=== PATIENT | female | born 1975 | race Two or more races ===

== ENCOUNTER 2023-01-26 12:39 | Inpatient (IN) | payer OTHER, SELFPAY ==
[2023-01-26] VITALS (23 sets, daily range): BP systolic 101–131; BP diastolic 55–81; PULSE 83–118; RESP 18–24; TEMP 30–37.8; O2SAT 71–98; BMI 33.6
--- NOTE | ~2023-01-26 | XR_ITS ---
EXAMINATION: XR CHEST CLINICAL INFORMATION: ETT tube insertion COMPARISON: Chest radiograph 01/28/2023 TECHNIQUE: Frontal view of the chest was obtained at 10:35 AM and 10:38 AM. FINDINGS: Initial radiograph shows ET tube in right proximal mainstem bronchus with complete whiteout of the left lung. Film taken a few minutes later shows good position of the ET tube 3 cm above the berta with improved aeration of the left lung with remaining bibasilar atelectasis. XR/XR chest 1V IMPRESSION: 1. ET tube in good final position 3 cm above the berta. 2. Complete whiteout of the left lung has resolved with remaining bibasilar atelectasis.
--- NOTE | ~2023-01-26 | XR_ITS ---
EXAMINATION: XR ABDOMEN KUB CLINICAL INDICATION: Verified PEG placement COMPARISON: None available. TECHNIQUE: AP view of the abdomen. FINDINGS: Percutaneous catheter with balloon noted overlying the upper mid abdomen. Definitive localization within the intraluminal stomach cannot be verified. If concern about placement of gastrostomy catheter consider evaluation with contrast injection via the catheter and spot images after injection. Bowel gas is otherwise nonobstructive. Osseous structures are intact. Soft tissues are unremarkable. XR/XR KUB IMPRESSION: 1. Percutaneous catheter with balloon noted overlying the upper mid abdomen. Definitive localization within the intraluminal stomach cannot be verified. 2. If concern about intraluminal placement of gastrostomy catheter consider evaluation with contrast injection via the catheter and spot images after injection. 3. Bowel gas is otherwise nonobstructive.
--- NOTE | ~2023-01-26 | XR_ITS ---
EXAMINATION: XR CHEST CLINICAL INFORMATION: Fever. COMPARISON: Chest done on 02/04/2023. TECHNIQUE: Frontal view of the chest was obtained. FINDINGS: The tip of the endotracheal tube is located approximately 3.2 cm above the level of the berta. The left IJ central venous catheter tip is seen projecting at the cavoatrial junction. The enteric tube tip as well as the proximal sidehole projecting in the region of the distal part of the stomach. Low lung volume is noted bilaterally with superimposed patchy airspace disease predominantly at both lower lobes, similar to prior study. No definite evidence of any pleural effusion or pneumothorax. No significant interval change since the prior study. XR/XR chest 1V IMPRESSION: No significant change since 02/04/2023. The positioning of the tubes and catheters appear satisfactory and are unchanged.
--- NOTE | ~2023-01-26 | XR_ITS ---
EXAMINATION: XR CHEST CLINICAL INFORMATION: Respiratory difficulty COMPARISON: Chest radiograph 02/12/2023 TECHNIQUE: Frontal view of the chest was obtained. FINDINGS: Tracheostomy cannula in place. Retrocardiac opacity. No pleural effusion. Low lung volumes. XR/XR chest 1V IMPRESSION: Retrocardiac opacity concerning for atelectasis or pneumonia.
--- NOTE | ~2023-01-26 | XR_ITS ---
EXAMINATION: XR CHEST CLINICAL INFORMATION: Orogastric tube placement COMPARISON: None available. TECHNIQUE: Frontal view of the chest was obtained. FINDINGS: NG tube is looped within the stomach with its tip overlying the gastric antrum heart size within normal limits. ET tube in good position 3 cm above berta. Continued improvement in left basilar atelectasis with residual bilateral bibasilar atelectasis still remaining. XR/XR chest 1V IMPRESSION: NG tube is looped within the stomach with its tip overlying the gastric antrum.
--- NOTE | ~2023-01-26 | XR_ITS ---
EXAMINATION: XR CHEST CLINICAL INFORMATION: OG tube placement COMPARISON: Previous chest x-ray and chest CTA from earlier the same day TECHNIQUE: Frontal view of the chest was obtained. FINDINGS: There is a new OG tube with tip projecting over the proximal stomach. There is an endotracheal tube. The tip is 1 cm above the berta and should be pulled back. The cardiac and mediastinal contours are stable. The lung volumes are low. There is bilateral multilobar airspace disease suggestive of pneumonia. This is greatest at the lung bases. No pleural effusion or pneumothorax. Bony structures are unremarkable. XR/XR chest 1V IMPRESSION: OG tube projects over the stomach. Endotracheal tube tip is 1 cm above the berta and should be pulled back several centimeters. Low lung volumes and bilateral multilobar pneumonia greatest at the lung bases. Findings will be communicated by the [place] work flow wool sorter.
--- NOTE | ~2023-01-26 | CT_ITS ---
EXAMINATION: CT CHEST WITHOUT CONTRAST CLINICAL INFORMATION: Worsening hypoxia. COMPARISON: Chest x-ray 02/02/2023 TECHNIQUE: Multidetector volumetric CT imaging of the chest was done. Axial MIP volume rendering provided. Sagittal and coronal reformatted images were obtained. This CT examination was performed using dose optimization techniques as appropriate, variously including the following: *Automated exposure control *Adjustment of mA and/or kV according to patient size (this includes techniques or standardized protocols for targeted exams where dose is matched to indication/reason for exam; i.e. extremities or head) *Use of iterative reconstruction technique DLP: 253 mGy-cm FINDINGS: PUTTER IN: Hypoexpanded lungs. LUNGS: The lungs are hypoexpanded with dependent bilateral lower lobe and upper lobe infiltrates/consolidation. Also visualized is patchy infiltrates involving the anterobasal segment right lower lobe. MEDIASTINUM: There is endotracheal tube is tip 1.8 cm above the berta. There is enteric tube with its tip in the stomach. Thyroid lobes are symmetric and normal. Central trachea and the bronchi appear widely patent. Heart size and the great vessels are normal caliber. No pericardial effusion seen. CORONARY ARTERY CALCIFICATION: None visualized on this study. PLEURA: There are small bilateral effusions. AXILLA: No lymphadenopathy. UPPER ABDOMEN: Visualized liver, spleen, pancreas, bilateral gland and gallbladder appears unremarkable. OSSEOUS STRUCTURES: No aggressive lytic or sclerotic process seen. CT/CT chest wo IV con IMPRESSION: 1. Hypoexpanded lungs with dependent bilateral lower lobe and upper lobe infiltrates/consolidation. There are small bilateral pleural effusions. 2. Endotracheal tube and enteric tube are in satisfactory position. Fleischner guidelines were followed.
--- NOTE | ~2023-01-26 | US_ITS ---
EXAMINATION: US ABDOMEN LIMITED CLINICAL INFORMATION: Evaluate for a calculus cholecystitis. COMPARISON: Ultrasound abdomen from 02/10/2023 TECHNIQUE: Real-time imaging of the right upper quadrant abdominal viscera. Limited evaluation secondary to inability to obtain optimal patient positioning. FINDINGS: GALLBLADDER: Gallbladder appears contracted. Gallbladder wall thickening of 5 mm which is nonspecific in an contracted state. No pericholecystic fluid or fluid within the wall. No intraluminal calculi identified. COMMON BILE DUCT: Normal in caliber measuring 0.6 cm in diameter. FREE FLUID: None. US/US abdomen limited IMPRESSION: Gallbladder appears contracted with gallbladder wall thickening of 5 mm which is nonspecific in an contracted state. No pericholecystic fluid or fluid within the wall. No intraluminal calculi identified.
--- NOTE | ~2023-01-26 | XR_ITS ---
EXAMINATION: XR CHEST CLINICAL INFORMATION: Hypoxia. COMPARISON: 01/29/2023 TECHNIQUE: Frontal view of the chest was obtained. FINDINGS: The lung volumes are low. The cardiomediastinal silhouette is stable. There is an endotracheal tube in adequate position above the berta. A gastric tube extends below the diaphragm into the left upper abdomen in good position. There is patchy lower lung field consolidation. The bony structures and soft tissues are unremarkable. XR/XR chest 1V IMPRESSION: Endotracheal and gastric tubes in place. Lower lung field consolidation similar to previous possibly a combination of atelectasis and/or infiltrates.
--- NOTE | ~2023-01-26 | US_ITS ---
EXAMINATION: US VENOUS ULTRASOUND WITH DOPPLER LOWER EXTREMITY, BILATERAL CLINICAL INFORMATION: Hypoxia COMPARISON: None available. TECHNIQUE: Ultrasound of the deep veins is performed from the hip to the calf with compression sonography and color and pulse Doppler assessment. Spectral analysis with color-flow imaging is performed. FINDINGS: RIGHT: There is normal venous compression and respiratory variation and augmented flow. The visualized common femoral vein, superficial femoral vein, profunda femoral vein, popliteal vein, and the trifurcation region shows no evidence of deep venous thrombosis. There is no significant popliteal fossa cyst. LEFT: There is normal venous compression and respiratory variation and augmented flow. The visualized common femoral vein, superficial femoral vein, profunda femoral vein, popliteal vein, and the trifurcation region shows no evidence of deep venous thrombosis. There is no significant popliteal fossa cyst. If the patient's symptoms persist, followup ultrasound in 5 days 7 days might be of value to exclude proximal propagation from a non-visualized calf vein. US/US venous duplex LE BI IMPRESSION: No DVT demonstrated in the bilateral lower extremity.
--- NOTE | ~2023-01-26 | XR_ITS ---
EXAMINATION: XR CHEST CLINICAL INFORMATION: Hypoxia COMPARISON: Chest radiograph from 01/26/2023 TECHNIQUE: Frontal view of the chest was obtained. FINDINGS: Interval repositioning of endotracheal tube now approximately 6.5 cm from the level of berta in the supraclavicular region. Enteric tube courses below left hemidiaphragm into the stomach. Bilateral low lung volumes. Accentuation of the pulmonary vasculature. Bilateral airspace opacity's, increasing in the left lung base. No pneumothorax. Trachea is midline. Cardiomediastinal silhouette is stable. No large pleural effusion. Osseous structures are intact. Soft tissues are unremarkable. XR/XR chest 1V IMPRESSION: 1. Interval repositioning of endotracheal tube now approximately 6.5 cm from the level of berta in the supraclavicular region. 2. Enteric tube courses below left hemidiaphragm into the stomach. 3. Bilateral low lung volumes. 4. Accentuation of the pulmonary vasculature. 5. Bilateral airspace opacity's, increasing in the left lung base.
--- NOTE | ~2023-01-26 | XR_ITS ---
EXAMINATION: XR CHEST CLINICAL INFORMATION: Central line placement. COMPARISON: 02/02/2023. TECHNIQUE: Frontal view of the chest was obtained. FINDINGS: The lung volumes are low. The cardiomediastinal silhouette is stable. There is an endotracheal tube seen in good position above the berta. A gastric tube extends below the diaphragm with tip extending to the right midabdomen. Interval placement a left approach central line with terminates at the lower SVC/right atrial junction. There are bilateral mid to lower lung field infiltrates. There are no significant pleural effusions. The bony structures and soft tissues are unremarkable. XR/XR chest 1V IMPRESSION: 1. Endotracheal tube, gastric tube and right central line in place. 2. Bilateral mid to lower lung field infiltrates similar to previous.
--- NOTE | ~2023-01-26 | CT_ITS ---
EXAMINATION: CT ANGIOGRAM OF THE CHEST WITH AND WITHOUT CONTRAST (CT PULMONARY ANGIOGRAM FOR PE) CLINICAL INFORMATION: Reason for Exam SOB, tachycardic, elevated dimer COMPARISON: Previous chest x-ray from earlier the same day TECHNIQUE: Prior to contrast administration, noncontrast localization images were obtained. Subsequently, multidetector volumetric imaging was performed from the thoracic inlet to below the diaphragms following the administration of 65 mL Omnipaque 350 intravenous contrast. No contrast reaction reported Sagittal, coronal, and MIP oblique sagittal reformatted images were obtained on the CT workstation, uploaded to PACS, and reviewed. This CT examination was performed using dose optimization techniques as appropriate, variously including the following: *Automated exposure control *Adjustment of mA and/or kV according to patient size (this includes techniques or standardized protocols for targeted exams where dose is matched to indication/reason for exam; i.e. extremities or head) *Use of iterative reconstruction technique Total exam dose-length product 448 mGy-cm FINDINGS: QUALITY OF STUDY/CONTRAST BOLUS: Satisfactory. PULMONARY ARTERIES: No pulmonary emboli. THORACIC AORTA: No aneurysm. LUNG: There is an endotracheal tube with tip in the proximal right mainstem bronchus and should be pulled back several centimeters. There are scattered areas of increased groundglass attenuation probably representing pneumonitis. There is denser bilateral multilobar airspace disease probably representing pneumonia. The lung volumes are low. PLEURA: No pleural effusion or pneumothorax. MEDIASTINUM: Upper normal heart size. No pericardial effusion. No hilar or mediastinal lymphadenopathy. No evidence of septal bowing or right heart strain. CORONARY ARTERY CALCIFICATION: None visualized on this study. CHEST WALL/AXILLA: No axillary or internal mammary lymphadenopathy. OSSEOUS STRUCTURES: No acute or suspicious osseous abnormality. UPPER ABDOMEN: Unremarkable. No reflux of contrast into the hepatic veins to suggest elevated right heart pressures. CT/CT angio chest PE protocol IMPRESSION: No evidence of pulmonary embolism. Bilateral pneumonitis and multilobar pneumonia. Endotracheal tube with tip in the proximal right mainstem bronchus. This should be pulled back several centimeters. VTE: negative Findings will be communicated by the [place] work flow enamel burner.
--- NOTE | ~2023-01-26 | XR_ITS ---
EXAMINATION: XR CHEST CLINICAL INFORMATION: Hypoxia COMPARISON: Chest 02/26/2023 TECHNIQUE: AP upright portable view of the chest was obtained. 10:20 AM FINDINGS: Lung volumes are low. Tracheostomy tube is again identified. Retrocardiac consolidation in the left lower lobe with air bronchograms is unchanged. There are streaky densities at both lung bases consistent with atelectasis and/or pneumonia. The cardiomediastinal silhouette is stable. XR/XR chest 1V IMPRESSION: Retrocardiac consolidation with air bronchograms, without significant change, suspicious for pneumonia.
--- NOTE | ~2023-01-26 | XR_ITS ---
EXAMINATION: XR CHEST CLINICAL INFORMATION: Shortness of breath. COMPARISON: Chest radiograph dated 04/07/2012. TECHNIQUE: Frontal view of the chest was obtained. FINDINGS: Interstitial and pulmonary vascular prominence with small bilateral pleural effusions and adjacent atelectasis versus infiltrates. No pneumothorax. Unremarkable cardiomediastinal silhouette. XR/XR chest 1V IMPRESSION: Interstitial and pulmonary vascular prominence with small bilateral pleural effusions and adjacent atelectasis versus infiltrates. Findings can be seen in the setting of pulmonary edema.
--- NOTE | ~2023-01-26 | XR_ITS ---
EXAMINATION: XR CHEST CLINICAL INFORMATION: Leukocytosis, increased oxygen requirement COMPARISON: 02/21/2023 TECHNIQUE: Frontal view of the chest was obtained. FINDINGS: Tracheostomy tube is again evident. Retrocardiac consolidation in the left lower lobe with air bronchograms is unchanged. The right lung is grossly clear. XR/XR chest 1V IMPRESSION: Retrocardiac consolidation with air bronchograms, suspicious for pneumonia in the setting of leukocytosis, unchanged since 02/21/2023.
--- NOTE | ~2023-01-26 | XR_ITS ---
EXAMINATION: XR CHEST CLINICAL INFORMATION: Hypoxia. COMPARISON: 02/08/2023 chest radiograph. TECHNIQUE: Frontal view of the chest was obtained. FINDINGS: Support devices: Tracheostomy tube in place. Left-sided internal jugular catheter with tip terminating at the cavoatrial junction. Low lung volumes and evaluation. Mild to moderate elevation right hemidiaphragm. The lungs appear clear. The heart and mediastinal structures are unremarkable. XR/XR chest 1V IMPRESSION: Limited study without overt acute cardiopulmonary process.
--- NOTE | ~2023-01-26 | XR_ITS ---
EXAMINATION: XR CHEST CLINICAL INFORMATION: Worsening hypoxia. COMPARISON: 02/01/2023 chest radiograph. TECHNIQUE: Frontal view of the chest was obtained. FINDINGS: Support devices: Endotracheal tube is positioned approximately 2.5 cm proximal to berta. Low lung volumes limit evaluation. Mild bibasilar linear markings are seen. The heart and mediastinal structures are unremarkable. XR/XR chest 1V IMPRESSION: 1. Endotracheal tube positioned approximately 2.5 cm proximal to berta. 2. Mild bibasilar linear markings are nonspecific, but may be secondary to atelectasis from low lung volumes. A definitive infiltrate is not seen but cannot be excluded, especially on the right.
--- NOTE | ~2023-01-26 | US_ITS ---
EXAMINATION: US ABDOMEN LIMITED CLINICAL INFORMATION: Elevated LFT. COMPARISON: None available. TECHNIQUE: Real-time imaging of the right upper quadrant abdominal viscera. FINDINGS: PANCREAS: The head and the body the pancreas is homogeneous in echotexture. The tail is not obscured. LIVER: The liver is borderline measuring 15.9 cm.. The liver is normal in size. The liver contour is normal. Parenchymal echogenicity is normal. No focal hepatic lesion. There is no intrahepatic biliary duct dilatation seen. GALLBLADDER: There is mild gallbladder wall thickness measuring 0.5 cm The gallbladder is physiologically distended without evidence of stones, sludge, polyps, wall thickening or pericholecystic fluid. COMMON BILE DUCT: Normal in caliber measuring 0.4 cm in diameter. RIGHT KIDNEY: Normal. No hydronephrosis. No renal calculi or focal parenchymal lesions. The kidney measures 9.9 cm in maximum dimension. FREE FLUID: None. US/US abdomen limited IMPRESSION: 1. Borderline liver size measuring 15.9 cm. No focal lesion seen. 2. Mild gallbladder wall thickening measuring 0.5 cm. No echogenic stones or tenderness in the right upper quadrant. 3. Visualized right kidney, CBD and pancreas is unremarkable.
--- NOTE | 2023-01-26 12:51 | ED.SOB ---
HPI - SOB/Dyspnea General Chief Complaint: Dyspnea Stated Complaint: SOB,HX OF COPD,NO SUPP O2 ALL LAST NIGHT Time Seen by Provider: 01/26/23 12:50 Source: patient, EMS, RN notes reviewed and old records reviewed Mode of arrival: EMS Limitations: no limitations History of Present Illness HPI Narrative: Patient comes to the emergency room via ambulance. Patient states that she has been feeling short of breath for approximately 1 week. Mild coughing. Patient states that today her oxygen dropped quite a bit. According to EMS, the patient did not have her oxygen on, slept all night without oxygen and therefore she was hypoxic. However, when I spoke to the patient, she states that she did have her oxygen on, she states that her oxygen was well connected and the tank is full. When patient arrived to the emergency room, patient's oxygen saturation was in the low 70s despite 6 L of oxygen. Patient was started on non-rebreather at 15 L, oxygen improved to 95%. Once patient was saturating 95%, the patient's nurse attempted to wean her down to nasal cannula but patient desaturated immediately to the low 80s and needed non-rebreather again. Related Data Allergies Allergy/AdvReac Type Severity Reaction Status Date / Time No Known Allergies Allergy Unverified 03/08/20 18:23 Review of Systems Review of Systems: Constitutional : No Weight loss, No Fever, No Chills, No Night Sweats, No Fatigue, No Malaise ENT/Mouth : No Hearing loss, No Ear Pain, No Nasal Congestion, No Sinus Pain, No Hoarseness, No sore throat, No Rhinorrhea, No Swallowing Difficulty Eyes: No Eye Pain, No Swelling, No Redness, No Foreign Body, No Discharge, No Vision Changes Cardiovascular : No Chest Pain, no orthopnea, no edema Respiratory : Complaining of cough, chronic wheezing and worsening shortness of breath Gastrointestinal : No Nausea, No Vomiting, No Diarrhea, No Constipation, No abdominal Pain, No Hematochezia, No Melena Genitourinary : no irregular bleeding, No Dysuria, No Urinary Frequency, No Hematuria, No Urinary Incontinence, No Urgency, No Flank Pain, No Urinary Flow Changes, No Hesitancy Musculoskeletal : No joint pain, No Myalgias, No Joint Swelling Skin : No Skin Lesions, No rash Neuro : No Weakness, No Numbness, No Paresthesias, No Loss of Consciousness, No Dizziness, No Headache Psych : No Anxiety/Panic, No Depression, No SI/HI/AH/VH, No Social Issues, Heme/Lymph: No Bruising, No Bleeding,No Lymphadenopathy Endocrine : No Polyuria, No Polydipsia, No Temperature Intolerance Constitutional: Constitutional: Reports as per HPI [facility] Past Medical History Medical History (Updated 01/26/23 @ 19:49 by Chanda Ferrera MD) COPD (chronic obstructive pulmonary disease) Muscular dystrophy Social History Social History Alcohol intake: never Smoked in Last 30 Days: No Use of substances other than those prescribed or required for medical reasons: No Advance Directives: No Advance Directives Information Provided: No Patient : No Physical Exam Vital Signs: Vital Signs: Last Vital Signs Temp 99.9 F 01/26/23 19:39 Pulse 108 H 01/26/23 20:00 Resp 24 H 01/26/23 20:00 BP 117/66 01/26/23 20:00 Pulse Ox 98 01/26/23 20:00 O2 Del Method Mechanical Ventil ation 01/26/23 19:39 O2 Flow Rate 11 01/26/23 16:00 FiO2 50 01/26/23 19:39 Oxygen Flow Rate 4 01/26/23 13:05 BMI result Body Mass Index 33.6 Const: Other: Appearance: Alert. Oriented X3. No acute distress. Eyes: Pupils equal, round and reactive to light. ENT: Pharynx normal. Neck: Normal inspection. Neck supple. No lymph nodes noted. No crepitus CVS: Normal heart rate and rhythm. Pulses normal. Normal S1 and S2 Respiratory: Speaking in short sentences, on arrival oxygen saturation 71% on 6 L nasal cannula, 95% on 10 L on a non-rebreather Abdomen: Soft and nontender. No rigidity. No distention. Skin: Skin warm and dry. Normal skin color. Normal skin turgor. Extremities: No lower extremity edema. No Lacerations. No Rash Neuro: Oriented X 3. No motor deficit. No sensory deficit. Moving all extremities. No slurred speech. CN 2 through 12 grossly intact Psych: calm, cooperative, normal affect HEENT: Head: Yes normal to inspection and Yes atraumatic Ears: hearing grossly normal bilaterally General nose exam: Normal external nose present Face and sinus: Yes normal facial exam Eyes: General: appearance normal, both eyes and all related structures EOM: EOMs intact bilaterally Neck: Neck: Yes normal visual inspection and Yes no meningeal signs Resp: Effort & Inspection: normal respiratory effort and no respiratory distress Auscultation: clear to auscultation bilaterally Cardio: Rate: regular rate Heart sounds: S1 normal heart sound present and S2 normal heart sound present GI: Inspection: Yes normal to inspection Palpation (GI): Soft to palpation, nontender, no guarding and not rigid : General: Yes no CVA tenderness Back/Spine/Pelvis: Back: no CVA tenderness Skin: Rashes: no rashes Wounds: no wounds Neuro: General: tone normal and no meningeal signs Gait exam (Neuro): Normal gait present Extrem: General: Yes normal to inspection Course Course Course Narrative: Please refer to course for remaining clinical decision making, interpretation of labs/imaging results, and discussions with consultants and/or family members. Medications Administered Generic Name Dose Route Start Last Admin Trade Name Freq PRN Reason Stop Dose Admin Enoxaparin Sodium 40 mg 01/26/23 19:15 01/26/23 19:28 Enoxaparin Sodium 40 Mg/0.4 Ml Syringe SUBCUT 40 mg Q24H CARINA Administration Propofol 1,000 mg in 100 mls @ 0 mls/hr 01/26/23 16:30 01/26/23 18:34 Diprivan IVCONT 85.45 mcg/kg/min .Q0M CARINA 40 mls/hr Titration Protocol Per Protocol Fentanyl 1,000 mcg in 100 mls @ 0 mls/hr 01/26/23 19:00 01/26/23 20:00 Sublimaze/Ns IVCONT 50 mcg/hr .Q0M CARINA 5 mls/hr Titration Protocol Per Protocol Sodium Chloride 1,500 mls @ 999 mls/hr 01/26/23 19:07 01/26/23 19:20 Ns IVCONT 01/26/23 20:37 999 mls/hr .Q1H31M ONE Administration Discontinued Medications Generic Name Dose Route Start Last Admin Trade Name Freq PRN Reason Stop Dose Admin Etomidate 20 mg 01/26/23 16:26 01/26/23 16:34 Etomidate 20 Mg/10 Ml Vial IVPUSH 01/26/23 16:27 20 mg NOW STA Administration Furosemide 40 mg 01/26/23 15:35 01/26/23 16:22 Furosemide 40 Mg/4 Ml Vial IVPUSH 01/26/23 15:36 40 mg STAT STA Administration Protocol Ceftriaxone Sodium 1 gm/ 50 mls @ 100 mls/hr 01/26/23 15:29 01/26/23 17:00 Sodium Chloride IV 01/26/23 15:58 Infused ONCE ONE Infusion Azithromycin 500 mg/ Sodium 250 mls @ 125 mls/hr 01/26/23 15:29 01/26/23 18:21 Chloride IV 01/26/23 17:28 125 mls/hr ONCE ONE Administration Iohexol 65 ml 01/26/23 17:29 01/26/23 17:29 Iohexol 350 Mg/Ml 75 Ml Infus..Btl IV 01/26/23 17:30 65 ml ONCE ONE Administration Lorazepam 2 mg 01/26/23 15:18 01/26/23 15:43 Lorazepam 2 Mg/Ml Vial IVPUSH 01/26/23 15:19 2 mg ONCE ONE Administration Rocuronium Gable 80 mg 01/26/23 17:34 01/26/23 16:34 Rocuronium Gable 50 Mg/5 Ml Vial IVPUSH 01/26/23 17:35 80 mg ONCE ONE Administration Medical Decision Making Medical Decision Making MDM Narrative: -15:29, chest x-ray shows pleural effusions plus atelectasis versus pneumonia versus pulmonary edema. Patient is empirically being treated with ceftriaxone and azithromycin, also given Lasix. -Patient's blood pressure stable, patient does not need IV bolus of fluids. Patient may have pulmonary edema. We tried doing a CT scan, but when patient lie down, patient became very short of breath, patient became cyanotic and the CT scan had to be stopped -patient is significantly hypoxic from baseline, patient will be admitted -my interpretation of labs: patient's D-dimer is elevated, 285, unlikely due to a pulmonary embolism. Likely due to pneumonia, pleural effusions, pulmonary edema. BNP normal, unlikely to be pulmonary edema -my interpretation of EKG: Normal sinus rhythm, heart rate 93, no ST segment depression or elevation, no T-wave inversion, QTC 455 -patient's troponin is 221.3. Likely from demand ischemia secondary to prolonged hypoxia. Patient has no chest pain. -15:55, patient is very lethargic, barely arousable to sternal rub. We will attempt putting the patient on high-flow, if patient does not improve, she will need to be intubated. -patient's oxygen saturation was in the low 80s on 11 L on the OxyMask, 93% on high-flow. -patient was on high-flow for approximately 20 minutes, oxygen saturation in the low 90s with occasional desaturations in the mid 80s. Patient too lethargic. Patient was intubated. -at 19:08, I receive a phone call from [facility], patient has bilateral pneumonitis and multilobar pneumonia. It was confirmed that patient does not have pulmonary edema. At this time, we will go ahead and start fluids, patient being given fluids based on ideal weight of 45 kg, patient is morbidly obese. -I tried contacting the patient's who is listed that is the patient's primary contact. He did not answer the phone, the voicemail is not functioning either. 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 I discussed this with the patient's nurse and charge nurse, they will make a phone call to PD for a wellness check at the patient's and her 's home. Differential Diagnosis Differential Diagnoses: The differential diagnosis associated with the presentation includes (As above) Admission/Observation Consideration of admission/observation: Escalation of care including admission/observation considered Consult Healthcare Provider Management of the patient was discussed with: Foot Piece Assembler (I spoke with Dr. Seals, patient being admitted to the ICU) Lab Data MDM Lab Attestation statement: I reviewed the patient's lab results. 01/26/23 13:34 01/26/23 13:34 Labs: Lab Results 01/26/23 01/26/23 01/26/23 Range/Units 13:33 13:34 13:34 WBC 4.7 L (4.8-10.8) X10*3/uL RBC 3.82 L (4.20-5.50) X10*6/uL Hgb 11.4 L (12.0-16.0) g/dl Hct 40.3 (37.0-47.0) % MCV 105.5 H (80.0-98.0) fL MCH 29.8 (27.0-33.0) pg MCHC 28.3 L (31.0-35.0) g/dl RDW 13.2 (11.0-16.0) % Plt Count 179 (160-400) X10*3/uL MPV 10.5 (9.4-12.3) fL Immature Gran % (Auto) 0.4 (0.0-0.4) % Neut % (Auto) 73.4 H (45-73) % Lymph % (Auto) 17.6 L (20-40) % Rooks % (Auto) 6.7 (2-11) % Eos % (Auto) 1.7 (0-4) % Baso % (Auto) 0.2 (0-2) % Lymph # (Auto) 0.8 L (1.2-4.9) X10*3/uL Rooks # (Auto) 0.3 (0.1-1.2) X10*3/uL Eos # (Auto) 0.1 (0.0-0.4) X10*3/uL Baso # (Auto) 0.0 (0.0-0.2) X10*3/uL Abs Immat Gran (auto) 0.02 (0.00-0.03) X10*3/uL Absolute Neuts (auto) 3.4 (2.0-8.3) x10*3/uL Absolute Nucleated RBC 0.000 (0.0-0.012) X10*3/uL Nucleated RBC % (auto) 0.0 (0.0-0.2) /100WBC D-Dimer High Sensitivty NG/ML O2 Saturation % ABG pH at Pt Temp (7.35-7.45) ABG pCO2 at Pt Temp (32-45) mmHg ABG pO2 at Pt Temp (83-108) mmHg ABG HCO3 (22-26) mmol/L ABG Base Excess (Actual) mmol/L VBG pH (7.32-7.43) VBG pCO2 mmHg VBG pO2 mmHg VBG HCO3 (22-26) mmol/L VBG O2 Saturation % VBG Base Excess mmol/L Sodium 148 H (135-145) mmol/L Potassium 4.2 (3.3-5.1) mmol/L Chloride 97 (96-108) mmol/L Carbon Dioxide 41 H* (22-29) mmol/L Anion Gap 14 (12-20) BUN 8 L (9-16) mg/dL Creatinine 0.53 (0.5-1.4) mg/dL Estim Creat Clear Calc 123.8 Estimated GFR > 60 Random Glucose 104 (60-115) mg/dL Lactic Acid (0.5-2.0) mmol/L Calcium 9.5 (8.4-10.2) mg/dL Magnesium 2.2 (1.6-2.6) mg/dL Total Bilirubin 0.5 (0.0-1.0) mg/dL AST 27 (5-31) U/L ALT 22 (0-31) U/L Alkaline Phosphatase 64 (39-117) U/L Troponin I High Sens (<3.5-17.0) ng/L B-Natriuretic Peptide 42 (<100) pg/mL Total Protein 6.7 (6.5-8.0) g/dL Albumin 3.4 L (3.5-5.0) g/dL Urine Color Urine Appearance Urine pH (5.0-9.0) Ur Specific [place] (1.005-1.025) Urine Protein (Neg-Trace) mg/dL Urine Glucose (UA) (Negative) mg/dL Urine Ketones (Negative) mg/dL Urine Blood (Negative) Urine Nitrite (Negative) Ur Leukocyte Esterase (Negative) COVID-19 (JOEL) (Negative) COVID-19 Clin Com 01/26/23 01/26/23 01/26/23 Range/Units 13:34 13:34 13:34 WBC (4.8-10.8) X10*3/uL RBC (4.20-5.50) X10*6/uL Hgb (12.0-16.0) g/dl Hct (37.0-47.0) % MCV (80.0-98.0) fL MCH (27.0-33.0) pg MCHC (31.0-35.0) g/dl RDW (11.0-16.0) % Plt Count (160-400) X10*3/uL MPV (9.4-12.3) fL Immature Gran % (Auto) (0.0-0.4) % Neut % (Auto) (45-73) % Lymph % (Auto) (20-40) % Rooks % (Auto) (2-11) % Eos % (Auto) (0-4) % Baso % (Auto) (0-2) % Lymph # (Auto) (1.2-4.9) X10*3/uL [place]ooks # (Auto) (0.1-1.2) X10*3/uL Eos # (Auto) (0.0-0.4) X10*3/uL Baso # (Auto) (0.0-0.2) X10*3/uL Abs Immat Gran (auto) (0.00-0.03) X10*3/uL Absolute Neuts (auto) (2.0-8.3) x10*3/uL Absolute Nucleated RBC (0.0-0.012) X10*3/uL Nucleated RBC % (auto) (0.0-0.2) /100WBC D-Dimer High Sensitivty 285 NG/ML O2 Saturation % ABG pH at Pt Temp (7.35-7.45) ABG pCO2 at Pt Temp (32-45) mmHg ABG pO2 at Pt Temp (83-108) mmHg ABG HCO3 (22-26) mmol/L ABG Base Excess (Actual) mmol/L VBG pH (7.32-7.43) VBG pCO2 mmHg VBG pO2 mmHg VBG HCO3 (22-26) mmol/L VBG O2 Saturation % VBG Base Excess mmol/L Sodium (135-145) mmol/L Potassium (3.3-5.1) mmol/L Chloride (96-108) mmol/L Carbon Dioxide (22-29) mmol/L Anion Gap (12-20) BUN (9-16) mg/dL Creatinine (0.5-1.4) mg/dL Estim Creat Clear Calc Estimated GFR Random Glucose (60-115) mg/dL Lactic Acid (0.5-2.0) mmol/L Calcium (8.4-10.2) mg/dL Magnesium (1.6-2.6) mg/dL Total Bilirubin (0.0-1.0) mg/dL AST (5-31) U/L ALT (0-31) U/L Alkaline Phosphatase (39-117) U/L Troponin I High Sens 221.3 H* (<3.5-17.0) ng/L B-Natriuretic Peptide (<100) pg/mL Total Protein (6.5-8.0) g/dL Albumin (3.5-5.0) g/dL Urine Color Urine Appearance Urine pH (5.0-9.0) Ur Specific [place] (1.005-1.025) Urine Protein (Neg-Trace) mg/dL Urine Glucose (UA) (Negative) mg/dL Urine Ketones (Negative) mg/dL Urine Blood (Negative) Urine Nitrite (Negative) Ur Leukocyte Esterase (Negative) COVID-19 (JOEL) Negative (Negative) COVID-19 Clin Com See Note 01/26/23 01/26/23 01/26/23 Range/Units 13:35 15:26 16:04 WBC (4.8-10.8) X10*3/uL RBC (4.20-5.50) X10*6/uL Hgb (12.0-16.0) g/dl Hct (37.0-47.0) % MCV (80.0-98.0) fL MCH (27.0-33.0) pg MCHC (31.0-35.0) g/dl RDW (11.0-16.0) % Plt Count (160-400) X10*3/uL MPV (9.4-12.3) fL Immature Gran % (Auto) (0.0-0.4) % Neut % (Auto) (45-73) % Lymph % (Auto) (20-40) % Rooks % (Auto) (2-11) % Eos % (Auto) (0-4) % Baso % (Auto) (0-2) % Lymph # (Auto) (1.2-4.9) X10*3/uL [place] # (Auto) (0.1-1.2) X10*3/uL Eos # (Auto) (0.0-0.4) X10*3/uL Baso # (Auto) (0.0-0.2) X10*3/uL Abs Immat Gran (auto) (0.00-0.03) X10*3/uL Absolute Neuts (auto) (2.0-8.3) x10*3/uL Absolute Nucleated RBC (0.0-0.012) X10*3/uL Nucleated RBC % (auto) (0.0-0.2) /100WBC D-Dimer High Sensitivty NG/ML O2 Saturation 96.0 % ABG pH at Pt Temp 7.27 L (7.35-7.45) ABG pCO2 at Pt Temp 100 H* (32-45) mmHg ABG pO2 at Pt Temp 94 (83-108) mmHg ABG HCO3 46 H (22-26) mmol/L ABG Base Excess (Actual) 14.8 mmol/L VBG pH 7.38 (7.32-7.43) VBG pCO2 80 mmHg VBG pO2 38 mmHg VBG HCO3 47 H (22-26) mmol/L VBG O2 Saturation 60.0 % VBG Base Excess 18.5 mmol/L Sodium (135-145) mmol/L Potassium (3.3-5.1) mmol/L Chloride (96-108) mmol/L Carbon Dioxide (22-29) mmol/L Anion Gap (12-20) BUN (9-16) mg/dL Creatinine (0.5-1.4) mg/dL Estim Creat Clear Calc Estimated GFR Random Glucose (60-115) mg/dL Lactic Acid (0.5-2.0) mmol/L Calcium (8.4-10.2) mg/dL Magnesium (1.6-2.6) mg/dL Total Bilirubin (0.0-1.0) mg/dL AST (5-31) U/L ALT (0-31) U/L Alkaline Phosphatase (39-117) U/L Troponin I High Sens (<3.5-17.0) ng/L B-Natriuretic Peptide (<100) pg/mL Total Protein (6.5-8.0) g/dL Albumin (3.5-5.0) g/dL Urine Color Yellow Urine Appearance Turbid Urine pH 8.5 (5.0-9.0) Ur Specific [place] 1.020 (1.005-1.025) Urine Protein Trace (Neg-Trace) mg/dL Urine Glucose (UA) Negative (Negative) mg/dL Urine Ketones Trace (Negative) mg/dL Urine Blood Negative (Negative) Urine Nitrite Negative (Negative) Ur Leukocyte Esterase Negative (Negative) COVID-19 (JOEL) (Negative) COVID-19 [facility] 01/26/23 Range/Units 16:09 WBC (4.8-10.8) X10*3/uL RBC (4.20-5.50) X10*6/uL Hgb (12.0-16.0) g/dl Hct (37.0-47.0) % MCV (80.0-98.0) fL MCH (27.0-33.0) pg MCHC (31.0-35.0) g/dl RDW (11.0-16.0) % Plt Count (160-400) X10*3/uL MPV (9.4-12.3) fL Immature Gran % (Auto) (0.0-0.4) % Neut % (Auto) (45-73) % Lymph % (Auto) (20-40) % [place]ook[place] % (Auto) (2-11) % Eos % (Auto) (0-4) % Baso % (Auto) (0-2) % Lymph # (Auto) (1.2-4.9) X10*3/uL [place] # (Auto) (0.1-1.2) X10*3/uL Eos # (Auto) (0.0-0.4) X10*3/uL Baso # (Auto) (0.0-0.2) X10*3/uL Abs Immat Gran (auto) (0.00-0.03) X10*3/uL Absolute Neuts (auto) (2.0-8.3) x10*3/uL Absolute Nucleated RBC (0.0-0.012) X10*3/uL Nucleated RBC % (auto) (0.0-0.2) /100WBC D-Dimer High Sensitivty NG/ML O2 Saturation % ABG pH at Pt Temp (7.35-7.45) ABG pCO2 at Pt Temp (32-45) mmHg ABG pO2 at Pt Temp (83-108) mmHg ABG HCO3 (22-26) mmol/L ABG Base Excess (Actual) mmol/L VBG pH (7.32-7.43) VBG pCO2 mmHg VBG pO2 mmHg VBG HCO3 (22-26) mmol/L VBG O2 Saturation % VBG Base Excess mmol/L Sodium (135-145) mmol/L Potassium (3.3-5.1) mmol/L Chloride (96-108) mmol/L Carbon Dioxide (22-29) mmol/L Anion Gap (12-20) BUN (9-16) mg/dL Creatinine (0.5-1.4) mg/dL Estim Creat Clear Calc Estimated GFR Random Glucose (60-115) mg/dL Lactic Acid 0.6 (0.5-2.0) mmol/L Calcium (8.4-10.2) mg/dL Magnesium (1.6-2.6) mg/dL Total Bilirubin (0.0-1.0) mg/dL AST (5-31) U/L ALT (0-31) U/L Alkaline Phosphatase (39-117) U/L Troponin I High Sens (<3.5-17.0) ng/L B-Natriuretic Peptide (<100) pg/mL Total Protein (6.5-8.0) g/dL Albumin (3.5-5.0) g/dL Urine Color Urine Appearance Urine pH (5.0-9.0) Ur Specific [place] (1.005-1.025) Urine Protein (Neg-Trace) mg/dL Urine Glucose (UA) (Negative) mg/dL Urine Ketones (Negative) mg/dL Urine Blood (Negative) Urine Nitrite (Negative) Ur Leukocyte Esterase (Negative) COVID-19 (JOEL) (Negative) COVID-19 Clin Com ABG Data Attestation ABG: I personally reviewed and interpreted this ABG as follows: (PH 7.27, pCO2 low 100, these 2 values got worse over the last couple of hours, bicarb 46, chronic.) Independent Interpretation I performed an independent interpretation of an: EKG Interpretation: My interpretation of EKG: Normal sinus rhythm, heart rate 93, no ST segment depression or elevation, no T-wave inversion, QTC 455 Radiology Impression Discussion of test interpretation with radiology: I have reviewed the radiologist's reading. Radiologist Impression: FINDINGS: Interstitial and pulmonary vascular prominence with small bilateral pleural effusions and adjacent atelectasis versus infiltrates. No pneumothorax. Unremarkable cardiomediastinal silhouette. XR/XR chest 1V IMPRESSION: Interstitial and pulmonary vascular prominence with small bilateral pleural effusions and adjacent atelectasis versus infiltrates. Findings can be seen in the setting of pulmonary edema. External Record Review External record reviewed: Inpatient record, Office record, Outpatient record, Prior outpatient labs, Prior outpatient radiology, Primary care record and Outside ED record Chronic Conditions Patient?s care impacted by: Other (Muscular dystrophy) Procedures Intubation Time out performed: Yes sedative: Etomidate Mg Given: 20 paralytic: Rocuronium Mg Given: 80 Laryngoscope: other (GlideScope) ET Tube Size: 7.5 ET Tube Uncuffed: Yes Tube Secured Depth (cm): 23 Tube Secured Location: lips Tube Placement Confirmation: visualized tube passing through cords, equal breath sounds bilaterally, no breath sounds over epigastrium and confirmation by capnometry Patient Tolerated Procedure: well and no complications Intubation Complications: none Critical Care Time Critical Care Time Critical Care Time: Yes Total Critical Care Time: 120 Attestation: I have personally provided critical care time. Time includes review of lab data, radiology results, discussion with consultants, and monitoring for potential decompensation. Intervention performed as documented. Discharge Plan Discharge Clinical Impression: Pneumonia, Respiratory failure Patient Disposition: Admitted As Inpatient
--- NOTE | 2023-01-26 13:11 | ECG_ITS ---
Test Reason : SOB Blood Pressure : / mmHG Vent. Rate : 093 BPM Atrial Rate : 093 BPM P-R Int : 164 ms QRS Dur : 070 ms QT Int : 366 ms P-R-T Axes : 022 -11 030 degrees QTc Int : 455 ms Normal sinus rhythm Normal ECG When compared with ECG of 03-FEB-2012 00:27, No significant change was found Referred By: Ursula Shabazz Electronically Signed By:Miguel Felipe
--- NOTE | 2023-01-26 13:16 | PC.NURSE ---
pt changed into hospital attire, place on court monitor, pt cdontinues to desat w/ NC- placed on non-rebreather spO2 now 91
--- NOTE | 2023-01-26 13:28 | PC.NURSE ---
Respiratory contacted, made aware of current vitals
--- NOTE | 2023-01-26 13:29 | PC.NURSE ---
report given to ENMANUEL Paiz pt transferred to ED1
[2023-01-26 13:39] LABS: MANUAL DIFF FLAG NO
[2023-01-26 13:41] LABS: Basophils Percent Auto 0.2 % (0-2); Eosinophils Absolute Auto 0.1 X10*3/uL (0.0-0.4); Eosinophils Percent Auto 1.7 % (0-4); Hematocrit 40.3 % (37.0-47.0); Hemoglobin 11.4 g/dl (12.0-16.0); Imm Gran Abs Auto 0.02 X10*3/uL (0.00-0.03); Imm Gran Pct Auto 0.4 % (0.0-0.4); Lymphocytes Absolute Auto 0.8 X10*3/uL (1.2-4.9); Lymphocytes Percent Auto 17.6 % (20-40); Mean Corpuscular HGB Conc 28.3 g/dl (31.0-35.0); Mean Corpuscular Hemoglobin 29.8 pg (27.0-33.0); Mean Corpuscular Volume 105.5 fL (80.0-98.0); Mean Platelet Volume 10.5 fL (9.4-12.3); Monocytes Absolute Auto 0.3 X10*3/uL (0.1-1.2); Monocytes Percent Auto 6.7 % (2-11); Neutrophils Absolute Auto 3.4 x10*3/uL (2.0-8.3); Neutrophils Percent Auto 73.4 % (45-73); Platelet Count 179 X10*3/uL (160-400); Red Blood Count 3.82 X10*6/uL (4.20-5.50); Red Cell Distribution Width 13.2 % (11.0-16.0); White Blood Count 4.7 X10*3/uL (4.8-10.8)
--- NOTE | 2023-01-26 13:44 | PC.NURSE ---
pt brought to room 1, air sampling and monitoring applied, ekg being obtained, labs obtained, pt changed from NRB mask w/ nasal cannula under to a oxymask, pt sat in low 90s- provider notified of change and is ok with patients O2 sat at this point, nasal swab performed, call marshall within reach, will continue to monitor
[2023-01-26 13:45] LABS: VBG Base Excess 18.5 mmol/L; VBG HCO3 47 mmol/L (22-26); VBG pCO2 80 mmHg; VBG pH 7.38 (7.32-7.43); VBG pO2 38 mmHg
[2023-01-26 13:47] LABS: Venous Blood Gas Refer to POC result
--- NOTE | 2023-01-26 13:49 | PC.NURSE ---
pt alert and oriented to self and place only. pt unsure of what year it is. pt comes in with SOB but denies any other symptoms. pt currently on oxymask at 7L displaying 90% SpO2. breath sounds diminished at bases bilaterally. pt denies pain on inspiration/expiration. pt able to answer questions fully but speaks in short sentences.
[2023-01-26 13:50] LABS: D Dimer High Sensitivity 285 NG/ML
[2023-01-26 14:02] LABS: B Type Natriuretic Peptide 42 pg/mL (<100)
[2023-01-26 14:22] LABS: Alanine Aminotransferase 22 U/L (0-31); Albumin Level 3.4 g/dL (3.5-5.0); Alkaline Phosphatase 64 U/L (39-117); Anion Gap 14 (12-20); Aspartate Amino Transferase 27 U/L (5-31); Bilirubin Total 0.5 mg/dL (0.0-1.0); Blood Urea Nitrogen 8 mg/dL (9-16); Calcium 9.5 mg/dL (8.4-10.2); Carbon Dioxide 41 mmol/L (22-29); Chloride 97 mmol/L (96-108); Creatinine Clr Calc Pharmacy 123.8; Estimated Glomerular Filt Rate > 60; Glucose Random 104 mg/dL (60-115); Magnesium 2.2 mg/dL (1.6-2.6); Potassium 4.2 mmol/L (3.3-5.1); Sodium 148 mmol/L (135-145); Total Protein 6.7 g/dL (6.5-8.0)
[2023-01-26 14:23] LABS: Troponin-I High Sensitivity 221.3 ng/L (<3.5-17.0)
[2023-01-26 14:26] LABS: COVID-19 Test Negative (Negative); IDNOW Serial# 08D9AD1C
[2023-01-26 15:39] LABS: Appearance Urine Turbid; Color Urine Yellow; Glucose Urine UA Negative (Negative); Leukocyte Esterase Urine Negative (Negative); Nitrite Urine Negative (Negative); PH 8.5 (5.0-9.0); Urine Blood Negative (Negative); Urine Ketones Trace mg/dL (Negative); Urine Protein Trace mg/dL (Neg-Trace)
[2023-01-26] MEDS: LORazepam 2 MG/ML VIAL IVPUSH (15:43)
--- NOTE | 2023-01-26 16:05 | PC.NURSE ---
Addendum entered by Odalys Farooq 01/26/23 16:16: RT* not RA Original Note: superintendent [employer] called to provide information on medication that was going to be administered. pt was a&o prior to leaving the room. started vitals and went to ask provider if they needed cultures/lactic prior to administering abx. while gone, tech and RA found patient at 73%. RA did sternal rub on pt and also mitali ABGs. RA and techs currently drawing labs and sending them. respiratory now bedside giving treatment.
[2023-01-26 16:12] LABS: ABG Base Excess 14.8 mmol/L; ABG HCO3 46 mmol/L (22-26); ABG pCO2 100 mmHg (32-45); ABG pH 7.27 (7.35-7.45); ABG pO2 94 mmHg (83-108)
--- NOTE | 2023-01-26 16:15 | PC.NURSE ---
RT bedside - pt currently high flow 55L and 65% oxygen.
[2023-01-26] MEDS: Furosemide 40 MG/4 ML VIAL IVPUSH (16:22)
[2023-01-26] MEDS: cefTRIAXone sodium 1 GM in 0.9 % Sodium Chloride 50 ML IV (16:22)
[2023-01-26 16:30] LABS: Lactic Acid 0.6 mmol/L (0.5-2.0)
[2023-01-26] MEDS: Rocuronium Bromide 50 MG/5 ML VIAL 80 MG IVPUSH (16:34)
[2023-01-26] MEDS: Etomidate 20 MG/10 ML VIAL IVPUSH (16:34)
[2023-01-26] MEDS: propofoL 1,000 MG/100 ML VIAL 30 MG IVCONT (16:50)
[2023-01-26] MEDS: iohexoL 350 MG/ML 75 ML INFUS..BTL 65 ML IV (17:29)
--- NOTE | 2023-01-26 17:36 | PC.NURSE ---
Intubation: Dr. Ferrera, RT, Judith RN, Odalys RN, Lindsey Tech, Navjot tech at bedside preparing for intubation 1634- 20 mg etomidate given 1634- [address] Ferrera visualized vocal cords, intubated with 7.5 tube/23 at the lip. RT bagging patient- 100%, HR 104 1650 Prop hung at 30 mcg/kg/min- bp 157/102 p 120 Pt moved over to vent- 99% O2 on portable vent to transport to CT. 16F temp sensing tatum cath inserted 1700- Per Dr. Ferrera request, pt moved to CT scan Pt began desatting in hallway on the way to CT scan 1709- Once in CT scan, per request of Dr. Ferrera RT moved tube to 21@ lip patients O2 sat was 66% vented, pt was removed from vent and briefly bagged, pts O2 sat increased to 99% vented at 100%. HR 112 Ct scan performed/ pt remained stable during ct scan pt moved from CT scan into Room 4- pt was previously in room 1. Current vitals from this point will be documented in vitals section
--- NOTE | 2023-01-26 18:05 | PC.NURSE ---
OG tube placed, CXR ordered to confirm placement
[2023-01-26] MEDS: Azithromycin 500 MG in 0.9 % Sodium Chloride 250 ML 125 MG IV (18:21)
--- NOTE | 2023-01-26 18:36 | PC.NURSE ---
iv abx hung per order, cxr performed, while performing cxr pt noted to have tears from her eyes and moving her legs, spoke with provider about adding a fentanyl drip- provider requested this nurse to increase prop drip, prop drip increased to 40.
--- NOTE | 2023-01-26 19:06 | PC.NURSE ---
rt at bedside making adjustments to vent, this nurse suctioned out 200 pink frothy sputum- provider aware
[2023-01-26] MEDS: fentaNYL citrate/NS 1,000 MCG/100 ML PLAST..BAG 2.5 MCG IVCONT (19:08)
[2023-01-26] MEDS: 0.9 % Sodium Chloride 1,500 ML 999 ML IVCONT (19:20)
[2023-01-26] MEDS: Enoxaparin Sodium 40 MG/0.4 ML SYRINGE SUBCUT (19:28)
--- NOTE | 2023-01-26 19:42 | MHC.EDTECH ---
This tech assumed care of pt at 1900,vitals were taken. Patient is awaiting a room assignment at this time.
--- NOTE | 2023-01-26 19:45 | MHC.EDTECH ---
This tech emptied [place], patient has 150cc of output.
--- NOTE | 2023-01-26 20:07 | P.HPCC_ITS ---
History of Present Illness Date of Service: 01/26/23 Attending physician on admission: Max Seals Chief Complaint: Dyspnea The patient is a 47-year-old female with a past medical history muscular dystrophy, COPD on 3 L a baseline, and dysphagia who presented to the emergency room with dyspnea.? According to EMS? patient did not wear oxygen overnight hence why she was hypoxic, but patient told ED Physician that she did have her oxygen on, she states that her oxygen was well connected and the tank was full.? On arrival to emergency room, patient's oxygen saturation was in the low 70s despite 6 L of oxygen.? Patient was started on non-rebreather at 15 L, oxygen improved to 95%.? Once patient was saturating 95%, the patient's nurse attempted to wean her down to nasal cannula but patient desaturated immediately to the low 80s and needed non-rebreather again. Patient required emergent intubation.? Laboratory data significant for:? WBC 4.7, hemoglobin 11.4,? sodium 148,? serum bicarb 41, BUN 8, troponin 221,albumin 3.4? ABGs: 7.27/100/94/46 IMAGING? Chest CTA- No evidence of pulmonary embolism. Bilateral pneumonitis and multilobar pneumonia.? Patient also has some evidence of pulmonary congestion.? ED course:? ?Patient received azithromycin, ceftriaxone, Lasix 40 mg, in 1500 mL ? Fluid bolus. Review of Systems Review of Systems: Yes unobtainable due to endotracheal tube PMFSH Past Medical History Medical History (Updated 01/26/23 @ 21:25 by Jose Alfredo Zaidi NP) COPD (chronic obstructive pulmonary disease) Dysphagia Muscular dystrophy Social History Social History Household Members: Significant Other Housing: House Do you presently have visiting nurse or other home services: Yes Unable to assess alcohol history related to: Unknown Alcohol intake: never Patient Tobacco Use Status: Tobacco use Unknown Smoked in Last 30 Days: No Use of substances other than those prescribed or required for medical reasons: Unknown Currently Displaying Signs/Symptoms of Drug Intoxication Withdrawal: No Advance Directives: No Advance Directives Information Provided: No Recently lost weight without trying: Unsure Nutrition Risks: Difficulty chewing and Difficulty swallowing Patient : No Poor oral hygiene: Yes Meds Allergies Allergy/AdvReac Type Severity Reaction Status Date / Time No Known Allergies Allergy Unverified 03/08/20 18:23 Active Medications: Current Medications Chlorhexidine Gluconate (Chlorhexidine Gluc Oral Rinse 15 Ml Mouthwash) 15 ml BUCCAL TID CARINA Enoxaparin Sodium (Enoxaparin Sodium 40 Mg/0.4 Ml Syringe) 40 mg SUBCUT Q24H CARINA Last Admin: 01/26/23 19:28 Dose: 40 mg Famotidine (Famotidine/Pf 20 Mg/2 Ml Vial) 20 mg IVPUSH DAILY [facility] Propofol (Diprivan) 1,000 mg in 100 mls @ 0 mls/hr IVCONT .Q0M CARINA; Protocol Last Titration: 01/26/23 18:34 Dose: 85.45 mcg/kg/min, 40 mls/hr Fentanyl (Sublimaze/Ns) 1,000 mcg in 100 mls @ 0 mls/hr IVCONT .Q0M CARINA; Protocol Last Admin: 01/26/23 19:08 Dose: 25 mcg/hr, 2.5 mls/hr Sodium Chloride (Ns) 1,500 mls @ 999 mls/hr IVCONT .Q1H31M ONE Stop: 01/26/23 20:37 Last Admin: 01/26/23 19:20 Dose: 999 mls/hr Piperacillin Sod/Tazobactam (Sod 4.5 gm/ Sodium Chloride) 100 mls @ 200 mls/hr IV Q6H CARINA Vancomycin HCl 1,000 mg/Vancomycin HCl 750 mg/ Sodium Chloride 535 mls @ 267.5 mls/hr IV ONCE ONE Stop: 01/26/23 22:59 Naloxone HCl (Naloxone Hcl 0.4 Mg/Ml Vial) 0.2 mg IVPUSH Q2M PRN PRN Reason: Excessive sedation or RR < 8 Pharmacy Consult (Consult Rx Vancomycin Dosing) 1 each MISCELLANE DAILY PRN PRN Reason: Consult order Home Medications Medication Instructions Recorded Confirmed Last Taken Type albuterol sulfate 90 mcg/actuation 2 puff inhalation Q4-6H PRN 01/26/23 01/26/23 Unknown History aerosol inhaler (Ventolin HFA) Shortness Of Breath Or Wheezing cyanocobalamin (vitamin B-12) 1,000 mcg PO DAILY 01/26/23 01/26/23 Unknown History 1,000 mcg tablet omeprazole 20 mg capsule,delayed 20 mg PO DAILY@0630 01/26/23 01/27/23 Unknown History release Physical Exam Vital Signs: Vital Signs: Last Vital Signs Temp 99.9 F 01/26/23 19:39 Pulse 114 H 01/26/23 19:39 Resp 22 H 01/26/23 19:39 BP 103/66 01/26/23 19:39 Pulse Ox 95 01/26/23 19:39 O2 Del Method Mechanical Ventil ation 01/26/23 19:39 O2 Flow Rate 11 01/26/23 16:00 FiO2 50 01/26/23 19:39 Oxygen Flow Rate 4 01/26/23 13:05 BMI result Body Mass Index 33.6 ?General:? patient is intubated ?HEENT:? Head is normocephalic, atraumatic, pupils equal round reactive to light accommodation bilaterally.? Buccal mucosa is dry, Neck is supple without lymphadenopathy. ?Cardiac:? Clear S1-S2, no murmurs rubs or gallops. ?Pulmonary:?Rhonchi at bases.On Vent AC settings . ?Abdomen:? ?Abdomen soft, non-tender, non-distended. Normal bowel sounds. No pulsatile mass. No hepatosplenomegaly. ?Musculoskeletal:? Moving all 4 randomly. Gait not assessed at this point. ?Neurologic:?No focal deficits noted. ?Skin:? Intact, no lesions, edema, erythema, clubbing or cyanosis.? No ulcers. Vascular:? 2+ pulses upper and lower extremities distally.? Results Labs 01/26/23 13:34 01/26/23 13:34 Labs: Laboratory Results - last 24 hr 01/26/23 01/26/23 01/26/23 13:33 13:34 13:34 MCV 105.5 H MCH 29.8 MCHC 28.3 L RDW 13.2 Plt Count 179 MPV 10.5 Immature Gran % (Auto) 0.4 Neut % (Auto) 73.4 H Lymph % (Auto) 17.6 L [place] % (Auto) 6.7 Eos % (Auto) 1.7 Baso % (Auto) 0.2 Lymph # (Auto) 0.8 L [place] # (Auto) 0.3 Eos # (Auto) 0.1 Baso # (Auto) 0.0 Abs Immat Gran (auto) 0.02 Absolute Neuts (auto) 3.4 Absolute Nucleated RBC 0.000 Nucleated RBC % (auto) 0.0 D-Dimer High Sensitivty O2 Saturation ABG pH at Pt Temp ABG pCO2 at Pt Temp ABG pO2 at Pt Temp ABG HCO3 ABG Base Excess (Actual) VBG pH VBG pCO2 VBG pO2 VBG HCO3 VBG O2 Saturation VBG Base Excess Anion Gap 14 Estim Creat Clear Calc 123.8 Estimated GFR > 60 Random Glucose 104 Lactic Acid Calcium 9.5 Magnesium 2.2 Total Bilirubin 0.5 AST 27 ALT 22 Alkaline Phosphatase 64 B-Natriuretic Peptide 42 Total Protein 6.7 Albumin 3.4 L Urine Color Urine Appearance Urine pH Ur Specific [place] Urine Protein Urine Glucose (UA) Urine Ketones Urine Blood Urine Nitrite Ur Leukocyte Esterase COVID-19 (JOEL) COVID-19 Clin Com 01/26/23 01/26/23 01/26/23 13:34 13:34 13:35 MCV MCH MCHC RDW Plt Count MPV Immature Gran % (Auto) Neut % (Auto) Lymph % (Auto) [place] % (Auto) Eos % (Auto) Baso % (Auto) Lymph # (Auto) [place] # (Auto) Eos # (Auto) Baso # (Auto) Abs Immat Gran (auto) Absolute Neuts (auto) Absolute Nucleated RBC Nucleated RBC % (auto) D-Dimer High Sensitivty 285 O2 Saturation ABG pH at Pt Temp ABG pCO2 at Pt Temp ABG pO2 at Pt Temp ABG HCO3 ABG Base Excess (Actual) VBG pH 7.38 VBG pCO2 80 VBG pO2 38 VBG HCO3 47 H VBG O2 Saturation 60.0 VBG Base Excess 18.5 Anion Gap Estim Creat Clear Calc Estimated GFR Random Glucose Lactic Acid Calcium Magnesium Total Bilirubin AST ALT Alkaline Phosphatase B-Natriuretic Peptide Total Protein Albumin Urine Color Urine Appearance Urine pH Ur Specific [place] Urine Protein Urine Glucose (UA) Urine Ketones Urine Blood Urine Nitrite Ur Leukocyte Esterase COVID-19 (JOEL) Negative COVID-19 Clin Com See Note 01/26/23 01/26/23 01/26/23 15:26 16:04 16:09 MCV MCH MCHC RDW Plt Count MPV Immature Gran % (Auto) Neut % (Auto) Lymph % (Auto) [place] % (Auto) Eos % (Auto) Baso % (Auto) Lymph # (Auto) [place] # (Auto) Eos # (Auto) Baso # (Auto) Abs Immat Gran (auto) Absolute Neuts (auto) Absolute Nucleated RBC Nucleated RBC % (auto) D-Dimer High Sensitivty O2 Saturation 96.0 ABG pH at Pt Temp 7.27 L ABG pCO2 at Pt Temp 100 H* ABG pO2 at Pt Temp 94 ABG HCO3 46 H ABG Base Excess (Actual) 14.8 VBG pH VBG pCO2 VBG pO2 VBG HCO3 VBG O2 Saturation VBG Base Excess Anion Gap Estim Creat Clear Calc Estimated GFR Random Glucose Lactic Acid 0.6 Calcium Magnesium Total Bilirubin AST ALT Alkaline Phosphatase B-Natriuretic Peptide Total Protein Albumin Urine Color Yellow Urine Appearance Turbid Urine pH 8.5 Ur Specific [place] 1.020 Urine Protein Trace Urine Glucose (UA) Negative Urine Ketones Trace Urine Blood Negative Urine Nitrite Negative Ur Leukocyte Esterase Negative COVID-19 (JOEL) COVID-19 Clin Com Imaging Radiologist's Impressions: Impressions Chest X-Ray 01/26/23 14:05 IMPRESSION: Interstitial and pulmonary vascular prominence with small bilateral pleural effusions and adjacent atelectasis versus infiltrates. Findings can be seen in the setting of pulmonary edema. Chest CTA 01/26/23 17:27 IMPRESSION: No evidence of pulmonary embolism. Bilateral pneumonitis and multilobar pneumonia. Endotracheal tube with tip in the proximal right mainstem bronchus. This should be pulled back several centimeters. VTE: negative Findings will be communicated by the [place] work flow cleaner carpet and upholstery. Chest X-Ray 01/26/23 18:35 IMPRESSION: OG tube projects over the stomach. Endotracheal tube tip is 1 cm above the berta and should be pulled back several centimeters. Low lung volumes and bilateral multilobar pneumonia greatest at the lung bases. Findings will be communicated by the [place] work flow cleaner carpet and upholstery. Assessment and Plan (1) Acute respiratory failure with hypoxia and hypercapnia: Status: Acute (2) Pneumonia: Status: Acute (3) Pulmonary edema: Status: Acute Plan 47-year-old female with ? History of muscular dystrophy and COPD admitted to ICU for acute hypoxic hypercapnic respiratory failure requiring intubation Neuro:??? no acute issues Cardiac:?? Pulmonary edema-? imaging was some evidence of pulmonary congestion, bicarb is elevated.? Received Lasix in the ED,? will add Diamox Pulmonary:?? acute hypoxic and hypercapnic respiratory failure-? chest CTA did not show PE, but did show multilobe pneumonia. Covid negative.? Ivette with pulmonary edema likely cause of acute decompensation.? Will add broad-spectrum antibiotics.? Wean off ventilator as tolerated.? Keep 02 saturation 88-92%.?? Renal:?? ?No acute issues? Endo:?? ?No acute issues GI:? No acute issues. ID:? multi lobe pneumonia- ? no evidence of septic shock, ? lactic is normal.? Cultures are pending.? Patient received azithromycin and ceftriaxone in the ED. will broaden coverage with Zosyn and vancomycin Heme/Onc:? No acute issues. Psych:? No acute issues. Miscellaneous:? No acute issues. Prophylaxis: Lovenox, IV pepcid? Critical care time spent:? 60 minutes Case discussed with attending Dr Seals Attempted to call patient , but unable to leave voicemail as it has not been set up? Later patient able to communicate using patient cell phone, states he is disable, with no upper extremities and only able to use facebook messenger. Cellphone listed in chart is not activated. informed of patient condition and plan Time Spent With Patient Time: Total time managing care of this patient today ____ minutes.
[2023-01-26] MEDS: propofoL 1,000 MG/100 ML VIAL 23.41 MG IVCONT (20:42)
[2023-01-26 20:49] LABS: VBG Base Excess 25.5 mmol/L; VBG HCO3 51 mmol/L (22-26); VBG pCO2 53 mmHg; VBG pH 7.58 (7.32-7.43); VBG pO2 54 mmHg
--- NOTE | 2023-01-26 20:59 | PC.NURSE ---
This RN called [facility] department to do a wellness check on Lexx. Awaiting call back
[2023-01-26] MEDS: acetaZOLAMIDE sodium 500 MG VIAL 250 MG IVPUSH (21:12)
[2023-01-26 21:36] LABS: Troponin-I High Sensitivity 223.9 ng/L (<3.5-17.0)
[2023-01-26] MEDS: Albumin Human 25 % 100 ML IV (21:37)
[2023-01-26] MEDS: vancomycin HCL 1,000 MG, vancomycin HCL 750 MG in 0.9 % Sodium Chloride 500 ML 267.5 MG IV (21:38)
--- NOTE | 2023-01-26 21:47 | PHA.PROG ---
Admission Date/Time: January 26, 2023 19:15 Indication: Respiratory Weight in k.018 kg Adjusted body weight in Kg: Chloe body weight in Kg: Obesity Dosing Indication % IBW: Serum Creatinine - Last 168 Hours 01/26/23 13:34 Creatinine 0.53 Estimated CrCl and GFR - Last 168 Hours 01/26/23 13:34 Estim Creat Clear Calc 123.8 Estimated GFR > 60 Vancomycin Loading Dose: 1750mg Current Vancomycin Dosing Regimen: 1000mg Q12H Vancomycin Monitoring using AUC goal of 400 - 600 range with trough as surrogate marker: 444mg/L Date and Time for next Vancomycin Level to be drawn: 01/28/23 @0800 Pharmacist Comments on Vancomycin Plan: Obese model being used; predicted trough of 12.2 mg/L. Will continue to monitor renal function and adjust as necessary Vancomycin dosing will take advantage of [employer] as a clinical decision support tool that uses Bayesian modeling to calculate individual patient's pharmacokinetic parameters and forecast the patient's drug concentration time course with the target goal AUC 24 range of 400 - 600 mg/L/hr.
[2023-01-26 21:53] LABS: Venous Blood Gas Refer to POC result
--- NOTE | 2023-01-26 21:54 | HE.PHANOTE ---
RE; unobtainable med rec. Attempted to call but no answer or chance to leave voicemail. Will follow up 01/27.
[2023-01-26] MEDS: Piperacillin Sodium/Tazobactam 4.5 GM in 0.9 % Sodium Chloride 100 ML IV (22:38)
[2023-01-26] MEDS: Chlorhexidine Gluc Oral Rinse 15 ML MOUTHWASH BUCCAL (22:38)
[2023-01-27] VITALS (32 sets, daily range): BP systolic 94–131; BP diastolic 54–72; PULSE 57–99; RESP 12–20; TEMP 34.7–37.8; O2SAT 88–99; BMI 33.6
[2023-01-27 00:36] LABS: ABG Refer to POC result
[2023-01-27] MEDS: propofoL 1,000 MG/100 ML VIAL 23.41 MG IVCONT (00:50)
[2023-01-27] MEDS: Piperacillin Sodium/Tazobactam 4.5 GM in 0.9 % Sodium Chloride 100 ML IV ×4 (02:02→19:52)
[2023-01-27 04:54] LABS: MANUAL DIFF FLAG NO
[2023-01-27 04:55] LABS: Hematocrit 37.2 % (37.0-47.0); Hemoglobin 10.9 g/dl (12.0-16.0); Imm Gran Abs Auto 0.02 X10*3/uL (0.00-0.03); Imm Gran Pct Auto 0.3 % (0.0-0.4); Lymphocytes Absolute Auto 0.5 X10*3/uL (1.2-4.9); Lymphocytes Percent Auto 8.1 % (20-40); Mean Corpuscular HGB Conc 29.3 g/dl (31.0-35.0); Mean Corpuscular Hemoglobin 30.1 pg (27.0-33.0); Mean Corpuscular Volume 102.8 fL (80.0-98.0); Monocytes Absolute Auto 0.2 X10*3/uL (0.1-1.2); Neutrophils Absolute Auto 5.3 x10*3/uL (2.0-8.3); Neutrophils Percent Auto 87.6 % (45-73); Platelet Count 161 X10*3/uL (160-400); Red Blood Count 3.62 X10*6/uL (4.20-5.50); White Blood Count 6.1 X10*3/uL (4.8-10.8)
[2023-01-27 04:57] LABS: VBG Base Excess 9.3 mmol/L; VBG HCO3 30 mmol/L (22-26); VBG pCO2 31 mmHg; VBG pO2 26 mmHg
[2023-01-27 05:04] LABS: Venous Blood Gas Refer to POC result
--- NOTE | 2023-01-27 05:10 | PC.NURSE ---
Pt admitted to ICU from ED at approx 1999. Upon initial assessment- pt sedated on propofol/fentanyl, RASS -3/4, +cough/gag, weak VALERIO but not to command. Tmax 100 via core bladder probe. NSR on tele, HR 60-80s. SBP > 100, MAP > 65. ETT #7.5, 18 cm at lip. On AC ventilation- settings adjusted this AM by RT per VBG results. Slow to recover with repositioning, SpO2 down to 70s. OGT clamped. Bergman place, diuresing well, output as charted. No BM. Skin overall intact with scattered bruising. Repositioned in bed q2hr with wedges. Pt updated on pt status/plan of care via pt phone.
[2023-01-27 05:15] LABS: Albumin Level 3.7 g/dL (3.5-5.0); Anion Gap 18 (12-20); Blood Urea Nitrogen 8 mg/dL (9-16); Calcium 9.5 mg/dL (8.4-10.2); Carbon Dioxide 27 mmol/L (22-29); Chloride 104 mmol/L (96-108); Creatinine Clr Calc Pharmacy 109.3; Estimated Glomerular Filt Rate > 60; Glucose Random 95 mg/dL (60-115); Magnesium 2.1 mg/dL (1.6-2.6); Potassium 3.6 mmol/L (3.3-5.1); Sodium 145 mmol/L (135-145)
[2023-01-27 05:17] LABS: Phosphorus 0.8 mg/dL (2.7-4.5)
[2023-01-27] MEDS: Potassium Phosphate/NS 15 MMOL/250 ML PLAST..BAG 62.5 MMOL IV ×3 (05:24→19:52)
[2023-01-27] MEDS: propofoL 1,000 MG/100 ML VIAL 14.04 MG IVCONT ×3 (05:52→18:43)
--- NOTE | 2023-01-27 07:00 | CA_ITS ---
Transthoracic Echocardiogram Patient (Last, First, Middle): Regina Thacker, Gender: Female Date of : 1975 Age: 47 Procedure Date: 01/27/2023 Procedure Type: Transthoracic Echocardiogram Location: ICU Height: 152.4 cm Weight: 77.57 kg BSA: 1.75 m2 Heart Rate: bpm BP: 118 / 70 mmHg Club Lounge Attendant: Referring MD: Max Seals MD Symptoms: SORIA Study Quality: Adequate w Contrast ECG Rhythm: Sinus Conclusions: - Normal left ventricular size and systolic function. There is mildly increased left ventricular wall thickness. The visually estimated ejection fraction is between 55-60%. - Normal right ventricular cavity size and systolic function. - No significant valvular or pericardial pathology. Findings Procedure Information Contrast agent, definity, is being given per protocol without apparent complications. Left Ventricle Normal left ventricular size and systolic function. There is mildly increased left ventricular wall thickness. The visually estimated ejection fraction is between 55-60%. There is no evidence of regional wall motion abnormalities. Diastolic function is normal for age. Right Ventricle Normal right ventricular cavity size and systolic function. Atria The left atrium is normal in size. Aortic Valve Normal aortic valve structure and function. There is no aortic valve stenosis. There is no aortic valve regurgitation. Mitral Valve Normal mitral valve structure and function. There is no mitral valve regurgitation. There is no mitral valve stenosis. Pulmonic Valve The pulmonic valve is likely normal. Tricuspid Valve Normal tricuspid valve structure. There is trace tricuspid valve regurgitation. Normal right atrial pressure. There is no evidence of pulmonary hypertension. Great Vessels All visible segments of the aorta are normal in size. The visualized portions of the pulmonary artery and branches are normal. Venous The inferior vena cava is normal in size and collapses greater than 50% with inspiration. Hepatic vein flow indicates hypovolemia. Pericardium/Pleural There is no evidence of pericardial effusion. Prior Study Comparison No prior study available for comparison. Measurements 2D Linear Measurements IVSd: 1.00 0.6-0.9/0.6-1.0 cm LVIDd: 4.20 3.9-5.3/4.2-5.9 cm LVIDd Index: 2.40 2.4-3.2/2.2-3.1 cm/m2 LVIDs: 2.90 2.0-3.6 cm LVPWd: 0.90 0.7-1.1 cm Ao Root: 2.80 2.1-3.5 cm LA Diam: 3.10 2.7-3.8/3.0-4.0 cm LAIDs Index: 1.77 1.5-2.3 cm/m2 LV Mass: 159.01 67-162/88-224 g LV Mass Index: 90.86 43-95/49-115 g/m2 LVOT Diam: 2.10 3.0+(-)1.3 cm Mitral Valve MV Pk E: 1.01 MV PK A: 0.62 MV Decel Time: 157.00 E/A: 1.60 E'Lateral: 15.00 E'Medial: 8.92 E/E' Med: 11.30 E/E' Lat: 6.70 PHT: 46.00 MVA PHT: 4.78 Decel [place]: 6.44 Aortic Valve AoV Pk Jace: 1.18 AoV Mn Jace: 0.81 AoV VTI: 0.25 AoV Pk Grad: 6.00 Aov Mn Grad: 3.00 SONIA Cont.VTI: 2.70 LVOT LVOT Pk Jace: 0.86 LVOT Mn Jace: 0.57 LVOT VTI: 0.19 LVOT Pk Grad: 3.00 LVOT Mn Grad: 2.00 LVOT Diam: 2.10 LVOT Area: 3.46 Diastolic Function MV Pk E: 1.01 MV Pk A: 0.62 E/A: 1.60 E'Medial: 8.92 E/E' Med: 11.30 E' Laterial: 15.00 E/E' Lat: 6.70 Right Ventricle TAPSE (mm): 20.00 TVS' Jace: 10.00 Tricuspid Valve TR Pk Jace: 1.80 TR Pk Grad: 13.00 RA Press: 3.00 RVSP: 16.00 Great Vessels Aorta Ao Root-2D: 2.80 2.0-3.7 cm Ao Asc: 2.70 2.1-3.4 cm Pulmonary Valve PV Pk Jace: 1.02 Peak PV Grad: 4.00 Updated in Other Vendor System with Status of Final Miguel Felipe MD electronically signed on 01/27/2023 8:52:05 PM with status of Final
[2023-01-27] MEDS: Famotidine/PF 20 MG/2 ML VIAL IVPUSH (07:57)
[2023-01-27] MEDS: Chlorhexidine Gluc Oral Rinse 15 ML MOUTHWASH BUCCAL ×3 (08:02→19:53)
--- NOTE | 2023-01-27 08:07 | PC.NURSE ---
Provider povolov at bedside lower vent setting resp rate to 12 from 16
--- NOTE | 2023-01-27 09:00 | PHA.MEDREC ---
Pharmacy Consult ? Medication Reconciliation Pharmacy has completed the medication reconciliation. Reviewed med rec done by nursing (Evelyn). Tried to call patient's Gamal twice with no response. Patient currently intubated.
[2023-01-27] MEDS: fentaNYL citrate/NS 1,000 MCG/100 ML PLAST..BAG 5 MCG IVCONT (09:09)
--- NOTE | 2023-01-27 10:11 | PM.CCPN ---
Subjective Subjective Date of Service: 01/27/23 Interval History: 47-year-old lady with underlying unspecified muscular dystrophy? COPD on 3 L supplemental oxygen, dysphagia, chronic CO2 retention admitted on [id number] with dyspnea. On ER evaluation patient with iatrogenic hyperoxia induced hypercarbia progressing to hypoxia requiring intubation. CT angio chest with no evidence for pulmonary emboli, but pulmonary edema. Patient started on Diamox and empiric antibiotics. No events overnight. Critical Care Time (minutes): 60 Physical Exam Vital Signs: Vital Signs: Last Vital Signs Temp 100.0 F 01/27/23 08:59 Pulse 78 01/27/23 09:09 Resp 12 01/27/23 09:09 BP 100/59 L 01/27/23 09:09 Pulse Ox 96 01/27/23 09:09 O2 Del Method Mechanical Ventil ation 01/27/23 08:59 O2 Flow Rate 11 01/26/23 16:00 FiO2 30 01/27/23 08:59 Oxygen Flow Rate 4 01/26/23 13:05 BMI result Body Mass Index 33.6 Const: General: no acute distress and other ( Sedated on the vent) Eyes: Sclerae: sclerae normal EOM: EOMs intact bilaterally Neck: Neck: Yes no lymphadenopathy, Yes trachea midline and Yes supple Resp: Auscultation: crackles ( mild bilateral) Cardio: Rate: tachycardic Rhythm: regular rhythm Heart sounds: no gallops, no murmurs and no rubs GI: Palpation (GI): Soft to palpation and Other GI palpation findings present ( Nontender) Auscultation: normal bowel sounds Extrem: General: No clubbing, No cyanosis and Yes edema ( trace bilateral) Objective Data Labs 01/27/23 04:33 01/27/23 04:33 Labs: Laboratory Results - last 24 hr 01/26/23 01/26/23 01/26/23 13:33 13:34 13:34 WBC 4.7 L RBC 3.82 L Hgb 11.4 L Hct 40.3 MCV 105.5 H MCH 29.8 MCHC 28.3 L RDW 13.2 Plt Count 179 MPV 10.5 Immature Gran % (Auto) 0.4 Neut % (Auto) 73.4 H Lymph % (Auto) 17.6 L [place] % (Auto) 6.7 Eos % (Auto) 1.7 Baso % (Auto) 0.2 Lymph # (Auto) 0.8 L [place] # (Auto) 0.3 Eos # (Auto) 0.1 Baso # (Auto) 0.0 Abs Immat Gran (auto) 0.02 Absolute Neuts (auto) 3.4 Absolute Nucleated RBC 0.000 Nucleated RBC % (auto) 0.0 D-Dimer High Sensitivty O2 Saturation ABG pH at Pt Temp ABG pCO2 at Pt Temp ABG pO2 at Pt Temp ABG HCO3 ABG Base Excess (Actual) VBG pH VBG pCO2 VBG pO2 VBG HCO3 VBG O2 Saturation VBG Base Excess Sodium 148 H Potassium 4.2 Chloride 97 Carbon Dioxide 41 H* Anion Gap 14 BUN 8 L Creatinine 0.53 Estim Creat Clear Calc 123.8 Estimated GFR > 60 Random Glucose 104 Lactic Acid Calcium 9.5 Phosphorus Magnesium 2.2 Total Bilirubin 0.5 AST 27 ALT 22 Alkaline Phosphatase 64 Troponin I High Sens B-Natriuretic Peptide 42 Total Protein 6.7 Albumin 3.4 L Urine Color Urine Appearance Urine pH Ur Specific [place] Urine Protein Urine Glucose (UA) Urine Ketones Urine Blood Urine Nitrite Ur Leukocyte Esterase COVID-19 (JOEL) COVID-19 Clin Com 01/26/23 01/26/23 01/26/23 13:34 13:34 13:34 WBC RBC Hgb Hct MCV MCH MCHC RDW Plt Count MPV Immature Gran % (Auto) Neut % (Auto) Lymph % (Auto) [place] % (Auto) Eos % (Auto) Baso % (Auto) Lymph # (Auto) [place] # (Auto) Eos # (Auto) Baso # (Auto) Abs Immat Gran (auto) Absolute Neuts (auto) Absolute Nucleated RBC Nucleated RBC % (auto) D-Dimer High Sensitivty 285 O2 Saturation ABG pH at Pt Temp ABG pCO2 at Pt Temp ABG pO2 at Pt Temp ABG HCO3 ABG Base Excess (Actual) VBG pH VBG pCO2 VBG pO2 VBG HCO3 VBG O2 Saturation VBG Base Excess Sodium Potassium Chloride Carbon Dioxide Anion Gap BUN Creatinine Estim Creat Clear Calc Estimated GFR Random Glucose Lactic Acid Calcium Phosphorus Magnesium Total Bilirubin AST ALT Alkaline Phosphatase Troponin I High Sens 221.3 H* B-Natriuretic Peptide Total Protein Albumin Urine Color Urine Appearance Urine pH Ur Specific [place] Urine Protein Urine Glucose (UA) Urine Ketones Urine Blood Urine Nitrite Ur Leukocyte Esterase COVID-19 (JOEL) Negative COVID-19 Clin Com See Note 01/26/23 01/26/23 01/26/23 13:35 15:26 16:04 WBC RBC Hgb Hct MCV MCH MCHC RDW Plt Count MPV Immature Gran % (Auto) Neut % (Auto) Lymph % (Auto) [place] % (Auto) Eos % (Auto) Baso % (Auto) Lymph # (Auto) [place] # (Auto) Eos # (Auto) Baso # (Auto) Abs Immat Gran (auto) Absolute Neuts (auto) Absolute Nucleated RBC Nucleated RBC % (auto) D-Dimer High Sensitivty O2 Saturation 96.0 ABG pH at Pt Temp 7.27 L ABG pCO2 at Pt Temp 100 H* ABG pO2 at Pt Temp 94 ABG HCO3 46 H ABG Base Excess (Actual) 14.8 VBG pH 7.38 VBG pCO2 80 VBG pO2 38 VBG HCO3 47 H VBG O2 Saturation 60.0 VBG Base Excess 18.5 Sodium Potassium Chloride Carbon Dioxide Anion Gap BUN Creatinine Estim Creat Clear Calc Estimated GFR Random Glucose Lactic Acid Calcium Phosphorus Magnesium Total Bilirubin AST ALT Alkaline Phosphatase Troponin I High Sens B-Natriuretic Peptide Total Protein Albumin Urine Color Yellow Urine Appearance Turbid Urine pH 8.5 Ur Specific [place] 1.020 Urine Protein Trace Urine Glucose (UA) Negative Urine Ketones Trace Urine Blood Negative Urine Nitrite Negative Ur Leukocyte Esterase Negative COVID-19 (JOEL) COVID-19 Clin Com 01/26/23 01/26/23 01/26/23 16:09 20:39 20:54 WBC RBC Hgb Hct MCV MCH MCHC RDW Plt Count MPV Immature Gran % (Auto) Neut % (Auto) Lymph % (Auto) [place] % (Auto) Eos % (Auto) Baso % (Auto) Lymph # (Auto) [place] # (Auto) Eos # (Auto) Baso # (Auto) Abs Immat Gran (auto) Absolute Neuts (auto) Absolute Nucleated RBC Nucleated RBC % (auto) D-Dimer High Sensitivty O2 Saturation ABG pH at Pt Temp ABG pCO2 at Pt Temp ABG pO2 at Pt Temp ABG HCO3 ABG Base Excess (Actual) VBG pH 7.58 H VBG pCO2 53 VBG pO2 54 VBG HCO3 51 H VBG O2 Saturation 91.0 VBG Base Excess 25.5 Sodium Potassium Chloride Carbon Dioxide Anion Gap BUN Creatinine Estim Creat Clear Calc Estimated GFR Random Glucose Lactic Acid 0.6 Calcium Phosphorus Magnesium Total Bilirubin AST ALT Alkaline Phosphatase Troponin I High Sens 223.9 H* B-Natriuretic Peptide Total Protein Albumin Urine Color Urine Appearance Urine pH Ur Specific [place] Urine Protein Urine Glucose (UA) Urine Ketones Urine Blood Urine Nitrite Ur Leukocyte Esterase COVID-19 (JOEL) COVID-19 Clin Com 01/27/23 01/27/23 01/27/23 04:33 04:33 04:41 WBC 6.1 RBC 3.62 L Hgb 10.9 L Hct 37.2 MCV 102.8 H MCH 30.1 MCHC 29.3 L RDW 13.0 Plt Count 161 MPV 11.0 Immature Gran % (Auto) 0.3 Neut % (Auto) 87.6 H Lymph % (Auto) 8.1 L [place] % (Auto) 4.0 Eos % (Auto) 0.0 Baso % (Auto) 0.0 Lymph # (Auto) 0.5 L [place] # (Auto) 0.2 Eos # (Auto) 0.0 Baso # (Auto) 0.0 Abs Immat Gran (auto) 0.02 Absolute Neuts (auto) 5.3 Absolute Nucleated RBC 0.000 Nucleated RBC % (auto) 0.0 D-Dimer High Sensitivty O2 Saturation ABG pH at Pt Temp ABG pCO2 at Pt Temp ABG pO2 at Pt Temp ABG HCO3 ABG Base Excess (Actual) VBG pH 7.60 H* VBG pCO2 31 VBG pO2 26 VBG HCO3 30 H VBG O2 Saturation 50.0 VBG Base Excess 9.3 Sodium 145 Potassium 3.6 Chloride 104 Carbon Dioxide 27 Anion Gap 18 BUN 8 L Creatinine 0.60 Estim Creat Clear Calc 109.3 Estimated GFR > 60 Random Glucose 95 Lactic Acid Calcium 9.5 Phosphorus 0.8 L* Magnesium 2.1 Total Bilirubin AST ALT Alkaline Phosphatase Troponin I High Sens B-Natriuretic Peptide Total Protein Albumin 3.7 Urine Color Urine Appearance Urine pH Ur Specific [place] Urine Protein Urine Glucose (UA) Urine Ketones Urine Blood Urine Nitrite Ur Leukocyte Esterase COVID-19 (JOEL) COVID-19 Clin Com Progress Note: A&P Assessment and plan (1) Acute on chronic respiratory failure with hypoxia and hypercapnia: Status: Acute (2) Muscular dystrophy: Status: Acute (3) Pulmonary edema: Status: Acute (4) Dysphagia: Status: Acute Plan Assessment: 47-year-old lady with unspecified underlying muscular dystrophy admitted with acute on chronic hypoxic and hypercapnic respiratory failure requiring ventilatory support, likely secondary to underlying congestive heart failure. Plan: Neuro: No acute issues. Cardiac: Likely underlying acute on chronic diastolic congestive heart failure with pulmonary edema. Improving with diuresis. 2D echo is pending. Pulmonary: Acute on chronic hypoxic and hypercapnic respiratory failure likely secondary to exacerbation of underlying diastolic heart failure on the background of unspecified muscular dystrophy now requiring ventilatory support. Continue to titrate off as tolerated. Renal: No acute issues. Endo: No acute issues. GI: No acute issues. ID: No evidence of sepsis. Now on empiric antibiotics for possible aspiration component. Heme/Onc: No acute issues. Psych: No acute issues. Miscellaneous: No acute issues. Prophylaxis: Lovenox, famotidine Diet: tube feeds Critical care time spent: 60 minutes Quality Stroke Does the patient have a stroke diagnosis?: No VTE Prior VTE?: No VTE Risk Level:: Medical - moderate - high VTE Device Contraindication: N/A - Device Ordered VTE Drug Contraindication: N/A - Med Ordered
[2023-01-27 11:14] LABS: VBG Base Excess 5.1 mmol/L; VBG HCO3 29 mmol/L (22-26); VBG pCO2 44 mmHg; VBG pH 7.43 (7.32-7.43); VBG pO2 53 mmHg
[2023-01-27 11:28] LABS: Venous Blood Gas Refer to POC result
[2023-01-27] MEDS: acetaZOLAMIDE sodium 500 MG VIAL 250 MG IVPUSH ×2 (11:50→19:53)
--- NOTE | 2023-01-27 11:57 | P.CDIM_ITS ---
PROVIDER RESPONSE TEXT: To clarify, the appropriate diagnosis supported by the clinical indicators: Other: Of little clinical significance at this time QUERY TEXT: PHYSICIAN'S DOCUMENTATION REQUEST Date of Query: 01/27/2023 11:36 AM EDT Patient Name: Regina Thacker Admit Date: 01/26/2023 Dear Max Seals, A review of the medical record indicates additional documentation may be needed. Please review below and update the documentation accordingly. Clinical Indicators: LAB FINDINGS: sodium 148 H IV sodium chloride Based on the above, is there a diagnosis that correlates with these lab findings: Hypernatremia Labs indicate a diagnosis of (please specify) Other please respond Other (explain)Clinically unable to determine (explain)Thank you, Liz Trivedi, CCS, CDIS Use of terms such as suspected, likely, concern for, or probable (associated with a specific diagnosi s that is being evaluated, monitored, or treated as if it exists) are acceptable and can be coded in the inpatient se tting, when documented at the time of discharge. Please use your independent medical judgment in providing your response. THIS QUERY IS PART OF THE PERMANENT MEDICAL RECORD
--- NOTE | 2023-01-27 11:57 | P.CDIM_ITS ---
PROVIDER RESPONSE TEXT: To clarify, the appropriate diagnosis supported by the clinical indicators: Hypophosphatemia QUERY TEXT: PHYSICIAN'S DOCUMENTATION REQUEST Date of Query: 01/27/2023 11:28 AM EDT Patient Name: Regina Thacker Admit Date: 01/26/2023 Dear Max Seals, A review of the medical record indicates additional documentation may be needed. Please review below and update the documentation accordingly. Clinical Indicators: LAB FINDINGS: phosphorus 0.8 L IV Kphos Based on the above, is there a diagnosis that correlates with these lab findings: Hypophosphatemia Labs indicate a diagnosis of (please specify) Other please specify Other (explain)Clinically unable to determine (explain)Thank you, Liz Trivedi, CCS, CDIS Use of terms such as suspected, likely, concern for, or probable (associated with a specific diagnosi s that is being evaluated, monitored, or treated as if it exists) are acceptable and can be coded in the inpatient se tting, when documented at the time of discharge. Please use your independent medical judgment in providing your response. THIS QUERY IS PART OF THE PERMANENT MEDICAL RECORD
--- NOTE | 2023-01-27 14:31 | MHC.CM.PN ---
Addendum entered by Evelyn Andrade 01/27/23 14:34: Addendum: pt is O2 dependent at home at [address] [place] [address]. [employer] is the supplier. IMM in chart Original Note: Pt intubated in ICU for hypercarbic respiratory failure: Pt's spouse scheduled to arrive today w/[employer] to visit. 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 CM to follow for finalization of d/c needs.
--- NOTE | 2023-01-27 15:37 | PC.NURSE ---
echo at bedside, [facility]
--- NOTE | 2023-01-27 16:32 | PC.NURSE ---
shan on phone with textile technical officer gives permission to speak to Princess PADILLA [phone] and Libertad luna [phone]. these people live with patient and are primary care givers that will assist Shan with communicating with patient as he is disabled and unable to use phone. Princess also states that she will no longer be able to care for patient during day hours when pt is discharged and wants case management aware.
[2023-01-27] MEDS: Enoxaparin Sodium 40 MG/0.4 ML SYRINGE SUBCUT (19:52)
[2023-01-28] VITALS (43 sets, daily range): BP systolic 88–127; BP diastolic 41–71; PULSE 58–117; RESP 13–31; TEMP 34.9–37.2; O2SAT 85–99; BMI 41.7
[2023-01-28] MEDS: fentaNYL citrate/NS 1,000 MCG/100 ML PLAST..BAG 5 MCG IVCONT (01:17)
[2023-01-28] MEDS: propofoL 1,000 MG/100 ML VIAL 14.04 MG IVCONT ×3 (01:19→13:32)
[2023-01-28] MEDS: Piperacillin Sodium/Tazobactam 4.5 GM in 0.9 % Sodium Chloride 100 ML IV ×2 (01:31→08:37)
[2023-01-28 05:07] LABS: VBG Base Excess 1.4 mmol/L; VBG HCO3 25 mmol/L (22-26); VBG pCO2 35 mmHg; VBG pH 7.45 (7.32-7.43); VBG pO2 45 mmHg
[2023-01-28 05:14] LABS: MANUAL DIFF FLAG NO
[2023-01-28 05:15] LABS: Basophils Percent Auto 0.2 % (0-2); Eosinophils Percent Auto 0.6 % (0-4); Hematocrit 32.7 % (37.0-47.0); Hemoglobin 10.7 g/dl (12.0-16.0); Imm Gran Abs Auto 0.02 X10*3/uL (0.00-0.03); Imm Gran Pct Auto 0.4 % (0.0-0.4); Lymphocytes Absolute Auto 1.4 X10*3/uL (1.2-4.9); Lymphocytes Percent Auto 26.8 % (20-40); Mean Corpuscular HGB Conc 32.7 g/dl (31.0-35.0); Mean Corpuscular Hemoglobin 32.2 pg (27.0-33.0); Mean Corpuscular Volume 98.5 fL (80.0-98.0); Monocytes Absolute Auto 0.4 X10*3/uL (0.1-1.2); Monocytes Percent Auto 6.8 % (2-11); Neutrophils Absolute Auto 3.4 x10*3/uL (2.0-8.3); Neutrophils Percent Auto 65.2 % (45-73); Platelet Count 175 X10*3/uL (160-400); Red Blood Count 3.32 X10*6/uL (4.20-5.50); Red Cell Distribution Width 13.9 % (11.0-16.0); White Blood Count 5.2 X10*3/uL (4.8-10.8)
[2023-01-28 05:46] LABS: Alanine Aminotransferase 14 U/L (0-31); Albumin Level 2.9 g/dL (3.5-5.0); Alkaline Phosphatase 47 U/L (39-117); Anion Gap 14 (12-20); Aspartate Amino Transferase 20 U/L (5-31); Bilirubin Total 0.4 mg/dL (0.0-1.0); Blood Urea Nitrogen 8 mg/dL (9-16); Calcium 8.2 mg/dL (8.4-10.2); Carbon Dioxide 21 mmol/L (22-29); Chloride 102 mmol/L (96-108); Creatinine Clr Calc Pharmacy 123.4; Estimated Glomerular Filt Rate > 60; Glucose Random 65 mg/dL (60-115); Magnesium 1.7 mg/dL (1.6-2.6); Phosphorus 2.6 mg/dL (2.7-4.5); Potassium 3.4 mmol/L (3.3-5.1); Sodium 134 mmol/L (135-145); Total Protein 7.1 g/dL (6.5-8.0)
[2023-01-28] MEDS: Albumin Human 25 % 100 ML 200 ML IV (06:05)
[2023-01-28] MEDS: Potassium Phosphate/NS 15 MMOL/250 ML PLAST..BAG 62.5 MMOL IV ×2 (06:27→21:28)
[2023-01-28 07:01] LABS: Venous Blood Gas Refer to POC result
[2023-01-28] MEDS: Famotidine/PF 20 MG/2 ML VIAL IVPUSH (08:36)
[2023-01-28] MEDS: Chlorhexidine Gluc Oral Rinse 15 ML MOUTHWASH BUCCAL ×3 (08:36→21:21)
[2023-01-28] MEDS: acetaZOLAMIDE sodium 500 MG VIAL 250 MG IVPUSH ×2 (08:47→21:23)
--- NOTE | 2023-01-28 08:48 | P.PNCC_ITS ---
Subjective Subjective Date of Service: 01/28/23 Interval History: 47-year-old lady with underlying unspecified muscular dystrophy? COPD on 3 L supplemental oxygen, dysphagia, chronic CO2 retention admitted on [id number] with dyspnea. On ER evaluation patient with iatrogenic hyperoxia induced hypercarbia progressing to hypoxia requiring intubation. CT angio chest with no evidence for pulmonary emboli, but pulmonary edema. Patient started on Diamox and empiric antibiotics, now with significant improvement. No events overnight. Critical Care Time (minutes): 45 Physical Exam Vital Signs: Vital Signs: Last Vital Signs Temp 97.9 F 01/28/23 08:00 Pulse 61 01/28/23 08:00 Resp 14 01/28/23 08:00 BP 102/65 01/28/23 08:00 Pulse Ox 96 01/28/23 08:00 O2 Del Method Mechanical Ventil ation 01/28/23 08:00 O2 Flow Rate 11 01/26/23 16:00 FiO2 30 01/28/23 08:00 Oxygen Flow Rate 4 01/26/23 13:05 BMI result Body Mass Index 41.7 Const: General: no acute distress and other (Sedated on the vent) Eyes: Sclerae: sclerae normal EOM: EOMs intact bilaterally Neck: Neck: Yes no lymphadenopathy, Yes trachea midline and Yes supple Resp: Auscultation: clear to auscultation bilaterally Cardio: Rate: regular rate Rhythm: regular rhythm Heart sounds: no g allops, no murmurs and no rubs GI: Palpation (GI): Soft to palpation and Other GI palpation findings present ( Nontender) Auscultation: normal bowel sounds Extrem: General: Yes no pedal edema, No clubbing and No cyanosis Objective Data Labs 01/28/23 05:01 01/28/23 05:01 Labs: Laboratory Results - last 24 hr 01/27/23 01/28/23 01/28/23 11:03 04:57 05:01 WBC 5.2 RBC 3.32 L Hgb 10.7 L Hct 32.7 L MCV 98.5 H MCH 32.2 MCHC 32.7 RDW 13.9 Plt Count 175 MPV 11.0 Immature Gran % (Auto) 0.4 Neut % (Auto) 65.2 Lymph % (Auto) 26.8 [place] % (Auto) 6.8 Eos % (Auto) 0.6 Baso % (Auto) 0.2 Lymph # (Auto) 1.4 [place] # (Auto) 0.4 Eos # (Auto) 0.0 Baso # (Auto) 0.0 Abs Immat Gran (auto) 0.02 Absolute Neuts (auto) 3.4 Absolute Nucleated RBC 0.000 Nucleated RBC % (auto) 0.0 VBG pH 7.43 7.45 H VBG pCO2 44 35 VBG pO2 53 45 VBG HCO3 29 H 25 VBG O2 Saturation 83.0 76.0 VBG Base Excess 5.1 1.4 Sodium Potassium Chloride Carbon Dioxide Anion Gap BUN Creatinine Estim Creat Clear Calc Estimated GFR Random Glucose Calcium Phosphorus Magnesium Total Bilirubin AST ALT Alkaline Phosphatase Total Protein Albumin 01/28/23 05:01 WBC RBC Hgb Hct MCV MCH MCHC RDW Plt Count MPV Immature Gran % (Auto) Neut % (Auto) Lymph % (Auto) [place] % (Auto) Eos % (Auto) Baso % (Auto) Lymph # (Auto) [place] # (Auto) Eos # (Auto) Baso # (Auto) Abs Immat Gran (auto) Absolute Neuts (auto) Absolute Nucleated RBC Nucleated RBC % (auto) VBG pH VBG pCO2 VBG pO2 VBG HCO3 VBG O2 Saturation VBG Base Excess Sodium 134 L Potassium 3.4 Chloride 102 Carbon Dioxide 21 L Anion Gap 14 BUN 8 L Creatinine 0.60 Estim Creat Clear Calc 123.4 Estimated GFR > 60 Random Glucose 65 Calcium 8.2 L D Phosphorus 2.6 L Magnesium 1.7 Total Bilirubin 0.4 AST 20 ALT 14 Alkaline Phosphatase 47 Total Protein 7.1 Albumin 2.9 L Microbiology Microbiology Results: Microbiology 01/26/23 16:17 Blood - Venous Blood Culture - Preliminary No growth after 24 hours. 01/26/23 16:09 Blood - Venous Blood Culture - Preliminary No growth after 24 hours. Progress Note: A&P Assessment and plan (1) Dysphagia: Status: Acute (2) Acute on chronic respiratory failure with hypoxia and hypercapnia: Status: Acute (3) Muscular dystrophy: Status: Acute (4) Pulmonary edema: Status: Acute Plan Assessment: 47-year-old lady with unspecified underlying muscular dystrophy admitted with acute on chronic hypoxic and hypercapnic respiratory failure requi ring ventilatory support, likely secondary to underlying congestive heart failure. Plan: Neuro: No acute issues. Cardiac: Likely underlying acute on chronic diastolic congestive heart failure with pulmonary edema. Improving with diuresis. Though, 2D echocardiogram is essentially normal. Pulmonary: Acute on chronic hypoxic and hypercapnic respiratory failure likely secondary to exacerbation of underlying diastolic heart failure on the background of unspecified muscular dystrophy now requiring ventilatory support. Continue to titrate off as tolerated. Renal: No acute issues. Endo: No acute issues. GI: No acute issues. ID: No evidence of sepsis. Now on empiric antibiotics for possible aspiration component. Heme/Onc: No acute issues. Psych: No acute issues. Miscellaneous: No acute issues. Prophylaxis: Lovenox, famotidine Diet: tube feeds Critical care time spent: 45 minutes Quality Stroke Does the patient have a stroke diagnosis?: No VTE Prior VTE?: No VTE Risk Level:: Medical - moderate - high VTE Device Contraindication: N/A - Device Ordered VTE Drug Contraindication: N/A - Med Ordered
--- NOTE | 2023-01-28 10:00 | MHC.CLN ---
F/U PT REMAINS INTUBATED AND SEDATED DISCUSSED AT ROUNDS WITH MD PLAN FOR EXTUBATION POSSIBLY TODAY PT REMAINS NPO IF TF NEEDED; RECOMMEND PROMOTE AT MAX GOAL RATE 40ML/HR WITH 120ML FWF Q 4 HRS TO PROVIDE 960KCALS (1454KCALS WITH SEDATION; 26KCALS/KG), 60G PROTEIN (1.0G/KG), 1525ML TOTAL WATER FROM FORMULA AND FLUSHES (27ML/KG) MONITOR TOELRANCE, RESIDUALS AND LYTES
--- NOTE | 2023-01-28 11:51 | PC.NURSE ---
1017- sedation vacation initiated- pt moving all extremities, squeezing hands, making purposeful eye movements to voice. propofol discontinued/ fentanyl decreased to 25mcg per kg 1049- PSV trial started 1055- PSV trial ended. pt has elevated resp rate and low volumes. resp and povolov at bedside.
[2023-01-28] MEDS: Albumin Human 25 % 100 ML IV ×3 (12:08→23:39)
[2023-01-28] MEDS: Furosemide 20 MG/2 ML VIAL IVPUSH (16:07)
--- NOTE | 2023-01-28 17:35 | PC.NURSE ---
pt has consistent sats of mid 80s. respiratory contacted, ja, instructs to increase fio2 to 50% for 10 minutes then reassess, he will be present shortly.
[2023-01-28] MEDS: fentaNYL citrate/NS 1,000 MCG/100 ML PLAST..BAG 2.5 MCG IVCONT (18:02)
[2023-01-28] MEDS: propofoL 1,000 MG/100 ML VIAL 18.72 MG IVCONT (20:08)
[2023-01-28 20:25] LABS: Anion Gap 16 (12-20); Blood Urea Nitrogen 8 mg/dL (9-16); Calcium 9.5 mg/dL (8.4-10.2); Carbon Dioxide 26 mmol/L (22-29); Chloride 107 mmol/L (96-108); Creatinine Clr Calc Pharmacy 108.9; Estimated Glomerular Filt Rate > 60; Glucose Random 82 mg/dL (60-115); Magnesium 1.8 mg/dL (1.6-2.6); Phosphorus 2.6 mg/dL (2.7-4.5); Sodium 146 mmol/L (135-145)
[2023-01-28] MEDS: Enoxaparin Sodium 40 MG/0.4 ML SYRINGE SUBCUT (21:20)
[2023-01-28] MEDS: Potassium Chloride Packet 20 MEQ PACKET 40 MEQ OG-TUBE (21:31)
[2023-01-28] MEDS: propofoL 1,000 MG/100 ML VIAL 11.7 MG IVCONT (23:40)
[2023-01-29] VITALS (45 sets, daily range): BP systolic 77–124; BP diastolic 41–76; PULSE 50–124; RESP 13–38; TEMP 34.9–37.3; O2SAT 90–98; BMI 40.1
--- NOTE | 2023-01-29 01:15 | PC.NURSE ---
ASSUMED CARE OF PT AT 1900. PT ON AC VENT SETTINGS. O2 SATS MID 90'S, NO ACUTE RESP DISTRESS. LUNGS WITH CRACKLES BILAT 1/[address] WAY. BP BORDERLINE 93/50, MAP MID 60'S. CHANGES MADE WITH SEDATION. PROPOFOL WEANED DOWN TO CURRENT RATE OF 25 MCG/KG/MIN. FENTANYL TITRATED UP TO 100 MCG/HR. BP CONTINUES BORDERLINE. PT WAKES UP WITH ANXIETY AND RESTLESSNESS AND DOES NOT FOLLOW COMMANDS SO SEDATION IS NEEDED. PROVIDER CONSIDERING LOW DOSE LEVOPHED. SPOKE TO PT'S SPOUSE TRACI AND HE STATES THAT THE PT'S BP IS USUALLY LOW 100'S FOR SBP. MONITOR SHOWS NSR, 60'S-70'S, NO ECTOPY. U/O IS GOOD. LABS DRAWN AT 1930 AND K+ 3.0 WITH PHOS OF 2.6. KPHOS ORDERED AND GIVEN.
[2023-01-29] MEDS: Norepinephrine Bitartrate/D5W 8 MG/250 ML PLAST..BAG 5.45 MG IV (02:25)
[2023-01-29] MEDS: fentaNYL citrate/NS 1,000 MCG/100 ML PLAST..BAG 10 MCG IVCONT ×3 (05:10→23:58)
[2023-01-29 05:14] LABS: VBG Base Excess 0.7 mmol/L; VBG HCO3 25 mmol/L (22-26); VBG pCO2 40 mmHg; VBG pO2 55 mmHg
[2023-01-29 05:16] LABS: MANUAL DIFF FLAG NO
[2023-01-29 05:18] LABS: Basophils Percent Auto 0.5 % (0-2); Eosinophils Absolute Auto 0.2 X10*3/uL (0.0-0.4); Hematocrit 32.8 % (37.0-47.0); Hemoglobin 10.1 g/dl (12.0-16.0); Imm Gran Abs Auto 0.03 X10*3/uL (0.00-0.03); Imm Gran Pct Auto 0.5 % (0.0-0.4); Lymphocytes Absolute Auto 1.4 X10*3/uL (1.2-4.9); Lymphocytes Percent Auto 22.8 % (20-40); Mean Corpuscular HGB Conc 30.8 g/dl (31.0-35.0); Mean Corpuscular Hemoglobin 30.5 pg (27.0-33.0); Mean Corpuscular Volume 99.1 fL (80.0-98.0); Mean Platelet Volume 10.1 fL (9.4-12.3); Monocytes Absolute Auto 0.6 X10*3/uL (0.1-1.2); Monocytes Percent Auto 8.9 % (2-11); Neutrophils Percent Auto 64.3 % (45-73); Platelet Count 178 X10*3/uL (160-400); Red Blood Count 3.31 X10*6/uL (4.20-5.50); Red Cell Distribution Width 14.2 % (11.0-16.0); White Blood Count 6.3 X10*3/uL (4.8-10.8)
[2023-01-29 05:36] LABS: Venous Blood Gas Refer to POC result
[2023-01-29 06:06] LABS: Albumin Level 4.4 g/dL (3.5-5.0); Anion Gap 15 (12-20); Blood Urea Nitrogen 8 mg/dL (9-16); Calcium 9.6 mg/dL (8.4-10.2); Carbon Dioxide 24 mmol/L (22-29); Chloride 110 mmol/L (96-108); Creatinine Clr Calc Pharmacy 109.7; Estimated Glomerular Filt Rate > 60; Glucose Random 107 mg/dL (60-115); Magnesium 1.9 mg/dL (1.6-2.6); Phosphorus 3.3 mg/dL (2.7-4.5); Potassium 3.7 mmol/L (3.3-5.1); Sodium 145 mmol/L (135-145)
[2023-01-29] MEDS: propofoL 1,000 MG/100 ML VIAL 16.38 MG IVCONT ×3 (06:06→16:41)
[2023-01-29] MEDS: acetaZOLAMIDE sodium 500 MG VIAL 250 MG IVPUSH ×2 (08:11→20:17)
[2023-01-29] MEDS: Chlorhexidine Gluc Oral Rinse 15 ML MOUTHWASH BUCCAL ×3 (08:11→20:15)
[2023-01-29] MEDS: Famotidine/PF 20 MG/2 ML VIAL IVPUSH (08:11)
--- NOTE | 2023-01-29 08:29 | PM.CCPN ---
Subjective Subjective Date of Service: 01/29/23 Interval History: 47-year-old lady with underlying unspecified muscular dystrophy? COPD on 3 L supplemental oxygen, dysphagia, chronic CO2 retention admitted on [id number] with dyspnea. On ER evaluation patient with iatrogenic hyperoxia induced hypercarbia progressing to hypoxia requiring intubation. CT angio chest with no evidence for pulmonary emboli, but pulmonary edema. Patient started on Diamox and empiric antibiotics, now with significant improvement. No events overnight. Poor tolerance of pressure support trial on 01/28/2023 secondary to significant anxiety. Critical Care Time (minutes): 30 Physical Exam Vital Signs: Vital Signs: Last Vital Signs Temp 99.0 F 01/29/23 08:00 Pulse 69 01/29/23 08:11 Resp 13 01/29/23 08:00 BP 124/76 01/29/23 08:11 Pulse Ox 91 L 01/29/23 08:00 O2 Del Method Mechanical Ventil ation 01/29/23 08:00 O2 Flow Rate 11 01/26/23 16:00 FiO2 35 01/29/23 08:00 Oxygen Flow Rate 4 01/26/23 13:05 BMI result Body Mass Index 40.1 Const: General: no acute distress and other ( Sedated on the vent) Eyes: Sclerae: sclerae normal EOM: EOMs intact bilaterally Neck: Neck: Yes no lymphadenopathy, Yes trachea midline and Yes supple Resp: Effort & Inspection: normal respiratory effort and no respiratory distress Auscultation: clear to auscultation bilaterally Cardio: Rate: regular rate Rhythm: regular rhythm Heart sounds: no gallops, no murmurs and no rubs GI: Palpation (GI): Soft to palpation and Other GI palpation findings present ( Nontender) Auscultation: normal bowel sounds Extrem: General: Yes no pedal edema, No clubbing and No cyanosis Objective Data Labs 01/29/23 05:00 01/29/23 05:00 Labs: Laboratory Results - last 24 hr 01/28/23 01/28/23 01/29/23 09:06 19:39 05:00 WBC RBC Hgb Hct MCV MCH MCHC RDW Plt Count MPV Immature Gran % (Auto) Neut % (Auto) Lymph % (Auto) [place] % (Auto) Eos % (Auto) Baso % (Auto) Lymph # (Auto) [place] # (Auto) Eos # (Auto) Baso # (Auto) Abs Immat Gran (auto) Absolute Neuts (auto) Absolute Nucleated RBC Nucleated RBC % (auto) VBG pH VBG pCO2 VBG pO2 VBG HCO3 VBG O2 Saturation VBG Base Excess Sodium 146 H 145 Potassium 3.0 L 3.7 D Chloride 107 110 H Carbon Dioxide 26 24 Anion Gap 16 15 BUN 8 L 8 L Creatinine 0.68 0.66 Estim Creat Clear Calc 108.9 109.7 Estimated GFR > 60 > 60 Random Glucose 82 107 Calcium 9.5 D 9.6 Phosphorus 2.6 L 3.3 Magnesium 1.8 1.9 Albumin 4.4 Vancomycin Trough 5.0 L 01/29/23 01/29/23 05:00 05:04 WBC 6.3 RBC 3.31 L Hgb 10.1 L Hct 32.8 L MCV 99.1 H MCH 30.5 MCHC 30.8 L RDW 14.2 Plt Count 178 MPV 10.1 Immature Gran % (Auto) 0.5 H Neut % (Auto) 64.3 Lymph % (Auto) 22.8 [place] % (Auto) 8.9 Eos % (Auto) 3.0 Baso % (Auto) 0.5 Lymph # (Auto) 1.4 [place] # (Auto) 0.6 Eos # (Auto) 0.2 Baso # (Auto) 0.0 Abs Immat Gran (auto) 0.03 Absolute Neuts (auto) 4.0 Absolute Nucleated RBC 0.000 Nucleated RBC % (auto) 0.0 VBG pH 7.40 VBG pCO2 40 VBG pO2 55 VBG HCO3 25 VBG O2 Saturation 84.0 VBG Base Excess 0.7 Sodium Potassium Chloride Carbon Dioxide Anion Gap BUN Creatinine Estim Creat Clear Calc Estimated GFR Random Glucose Calcium Phosphorus Magnesium Albumin Vancomycin Trough Microbiology Microbiology Results: Microbiology 01/26/23 16:17 Blood - Venous Blood Culture - Preliminary No growth after 48 hours. 01/26/23 16:09 Blood - Venous Blood Culture - Preliminary No growth after 48 hours. Progress Note: A&P Assessment and plan (1) Dysphagia: Status: Acute (2) Acute on chronic respiratory failure with hypoxia and hypercapnia: Status: Acute (3) Muscular dystrophy: Status: Acute (4) Pulmonary edema: Status: Acute Plan Assessment: 47-year-old lady with unspecified underlying muscular dystrophy admitted with acute on chronic hypoxic and hypercapnic respiratory failure requiring ventilatory support, likely secondary to underlying congestive heart failure. Plan: Neuro: No acute issues. Cardiac: Likely underlying acute on chronic diastolic congestive heart failure with pulmonary edema. Improving with diuresis. Though, 2D echocardiogram is essentially normal. Pulmonary: Acute on chronic hypoxic and hypercapnic respiratory failure likely secondary to exacerbation of underlying diastolic heart failure on the background of unspecified muscular dystrophy now requiring ventilatory support. Continue to titrate off as tolerated. Renal: No acute issues. Endo: No acute issues. GI: No acute issues. ID: No acute issues Heme/Onc: No acute issues. Psych: No acute issues. Miscellaneous: No acute issues. Prophylaxis: Lovenox, famotidine Diet: tube feeds Critical care time spent: 30 minutes Quality Stroke Does the patient have a stroke diagnosis?: No VTE Prior VTE?: No VTE Risk Level:: Medical - moderate - high VTE Device Contraindication: N/A - Device Ordered VTE Drug Contraindication: N/A - Med Ordered
[2023-01-29] MEDS: dexmedeTOMIDidine HCL/NS 400 MCG/100 ML INFUS..BTL 11.65 MCG IVCONT (09:57)
[2023-01-29] MEDS: Midazolam HCl/PF 2 MG/2 ML VIAL IVPUSH (10:19)
[2023-01-29] MEDS: propofoL 200 MG/20 ML VIAL 60 MG IVPUSH (10:30)
--- NOTE | 2023-01-29 10:44 | P.CDIM_ITS ---
PROVIDER RESPONSE TEXT: To clarify, the appropriate diagnosis supported by the clinical indicators: Hypokalemia QUERY TEXT: PHYSICIAN'S DOCUMENTATION REQUEST Date of Query: 01/29/2023 10:26 AM EDT Patient Name: Regina Thacker Admit Date: 01/26/2023 Dear Max Seals, A review of the medical record indicates additional documentation may be needed. Please review below and update the documentation accordingly. Clinical Indicators: LAB FINDINGS: potassium 3.0 IV potassium chloride Based on the above, is there a diagnosis that correlates with these lab findings: Hypokalemia Other please specify Other (explain)Clinically unable to determine (explain)Thank you, Liz Trivedi, CCS, CDIS Use of terms such as suspected, likely, concern for, or probable (associated with a specific diagnosi s that is being evaluated, monitored, or treated as if it exists) are acceptable and can be coded in the inpatient se tting, when documented at the time of discharge. Please use your independent medical judgment in providing your response. THIS QUERY IS PART OF THE PERMANENT MEDICAL RECORD
--- NOTE | 2023-01-29 10:54 | W.PM.CCHP ---
Procedures Date of Service Date of Service: 01/29/23 Intubation Intubation Comments: Patient extubated around 10:00a.m., however short after extubation with inability to clear oral secretions autonomously or with Yankauer or NG suctioning assist resulting in hypoxia requiring re-intubation. Patient intubated with 7.5 cuffed ET tube under glide scope guidance with no immediate complications. ET tube position adjusted after obtaining chest x-ray and verified with follow-up x-ray.
--- NOTE | 2023-01-29 11:02 | PC.RT ---
Pt [id number] per order with RN present. Pt + leak test, extubated and transitioned to HFNC 100%/50 via 980. No stridor noted. Pt voice a whisper, cough weak and ineffective. Pt agitated, unable to Oral sxn as needed, pt biting down on oral sxn. MD nasal sxn with 12 fr for mod blood streak secreations. Pt spo2 drifting into 70s, the decision to reintubate was reached by MD. Dr. Seals, using the glidescope passed a 7.5 ett on first attempt without diff. ETCO, CXR and ls used to confirm tube placement, pulled back to 21cm per MD. Pt returned to previous vent settings and is in no resp distress.
--- NOTE | 2023-01-29 12:07 | PC.NURSE ---
Assumed care at 0700- patient remains mechanically vented, sedated with propofol and fentanyl gtts. Tolerating AC vent settings, O2 sats sustaining >88%, MAPs maintaining >65 on levophed gtt titrated per EMAR. HR 60s-70s. Per MD, propofol gtt paused at 0958, precedex gtt started, titrated per EMAR. Patient thrashing in bed, occasionally following commands, HR sustaining 120s, RR sustaining 20s-30s. Patient extubated by RT per MD order at 1015 and placed on HFNC 50L 100%. MD at bedside. 2mg versed given per MD for restlessness/agitation. Patient O2 sats maintaining 70s-80s%. Fentanyl and precedex gtt paused per MD- see EMAR. Patient unable to effectively cough, Harpal red oral secretions suctioned with janiceuer by RT and this RN. Patient NT suctioned by MD, O2 sats sustaining 60s-70s%. Decision made to reintubate by MD. 60 mg propofol IVP administered, patient reintubated at 1033- ETT 7.5 26 cm at the lip. Propofol and fentanyl gtt's restarted- see EMAR. ETT placement confirmed by CXR, ETT pulled back to 21 cm at the lip by RT per MD. AC vent settings 14/350/5/40%, O2 sats >88%. MAPs maintaining <65-levophed gtt restarted and titrated per EMAR to maintain MAPs >65. Pt. HR sustaining 40s-50s, MD notified, no new orders at this time. Q2 repositioning and oral care provided, bed locked in lowest position. Plan of care ongoing.
--- NOTE | 2023-01-29 12:47 | MHC.CM.PN ---
Addendum entered by Eevlyn Andrade 01/29/23 14:31: Met with [facility], pt's spouse and his LYFT DRIVER Murray Peraltaado ([phone]). [facility] states pt did not have a HCP or any advanced directives. He states pt's LYFT DRIVER has been with her for 13 years and it will be difficult to replace her. [facility] understands pt may require a higher level of care following her hospitalization and is willing to consider rehab if necessary. [facility] would like to limit pt's visitors to himself, Princess Gao and their pastors Davide and Jannet Martins. [facility] would also like to facetime pt at 9pm. Information relayed to [employer]. Original Note: Pt required reintubation today d/t inability to manage secretions. 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 Pt has both [employer] and [employer] for O2 and CPAP needs. She also has a walker, w/c, grab bars and wide door ways. Pt has had [facility] in the past. Princess states Kumar, pt's spouse, has his own LYFT DRIVER's however, Regina will be losing Princess as she has 'health issues' and will no longer be able to assist pt. Pt is able to transfer and walk short distances but fatigues easily and has decreased muscle strength (MD at baseline) It is highly likely pt will need STR following ICU stay. CM to follow for referral management once pt's needs are better known. CM to follow
[2023-01-29] MEDS: Ampicillin Sodium/Sulbactam Na 3 GM in 0.9 % Sodium Chloride 100 ML IV ×2 (13:31→18:00)
[2023-01-29] MEDS: Enoxaparin Sodium 40 MG/0.4 ML SYRINGE SUBCUT (18:00)
[2023-01-29] MEDS: Norepinephrine Bitartrate/D5W 8 MG/250 ML PLAST..BAG 12.72 MG IV (20:15)
[2023-01-29 20:47] LABS: Anion Gap 14 (12-20); Blood Urea Nitrogen 7 mg/dL (9-16); Calcium 9.5 mg/dL (8.4-10.2); Carbon Dioxide 25 mmol/L (22-29); Chloride 111 mmol/L (96-108); Creatinine Clr Calc Pharmacy 120.7; Estimated Glomerular Filt Rate > 60; Glucose Random 109 mg/dL (60-115); Magnesium 1.8 mg/dL (1.6-2.6); Phosphorus 2.2 mg/dL (2.7-4.5); Potassium 3.7 mmol/L (3.3-5.1); Sodium 146 mmol/L (135-145)
[2023-01-29] MEDS: propofoL 1,000 MG/100 ML VIAL 14.04 MG IVCONT (22:31)
[2023-01-30] VITALS (38 sets, daily range): BP systolic 83–138; BP diastolic 45–80; PULSE 44–103; RESP 12–30; TEMP 34.5–37.6; O2SAT 88–96; BMI 40.9
[2023-01-30] MEDS: Ampicillin Sodium/Sulbactam Na 3 GM in 0.9 % Sodium Chloride 100 ML IV ×4 (00:03→18:11)
[2023-01-30] MEDS: propofoL 1,000 MG/100 ML VIAL 14.04 MG IVCONT (04:13)
[2023-01-30 05:03] LABS: VBG Base Excess 1.9 mmol/L; VBG HCO3 26 mmol/L (22-26); VBG pCO2 41 mmHg; VBG pH 7.41 (7.32-7.43); VBG pO2 53 mmHg
[2023-01-30 05:08] LABS: Venous Blood Gas Refer to POC result
[2023-01-30 05:18] LABS: MANUAL DIFF FLAG NO
[2023-01-30 05:20] LABS: Basophils Percent Auto 0.3 % (0-2); Eosinophils Absolute Auto 0.2 X10*3/uL (0.0-0.4); Hematocrit 36.2 % (37.0-47.0); Hemoglobin 11.1 g/dl (12.0-16.0); Imm Gran Abs Auto 0.04 X10*3/uL (0.00-0.03); Imm Gran Pct Auto 0.6 % (0.0-0.4); Lymphocytes Absolute Auto 1.1 X10*3/uL (1.2-4.9); Lymphocytes Percent Auto 17.5 % (20-40); Mean Corpuscular HGB Conc 30.7 g/dl (31.0-35.0); Mean Corpuscular Hemoglobin 29.8 pg (27.0-33.0); Mean Corpuscular Volume 97.3 fL (80.0-98.0); Monocytes Absolute Auto 0.5 X10*3/uL (0.1-1.2); Monocytes Percent Auto 8.3 % (2-11); Neutrophils Absolute Auto 4.4 x10*3/uL (2.0-8.3); Neutrophils Percent Auto 70.3 % (45-73); Platelet Count 199 X10*3/uL (160-400); Red Blood Count 3.72 X10*6/uL (4.20-5.50); Red Cell Distribution Width 14.2 % (11.0-16.0); White Blood Count 6.3 X10*3/uL (4.8-10.8)
[2023-01-30 05:37] LABS: Anion Gap 14 (12-20); Blood Urea Nitrogen 8 mg/dL (9-16); Calcium 9.8 mg/dL (8.4-10.2); Carbon Dioxide 24 mmol/L (22-29); Chloride 111 mmol/L (96-108); Creatinine Clr Calc Pharmacy 113.1; Estimated Glomerular Filt Rate > 60; Glucose Random 133 mg/dL (60-115); Phosphorus 2.2 mg/dL (2.7-4.5); Potassium 3.6 mmol/L (3.3-5.1); Sodium 145 mmol/L (135-145)
[2023-01-30] MEDS: Potassium Phosphate/NS 15 MMOL/250 ML PLAST..BAG 62.5 MMOL IV (06:12)
[2023-01-30] MEDS: Chlorhexidine Gluc Oral Rinse 15 ML MOUTHWASH BUCCAL ×3 (08:08→19:54)
[2023-01-30] MEDS: Famotidine/PF 20 MG/2 ML VIAL IVPUSH (08:08)
[2023-01-30] MEDS: dexmedeTOMIDidine HCL/NS 400 MCG/100 ML INFUS..BTL 23.3 MCG IVCONT (08:27)
[2023-01-30] MEDS: fentaNYL citrate/NS 1,000 MCG/100 ML PLAST..BAG 10 MCG IVCONT ×2 (08:59→20:08)
--- NOTE | 2023-01-30 11:46 | MHC.CLN ---
F/U PT REMAINS INTUBATED AND SEDATED DISCUSSED AT ROUNDS WITH PT RECEIVING PROMOTE AT MAX GOAL RATE 50ML/HR WITH 240ML FWF Q 8 HRS TO PROVIDE 1200KCALS (1571KCALS WITH SEDATION; 28KCALS/KG), 75G PROTEIN (1.3G/KG), 1727ML TOTAL WATER FROM FORMULA AND FLUSHES (31ML/KG) MONITOR TOLERANCE, RESIDUALS AND LYTES
--- NOTE | 2023-01-30 11:52 | PM.CCPN ---
Subjective Subjective Date of Service: 01/30/23 Interval History: 47-year-old lady with underlying unspecified muscular dystrophy? COPD on 3 L supplemental oxygen, dysphagia, chronic CO2 retention admitted on [id number] with dyspnea. On ER evaluation patient with iatrogenic hyperoxia induced hypercarbia progressing to hypoxia requiring intubation. CT angio chest with no evidence for pulmonary emboli, but pulmonary edema. Patient started on Diamox and empiric antibiotics, with significant improvement. extubated on 01/29/2023, but required re-intubation within 30 minutes for inability to control secretions/pulmonary aspirations. No events overnight. Critical Care Time (minutes): 45 Physical Exam Vital Signs: Vital Signs: Last Vital Signs Temp 99.0 F 01/30/23 11:00 Pulse 48 L 01/30/23 11:24 Resp 15 01/30/23 11:00 BP 138/73 01/30/23 11:24 Pulse Ox 92 01/30/23 11:00 O2 Del Method Mechanical Ventil ation 01/30/23 11:00 O2 Flow Rate 11 01/26/23 16:00 FiO2 35 01/30/23 11:41 Oxygen Flow Rate 4 01/26/23 13:05 BMI result Body Mass Index 40.9 Const: General: no acute distress and other ( sedated on the vent) Nutritional Appearance: obese Eyes: Sclerae: sclerae normal EOM: EOMs intact bilaterally Neck: Neck: Yes no lymphadenopathy, Yes trachea midline and Yes supple Resp: Effort & Inspection: normal respiratory effort and no respiratory distress Auscultation: clear to auscultation bilaterally Cardio: Rate: bradycardic Rhythm: regular rhythm Heart sounds: no gallops, no murmurs and no rubs GI: Palpation (GI): Soft to palpation and Other GI palpation findings present ( Nontender) Auscultation: normal bowel sounds Extrem: General: No clubbing, No cyanosis and Yes edema ( trace bilateral) Objective Data Labs 01/30/23 04:52 01/30/23 04:52 Labs: Laboratory Results - last 24 hr 01/29/23 01/30/23 01/30/23 20:25 04:52 04:52 WBC 6.3 RBC 3.72 L Hgb 11.1 L Hct 36.2 L MCV 97.3 MCH 29.8 MCHC 30.7 L RDW 14.2 Plt Count 199 MPV 11.0 Immature Gran % (Auto) 0.6 H Neut % (Auto) 70.3 Lymph % (Auto) 17.5 L [place] % (Auto) 8.3 Eos % (Auto) 3.0 Baso % (Auto) 0.3 Lymph # (Auto) 1.1 L [place] # (Auto) 0.5 Eos # (Auto) 0.2 Baso # (Auto) 0.0 Abs Immat Gran (auto) 0.04 H Absolute Neuts (auto) 4.4 Absolute Nucleated RBC 0.000 Nucleated RBC % (auto) 0.0 VBG pH VBG pCO2 VBG pO2 VBG HCO3 VBG O2 Saturation VBG Base Excess Sodium 146 H 145 Potassium 3.7 3.6 Chloride 111 H 111 H Carbon Dioxide 25 24 Anion Gap 14 14 BUN 7 L 8 L Creatinine 0.60 0.64 Estim Creat Clear Calc 120.7 113.1 Estimated GFR > 60 > 60 Random Glucose 109 133 H Calcium 9.5 9.8 Phosphorus 2.2 L 2.2 L Magnesium 1.8 2.0 Albumin 4.0 01/30/23 04:53 WBC RBC Hgb Hct MCV MCH MCHC RDW Plt Count MPV Immature Gran % (Auto) Neut % (Auto) Lymph % (Auto) [place] % (Auto) Eos % (Auto) Baso % (Auto) Lymph # (Auto) [place] # (Auto) Eos # (Auto) Baso # (Auto) Abs Immat Gran (auto) Absolute Neuts (auto) Absolute Nucleated RBC Nucleated RBC % (auto) VBG pH 7.41 VBG pCO2 41 VBG pO2 53 VBG HCO3 26 VBG O2 Saturation 84.0 VBG Base Excess 1.9 Sodium Potassium Chloride Carbon Dioxide Anion Gap BUN Creatinine Estim Creat Clear Calc Estimated GFR Random Glucose Calcium Phosphorus Magnesium Albumin Microbiology Microbiology Results: Microbiology 01/26/23 16:17 Blood - Venous Blood Culture - Preliminary No growth after 48 hours. 01/26/23 16:09 Blood - Venous Blood Culture - Preliminary No growth after 48 hours. Progress Note: A&P Assessment and plan (1) Dysphagia: Status: Acute (2) Acute on chronic respiratory failure with hypoxia and hypercapnia: Status: Acute (3) Muscular dystrophy: Status: Acute Plan Assessment: 47-year-old lady with unspecified underlying muscular dystrophy admitted with acute on chronic hypoxic and hypercapnic respiratory failure requiring ventilatory support, likely secondary to underlying congestive heart failure. Plan: Neuro: No acute issues. Cardiac: No acute issues. Pulmonary: Acute on chronic hypoxic and hypercapnic respiratory failure with inability to clear secretions/pulmonary aspiration on the background of unspecified muscular dystrophy now requiring ventilatory support. extubation attempted on 01/29/2023, however required a re-intubation within 30 minutes for inability to control secretions/pulmonary aspirations. Renal: No acute issues. Endo: No acute issues. GI: No acute issues. ID: Empirically covered for pulmonary aspiration with Unasyn. Heme/Onc: No acute issues. Psych: No acute issues. Miscellaneous: No acute issues. Prophylaxis: Lovenox, famotidine Diet: tube feeds Critical care time spent: 45 minutes Quality Stroke Does the patient have a stroke diagnosis?: No VTE Prior VTE?: No VTE Risk Level:: Medical - moderate - high VTE Device Contraindication: N/A - Device Ordered VTE Drug Contraindication: N/A - Med Ordered
[2023-01-30] MEDS: Norepinephrine Bitartrate/D5W 8 MG/250 ML PLAST..BAG 9.08 MG IV (13:46)
--- NOTE | 2023-01-30 13:58 | MHC.CM.PN ---
Pt continues care in ICU: on ventilatory support with one failed wean attempt on 01/29. Spouse in to visit: requesting to be present at next wean attempt to assist with keeping pt calm. He states pt is very anxious at baseline and he is successful in helping her manage her anxieties. Informed ICU care team of request. Pt will likely require placement following ICU stay. The level of care needed will depend on her ability to vent wean. Pt will also need to complete a HCP once alert and communicative. CM to follow.
[2023-01-30] MEDS: dexmedeTOMIDidine HCL/NS 400 MCG/100 ML INFUS..BTL 11.65 MCG IVCONT (14:19)
[2023-01-30] MEDS: fentaNYL citrate/PF 100 MCG/2 ML VIAL 50 MCG IVPUSH (16:12)
[2023-01-30] MEDS: Enoxaparin Sodium 40 MG/0.4 ML SYRINGE SUBCUT (18:16)
[2023-01-30] MEDS: Lactulose 20 GM/30 ML SOLUTION 30 GM PO (19:30)
[2023-01-30] MEDS: dexmedeTOMIDidine HCL/NS 400 MCG/100 ML INFUS..BTL 9.32 MCG IVCONT (22:08)
[2023-01-31] VITALS (39 sets, daily range): BP systolic 83–131; BP diastolic 40–93; PULSE 44–75; RESP 14–16; TEMP 34.9–37.6; O2SAT 89–95; BMI 40.9
[2023-01-31] MEDS: Ampicillin Sodium/Sulbactam Na 3 GM in 0.9 % Sodium Chloride 100 ML IV ×4 (01:03→18:25)
[2023-01-31] MEDS: Midazolam HCl/PF 2 MG/2 ML VIAL IVPUSH ×2 (01:45→07:10)
[2023-01-31] MEDS: fentaNYL citrate/NS 1,000 MCG/100 ML PLAST..BAG 5 MCG IVCONT (05:11)
[2023-01-31] MEDS: dexmedeTOMIDidine HCL/NS 400 MCG/100 ML INFUS..BTL 13.98 MCG IVCONT ×2 (05:11→19:51)
[2023-01-31 05:52] LABS: VBG Base Excess -0.4 mmol/L; VBG HCO3 22 mmol/L (22-26); VBG pCO2 30 mmHg; VBG pH 7.47 (7.32-7.43); VBG pO2 54 mmHg
[2023-01-31 05:54] LABS: Venous Blood Gas Refer to POC result
[2023-01-31 06:12] LABS: MANUAL DIFF FLAG NO
[2023-01-31] MEDS: Pantoprazole Sodium 40 MG/10 ML VIAL IVPUSH (06:27)
[2023-01-31 06:28] LABS: Albumin Level 3.9 g/dL (3.5-5.0); Anion Gap 14 (12-20); Blood Urea Nitrogen 6 mg/dL (9-16); Carbon Dioxide 21 mmol/L (22-29); Chloride 113 mmol/L (96-108); Creatinine Clr Calc Pharmacy 135.6; Estimated Glomerular Filt Rate > 60; Glucose Random 106 mg/dL (60-115); Magnesium 2.2 mg/dL (1.6-2.6); Phosphorus 2.7 mg/dL (2.7-4.5); Potassium 3.9 mmol/L (3.3-5.1); Sodium 144 mmol/L (135-145)
[2023-01-31 06:39] LABS: Basophils Percent Auto 0.3 % (0-2); Eosinophils Absolute Auto 0.3 X10*3/uL (0.0-0.4); Eosinophils Percent Auto 4.8 % (0-4); Hematocrit 37.1 % (37.0-47.0); Hemoglobin 11.6 g/dl (12.0-16.0); Imm Gran Abs Auto 0.03 X10*3/uL (0.00-0.03); Imm Gran Pct Auto 0.4 % (0.0-0.4); Lymphocytes Absolute Auto 1.1 X10*3/uL (1.2-4.9); Lymphocytes Percent Auto 16.3 % (20-40); Mean Corpuscular HGB Conc 31.3 g/dl (31.0-35.0); Mean Corpuscular Hemoglobin 30.4 pg (27.0-33.0); Mean Corpuscular Volume 97.1 fL (80.0-98.0); Mean Platelet Volume 11.7 fL (9.4-12.3); Monocytes Absolute Auto 0.5 X10*3/uL (0.1-1.2); Neutrophils Absolute Auto 4.9 x10*3/uL (2.0-8.3); Neutrophils Percent Auto 71.2 % (45-73); Platelet Count 192 X10*3/uL (160-400); Red Blood Count 3.82 X10*6/uL (4.20-5.50); Red Cell Distribution Width 14.4 % (11.0-16.0); White Blood Count 6.9 X10*3/uL (4.8-10.8)
--- NOTE | 2023-01-31 06:41 | PC.NURSE ---
Upon initial assessment at 1900- pt sedated on Precedex, RASS -3, responds to noxious stimuli, reaches for lines/tubes attempting to get OOB, difficult to redirect and required versed 2 mg IVP x1 for agitation. Afebrile. SB with 1AVB and prolonged QT on tele, HR 40-50s at rest, up to 60-70s while stimulated. Levophed titrated to maintain MAP > 65. Generalized non-pitting edema noted. ETT #7.5, 20 cm at lip. On AC settings. Small amount of bloody inline secretions. Fentanyl running for vent synchrony. Lactulose 30 gm via OGT given x1, TF started per order. No BM. Bergman in place, UOP approx 30 ml/hr. Skin overall intact with scattered bruising. Repositioned in bed q2hr with wedges. Full CHG bath given this AM. Family called/updated on pt status/plan of care. Bed locked in low position.
[2023-01-31] MEDS: Chlorhexidine Gluc Oral Rinse 15 ML MOUTHWASH BUCCAL ×3 (08:46→19:51)
--- NOTE | 2023-01-31 10:08 | PM.CCPN ---
Subjective Subjective Date of Service: 01/31/23 Interval History: 47-year-old lady with underlying unspecified muscular dystrophy? COPD on 3 L supplemental oxygen, dysphagia, chronic CO2 retention admitted on [id number] with dyspnea. On ER evaluation patient with iatrogenic hyperoxia induced hypercarbia progressing to hypoxia requiring intubation. CT angio chest with no evidence for pulmonary emboli, but pulmonary edema. Patient started on Diamox and empiric antibiotics, with significant improvement. extubated on 01/29/2023, but required re-intubation within 30 minutes for inability to control secretions/pulmonary aspirations. No events overnight. Failed pressure support trial with low inspiratory volumes and tachypnea. Critical Care Time (minutes): 45 Physical Exam Vital Signs: Vital Signs: Last Vital Signs Temp 99.1 F 01/31/23 09:00 Pulse 44 L 01/31/23 09:54 Resp 14 01/31/23 09:00 BP 112/64 01/31/23 09:35 Pulse Ox 89 L 01/31/23 09:00 O2 Del Method Mechanical Ventil ation 01/31/23 09:00 O2 Flow Rate 11 01/26/23 16:00 FiO2 30 01/31/23 09:00 Oxygen Flow Rate 4 01/26/23 13:05 BMI result Body Mass Index 40.9 Const: General: no acute distress and other (Sedated on the vent) Nutritional Appearance: obese Eyes: Sclerae: sclerae normal EOM: EOMs intact bilaterally Neck: Neck: Yes no lymphadenopathy, Yes trachea midline and Yes supple Resp: Effort & Inspection: normal respiratory effort and no respiratory distress Auscultation: clear to auscultation bilaterally Cardio: Rate: bradycardic Rhythm: regular rhythm Heart sounds: no gallops, no murmurs and no rubs GI: Palpation (GI): Soft to palpation and Other GI palpation findings present ( Nontender) Auscultation: normal bowel sounds Extrem: General: No clubbing, No cyanosis and Yes edema (Trace bilateral) Objective Data Labs 01/31/23 05:44 01/31/23 05:44 Labs: Laboratory Results - last 24 hr 01/31/23 01/31/23 01/31/23 05:42 05:44 05:44 WBC 6.9 RBC 3.82 L Hgb 11.6 L Hct 37.1 MCV 97.1 MCH 30.4 MCHC 31.3 RDW 14.4 Plt Count 192 MPV 11.7 Immature Gran % (Auto) 0.4 Neut % (Auto) 71.2 Lymph % (Auto) 16.3 L [place] % (Auto) 7.0 Eos % (Auto) 4.8 H Baso % (Auto) 0.3 Lymph # (Auto) 1.1 L [place] # (Auto) 0.5 Eos # (Auto) 0.3 Baso # (Auto) 0.0 Abs Immat Gran (auto) 0.03 Absolute Neuts (auto) 4.9 Absolute Nucleated RBC 0.000 Nucleated RBC % (auto) 0.0 VBG pH 7.47 H VBG pCO2 30 VBG pO2 54 VBG HCO3 22 VBG O2 Saturation 85.0 VBG Base Excess -0.4 Sodium 144 Potassium 3.9 Chloride 113 H Carbon Dioxide 21 L Anion Gap 14 BUN 6 L Creatinine 0.54 Estim Creat Clear Calc 135.6 Estimated GFR > 60 Random Glucose 106 Calcium 10.0 Phosphorus 2.7 Magnesium 2.2 Albumin 3.9 Microbiology Microbiology Results: Microbiology 01/26/23 16:17 Blood - Venous Blood Culture - Preliminary No growth after 48 hours. 01/26/23 16:09 Blood - Venous Blood Culture - Preliminary No growth after 48 hours. Progress Note: A&P Assessment and plan (1) Muscular dystrophy: Status: Acute (2) Acute on chronic respiratory failure with hypoxia and hypercapnia: Status: Acute (3) Dysphagia: Status: Acute Plan Assessment: 47-year-old lady with unspecified underlying muscular dystrophy admitted with acute on chronic hypoxic and hypercapnic respiratory failure requiring ventilatory support, likely secondary to underlying congestive heart failure. Plan: Neuro: No acute issues. Cardiac: No acute issues. Pulmonary: Acute on chronic hypoxic and hypercapnic respiratory failure with inability to clear secretions/pulmonary aspiration on the background of unspecified muscular dystrophy now requiring ventilatory support. Extubation attempted on 01/29/2023, however required a re-intubation within 30 minutes for inability to control secretions/pulmonary aspirations. Now continues to fail pressure support trial secondary to tachypnea with poor inspiratory volumes likely related to underlying muscular dystrophy. May require tracheostomy. Renal: No acute issues. Endo: No acute issues. GI: No acute issues. ID: Empirically covered for pulmonary aspiration with Unasyn. Heme/Onc: No acute issues. Psych: No acute issues. Miscellaneous: No acute issues. Prophylaxis: Lovenox, famotidine Diet: tube feeds Critical care time spent: 45 minutes Quality Stroke Does the patient have a stroke diagnosis?: No VTE Prior VTE?: No VTE Risk Level:: Medical - moderate - high VTE Device Contraindication: N/A - Device Ordered VTE Drug Contraindication: N/A - Med Ordered
[2023-01-31] MEDS: fentaNYL citrate/NS 1,000 MCG/100 ML PLAST..BAG 10 MCG IVCONT (13:05)
[2023-01-31] MEDS: dexmedeTOMIDidine HCL/NS 400 MCG/100 ML INFUS..BTL 9.32 MCG IVCONT (13:15)
[2023-01-31] MEDS: Enoxaparin Sodium 40 MG/0.4 ML SYRINGE SUBCUT (18:26)
[2023-01-31] MEDS: Norepinephrine Bitartrate/D5W 8 MG/250 ML PLAST..BAG 5.45 MG IV (19:50)
[2023-01-31] MEDS: fentaNYL citrate/NS 1,000 MCG/100 ML PLAST..BAG 15 MCG IVCONT (19:55)
[2023-01-31] MEDS: bisacodyL 10 MG SUPP.RECT PR (20:00)
[2023-02-01] VITALS (42 sets, daily range): BP systolic 89–134; BP diastolic 51–86; PULSE 45–123; RESP 12–29; TEMP 34.3–38; O2SAT 85–95; BMI 41.7
[2023-02-01] MEDS: Ampicillin Sodium/Sulbactam Na 3 GM in 0.9 % Sodium Chloride 100 ML IV ×4 (00:19→18:24)
[2023-02-01] MEDS: dexmedeTOMIDidine HCL/NS 400 MCG/100 ML INFUS..BTL 18.64 MCG IVCONT ×2 (01:02→06:18)
[2023-02-01] MEDS: fentaNYL citrate/NS 1,000 MCG/100 ML PLAST..BAG 15 MCG IVCONT ×2 (01:03→06:16)
--- NOTE | 2023-02-01 04:51 | PC.NURSE ---
Addendum entered by Kavon Wen RN 02/01/23 06:49: UPDRAFT GIVEN...RT TITRATED FIO2 TO 60%...SAO2 91-92%...CXR DONE AND REVIEWED BY UNDERWATER PHOTOGRAPHER...PER UNDERWATER PHOTOGRAPHER CRUTCH MAKER PLANS POSSIBLE BRONCHOSCOPY TODAY Original Note: CARE ASSUMED 23:15..REMAINS TUBED/VENTED...VCV VENT SUPPORT..PER SHIFT REPORT SAO2 GOAL 88-92%...FIO2 305 AT HS...SAO2 90-91%...FENTANEL 150 MCG/HR AND PRECIDEX 0.8 MCG/KG/HR...RESTFUL WHEN UNSTIMULATED...AGITATED WITH POSITIONING..THRASHING LEGS AND ARMS..DOES NOT FOLLOW COMMANDS...GRADUALLY RESTFUL WHEN UNSTIMULATED..OG-TUBE FEEDS 40 CC/HR ...300ml RESIDUAL ASPIRATE OBTAINED AT HS....FEEDS AND H20 BOLU HELD 12AM...ICU UNDERWATER PHOTOGRAPHER AWARE...REMAINS 120ML RESIDUAL AT 4AM....GRADUAL DCREASED SAO2 OVERNIGHT....SAO2 DOWN TO 86%...FIO2 TITRATED TO 455 W/O EFFECT...BAGGED/LAVAGED FOR SMALL AMOUNT THICH JACOBSON-PINK TINGED SPUTUM WITH TRANSIENT EFFECT...RT PRESENT...UPDRAFTS ORDERED BY ICU UNDERWATER PHOTOGRAPHER..TO MONITOR RESPONSE...LEVOPHED DRIP PER AUG...
[2023-02-01] MEDS: Albuterol Sulfate (0.083%) 2.5 MG/3 ML VIAL.NEB INHALE (04:57)
[2023-02-01 05:38] LABS: VBG Base Excess 2.2 mmol/L; VBG HCO3 26 mmol/L (22-26); VBG pCO2 37 mmHg; VBG pH 7.44 (7.32-7.43); VBG pO2 54 mmHg
[2023-02-01 05:40] LABS: Venous Blood Gas Refer to POC result
[2023-02-01 06:09] LABS: MANUAL DIFF FLAG NO
[2023-02-01] MEDS: Pantoprazole Sodium 40 MG/10 ML VIAL IVPUSH (06:26)
[2023-02-01 06:29] LABS: Albumin Level 3.7 g/dL (3.5-5.0); Anion Gap 14 (12-20); Blood Urea Nitrogen 6 mg/dL (9-16); Calcium 9.7 mg/dL (8.4-10.2); Carbon Dioxide 24 mmol/L (22-29); Chloride 109 mmol/L (96-108); Creatinine Clr Calc Pharmacy 145.2; Estimated Glomerular Filt Rate > 60; Glucose Random 113 mg/dL (60-115); Magnesium 2.2 mg/dL (1.6-2.6); Phosphorus 2.9 mg/dL (2.7-4.5); Potassium 3.5 mmol/L (3.3-5.1); Sodium 143 mmol/L (135-145)
[2023-02-01 06:44] LABS: Basophils Percent Auto 0.2 % (0-2); Eosinophils Absolute Auto 0.2 X10*3/uL (0.0-0.4); Eosinophils Percent Auto 2.2 % (0-4); Hematocrit 35.2 % (37.0-47.0); Hemoglobin 11.2 g/dl (12.0-16.0); Imm Gran Abs Auto 0.04 X10*3/uL (0.00-0.03); Imm Gran Pct Auto 0.4 % (0.0-0.4); Lymphocytes Absolute Auto 1.5 X10*3/uL (1.2-4.9); Mean Corpuscular HGB Conc 31.8 g/dl (31.0-35.0); Mean Corpuscular Hemoglobin 30.4 pg (27.0-33.0); Mean Corpuscular Volume 95.4 fL (80.0-98.0); Mean Platelet Volume 11.6 fL (9.4-12.3); Monocytes Absolute Auto 0.7 X10*3/uL (0.1-1.2); Monocytes Percent Auto 6.5 % (2-11); Neutrophils Absolute Auto 8.1 x10*3/uL (2.0-8.3); Neutrophils Percent Auto 76.7 % (45-73); Platelet Count 206 X10*3/uL (160-400); Red Blood Count 3.69 X10*6/uL (4.20-5.50); Red Cell Distribution Width 14.4 % (11.0-16.0); White Blood Count 10.5 X10*3/uL (4.8-10.8)
[2023-02-01] MEDS: Chlorhexidine Gluc Oral Rinse 15 ML MOUTHWASH BUCCAL ×3 (09:12→19:54)
--- NOTE | 2023-02-01 09:23 | PM.CCPN ---
Subjective Subjective Date of Service: 02/01/23 Interval History: 47-year-old lady with underlying unspecified muscular dystrophy? COPD on 3 L supplemental oxygen, dysphagia, chronic CO2 retention admitted on [id number] with dyspnea. On ER evaluation patient with iatrogenic hyperoxia induced hypercarbia progressing to hypoxia requiring intubation. CT angio chest with no evidence for pulmonary emboli, but pulmonary edema. Patient started on Diamox and empiric antibiotics, with significant improvement. extubated on 01/29/2023, but required re-intubation within 30 minutes for inability to control secretions/pulmonary aspirations. Worsening oxygenation overnight with increased in in-line secretions, may be aspirating past ett cuff. Critical Care Time (minutes): 45 Physical Exam Vital Signs: Vital Signs: Last Vital Signs Temp 98.6 F 02/01/23 09:00 Pulse 123 H 02/01/23 09:05 Resp 29 H 02/01/23 09:05 BP 119/74 02/01/23 09:00 Pulse Ox 91 L 02/01/23 09:00 O2 Del Method Mechanical Ventil ation 02/01/23 09:00 O2 Flow Rate 11 01/26/23 16:00 FiO2 60 02/01/23 09:00 Oxygen Flow Rate 4 01/26/23 13:05 BMI result Body Mass Index 41.7 Const: General: no acute distress and other ( sedated on the vent) Nutritional Appearance: obese Eyes: Sclerae: sclerae normal EOM: EOMs intact bilaterally Neck: Neck: Yes no lymphadenopathy, Yes trachea midline and Yes supple Resp: Auscultation: clear to auscultation bilaterally Cardio: Rate: regular rate Rhythm: regular rhythm Heart sounds: no gallops, no murmurs and no rubs GI: Palpation (GI): Soft to palpation and Other GI palpation findings present ( Nontender) Auscultation: normal bowel sounds Extrem: General: No clubbing and No cyanosis Objective Data Labs 02/01/23 05:22 02/01/23 05:22 Labs: Laboratory Results - last 24 hr 02/01/23 02/01/23 02/01/23 05:22 05:22 05:27 WBC 10.5 RBC 3.69 L Hgb 11.2 L Hct 35.2 L MCV 95.4 MCH 30.4 MCHC 31.8 RDW 14.4 Plt Count 206 MPV 11.6 Immature Gran % (Auto) 0.4 Neut % (Auto) 76.7 H Lymph % (Auto) 14.0 L [place] % (Auto) 6.5 Eos % (Auto) 2.2 Baso % (Auto) 0.2 Lymph # (Auto) 1.5 [place] # (Auto) 0.7 Eos # (Auto) 0.2 Baso # (Auto) 0.0 Abs Immat Gran (auto) 0.04 H Absolute Neuts (auto) 8.1 Absolute Nucleated RBC 0.000 Nucleated RBC % (auto) 0.0 VBG pH 7.44 H VBG pCO2 37 VBG pO2 54 VBG HCO3 26 VBG O2 Saturation 83.0 VBG Base Excess 2.2 Sodium 143 Potassium 3.5 Chloride 109 H Carbon Dioxide 24 Anion Gap 14 BUN 6 L Creatinine 0.51 Estim Creat Clear Calc 145.2 Estimated GFR > 60 Random Glucose 113 Calcium 9.7 Phosphorus 2.9 Magnesium 2.2 Albumin 3.7 Microbiology Microbiology Results: Microbiology 01/26/23 16:17 Blood - Venous Blood Culture - Final No growth after 5 days. 01/26/23 16:09 Blood - Venous Blood Culture - Final No growth after 5 days. Progress Note: A&P Assessment and plan (1) Dysphagia: Status: Acute (2) Acute on chronic respiratory failure with hypoxia and hypercapnia: Status: Acute (3) Muscular dystrophy: Status: Acute (4) Failure to wean from mechanical ventilation: Status: Acute Plan Assessment: 47-year-old lady with unspecified underlying muscular dystrophy admitted with acute on chronic hypoxic and hypercapnic respiratory failure requiring ventilatory support, likely secondary to underlying congestive heart failure. Plan: Neuro: No acute issues. Cardiac: No acute issues. Pulmonary: Acute on chronic hypoxic and hypercapnic respiratory failure with inability to clear secretions/pulmonary aspiration on the background of unspecified muscular dystrophy now requiring ventilatory support. Extubation attempted on 01/29/2023, however required a re-intubation within 30 minutes for inability to control secretions/pulmonary aspirations. Now continues to fail pressure support trial secondary to tachypnea with poor inspiratory volumes likely related to underlying muscular dystrophy. May require tracheostomy. Renal: No acute issues. Endo: No acute issues. GI: No acute issues. ID: Empirically covered for pulmonary aspiration with Unasyn. Heme/Onc: No acute issues. Psych: No acute issues. Miscellaneous: No acute issues. Prophylaxis: Lovenox, famotidine Diet: tube feeds Critical care time spent: 45 minutes Quality Stroke Does the patient have a stroke diagnosis?: No VTE Prior VTE?: No VTE Risk Level:: Medical - moderate - high VTE Device Contraindication: N/A - Device Ordered VTE Drug Contraindication: N/A - Med Ordered
[2023-02-01] MEDS: dexmedeTOMIDidine HCL/NS 400 MCG/100 ML INFUS..BTL 23.3 MCG IVCONT ×3 (11:00→19:51)
[2023-02-01] MEDS: fentaNYL citrate/NS 1,000 MCG/100 ML PLAST..BAG 17.5 MCG IVCONT ×3 (11:29→22:58)
[2023-02-01] MEDS: Enoxaparin Sodium 40 MG/0.4 ML SYRINGE SUBCUT (18:24)
[2023-02-01] MEDS: dexmedeTOMIDidine HCL/NS 400 MCG/100 ML INFUS..BTL 27.96 MCG IVCONT (23:54)
[2023-02-02] VITALS (31 sets, daily range): BP systolic 95–144; BP diastolic 53–86; PULSE 50–91; RESP 14–20; TEMP 35.1–38.1; O2SAT 85–94; BMI 43.1
--- NOTE | 2023-02-02 | EMG_ITS ---
Please see EMG / Nerve Conduction Report. MTDD
--- NOTE | 2023-02-02 00:10 | HO.SKINPHOTO ---
Addendum entered by Shirley Dunham RN 02/02/23 00:13: DIABETIC ULCER TO LATERAL ASPECT OF RIGHT GREAT TOE Original Note: Location: Category: Stage: Length: Width: Depth: cm Location: Category: Stage: Length: Width: Depth: cm Location: Category: Stage: Length: Width: Depth: cm Location: Category: Stage: Length: Width: Depth: cm Location: Category: Stage: Length: Width: Depth: cm Location: Category: Stage: Length: Width: Depth: cm
--- NOTE | 2023-02-02 00:11 | HO.SKINPHOTO ---
Addendum entered by Shirley Dunham RN 02/02/23 00:14: BLOOD BLISTER TO RIGHT GREAT TOE Original Note: Location: Category: Stage: Length: Width: Depth: cm Location: Category: Stage: Length: Width: Depth: cm Location: Category: Stage: Length: Width: Depth: cm Location: Category: Stage: Length: Width: Depth: cm Location: Category: Stage: Length: Width: Depth: cm Location: Category: Stage: Length: Width: Depth: cm
--- NOTE | 2023-02-02 00:12 | HO.SKINPHOTO ---
Addendum entered by Shirley Dunham RN 02/02/23 00:15: FRONT VIEW OF RIGHT GREAT TOE SHOWING REDNESS AND SWELLING Original Note: Location: Category: Stage: Length: Width: Depth: cm Location: Category: Stage: Length: Width: Depth: cm Location: Category: Stage: Length: Width: Depth: cm Location: Category: Stage: Length: Width: Depth: cm Location: Category: Stage: Length: Width: Depth: cm Location: Category: Stage: Length: Width: Depth: cm
[2023-02-02] MEDS: Midazolam HCl/PF 2 MG/2 ML VIAL IVPUSH ×5 (00:30→19:06)
[2023-02-02] MEDS: Ampicillin Sodium/Sulbactam Na 3 GM in 0.9 % Sodium Chloride 100 ML IV ×4 (00:41→18:14)
[2023-02-02] MEDS: dexmedeTOMIDidine HCL/NS 400 MCG/100 ML INFUS..BTL 34.95 MCG IVCONT ×8 (02:42→22:58)
[2023-02-02] MEDS: fentaNYL citrate/NS 1,000 MCG/100 ML PLAST..BAG 17.5 MCG IVCONT ×3 (03:48→19:55)
[2023-02-02 04:50] LABS: MANUAL DIFF FLAG NO
[2023-02-02 04:52] LABS: Basophils Percent Auto 0.1 % (0-2); Eosinophils Absolute Auto 0.4 X10*3/uL (0.0-0.4); Eosinophils Percent Auto 2.9 % (0-4); Hematocrit 34.9 % (37.0-47.0); Hemoglobin 10.9 g/dl (12.0-16.0); Imm Gran Abs Auto 0.04 X10*3/uL (0.00-0.03); Imm Gran Pct Auto 0.3 % (0.0-0.4); Lymphocytes Absolute Auto 0.6 X10*3/uL (1.2-4.9); Lymphocytes Percent Auto 4.1 % (20-40); Mean Corpuscular HGB Conc 31.2 g/dl (31.0-35.0); Mean Corpuscular Hemoglobin 29.9 pg (27.0-33.0); Mean Corpuscular Volume 95.6 fL (80.0-98.0); Mean Platelet Volume 11.4 fL (9.4-12.3); Monocytes Absolute Auto 0.7 X10*3/uL (0.1-1.2); Monocytes Percent Auto 4.8 % (2-11); Neutrophils Absolute Auto 12.1 x10*3/uL (2.0-8.3); Neutrophils Percent Auto 87.8 % (45-73); Platelet Count 207 X10*3/uL (160-400); Red Blood Count 3.65 X10*6/uL (4.20-5.50); Red Cell Distribution Width 14.5 % (11.0-16.0); White Blood Count 13.7 X10*3/uL (4.8-10.8)
[2023-02-02 04:59] LABS: VBG Base Excess 4.1 mmol/L; VBG HCO3 27 mmol/L (22-26); VBG pCO2 35 mmHg; VBG pH 7.49 (7.32-7.43); VBG pO2 71 mmHg
[2023-02-02 05:00] LABS: Venous Blood Gas Refer to POC result
[2023-02-02 05:15] LABS: Albumin Level 3.4 g/dL (3.5-5.0); Blood Urea Nitrogen 5 mg/dL (9-16); Calcium 9.5 mg/dL (8.4-10.2); Chloride 110 mmol/L (96-108); Estimated Glomerular Filt Rate > 60; Glucose Random 161 mg/dL (60-115); Phosphorus 2.8 mg/dL (2.7-4.5); Potassium 3.4 mmol/L (3.3-5.1); Sodium 144 mmol/L (135-145)
[2023-02-02] MEDS: Pantoprazole Sodium 40 MG/10 ML VIAL IVPUSH (06:06)
[2023-02-02] MEDS: Chlorhexidine Gluc Oral Rinse 15 ML MOUTHWASH BUCCAL ×3 (09:12→20:06)
[2023-02-02 10:12] LABS: Anion Gap 13 (12-20); Carbon Dioxide 23 mmol/L (22-29)
--- NOTE | 2023-02-02 10:38 | MHC.CLN ---
F/U PT REMAINS INTUBATED AND SEDATED DISCUSSED AT ROUNDS WITH MD BALTAZAR TF CURRENTLY RUNNING AT 30ML/HR R/T HIGH RESIDUALS PT'S MAX GOAL RATE IS PROMOTE AT 50ML/HR WITH 240ML FWF Q 8 HRS TO PROVIDE, 75G PROTEIN (1.3G/KG), 1727ML TOTAL WATER FROM FORMULA AND FLUSHES (31ML/KG) MONITOR TOLERANCE, RESIDUALS AND LYTES
[2023-02-02] MEDS: fentaNYL citrate/PF 100 MCG/2 ML VIAL 50 MCG IVPUSH (11:43)
[2023-02-02] MEDS: Furosemide 20 MG/2 ML VIAL IVPUSH ×2 (11:45→18:08)
--- NOTE | 2023-02-02 13:16 | PM.CCPN ---
Subjective Subjective Date of Service: 02/02/23 Interval History: 47-year-old lady with underlying unspecified muscular dystrophy? (familial, father passed at 44 from muscular dystrophy), COPD on 3 L supplemental oxygen, dysphagia, chronic CO2 retention admitted on 01/26/2023 with dyspnea. On ER evaluation patient with iatrogenic hyperoxia induced hypercarbia progressing to hypoxia requiring intubation. CT angio chest with no evidence for pulmonary emboli, but pulmonary edema. Patient started on Diamox and empiric antibiotics, with significant improvement. Extubated on 01/29/2023, but required re-intubation within 30 minutes for inability to control secretions/pulmonary aspirations. Continues to fail pressure support trials secondary to tachypnea and low tidal volumes. No events overnight. Critical Care Time (minutes): 45 Physical Exam Vital Signs: Vital Signs: Last Vital Signs Temp 99.5 F 02/02/23 13:00 Pulse 60 02/02/23 13:00 Resp 15 02/02/23 13:00 BP 99/53 L 02/02/23 13:00 Pulse Ox 90 L 02/02/23 13:00 O2 Del Method Mechanical Ventil ation 02/02/23 13:00 O2 Flow Rate 11 01/26/23 16:00 FiO2 50 02/02/23 13:00 Oxygen Flow Rate 4 01/26/23 13:05 BMI result Body Mass Index 43.1 Const: General: no acute distress and other ( sedated on the vent) Nutritional Appearance: obese Eyes: Sclerae: sclerae normal Neck: Neck: Yes no lymphadenopathy, Yes trachea midline and Yes supple Resp: Auscultation: crackles ( mild bilateral) Cardio: Rate: regular rate Rhythm: regular rhythm Heart sounds: no gallops, no murmurs and no rubs GI: Palpation (GI): Soft to palpation and Other GI palpation findings present ( Nontender) Auscultation: normal bowel sounds Extrem: General: No clubbing, No cyanosis and Yes edema ( trace bilateral) Objective Data Labs 02/02/23 04:41 02/02/23 04:41 Labs: Laboratory Results - last 24 hr 02/02/23 02/02/23 02/02/23 04:41 04:41 04:51 WBC 13.7 H RBC 3.65 L Hgb 10.9 L Hct 34.9 L MCV 95.6 MCH 29.9 MCHC 31.2 RDW 14.5 Plt Count 207 MPV 11.4 Immature Gran % (Auto) 0.3 Neut % (Auto) 87.8 H Lymph % (Auto) 4.[address] [place] % (Auto) 4.8 Eos % (Auto) 2.9 Baso % (Auto) 0.1 Lymph # (Auto) 0.[address] [place] # (Auto) 0.7 Eos # (Auto) 0.4 Baso # (Auto) 0.0 Abs Immat Gran (auto) 0.04 H Absolute Neuts (auto) 12.1 H Absolute Nucleated RBC 0.000 Nucleated RBC % (auto) 0.0 VBG pH 7.49 H VBG pCO2 35 VBG pO2 71 VBG HCO3 27 H VBG O2 Saturation 94.0 VBG Base Excess 4.1 Sodium 144 Potassium 3.4 Chloride 110 H Carbon Dioxide 23 Anion Gap 13 BUN 5 L Creatinine 0.51 Estim Creat Clear Calc 148.0 Estimated GFR > 60 Random Glucose 161 H Calcium 9.5 Phosphorus 2.8 Magnesium 2.0 Albumin 3.4 L Microbiology Microbiology Results: Microbiology 01/26/23 16:17 Blood - Venous Blood Culture - Final No growth after 5 days. 01/26/23 16:09 Blood - Venous Blood Culture - Final No growth after 5 days. Progress Note: A&P Assessment and plan (1) Failure to wean from mechanical ventilation: Status: Acute (2) Dysphagia: Status: Acute (3) Acute on chronic respiratory failure with hypoxia and hypercapnia: Status: Acute (4) Muscular dystrophy: Status: Acute (5) Pulmonary edema: Status: Acute Plan Assessment: 47-year-old lady with unspecified underlying muscular dystrophy admitted with acute on chronic hypoxic and hypercapnic respiratory failure requiring ventilatory support, likely secondary to underlying congestive heart failure. Plan: Neuro: underlying unspecified muscular dystrophy, will request EMG. Cardiac: No acute issues. Pulmonary: Acute on chronic hypoxic and hypercapnic respiratory failure with inability to clear secretions/pulmonary aspiration on the background of unspecified muscular dystrophy now requiring ventilatory support. Extubation attempted on 01/29/2023, however required a re-intubation within 30 minutes for inability to control secretions/pulmonary aspirations. Now continues to fail pressure support trial secondary to tachypnea with poor inspiratory volumes likely related to underlying muscular dystrophy. May require tracheostomy. Renal: No acute issues. Endo: No acute issues. GI: No acute issues. ID: Empirically covered for pulmonary aspiration with Unasyn. Heme/Onc: No acute issues. Psych: No acute issues. Miscellaneous: No acute issues. Prophylaxis: Lovenox, famotidine Diet: tube feeds Critical care time spent: 45 minutes Quality Stroke Does the patient have a stroke diagnosis?: No VTE Prior VTE?: No VTE Risk Level:: Medical - moderate - high VTE Device Contraindication: N/A - Device Ordered VTE Drug Contraindication: N/A - Med Ordered
[2023-02-02] MEDS: fentaNYL citrate/NS 1,000 MCG/100 ML PLAST..BAG 20 MCG IVCONT (14:18)
--- NOTE | 2023-02-02 17:19 | PC.NURSE ---
Assumed care of patient 07:00 Sedation vacation started 10:45, precedex gtt decreased to 1 mcg/kg/hr. Pt able to slightly open eyes and squeeze hands on command. PSV trail started. Pt had low tidal volumes and increased RR, HR 120-130s. Sedation vacation ended and vent settings changed to AC. Pt provided bed bath and skin care 11:30 new IV placed for patient 18 left upper arm Lasix 20mg IVP given 11:45, pt had increased urine output of clear yellow urine. Promote tube feeding rate advanced to 40ml/hr at 11:00 and 50 ml/hr at 16:00 (50 max rate per order). Pt tolerating tube feeds well. Pt required prn versed 2mg IVP at 12:42 and 15:48 for increased restlessness, kicking legs, increased RR. PRN med had therapeutic effect as evidenced by RASS -3 and vent synchrony. Pt repositioned Q2H, mouth care Q2H, prevlon system used, high fall precautions in place.
[2023-02-02] MEDS: Enoxaparin Sodium 40 MG/0.4 ML SYRINGE SUBCUT (20:06)
[2023-02-03] VITALS (36 sets, daily range): BP systolic 83–134; BP diastolic 38–77; PULSE 50–121; RESP 14–20; TEMP 34.8–38; O2SAT 88–99; BMI 43.1
[2023-02-03] MEDS: Midazolam HCl/PF 2 MG/2 ML VIAL IVPUSH ×3 (00:52→10:40)
[2023-02-03] MEDS: fentaNYL citrate/NS 1,000 MCG/100 ML PLAST..BAG 17.5 MCG IVCONT ×4 (00:53→15:02)
[2023-02-03] MEDS: Ampicillin Sodium/Sulbactam Na 3 GM in 0.9 % Sodium Chloride 100 ML IV ×4 (00:55→18:15)
[2023-02-03] MEDS: dexmedeTOMIDidine HCL/NS 400 MCG/100 ML INFUS..BTL 34.95 MCG IVCONT ×4 (01:35→09:52)
[2023-02-03 05:08] LABS: VBG Base Excess 7.8 mmol/L; VBG HCO3 32 mmol/L (22-26); VBG pCO2 47 mmHg; VBG pH 7.44 (7.32-7.43); VBG pO2 40 mmHg
[2023-02-03 05:17] LABS: Venous Blood Gas Refer to POC result
[2023-02-03 05:19] LABS: MANUAL DIFF FLAG NO
[2023-02-03 05:20] LABS: Basophils Percent Auto 0.2 % (0-2); Eosinophils Absolute Auto 0.5 X10*3/uL (0.0-0.4); Hematocrit 34.6 % (37.0-47.0); Imm Gran Abs Auto 0.05 X10*3/uL (0.00-0.03); Imm Gran Pct Auto 0.4 % (0.0-0.4); Lymphocytes Absolute Auto 0.9 X10*3/uL (1.2-4.9); Lymphocytes Percent Auto 6.8 % (20-40); Mean Corpuscular HGB Conc 31.8 g/dl (31.0-35.0); Mean Corpuscular Hemoglobin 30.6 pg (27.0-33.0); Mean Corpuscular Volume 96.1 fL (80.0-98.0); Mean Platelet Volume 11.7 fL (9.4-12.3); Monocytes Absolute Auto 0.9 X10*3/uL (0.1-1.2); Monocytes Percent Auto 7.2 % (2-11); Neutrophils Absolute Auto 10.5 x10*3/uL (2.0-8.3); Neutrophils Percent Auto 81.4 % (45-73); Platelet Count 226 X10*3/uL (160-400); Red Cell Distribution Width 14.4 % (11.0-16.0); White Blood Count 12.8 X10*3/uL (4.8-10.8)
[2023-02-03 05:32] LABS: Alanine Aminotransferase 32 U/L (0-31); Albumin Level 3.3 g/dL (3.5-5.0); Alkaline Phosphatase 130 U/L (39-117); Anion Gap 12 (12-20); Aspartate Amino Transferase 32 U/L (5-31); Bilirubin Total 0.6 mg/dL (0.0-1.0); Blood Urea Nitrogen 7 mg/dL (9-16); Calcium 9.6 mg/dL (8.4-10.2); Carbon Dioxide 29 mmol/L (22-29); Chloride 106 mmol/L (96-108); Creatinine Clr Calc Pharmacy 130.1; Estimated Glomerular Filt Rate > 60; Glucose Random 131 mg/dL (60-115); Phosphorus 3.3 mg/dL (2.7-4.5); Potassium 4.3 mmol/L (3.3-5.1); Sodium 143 mmol/L (135-145); Total Protein 6.4 g/dL (6.5-8.0)
[2023-02-03] MEDS: Pantoprazole Sodium 40 MG/10 ML VIAL IVPUSH (06:02)
--- NOTE | 2023-02-03 06:13 | MHC.INPTTRAN ---
PT MAINTAINED ON AC/VC+ VENT SETTINGS OVERNIGHT. NO ACUTE RESP DIFFICULTIES. SUCTIONING SM-MOD AMT OF SPUTUM FROM ETT. SEDATED ON PRECEDEX AND FENTANYL DRIPS BUT REQUIRED 2 DOSES OF VERSED 2MG IVP OVERNIGHT FOR SEVERE RESTLESSNESS/AGITATION. DOES NOT FOLLOW COMMANDS. VALERIO. VSS. U/O GOOD, >100 ML/HR UNTIL THE LAST 2 HRS WHICH WERE 75 AND 50 ML. TOLERATING TUBE FEEDS AT MAX RATE OF 50 ML/HR. RECTAL TUBE IN PLACE BUT SCANT AMOUNT OF LIQUID STOOL IN TUBING. AND IS LARGE, DISTENDED BUT SOFT AND NON TENDER TO TOUCH. BOWEL SOUNDS ARE HYPOACTIVE.
[2023-02-03] MEDS: Norepinephrine Bitartrate/D5W 8 MG/250 ML PLAST..BAG IV (06:40)
[2023-02-03] MEDS: Albuterol Sulfate (0.083%) 2.5 MG/3 ML VIAL.NEB INHALE (07:41)
[2023-02-03] MEDS: Albumin Human 25 % 100 ML IV (08:04)
[2023-02-03] MEDS: Chlorhexidine Gluc Oral Rinse 15 ML MOUTHWASH BUCCAL ×3 (08:05→19:36)
[2023-02-03] MEDS: Furosemide 20 MG/2 ML VIAL IVPUSH ×2 (09:50→15:57)
[2023-02-03] MEDS: propofoL 1,000 MG/100 ML VIAL 14.04 MG IVCONT ×2 (10:42→15:03)
[2023-02-03] MEDS: Lactulose 20 GM/30 ML SOLUTION 30 GM PO ×2 (14:42→19:36)
[2023-02-03] MEDS: propofoL 1,000 MG/100 ML VIAL 18.72 MG IVCONT (19:24)
[2023-02-03] MEDS: Enoxaparin Sodium 40 MG/0.4 ML SYRINGE SUBCUT (19:25)
[2023-02-03] MEDS: fentaNYL citrate/NS 1,000 MCG/100 ML PLAST..BAG 15 MCG IVCONT (19:41)
[2023-02-03] MEDS: propofoL 1,000 MG/100 ML VIAL 23.41 MG IVCONT (22:41)
[2023-02-04] VITALS (35 sets, daily range): BP systolic 86–128; BP diastolic 47–65; PULSE 70–130; RESP 14–20; TEMP 35–38; O2SAT 85–93; BMI 43.7
[2023-02-04] MEDS: Ampicillin Sodium/Sulbactam Na 3 GM in 0.9 % Sodium Chloride 100 ML IV ×3 (00:53→12:53)
[2023-02-04] MEDS: fentaNYL citrate/NS 1,000 MCG/100 ML PLAST..BAG 17.5 MCG IVCONT ×4 (00:54→15:06)
[2023-02-04] MEDS: propofoL 1,000 MG/100 ML VIAL 23.41 MG IVCONT ×8 (01:08→20:43)
[2023-02-04] MEDS: Norepinephrine Bitartrate/D5W 8 MG/250 ML PLAST..BAG 14.54 MG IV ×2 (02:37→18:20)
[2023-02-04 04:41] LABS: VBG Base Excess 10.9 mmol/L; VBG HCO3 35 mmol/L (22-26); VBG pCO2 48 mmHg; VBG pH 7.47 (7.32-7.43); VBG pO2 43 mmHg
[2023-02-04 04:42] LABS: Venous Blood Gas Refer to POC result
[2023-02-04 05:00] LABS: MANUAL DIFF FLAG NO
[2023-02-04 05:03] LABS: Basophils Percent Auto 0.2 % (0-2); Eosinophils Absolute Auto 0.4 X10*3/uL (0.0-0.4); Eosinophils Percent Auto 3.5 % (0-4); Hematocrit 31.6 % (37.0-47.0); Hemoglobin 9.7 g/dl (12.0-16.0); Imm Gran Abs Auto 0.08 X10*3/uL (0.00-0.03); Imm Gran Pct Auto 0.6 % (0.0-0.4); Lymphocytes Absolute Auto 0.7 X10*3/uL (1.2-4.9); Lymphocytes Percent Auto 5.3 % (20-40); Mean Corpuscular HGB Conc 30.7 g/dl (31.0-35.0); Mean Corpuscular Hemoglobin 30.1 pg (27.0-33.0); Mean Corpuscular Volume 98.1 fL (80.0-98.0); Mean Platelet Volume 11.5 fL (9.4-12.3); Monocytes Absolute Auto 0.9 X10*3/uL (0.1-1.2); Monocytes Percent Auto 7.3 % (2-11); Neutrophils Absolute Auto 10.6 x10*3/uL (2.0-8.3); Neutrophils Percent Auto 83.1 % (45-73); Platelet Count 278 X10*3/uL (160-400); Red Blood Count 3.22 X10*6/uL (4.20-5.50); Red Cell Distribution Width 14.6 % (11.0-16.0); White Blood Count 12.7 X10*3/uL (4.8-10.8)
[2023-02-04 05:21] LABS: Anion Gap 15 (12-20); Blood Urea Nitrogen 11 mg/dL (9-16); Calcium 9.5 mg/dL (8.4-10.2); Carbon Dioxide 30 mmol/L (22-29); Chloride 104 mmol/L (96-108); Creatinine Clr Calc Pharmacy 108.8; Estimated Glomerular Filt Rate > 60; Glucose Random 124 mg/dL (60-115); Magnesium 2.2 mg/dL (1.6-2.6); Phosphorus 3.2 mg/dL (2.7-4.5); Potassium 3.4 mmol/L (3.3-5.1); Sodium 146 mmol/L (135-145)
[2023-02-04] MEDS: Pantoprazole Sodium 40 MG/10 ML VIAL IVPUSH (05:43)
[2023-02-04] MEDS: Chlorhexidine Gluc Oral Rinse 15 ML MOUTHWASH BUCCAL ×3 (07:25→20:43)
[2023-02-04] MEDS: Lactulose 20 GM/30 ML SOLUTION 30 GM PO ×2 (07:25→20:42)
[2023-02-04] MEDS: Albuterol Sulfate (0.083%) 2.5 MG/3 ML VIAL.NEB INHALE ×2 (07:27→11:09)
--- NOTE | 2023-02-04 09:41 | MHC.CLN ---
F/U PT REMAINS INTUBATED AND SEDATED DISCUSSED AT ROUNDS WITH PT'S RECEIVING TF AT MAX GOAL RATE PROMOTE AT 50ML/HR WITH 240ML FWF Q 8 HRS PROVIDES 1200KCALS (23KCALS/KG), 75G PROTEIN (1.3G/KG), 1727ML TOTAL WATER FROM FORMULA AND FLUSHES (31ML/KG) TOLERATING WELL PER NSG MONITOR TOLERANCE, RESIDUALS AND LYTES
--- NOTE | 2023-02-04 09:43 | P.PNCC_ITS ---
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 On ER evaluation patient with iatrogenic hyperoxia induced hypercarbia progressing to hypoxia requiring intubation. CT angio chest with no evidence for pulmonary emboli, but pulmonary edema. Patient started on Diamox and empiric antibiotics, with significant improvement. Extubated on 01/29/2023, but required re-intubation within 30 minutes for inability to control secretions/ pulmonary aspirations. Continues to fail pressure support trials secondary to tachypnea and low tidal volumes. No events overnight. Critical Care Time (minutes): 45 Physical Exam Vital Signs: Vital Signs: Last Vital Signs Temp 100.4 F 02/04/23 08:59 Pulse 105 H 02/04/23 08:59 Resp 17 02/04/23 08:59 BP 114/54 L 02/04/23 08:59 Pulse Ox 92 02/04/23 08:59 O2 Del Method Mechanical Ventil ation 02/04/23 08:59 O2 Flow Rate 11 01/26/23 16:00 FiO2 90 02/04/23 08:59 Oxygen Flow Rate 4 01/26/23 13:05 BMI result Body Mass Index 43.7 Const: General: no acute distress and other (Sedated on the vent) Nutritional Appearance: obese Eyes: Sclerae: sclerae normal EOM: EOMs intact bilaterally Neck: Neck: Yes no lymphadenopathy, Yes trachea midline and Yes supple Resp: Auscultation: crackles (Mild bilateral) Cardio: Rate: regular rate Rhythm: regular rhythm Heart sounds: no gallops, no murmurs and no rubs GI: Palpation (GI): Soft to palpation and Other GI palpation findings present ( Nontender) Auscultation: normal bowel sounds Extrem: General: Yes no pedal edema, No clubbing and No cyanosis Objective Data Labs 02/04/23 04:34 02/04/23 04:34 Labs: Laboratory Results - last 24 hr 02/04/23 02/04/23 02/04/23 04:34 04:34 04:35 WBC 12.7 H RBC 3.22 L Hgb 9.7 L Hct 31.6 L MCV 98.1 H MCH 30.1 MCHC 30.7 L RDW 14.6 Plt Count 278 MPV 11.5 Immature Gran % (Auto) 0.6 H Neut % (Auto) 83.1 H Lymph % (Auto) 5.3 L [place] % (Auto) 7.3 Eos % (Auto) 3.5 Baso % (Auto) 0.2 Lymph # (Auto) 0.7 L [place] # (Auto) 0.9 Eos # (Auto) 0.4 Baso # (Auto) 0.0 Abs Immat Gran (auto) 0.08 H Absolute Neuts (auto) 10.6 H Absolute Nucleated RBC 0.000 Nucleated RBC % (auto) 0.0 VBG pH 7.47 H VBG pCO2 48 VBG pO2 43 VBG HCO3 35 H VBG O2 Saturation 69.0 VBG Base Excess 10.9 Sodium 146 H Potassium 3.4 D Chloride 104 Carbon Dioxide 30 H Anion Gap 15 BUN 11 Creatinine 0.70 Estim Creat Clear Calc 108.8 Estimated GFR > 60 Random Glucose 124 H Calcium 9.5 Phosphorus 3.2 Magnesium 2.2 Microbiology Microbiology Results: Microbiology 01/26/23 16:17 Blood - Venous Blood Culture - Final No growth after 5 days. 01/26/23 16:09 Blood - Venous Blood Culture - Final No growth after 5 days. Progress Note: A&P Assessment and plan (1) Muscular dystrophy: Status: Acute (2) Acute on chronic respiratory failure with hypoxia and hypercapnia: Status: Acute (3) Dysphagia: Status: Acute (4) Failure to wean from mechanical ventilation: Status: Acute Plan Assessment: 47-year-old lady with unspecified underlying muscular dystrophy admitted with acute on chronic hypoxic and hypercapnic respiratory failure requiring ventilatory support, likely secondary to underlying congestive heart failure. Plan: Neuro: Underlying unspecified (?myotonic) muscular dystrophy, EMG requested. Cardiac: No acute issues. Pulmonary: Acute on chronic hypoxic and hypercapnic respiratory failure with inability to clear secretions/pulmonary aspiration on the background of unspecified muscular dystrophy now requiring ventilatory support. Extubation attempted on 01/29/2023, however required a re-intubation within 30 minutes for inability to control secretions/pulmonary aspirations. Now continues to fail pressure support trial secondary to tachypnea with poor inspiratory volumes likely related to underlying muscular dystrophy. May require tracheostomy. Worsening FiO2 requirements, will repeat CT chest today. Renal: No acute issues. Endo: No acute issues. GI: No acute issues. ID: Empirically covered for pulmonary aspiration with Unasyn. Heme/Onc: No acute issues. Psych: No acute issues. Miscellaneous: No acute issues. Prophylaxis: Lovenox, famotidine Diet: tube feeds Critical care time spent: 45 minutes Quality Stroke Does the patient have a stroke diagnosis?: No VTE Prior VTE?: No VTE Risk Level:: Medical - moderate - high VTE Device Contraindication: N/A - Device Ordered VTE Drug Contraindication: N/A - Med Ordered
[2023-02-04] MEDS: Midazolam HCl/PF 2 MG/2 ML VIAL IVPUSH ×2 (11:30→20:06)
[2023-02-04] MEDS: Piperacillin Sodium/Tazobactam 4.5 GM in 0.9 % Sodium Chloride 100 ML IV ×2 (15:14→20:42)
[2023-02-04 15:41] LABS: ABG Base Excess 9.3 mmol/L; ABG HCO3 36 mmol/L (22-26); ABG pCO2 59 mmHg (32-45); ABG pH 7.38 (7.35-7.45); ABG pO2 74 mmHg (83-108)
[2023-02-04] MEDS: Enoxaparin Sodium 40 MG/0.4 ML SYRINGE SUBCUT (18:20)
[2023-02-04] MEDS: fentaNYL citrate/NS 1,000 MCG/100 ML PLAST..BAG 15 MCG IVCONT (20:06)
[2023-02-04 21:18] LABS: ABG Refer to POC result
[2023-02-04] MEDS: propofoL 1,000 MG/100 ML VIAL 18.72 MG IVCONT (22:53)
--- NOTE | 2023-02-04 23:27 | W.PM.CCHP ---
Procedures Date of Service Date of Service: 02/04/23 Central Line Placement Left IJ: Consent for Procedure: Elective - informed consent obtained (FROM HER OVER THE PHONE IN THE PRESENCE OF HER NURSE RERE) Time out performed: Yes Sterile Technique Used: Yes Patient placed on monitor/pulse ox: Yes MD prep: mask, gown and gloves Central line prep: Chlorhexidine scrub Ultrasound used for placement: Yes Central line lumen inserted: triple Post procedure: sutured in place, good blood return, all ports aspirated, flushed, capped and sterile dressing applied Post procedure x-ray: tip of catheter in good position and no pneumothorax seen Patient tolerated procedure: well Complications: none
[2023-02-05] VITALS (35 sets, daily range): BP systolic 93–118; BP diastolic 53–77; PULSE 100–128; RESP 14–20; TEMP 33.5–37.9; O2SAT 89–95; BMI 41.1
--- NOTE | 2023-02-05 | EMG_ITS ---
Please see EMG / Nerve Conduction Report. MTDD
[2023-02-05] MEDS: Midazolam HCl/PF 2 MG/2 ML VIAL IVPUSH ×2 (00:20→04:55)
[2023-02-05] MEDS: Albuterol Sulfate (0.083%) 2.5 MG/3 ML VIAL.NEB INHALE ×2 (00:23→05:04)
[2023-02-05] MEDS: fentaNYL citrate/NS 1,000 MCG/100 ML PLAST..BAG 15 MCG IVCONT ×4 (01:47→20:35)
[2023-02-05] MEDS: propofoL 1,000 MG/100 ML VIAL 23.41 MG IVCONT ×7 (02:19→21:16)
[2023-02-05] MEDS: Piperacillin Sodium/Tazobactam 4.5 GM in 0.9 % Sodium Chloride 100 ML IV ×4 (03:00→21:18)
[2023-02-05 04:43] LABS: VBG Base Excess 10.2 mmol/L; VBG HCO3 35 mmol/L (22-26); VBG pCO2 50 mmHg; VBG pH 7.45 (7.32-7.43); VBG pO2 50 mmHg
[2023-02-05 04:52] LABS: Venous Blood Gas Refer to POC result
[2023-02-05 04:59] LABS: MANUAL DIFF FLAG NO
[2023-02-05 05:02] LABS: Basophils Percent Auto 0.4 % (0-2); Eosinophils Absolute Auto 0.6 X10*3/uL (0.0-0.4); Eosinophils Percent Auto 5.8 % (0-4); Hematocrit 32.1 % (37.0-47.0); Hemoglobin 9.9 g/dl (12.0-16.0); Imm Gran Abs Auto 0.06 X10*3/uL (0.00-0.03); Imm Gran Pct Auto 0.6 % (0.0-0.4); Lymphocytes Percent Auto 9.7 % (20-40); Mean Corpuscular HGB Conc 30.8 g/dl (31.0-35.0); Mean Corpuscular Hemoglobin 29.8 pg (27.0-33.0); Mean Corpuscular Volume 96.7 fL (80.0-98.0); Monocytes Absolute Auto 0.8 X10*3/uL (0.1-1.2); Neutrophils Absolute Auto 7.7 x10*3/uL (2.0-8.3); Neutrophils Percent Auto 75.5 % (45-73); Platelet Count 283 X10*3/uL (160-400); Red Blood Count 3.32 X10*6/uL (4.20-5.50); Red Cell Distribution Width 14.5 % (11.0-16.0); White Blood Count 10.1 X10*3/uL (4.8-10.8)
[2023-02-05 05:20] LABS: Albumin Level 3.4 g/dL (3.5-5.0); Anion Gap 14 (12-20); Blood Urea Nitrogen 10 mg/dL (9-16); Calcium 10.1 mg/dL (8.4-10.2); Carbon Dioxide 31 mmol/L (22-29); Chloride 102 mmol/L (96-108); Creatinine Clr Calc Pharmacy 117.2; Estimated Glomerular Filt Rate > 60; Glucose Random 106 mg/dL (60-115); Magnesium 2.4 mg/dL (1.6-2.6); Phosphorus 3.3 mg/dL (2.7-4.5); Potassium 3.4 mmol/L (3.3-5.1); Sodium 144 mmol/L (135-145)
[2023-02-05] MEDS: Pantoprazole Sodium 40 MG/10 ML VIAL IVPUSH (06:04)
[2023-02-05] MEDS: Norepinephrine Bitartrate/D5W 8 MG/250 ML PLAST..BAG 12.72 MG IV (06:04)
[2023-02-05] MEDS: Potassium Chloride/H20 10 MEQ/100 ML PIGGYBACK 100 MEQ IV ×2 (06:25→07:27)
--- NOTE | 2023-02-05 06:28 | PC.NURSE ---
Upon initial assessment at 1900- pt sedated on propofol/fentanyl, RASS -3/4, PRN versed 2mg IVP required for repositioning d/t coughing/high PIP and vent asynchrony. Low grade temps via core bladder probe. NSR/ST w/ 1AVB on tele, HR up to 120s. Levophed titrated to maintain MAP > 65. +1 generalized edema. ETT #7.5, 20 cm at upper lip. On ACVC+ ventilation- rate increased to 18 d/t EtCO2 in the 50s. FiO2 titrated down as tolerated to maintain SpO2 > 88%. Small amount of inline and copious oral secretions suctioned. LS with rhonchi at times and fine crackles to bases bilaterally. TF running at goal. Bergman in place, UOP approx 20-30 ml/hr, CARMEN Bray aware. Rectal tube initially with no output- when removed, large formed stool passed then with copious liquid output thereafter, new rectal tube placed. Skin overall intact with scattered bruising. Full CHG bath given. Repositioned in bed q2hr with wedges. Family/called and updated on pt status/plan of care. Bed locked in low position.
--- NOTE | 2023-02-05 08:35 | P.PNCC_ITS ---
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 On ER evaluation patient with iatrogenic hyperoxia induced hypercarbia progressing to hypoxia requiring intubation. CT angio chest with no evidence for pulmonary emboli, but pulmonary edema. Patient started on Diamox and empiric antibiotics, with significant improvement. Extubated on 01/29/2023, but required re-intubation within 30 minutes for inability to control secretions/ pulmonary aspirations. Continues to fail pressure support trials secondary to tachypnea and low tidal volumes. No events overnight. Critical Care Time (minutes): 45 Physical Exam Vital Signs: Vital Signs: Last Vital Signs Temp 99.7 F 02/05/23 08:00 Pulse 110 H 02/05/23 08:00 Resp 18 02/05/23 08:00 BP 106/64 02/05/23 08:00 Pulse Ox 95 02/05/23 08:00 O2 Del Method Mechanical Ventil ation 02/05/23 08:00 O2 Flow Rate 11 01/26/23 16:00 FiO2 60 02/05/23 08:26 Oxygen Flow Rate 4 01/26/23 13:05 BMI result Body Mass Index 41.1 Const: General: no acute distress and other ( sedated on the vent) Nutritional Appearance: obese Eyes: Sclerae: sclerae normal EOM: EOMs intact bilaterally Neck: Neck: Yes no lymphadenopathy, Yes trachea midline and Yes supple Resp: Auscultation: crackles ( bilateral) Cardio: Rate: regular rate Rhythm: regular rhythm Heart sounds: no gallops, no murmurs and no rubs GI: Palpation (GI): Soft to palpation and Other GI palpation findings present ( Nontender) Auscultation: normal bowel sounds Extrem: General: Yes no pedal edema, No clubbing and No cyanosis Objective Data Labs 02/05/23 04:31 02/05/23 04:31 Labs: Laboratory Results - last 24 hr 02/04/23 02/05/23 02/05/23 15:36 04:31 04:31 WBC 10.1 RBC 3.32 L Hgb 9.9 L Hct 32.1 L MCV 96.7 MCH 29.8 MCHC 30.8 L RDW 14.5 Plt Count 283 MPV 11.0 Immature Gran % (Auto) 0.6 H Neut % (Auto) 75.5 H Lymph % (Auto) 9.7 L [place] % (Auto) 8.0 Eos % (Auto) 5.8 H Baso % (Auto) 0.4 Lymph # (Auto) 1.0 L [place] # (Auto) 0.8 Eos # (Auto) 0.6 H Baso # (Auto) 0.0 Abs Immat Gran (auto) 0.06 H Absolute Neuts (auto) 7.7 Absolute Nucleated RBC 0.000 Nucleated RBC % (auto) 0.0 O2 Saturation 93.0 ABG pH at Pt Temp 7.38 ABG pCO2 at Pt Temp 59 H ABG pO2 at Pt Temp 74 L ABG HCO3 36 H ABG Base Excess (Actual) 9.3 VBG pH VBG pCO2 VBG pO2 VBG HCO3 VBG O2 Saturation VBG Base Excess Sodium 144 Potassium 3.4 Chloride 102 Carbon Dioxide 31 H Anion Gap 14 BUN 10 Creatinine 0.65 Estim Creat Clear Calc 117.2 Estimated GFR > 60 Random Glucose 106 Calcium 10.1 D Phosphorus 3.3 Magnesium 2.4 Albumin 3.4 L 02/05/23 04:38 WBC RBC Hgb Hct MCV MCH MCHC RDW Plt Count MPV Immature Gran % (Auto) Neut % (Auto) Lymph % (Auto) [place] % (Auto) Eos % (Auto) Baso % (Auto) Lymph # (Auto) [place] # (Auto) Eos # (Auto) Baso # (Auto) Abs Immat Gran (auto) Absolute Neuts (auto) Absolute Nucleated RBC Nucleated RBC % (auto) O2 Saturation ABG pH at Pt Temp ABG pCO2 at Pt Temp ABG pO2 at Pt Temp ABG HCO3 ABG Base Excess (Actual) VBG pH 7.45 H VBG pCO2 50 VBG pO2 50 VBG HCO3 35 H VBG O2 Saturation 78.0 VBG Base Excess 10.2 Sodium Potassium Chloride Carbon Dioxide Anion Gap BUN Creatinine Estim Creat Clear Calc Estimated GFR Random Glucose Calcium Phosphorus Magnesium Albumin Microbiology Microbiology Results: Microbiology 01/26/23 16:17 Blood - Venous Blood Culture - Final No growth after 5 days. 01/26/23 16:09 Blood - Venous Blood Culture - Final No growth after 5 days. Progress Note: A&P Assessment and plan (1) Aspiration pneumonia: Status: Acute (2) Failure to wean from mechanical ventilation: Status: Acute (3) Dysphagia: Status: Acute (4) Acute on chronic respiratory failure with hypoxia and hypercapnia: Status: Acute (5) Muscular dystrophy: Status: Acute Plan Assessment: 47-year-old lady with unspecified underlying muscular dystrophy admitted with acute on chronic hypoxic and hypercapnic respiratory failure requiring ventilatory support, likely secondary to underlying congestive heart failure. Plan: Neuro: Underlying unspecified (?myotonic) muscular dystrophy, EMG requested. Cardiac: No acute issues. Pulmonary: Acute on chronic hypoxic and hypercapnic respiratory failure with inability to clear secretions/pulmonary aspiration on the background of unspecified muscular dystrophy now requiring ventilatory support. Extubation attempted on 01/29/2023, however required a re-intubation within 30 minutes for inability to control secretions/pulmonary aspirations. Now continues to fail pressure support trial secondary to tachypnea with poor inspiratory volumes likely related to underlying muscular dystrophy. CT chest with bilateral posterior consolidations with air bronchograms consistent with aspiration pneumonia. will require tracheostomy. Renal: No acute issues. Endo: No acute issues. GI: No acute issues. ID: Antibiotics broadened to Zosyn. Heme/Onc: No acute issues. Psych: No acute issues. Miscellaneous: No acute issues. Prophylaxis: Lovenox, famotidine Diet: tube feeds Critical care time spent: 45 minutes Quality Stroke Does the patient have a stroke diagnosis?: No VTE Prior VTE?: No VTE Risk Level:: Medical - moderate - high VTE Device Contraindication: N/A - Device Ordered VTE Drug Contraindication: N/A - Med Ordered
[2023-02-05] MEDS: Chlorhexidine Gluc Oral Rinse 15 ML MOUTHWASH BUCCAL ×3 (08:44→21:17)
--- NOTE | 2023-02-05 14:11 | P.EMGPH_ITS ---
Physiatry - EMG/NCS EMG/NCS History: ICU patient, admitted for hypoxia. Intubated. Difficulty weaning off vent. Sedated. Reported history of dystrophy. Allegedly worsening functional level for the past few months, was wheelchair bound. Mother present, Dominican-speaking, seen with cigarette stamper, does not have much information or history. She has not seen daughter for at least 10-13 years. Reason for referral: Evaluate for myotonic dystrophy Referred by: Dr. Seals Procedure done: Attempted right upper extremity and right lower extremity Precautions and/or limitations: Sedated, vented. No active mobility. Does not localize to pain stimuli. Central line on left neck. Peripheral IV line on left forearm. On Lovenox. No pacemaker. No DVT. No skin infection. On broad-spectrum antibiotics. Being treated for aspiration pneumonia. Interference from mechanical vent. Nerve Conduction Studies Anti Sensory Summary Table ?Stim Site NR Onset (ms) Norm Onset (ms) Peak (ms) Norm Peak (ms) O-P Amp (?V) Norm O-P Amp Site1 Site2 Delta-0 (ms) Dist (cm) Jace (m/s) Norm Jace (m/s) Right Median Anti Sensory (2nd Digit) 0 Wrist ? 2.3 2.6 <3.6 16.4 >10 Wrist 2nd Digit 2.3 14.0 61 Right Sural Anti Sensory (Lat Mall) Calf ? 2.3 3.0 <4.0 12.4 >5.0 Calf Lat Mall 2.3 14.0 61 Motor Summary Table l ?Stim Site NR Onset (ms) Norm Onset (ms) B O-P Amp (mV) Norm O-P Amp iAmp (mV) Amp (1st) (%) l Site1 Site2 Delta-0 (ms) Dist (cm) Jace (m/s) Norm Jace (m/s) Right Median Motor (Abd Poll Brev) Wrist ? 3.9 <3.9 3.7 >4.5 2.9 100.0 Elbow Wrist 3.7 17.0 46 >45 Elbow ? 7.6 1.7 2.3 45.9 Right Tibial Motor (Abd Ochoa Brev) Ankle NR <5 >2.5 Ankle Abd Ochoa Brev 0.0 Knee NR Knee Ankle 0.0 >40 Right Ulnar Motor (Abd Dig Minimi) 0 Wrist ? 2.9 <3.0 1.7 >5 2.0 100.0 B Elbow Wrist 3.4 18.0 53 >45 B Elbow ? 6.3 1.2 1.2 70.6 A Elbow B Elbow 2.1 10.0 48 >45 A Elbow ? 8.4 1.8 1.9 105.9 F Wave Studies ?NR F-Lat (ms) Lat Norm (ms) L-R F-Lat (ms) L-R Lat Norm Right Median (Mrkrs) (Abd Poll Brev) NR <33 <2.2 Right Tibial (Mrkrs) (Abd Hallucis) NR <61 <5.7 Right Ulnar (Mrkrs) (Abd Dig Min) NR <36 <2.5 EMG ?Side Muscle Nerve Root Ins Act Fibs Psw Amp Dur Poly Recrt Int Pat Comment Right AntTibialis Dp Br Peron L4-5 Nml Nml Nml Right MedGastroc Tibial S1-2 Nml Nml Nml Right VastusMed Femoral L2-4 Nml Nml Nml FINDINGS: NCS attempted for right upper and lower extremities. Limited by interference. Right median motor nerve showed small amplitudes but normal distal latency and conduction velocity. Right ulnar motor showed reduced amplitudes with normal distal latency and conduction velocity. Unable to get F waves from right ulnar motor because of interference. Absent F-waves on right median motor. Right median sensory nerve showed normal peak latency and amplitude. Right tibial motor showed absent response. Unable to get F waves from right tibial motor due to interference. Right sural sensory nerve showed normal peak latency and amplitude. Needle EMG with concentric needle attempted on right lower extremity. Limited exam, due to interference. Unable to get clear picture of spontaneous activity at rest. However did not hear any myotonic discharges or CRDs. Patient unable to actively flex muscles. Unable to assess MUAP morphology. IMPRESSION: 1. This is an abnormal but limited study. 2. Pattern of low or absent motor responses, low or absent F waves, with normal sensory responses can be seen in, but not limited to, motor disorders or polyradiculopathy. CLINICAL COMMENT: Further clinical correlation recommended. Thank you for your kind referral. Dona Lowery MD, LUBA Board Certified, [place] Board of [employer] Medicine and Rehabilitation (ABPMR) Board Certified, [place] Board of Electrodiagnostic Medicine (ABEM)
[2023-02-05] MEDS: Enoxaparin Sodium 40 MG/0.4 ML SYRINGE SUBCUT (20:24)
[2023-02-05] MEDS: Lactulose 20 GM/30 ML SOLUTION 30 GM PO (21:18)
[2023-02-06] VITALS (35 sets, daily range): BP systolic 91–119; BP diastolic 50–75; PULSE 71–121; RESP 14–18; TEMP 34.1–37.9; O2SAT 88–95; BMI 40.8
[2023-02-06] MEDS: propofoL 1,000 MG/100 ML VIAL 23.41 MG IVCONT (00:18)
[2023-02-06] MEDS: Norepinephrine Bitartrate/D5W 8 MG/250 ML PLAST..BAG 12.72 MG IV ×2 (01:08→19:49)
[2023-02-06] MEDS: fentaNYL citrate/NS 1,000 MCG/100 ML PLAST..BAG 12.5 MCG IVCONT (02:15)
[2023-02-06] MEDS: propofoL 1,000 MG/100 ML VIAL 18.72 MG IVCONT (03:58)
[2023-02-06] MEDS: Piperacillin Sodium/Tazobactam 4.5 GM in 0.9 % Sodium Chloride 100 ML IV ×4 (03:59→20:07)
[2023-02-06 04:59] LABS: MANUAL DIFF FLAG NO; VBG Base Excess 8.4 mmol/L; VBG HCO3 32 mmol/L (22-26); VBG pCO2 44 mmHg; VBG pH 7.47 (7.32-7.43); VBG pO2 42 mmHg
[2023-02-06 05:00] LABS: Basophils Absolute Auto 0.1 X10*3/uL (0.0-0.2); Basophils Percent Auto 0.4 % (0-2); Eosinophils Percent Auto 8.7 % (0-4); Hematocrit 33.7 % (37.0-47.0); Hemoglobin 10.4 g/dl (12.0-16.0); Imm Gran Abs Auto 0.07 X10*3/uL (0.00-0.03); Imm Gran Pct Auto 0.6 % (0.0-0.4); Lymphocytes Absolute Auto 1.4 X10*3/uL (1.2-4.9); Lymphocytes Percent Auto 12.3 % (20-40); Mean Corpuscular HGB Conc 30.9 g/dl (31.0-35.0); Mean Corpuscular Hemoglobin 29.5 pg (27.0-33.0); Mean Corpuscular Volume 95.5 fL (80.0-98.0); Mean Platelet Volume 10.5 fL (9.4-12.3); Monocytes Absolute Auto 0.8 X10*3/uL (0.1-1.2); Monocytes Percent Auto 6.6 % (2-11); Neutrophils Absolute Auto 8.2 x10*3/uL (2.0-8.3); Neutrophils Percent Auto 71.4 % (45-73); Platelet Count 316 X10*3/uL (160-400); Red Blood Count 3.53 X10*6/uL (4.20-5.50); Red Cell Distribution Width 14.6 % (11.0-16.0); White Blood Count 11.4 X10*3/uL (4.8-10.8)
[2023-02-06 05:13] LABS: Alanine Aminotransferase 160 U/L (0-31); Albumin Level 3.3 g/dL (3.5-5.0); Alkaline Phosphatase 305 U/L (39-117); Anion Gap 15 (12-20); Aspartate Amino Transferase 121 U/L (5-31); Bilirubin Total 0.7 mg/dL (0.0-1.0); Blood Urea Nitrogen 7 mg/dL (9-16); Calcium 10.3 mg/dL (8.4-10.2); Carbon Dioxide 28 mmol/L (22-29); Chloride 107 mmol/L (96-108); Creatinine Clr Calc Pharmacy 121.9; Estimated Glomerular Filt Rate > 60; Glucose Random 107 mg/dL (60-115); Magnesium 2.3 mg/dL (1.6-2.6); Phosphorus 3.2 mg/dL (2.7-4.5); Potassium 3.6 mmol/L (3.3-5.1); Sodium 146 mmol/L (135-145); Total Protein 6.9 g/dL (6.5-8.0)
[2023-02-06] MEDS: propofoL 1,000 MG/100 ML VIAL 14.04 MG IVCONT ×4 (06:22→23:54)
[2023-02-06 07:15] LABS: Venous Blood Gas Refer to POC result
--- NOTE | 2023-02-06 08:00 | MHC.CM.PN ---
LATE ENTRY FOR 02/05 @ 1330: This credit underwriter met with patient's mother Loretta along with another family member that traveled from [place] and an paper products inspector. RN's caring for pt were also present. Mother wanted to report her concerns for the location and accessibility of pt and her husbands home. Also reporting she does not receive up to date information on her daughter when her and her move. She is concerned about her daughter's condition and if her current home meets those needs. No medical information was provided to mother, support and listening provided to family. General information about discharge process provided to mother. Note- Prior to talking with pt's mother called [facility] for permission to discuss pt w/ mother. He did not want information provided to pt's mother. He is allowing mother and family to visit for 1 hour. RN aware.
[2023-02-06] MEDS: Chlorhexidine Gluc Oral Rinse 15 ML MOUTHWASH BUCCAL ×3 (08:18→20:07)
[2023-02-06] MEDS: Lactulose 20 GM/30 ML SOLUTION 30 GM PO ×2 (08:18→20:07)
--- NOTE | 2023-02-06 09:29 | MHC.CLN ---
F/U PT REMAINS INTUBATED AND SEDATED DISCUSSED AT ROUNDS WITH MD-PLAN FOR TRACH/PEG PT'S RECEIVING NEW TF NEPRO AT MAX GOAL RATE AT 30ML/HR WITH 120ML FWF Q 8 HRS PROVIDES 1296KCALS (1667KCALS WITH SEDATION; 30KCALS/KG BASED ON CMW), 58G PROTEIN (1.03G/KG), 883ML TOTAL WATER FROM FORMULA AND FLUSHES TOLERATING WELL PER NSG NOTED ELEVATED SERUM NA-CAN INCREASE FREE WATER NEEDED MONITOR TOLERANCE, RESIDUALS AND LYTES
--- NOTE | 2023-02-06 09:37 | PM.CCPN ---
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 On ER evaluation patient with iatrogenic hyperoxia induced hypercarbia progressing to hypoxia requiring intubation. CT angio chest with no evidence for pulmonary emboli, but pulmonary edema. Patient started on Diamox and empiric antibiotics, with significant improvement. Extubated on 01/29/2023, but required re-intubation within 30 minutes for inability to control secretions/pulmonary aspirations. Continues to fail pressure support trials secondary to tachypnea and low tidal volumes. EMG with abnormal low/absent motor responses. No events overnight. Continues to fail pressure support trials. Critical Care Time (minutes): 45 Physical Exam Vital Signs: Vital Signs: Last Vital Signs Temp 100.2 F 02/06/23 09:00 Pulse 102 H 02/06/23 09:00 Resp 18 02/06/23 09:00 BP 109/73 02/06/23 09:00 Pulse Ox 89 L 02/06/23 09:00 O2 Del Method Mechanical Ventil ation 02/06/23 09:00 O2 Flow Rate 11 01/26/23 16:00 FiO2 35 02/06/23 09:00 Oxygen Flow Rate 4 01/26/23 13:05 BMI result Body Mass Index 40.8 Const: General: no acute distress and other (Sedated on the vent, arousable and follows commands with sedation vacation) Nutritional Appearance: obese Eyes: Sclerae: sclerae normal EOM: EOMs intact bilaterally Neck: Neck: Yes no lymphadenopathy, Yes trachea midline and Yes supple Resp: Auscultation: clear to auscultation bilaterally Cardio: Rate: regular rate Rhythm: regular rhythm Heart sounds: no gallops, no murmurs and no rubs GI: Palpation (GI): Soft to palpation and Other GI palpation findings present ( Nontender) Auscultation: normal bowel sounds Extrem: General: Yes no pedal edema, No clubbing and No cyanosis Objective Data Labs 02/06/23 04:53 02/06/23 04:53 Labs: Laboratory Results - last 24 hr 02/06/23 02/06/23 02/06/23 04:53 04:53 04:53 WBC 11.4 H RBC 3.53 L Hgb 10.4 L Hct 33.7 L MCV 95.5 MCH 29.5 MCHC 30.9 L RDW 14.6 Plt Count 316 MPV 10.5 Immature Gran % (Auto) 0.6 H Neut % (Auto) 71.4 Lymph % (Auto) 12.3 L [place] % (Auto) 6.6 Eos % (Auto) 8.7 H Baso % (Auto) 0.4 Lymph # (Auto) 1.4 [place] # (Auto) 0.8 Eos # (Auto) 1.0 H Baso # (Auto) 0.1 Abs Immat Gran (auto) 0.07 H Absolute Neuts (auto) 8.2 Absolute Nucleated RBC 0.000 Nucleated RBC % (auto) 0.0 VBG pH 7.47 H VBG pCO2 44 VBG pO2 42 VBG HCO3 32 H VBG O2 Saturation 65.0 VBG Base Excess 8.4 Sodium 146 H Potassium 3.6 Chloride 107 Carbon Dioxide 28 Anion Gap 15 BUN 7 L Creatinine 0.60 Estim Creat Clear Calc 121.9 Estimated GFR > 60 Random Glucose 107 Calcium 10.3 H Phosphorus 3.2 Magnesium 2.3 Total Bilirubin 0.7 AST 121 H ALT 160 H Alkaline Phosphatase 305 H Total Protein 6.9 Albumin 3.3 L Microbiology Microbiology Results: Microbiology 01/26/23 16:17 Blood - Venous Blood Culture - Final No growth after 5 days. 01/26/23 16:09 Blood - Venous Blood Culture - Final No growth after 5 days. Progress Note: A&P Assessment and plan (1) Aspiration pneumonia: Status: Acute (2) Failure to wean from mechanical ventilation: Status: Acute (3) Dysphagia: Status: Acute (4) Acute on chronic respiratory failure with hypoxia and hypercapnia: Status: Acute (5) Muscular dystrophy: Status: Acute Plan Assessment: 47-year-old lady with unspecified underlying muscular dystrophy admitted with acute on chronic hypoxic and hypercapnic respiratory failure requiring ventilatory support, likely secondary to underlying congestive heart failure. Plan: Neuro: Underlying unspecified (?myotonic) muscular dystrophy, EMG with abnormal low/absent motor responses. Cardiac: No acute issues. Pulmonary: Acute on chronic hypoxic and hypercapnic respiratory failure with inability to clear secretions/pulmonary aspiration on the background of unspecified muscular dystrophy now requiring ventilatory support. Extubation attempted on 01/29/2023, however required a re-intubation within 30 minutes for inability to control secretions/pulmonary aspirations. Now continues to fail pressure support trial secondary to tachypnea with poor inspiratory volumes likely related to underlying muscular dystrophy. CT chest with bilateral posterior consolidations with air bronchograms consistent with aspiration pneumonia. Will require tracheostomy, surgery service consulted. Renal: No acute issues. Endo: No acute issues. GI: No acute issues. ID: Continue on Zosyn. Heme/Onc: No acute issues. Psych: No acute issues. Miscellaneous: No acute issues. Prophylaxis: Lovenox, famotidine Diet: tube feeds Critical care time spent: 45 minutes Quality Stroke Does the patient have a stroke diagnosis?: No VTE Prior VTE?: No VTE Risk Level:: Medical - moderate - high VTE Device Contraindication: N/A - Device Ordered VTE Drug Contraindication: N/A - Med Ordered
--- NOTE | 2023-02-06 10:53 | PC.NURSE ---
Sedation vacation done this am for about 15 minutes. Patient waking up moving her head back and forth. Moving all extremities with generalized weakness. Able to follow some simple commands. Respiratory therapy switched to PSV settings on vent, unable to tolerate. Low tidal volumes and tachypnic. Patient placed back on ACVC+ settings and sedation restarted per Dr Seals. General surgery consulted. Urine output 10-30 ml/hr, Dr Seals aware. Receiving IV Zosyn. VAP precautions per protocol. Turned and repositioned, no skin breakdown. Levophed drip to keep MAP >65. Propofol and Fentanyl for sedation/ pain management. 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 Further documentation in assessment. Safety maintained.
--- NOTE | 2023-02-06 11:07 | MHC.CM.PN ---
PATIENT REMAINS ON VENT SUPPORT DESPITE ATTEMPTS TO WEAN. PLAN WILL BE FOR PEG AND TRACH. PATIENT WILL REQUIRE PLACEMENT. REF[facility] [place]
[2023-02-06] MEDS: fentaNYL citrate/NS 1,000 MCG/100 ML PLAST..BAG 10 MCG IVCONT ×2 (12:02→20:23)
[2023-02-06] MEDS: Enoxaparin Sodium 40 MG/0.4 ML SYRINGE SUBCUT (19:49)
[2023-02-07] VITALS (36 sets, daily range): BP systolic 87–123; BP diastolic 44–77; PULSE 68–104; RESP 16–18; TEMP 35–37.6; O2SAT 83–98; BMI 42.6
[2023-02-07] MEDS: Midazolam HCl/PF 2 MG/2 ML VIAL IVPUSH (02:01)
[2023-02-07] MEDS: Piperacillin Sodium/Tazobactam 4.5 GM in 0.9 % Sodium Chloride 100 ML IV ×4 (02:12→19:52)
[2023-02-07] MEDS: propofoL 1,000 MG/100 ML VIAL 18.72 MG IVCONT ×6 (03:08→23:05)
[2023-02-07 04:55] LABS: MANUAL DIFF FLAG NO
[2023-02-07 04:56] LABS: Basophils Percent Auto 0.3 % (0-2); Eosinophils Absolute Auto 0.9 X10*3/uL (0.0-0.4); Eosinophils Percent Auto 10.1 % (0-4); Hemoglobin 9.6 g/dl (12.0-16.0); Imm Gran Abs Auto 0.07 X10*3/uL (0.00-0.03); Imm Gran Pct Auto 0.8 % (0.0-0.4); Lymphocytes Absolute Auto 1.3 X10*3/uL (1.2-4.9); Lymphocytes Percent Auto 14.5 % (20-40); Mean Corpuscular Hemoglobin 29.5 pg (27.0-33.0); Mean Corpuscular Volume 95.4 fL (80.0-98.0); Monocytes Absolute Auto 0.6 X10*3/uL (0.1-1.2); Monocytes Percent Auto 6.9 % (2-11); Neutrophils Absolute Auto 6.2 x10*3/uL (2.0-8.3); Neutrophils Percent Auto 67.4 % (45-73); Platelet Count 300 X10*3/uL (160-400); Red Blood Count 3.25 X10*6/uL (4.20-5.50); Red Cell Distribution Width 14.6 % (11.0-16.0); White Blood Count 9.2 X10*3/uL (4.8-10.8)
[2023-02-07 04:56] LABS: VBG Base Excess 8.1 mmol/L; VBG HCO3 31 mmol/L (22-26); VBG pCO2 40 mmHg; VBG pO2 47 mmHg
[2023-02-07 05:05] LABS: Venous Blood Gas Refer to POC result
[2023-02-07 05:14] LABS: Anion Gap 14 (12-20); Blood Urea Nitrogen 7 mg/dL (9-16); Calcium 9.7 mg/dL (8.4-10.2); Carbon Dioxide 28 mmol/L (22-29); Chloride 107 mmol/L (96-108); Creatinine Clr Calc Pharmacy 120.9; Estimated Glomerular Filt Rate > 60; Glucose Random 107 mg/dL (60-115); Magnesium 2.3 mg/dL (1.6-2.6); Phosphorus 3.7 mg/dL (2.7-4.5); Potassium 3.4 mmol/L (3.3-5.1); Sodium 146 mmol/L (135-145)
[2023-02-07] MEDS: fentaNYL citrate/NS 1,000 MCG/100 ML PLAST..BAG 10 MCG IVCONT ×2 (05:39→15:10)
[2023-02-07] MEDS: Albumin Human 25 % 100 ML IV ×2 (07:20→08:00)
[2023-02-07] MEDS: Albuterol Sulfate (0.083%) 2.5 MG/3 ML VIAL.NEB INHALE ×3 (07:21→15:06)
[2023-02-07] MEDS: acetaZOLAMIDE sodium 500 MG VIAL IVPUSH (07:48)
[2023-02-07] MEDS: Chlorhexidine Gluc Oral Rinse 15 ML MOUTHWASH BUCCAL ×3 (08:22→19:52)
--- NOTE | 2023-02-07 09:31 | P.PNCC_ITS ---
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 On ER evaluation patient with iatrogenic hyperoxia induced hypercarbia progressing to hypoxia requiring intubation. CT angio chest with no evidence for pulmonary emboli, but pulmonary edema. Patient started on Diamox and empiric antibiotics, with significant improvement. Extubated on 01/29/2023, but required re-intubation within 30 minutes for inability to control secretions/ pulmonary aspirations. Continues to fail pressure support trials secondary to tachypnea and low tidal volumes. EMG with abnormal low/absent motor responses. Surgical evaluation for tracheostomy/PEG placement requested. No events overnight. Critical Care Time (minutes): 45 Physical Exam Vital Signs: Vital Signs: Last Vital Signs Temp 98.8 F 02/07/23 09:00 Pulse 89 02/07/23 09:00 Resp 16 02/07/23 09:00 BP 98/53 L 02/07/23 09:00 Pulse Ox 94 02/07/23 09:00 O2 Del Method Mechanical Ventil ation 02/07/23 09:00 O2 Flow Rate 11 01/26/23 16:00 FiO2 40 02/07/23 09:00 Oxygen Flow Rate 4 01/26/23 13:05 BMI result Body Mass Index 42.6 Const: General: no acute distress and other (sedated on the vent) Nutritional Appearance: obese Eyes: Sclerae: sclerae normal EOM: EOMs intact bilaterally Neck: Neck: Yes no lymphadenopathy, Yes trachea midline and Yes supple Resp: Auscultation: clear to auscultation bilaterally Cardio: Rate: regular rate Rhythm: regular rhythm Heart sounds: no gallops, no murmurs and no rubs GI: Palpation (GI): Soft to palpation and Other GI palpation findings present ( Nontender) Auscultation: normal bowel sounds Extrem: General: Yes no pedal edema, No clubbing and No cyanosis Objective Data Labs 02/07/23 04:49 02/07/23 04:49 Labs: Laboratory Results - last 24 hr 02/07/23 02/07/23 02/07/23 04:49 04:49 04:50 WBC 9.2 RBC 3.25 L Hgb 9.6 L Hct 31.0 L MCV 95.4 MCH 29.5 MCHC 31.0 RDW 14.6 Plt Count 300 MPV 10.0 Immature Gran % (Auto) 0.8 H Neut % (Auto) 67.4 Lymph % (Auto) 14.5 L [place] % (Auto) 6.9 Eos % (Auto) 10.1 H Baso % (Auto) 0.3 Lymph # (Auto) 1.3 [place] # (Auto) 0.6 Eos # (Auto) 0.9 H Baso # (Auto) 0.0 Abs Immat Gran (auto) 0.07 H Absolute Neuts (auto) 6.2 Absolute Nucleated RBC 0.000 Nucleated RBC % (auto) 0.0 VBG pH 7.50 H VBG pCO2 40 VBG pO2 47 VBG HCO3 31 H VBG O2 Saturation 76.0 VBG Base Excess 8.1 Sodium 146 H Potassium 3.4 Chloride 107 Carbon Dioxide 28 Anion Gap 14 BUN 7 L Creatinine 0.62 Estim Creat Clear Calc 120.9 Estimated GFR > 60 Random Glucose 107 Calcium 9.7 Phosphorus 3.7 Magnesium 2.3 Albumin 3.0 L Microbiology Microbiology Results: Microbiology 01/26/23 16:17 Blood - Venous Blood Culture - Final No growth after 5 days. 01/26/23 16:09 Blood - Venous Blood Culture - Final No growth after 5 days. Progress Note: A&P Assessment and plan (1) Aspiration pneumonia: Status: Acute (2) Failure to wean from mechanical ventilation: Status: Acute (3) Dysphagia: Status: Acute (4) Acute on chronic respiratory failure with hypoxia and hypercapnia: Status: Acute (5) Muscular dystrophy: Status: Acute Plan Assessment: 47-year-old lady with unspecified underlying muscular dystrophy admitted with acute on chronic hypoxic and hypercapnic respiratory failure requiring ventilatory support, likely secondary to underlying congestive heart failure. Plan: Neuro: Underlying unspecified (?myotonic) muscular dystrophy, EMG with abnormal low/absent motor responses. Cardiac: No acute issues. Pulmonary: Acute on chronic hypoxic and hypercapnic respiratory failure with inability to clear secretions/pulmonary aspiration on the background of unspecified muscular dystrophy now requiring ventilatory support. Extubation attempted on 01/29/2023, however required a re-intubation within 30 minutes for inability to control secretions/pulmonary aspirations. Now continues to fail pressure support trial secondary to tachypnea with poor inspiratory volumes likely related to underlying muscular dystrophy. CT chest with bilateral posterior consolidations with air bronchograms consistent with aspiration pneumonia. Will require tracheostomy, surgery service consulted. Renal: No acute issues. Endo: No acute issues. GI: No acute issues. ID: Continue on Zosyn. Heme/Onc: No acute issues. Psych: No acute issues. Miscellaneous: No acute issues. Prophylaxis: Lovenox, famotidine Diet: tube feeds Critical care time spent: 45 minutes Quality Stroke Does the patient have a stroke diagnosis?: No VTE Prior VTE?: No VTE Risk Level:: Medical - moderate - high VTE Device Contraindication: N/A - Device Ordered VTE Drug Contraindication: N/A - Med Ordered
[2023-02-07] MEDS: Norepinephrine Bitartrate/D5W 8 MG/250 ML PLAST..BAG 12.72 MG IV (18:12)
[2023-02-07] MEDS: Enoxaparin Sodium 40 MG/0.4 ML SYRINGE SUBCUT (18:21)
[2023-02-07] MEDS: Lactulose 20 GM/30 ML SOLUTION 30 GM PO (20:02)
[2023-02-08] VITALS (33 sets, daily range): BP systolic 95–131; BP diastolic 50–89; PULSE 75–102; RESP 16–18; TEMP 34.6–38.4; O2SAT 86–97; BMI 43.0
[2023-02-08] MEDS: fentaNYL citrate/NS 1,000 MCG/100 ML PLAST..BAG 7.5 MCG IVCONT (00:18)
[2023-02-08] MEDS: Albuterol Sulfate (0.083%) 2.5 MG/3 ML VIAL.NEB INHALE (00:42)
[2023-02-08] MEDS: propofoL 1,000 MG/100 ML VIAL 18.72 MG IVCONT ×6 (01:49→21:51)
[2023-02-08] MEDS: Piperacillin Sodium/Tazobactam 4.5 GM in 0.9 % Sodium Chloride 100 ML IV ×3 (02:12→15:12)
[2023-02-08 04:57] LABS: Basophils Percent Auto 0.4 % (0-2); Eosinophils Absolute Auto 1.1 X10*3/uL (0.0-0.4); Eosinophils Percent Auto 12.6 % (0-4); Hematocrit 31.4 % (37.0-47.0); Hemoglobin 9.5 g/dl (12.0-16.0); Imm Gran Abs Auto 0.11 X10*3/uL (0.00-0.03); Imm Gran Pct Auto 1.2 % (0.0-0.4); Lymphocytes Absolute Auto 1.3 X10*3/uL (1.2-4.9); Lymphocytes Percent Auto 14.5 % (20-40); MANUAL DIFF FLAG NO; Mean Corpuscular HGB Conc 30.3 g/dl (31.0-35.0); Mean Corpuscular Hemoglobin 29.5 pg (27.0-33.0); Mean Corpuscular Volume 97.5 fL (80.0-98.0); Monocytes Absolute Auto 0.6 X10*3/uL (0.1-1.2); Monocytes Percent Auto 7.2 % (2-11); Neutrophils Absolute Auto 5.7 x10*3/uL (2.0-8.3); Neutrophils Percent Auto 64.1 % (45-73); Platelet Count 308 X10*3/uL (160-400); Red Blood Count 3.22 X10*6/uL (4.20-5.50); White Blood Count 8.9 X10*3/uL (4.8-10.8)
[2023-02-08 04:58] LABS: VBG Base Excess 2.8 mmol/L; VBG HCO3 28 mmol/L (22-26); VBG pCO2 45 mmHg; VBG pH 7.39 (7.32-7.43); VBG pO2 56 mmHg
[2023-02-08 05:01] LABS: Venous Blood Gas Refer to POC result
[2023-02-08 05:12] LABS: Albumin Level 3.7 g/dL (3.5-5.0); Anion Gap 13 (12-20); Blood Urea Nitrogen 7 mg/dL (9-16); Calcium 10.5 mg/dL (8.4-10.2); Carbon Dioxide 25 mmol/L (22-29); Chloride 112 mmol/L (96-108); Creatinine Clr Calc Pharmacy 117.1; Estimated Glomerular Filt Rate > 60; Glucose Random 111 mg/dL (60-115); Magnesium 2.4 mg/dL (1.6-2.6); Phosphorus 3.3 mg/dL (2.7-4.5); Potassium 3.2 mmol/L (3.3-5.1); Sodium 147 mmol/L (135-145)
[2023-02-08] MEDS: Potassium Chloride/H20 40 MEQ/100 ML PIGGYBACK 100 MEQ IV (08:44)
[2023-02-08] MEDS: Chlorhexidine Gluc Oral Rinse 15 ML MOUTHWASH BUCCAL ×3 (08:50→20:28)
[2023-02-08] MEDS: Furosemide 20 MG/2 ML VIAL IVPUSH (09:43)
--- NOTE | 2023-02-08 10:00 | P.PNCC_ITS ---
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 On ER evaluation patient with iatrogenic hyperoxia induced hypercarbia progressing to hypoxia requiring intubation. CT angio chest with no evidence for pulmonary emboli, but pulmonary edema. Patient started on Diamox and empiric antibiotics, with significant improvement. Extubated on 01/29/2023, but required re-intubation within 30 minutes for inability to control secretions/ pulmonary aspirations. Continues to fail pressure support trials secondary to tachypnea and low tidal volumes. EMG with abnormal low/absent motor responses. Surgical evaluation for tracheostomy/PEG placement requested. No events overnight. Critical Care Time (minutes): 45 Physical Exam Vital Signs: Vital Signs: Last Vital Signs Temp 99.5 F 02/08/23 09:00 Pulse 88 02/08/23 09:00 Resp 16 02/08/23 09:00 BP 104/60 02/08/23 09:00 Pulse Ox 89 L 02/08/23 09:00 O2 Del Method Mechanical Ventil ation 02/08/23 09:00 O2 Flow Rate 11 01/26/23 16:00 FiO2 40 02/08/23 09:00 Oxygen Flow Rate 4 01/26/23 13:05 BMI result Body Mass Index 43.0 Const: General: no acute distress and other (Sedated on the vent) Nutritional Appearance: obese HEENT: Head: Yes atraumatic Eyes: General: appearance normal, both eyes and all related structures Sclerae: sclerae normal EOM: EOMs intact bilaterally Neck: Neck: Yes supple Lymphatic: no lymphadenopathy noted Resp: Auscultation: crackles (Mild bilateral) Cardio: Rate: regular rate Rhythm: regular rhythm Heart sounds: no gallops, no murmurs and no rubs GI: Palpation (GI): Soft to palpation and nontender Auscultation: normoactive bowel sounds Skin: General skin exam: other ( warm) Extrem: General: No clubbing, No cyanosis and No edema Objective Data Labs 02/08/23 04:48 02/08/23 04:48 Labs: Laboratory Results - last 24 hr 02/08/23 02/08/23 02/08/23 04:48 04:48 04:52 WBC 8.9 RBC 3.22 L Hgb 9.5 L Hct 31.4 L MCV 97.5 MCH 29.5 MCHC 30.3 L RDW 15.0 Plt Count 308 MPV 10.0 Immature Gran % (Auto) 1.2 H Neut % (Auto) 64.1 Lymph % (Auto) 14.5 L [place] % (Auto) 7.2 Eos % (Auto) 12.6 H Baso % (Auto) 0.4 Lymph # (Auto) 1.3 [place] # (Auto) 0.6 Eos # (Auto) 1.1 H Baso # (Auto) 0.0 Abs Immat Gran (auto) 0.11 H Absolute Neuts (auto) 5.7 Absolute Nucleated RBC 0.000 Nucleated RBC % (auto) 0.0 VBG pH 7.39 VBG pCO2 45 VBG pO2 56 VBG HCO3 28 H VBG O2 Saturation 82.0 VBG Base Excess 2.8 Sodium 147 H Potassium 3.2 L Chloride 112 H Carbon Dioxide 25 Anion Gap 13 BUN 7 L Creatinine 0.64 Estim Creat Clear Calc 117.1 Estimated GFR > 60 Random Glucose 111 Calcium 10.5 H D Phosphorus 3.3 Magnesium 2.4 Albumin 3.7 Microbiology Microbiology Results: Microbiology 01/26/23 16:17 Blood - Venous Blood Culture - Final No growth after 5 days. 01/26/23 16:09 Blood - Venous Blood Culture - Final No growth after 5 days. Progress Note: A&P Assessment and plan (1) Aspiration pneumonia: Status: Acute (2) Failure to wean from mechanical ventilation: Status: Acute (3) Dysphagia: Status: Acute (4) Acute on chronic respiratory failure with hypoxia and hypercapnia: Status: Acute (5) Muscular dystrophy: Status: Acute Plan Assessment: 47-year-old lady with unspecified underlying muscular dystrophy admitted with acute on chronic hypoxic and hypercapnic respiratory failure requiring ventilatory support, likely secondary to underlying congestive heart failure. Plan: Neuro: Underlying unspecified (?myotonic) muscular dystrophy, EMG with abnormal low/absent motor responses. Cardiac: No acute issues. Pulmonary: Acute on chronic hypoxic and hypercapnic respiratory failure with inability to clear secretions/pulmonary aspiration on the background of unspecified muscular dystrophy now requiring ventilatory support. Extubation attempted on 01/29/2023, however required a re-intubation within 30 minutes for inability to control secretions/pulmonary aspirations. Now continues to fail pressure support trial secondary to tachypnea with poor inspiratory volumes [place] related to underlying muscular dystrophy. CT chest with bilateral posterior consolidations with air bronchograms consistent with aspiration pneumonia. Will require tracheostomy, surgery service consulted. Renal: No acute issues. Endo: No acute issues. GI: No acute issues. ID: Continue on Zosyn. Heme/Onc: No acute issues. Psych: No acute issues. Miscellaneous: No acute issues. Prophylaxis: Lovenox, famotidine Diet: tube feeds Critical care time spent: 45 minutes Quality Stroke Does the patient have a stroke diagnosis?: No VTE Prior VTE?: No VTE Risk Level:: Medical - moderate - high VTE Device Contraindication: N/A - Device Ordered VTE Drug Contraindication: N/A - Med Ordered
[2023-02-08] MEDS: fentaNYL citrate/NS 1,000 MCG/100 ML PLAST..BAG 10 MCG IVCONT ×3 (10:31→23:12)
[2023-02-08] MEDS: Norepinephrine Bitartrate/D5W 8 MG/250 ML PLAST..BAG 12.72 MG IV (13:43)
[2023-02-08] MEDS: vancomycin HCL 1,500 MG in 0.9 % Sodium Chloride 500 ML 333.33 MG IV (16:26)
--- NOTE | 2023-02-08 17:27 | PHA.PROG ---
Admission Date/Time: January 26, 2023 19:15 Indication: OTHER Weight in k.8 kg Adjusted body weight in Kg: [place] body weight in Kg: Obesity Dosing Indication % IBW: Serum Creatinine - Last 168 Hours 02/02/23 02/03/23 02/04/23 04:41 05:02 04:34 Creatinine 0.51 0.58 0.70 02/05/23 02/06/23 02/07/23 04:31 04:53 04:49 Creatinine 0.65 0.60 0.62 02/08/23 04:48 Creatinine 0.64 Estimated CrCl and GFR - Last 168 Hours 02/02/23 02/03/23 02/04/23 04:41 05:02 04:34 Estim Creat Clear Calc 148.0 130.1 108.8 Estimated GFR > 60 > 60 > 60 02/05/23 02/06/23 02/07/23 04:31 04:53 04:49 Estim Creat Clear Calc 117.2 121.9 120.9 Estimated GFR > 60 > 60 > 60 02/08/23 04:48 Estim Creat Clear Calc 117.1 Estimated GFR > 60 Vancomycin Loading Dose: 1500 Current Vancomycin Dosing Regimen:1250 Q12H Vancomycin Monitoring using AUC goal of 400 - 600 range with trough as surrogate marker:456 Date and Time for next Vancomycin Level to be drawn:02/09/23 1600 Vancomycin Trough 5.0 mcg/mL (10.0-20.0) L 01/28/23 09:06 Pharmacist Comments on Vancomycin Plan: Vancomycin dosing will take advantage of [employer] as a clinical decision support tool that uses Bayesian modeling to calculate individual patient's pharmacokinetic parameters and forecast the patient's drug concentration time course with the target goal AUC 24 range of 400 - 600 mg/L/hr.
[2023-02-08] MEDS: Enoxaparin Sodium 40 MG/0.4 ML SYRINGE SUBCUT (18:16)
[2023-02-09] VITALS (35 sets, daily range): BP systolic 87–124; BP diastolic 46–75; PULSE 63–105; RESP 16–19; TEMP 34.9–37.8; O2SAT 88–95; BMI 43.1
[2023-02-09] MEDS: propofoL 1,000 MG/100 ML VIAL 18.72 MG IVCONT ×5 (01:15→15:45)
--- NOTE | 2023-02-09 04:23 | HO.SKINPHOTO ---
Location: Anus Category: MDPI Stage: Length: Width: Depth: cm
[2023-02-09 04:31] LABS: MANUAL DIFF FLAG NO
[2023-02-09 04:32] LABS: Basophils Percent Auto 0.4 % (0-2); Eosinophils Percent Auto 9.1 % (0-4); Hematocrit 31.8 % (37.0-47.0); Hemoglobin 9.7 g/dl (12.0-16.0); Imm Gran Abs Auto 0.11 X10*3/uL (0.00-0.03); Lymphocytes Absolute Auto 1.4 X10*3/uL (1.2-4.9); Lymphocytes Percent Auto 12.2 % (20-40); Mean Corpuscular HGB Conc 30.5 g/dl (31.0-35.0); Mean Corpuscular Hemoglobin 29.7 pg (27.0-33.0); Mean Corpuscular Volume 97.2 fL (80.0-98.0); Mean Platelet Volume 9.9 fL (9.4-12.3); Monocytes Absolute Auto 0.6 X10*3/uL (0.1-1.2); Monocytes Percent Auto 5.5 % (2-11); Neutrophils Percent Auto 71.8 % (45-73); Platelet Count 277 X10*3/uL (160-400); Red Blood Count 3.27 X10*6/uL (4.20-5.50); Red Cell Distribution Width 14.9 % (11.0-16.0); White Blood Count 11.1 X10*3/uL (4.8-10.8)
[2023-02-09 04:33] LABS: VBG Base Excess 3.6 mmol/L; VBG HCO3 28 mmol/L (22-26); VBG pCO2 41 mmHg; VBG pH 7.43 (7.32-7.43); VBG pO2 51 mmHg
[2023-02-09 04:36] LABS: Venous Blood Gas Refer to POC result
[2023-02-09 04:47] LABS: Albumin Level 3.5 g/dL (3.5-5.0); Anion Gap 13 (12-20); Blood Urea Nitrogen 7 mg/dL (9-16); Calcium 10.3 mg/dL (8.4-10.2); Carbon Dioxide 25 mmol/L (22-29); Chloride 110 mmol/L (96-108); Creatinine Clr Calc Pharmacy 123.5; Estimated Glomerular Filt Rate > 60; Glucose Random 104 mg/dL (60-115); Magnesium 2.2 mg/dL (1.6-2.6); Potassium 3.3 mmol/L (3.3-5.1); Sodium 145 mmol/L (135-145)
[2023-02-09] MEDS: vancomycin HCL 1,250 MG in 0.9 % Sodium Chloride 250 ML 166.67 MG IV (05:12)
--- NOTE | 2023-02-09 06:32 | PM.PNTS ---
Subjective Subjective Date of Service: 02/09/23 Interval history: Vent dependant patient with a plethora of medical problems. Consult is for tracheostomy placement secondary to respiratory failure as well as G-tube secondary to chronic aspiration. Physical Exam Vital Signs: Vital Signs: Last Vital Signs Temp 99.5 F 02/09/23 05:58 Pulse 81 02/09/23 05:58 Resp 16 02/09/23 05:58 BP 100/54 L 02/09/23 05:58 Pulse Ox 89 L 02/09/23 05:58 O2 Del Method Mechanical Ventil ation 02/09/23 05:58 O2 Flow Rate 11 01/26/23 16:00 FiO2 35 02/09/23 05:58 Oxygen Flow Rate 4 01/26/23 13:05 BMI result Body Mass Index 43.1 Const: Other: Patient on vent, not communicative, sedated Chest: Other: On ventilator. GI: Other: Abdomen soft, moderately corpulent. No obvious scars. Procedures Date of Service Date of Service: 02/09/23 Progress Note: A&P Assessment and plan (1) Failure to wean from mechanical ventilation: Status: Acute (2) Aspiration pneumonia: Status: Acute Plan For Tracheostomy and G-tube placement tentatively scheduled for 02/11. Will contact patient's significant other for consent. Time Spent With Patient Time: Total time managing care of this patient today ____ minutes. Quality Stroke Does the patient have a stroke diagnosis?: No VTE Prior VTE?: No VTE Risk Level:: Medical - moderate - high VTE Device Contraindication: N/A - Device Ordered VTE Drug Contraindication: N/A - Med Ordered
[2023-02-09 07:37] LABS: Prothrombin Time 11.8 SEC (11.1-13.3)
[2023-02-09 07:40] LABS: Partial Thromboplastin Time 28.3 SEC (26.0-36.4)
[2023-02-09] MEDS: Chlorhexidine Gluc Oral Rinse 15 ML MOUTHWASH BUCCAL ×3 (08:04→21:00)
[2023-02-09] MEDS: Potassium Chloride Packet 20 MEQ PACKET PO (08:05)
[2023-02-09] MEDS: fentaNYL citrate/NS 1,000 MCG/100 ML PLAST..BAG 10 MCG IVCONT ×2 (09:10→16:54)
[2023-02-09] MEDS: Norepinephrine Bitartrate/D5W 8 MG/250 ML PLAST..BAG 9.08 MG IV (11:10)
--- NOTE | 2023-02-09 13:25 | PM.CCPN ---
Subjective Subjective Date of Service: 02/09/23 Interval History: 47-year-old female with muscular dystrophy and a acute on chronic respiratory failure based on who weakness of musculature of respiration and failed to to extubate so currently remains intubated and is awaiting tracheostomy and PEG tube placement and at the time of initial extubation there was witnessed aspiration and the patient was only on Zosyn for the last 6 days yesterday had a temperature and sputum was obtained growing Gram-positive cocci so we need to be suspicious of methicillin-resistant Staph and she is currently on vancomycin for that purpose and the chest x-ray did show bibasilar infiltrates Critical Care Time (minutes): 45 Physical Exam Vital Signs: Vital Signs: Last Vital Signs Temp 98.6 F 02/09/23 12:00 Pulse 105 H 02/09/23 13:00 Resp 16 02/09/23 13:00 BP 109/69 02/09/23 13:00 Pulse Ox 93 02/09/23 12:00 O2 Del Method Mechanical Ventil ation 02/09/23 13:00 O2 Flow Rate 11 01/26/23 16:00 FiO2 35 02/09/23 13:00 Oxygen Flow Rate 4 01/26/23 13:05 BMI result Body Mass Index 43.1 sedated and intubated with very modest minute ventilatory requirement and stable FiO2 requirement bibasilar rales but no other adventitious sounds abdomen soft with no organomegaly no skin breakdown no edema no acrocyanosis Objective Data Labs 02/09/23 04:26 02/09/23 04:26 Labs: Laboratory Results - last 24 hr 02/09/23 02/09/23 02/09/23 04:26 04:26 04:29 WBC 11.1 H RBC 3.27 L Hgb 9.7 L Hct 31.8 L MCV 97.2 MCH 29.7 MCHC 30.5 L RDW 14.9 Plt Count 277 MPV 9.9 Immature Gran % (Auto) 1.0 H Neut % (Auto) 71.8 Lymph % (Auto) 12.2 L [place] % (Auto) 5.5 Eos % (Auto) 9.1 H Baso % (Auto) 0.4 Lymph # (Auto) 1.4 [place] # (Auto) 0.6 Eos # (Auto) 1.0 H Baso # (Auto) 0.0 Abs Immat Gran (auto) 0.11 H Absolute Neuts (auto) 8.0 Absolute Nucleated RBC 0.000 Nucleated RBC % (auto) 0.0 PT INR APTT VBG pH 7.43 VBG pCO2 41 VBG pO2 51 VBG HCO3 28 H VBG O2 Saturation 80.0 VBG Base Excess 3.6 Sodium 145 Potassium 3.3 Chloride 110 H Carbon Dioxide 25 Anion Gap 13 BUN 7 L Creatinine 0.61 Estim Creat Clear Calc 123.5 Estimated GFR > 60 Random Glucose 104 Calcium 10.3 H Phosphorus 3.0 Magnesium 2.2 Albumin 3.5 02/09/23 07:20 WBC RBC Hgb Hct MCV MCH MCHC RDW Plt Count MPV Immature Gran % (Auto) Neut % (Auto) Lymph % (Auto) [place] % (Auto) Eos % (Auto) Baso % (Auto) Lymph # (Auto) [place] # (Auto) Eos # (Auto) Baso # (Auto) Abs Immat Gran (auto) Absolute Neuts (auto) Absolute Nucleated RBC Nucleated RBC % (auto) PT 11.8 INR 1.0 APTT 28.3 VBG pH VBG pCO2 VBG pO2 VBG HCO3 VBG O2 Saturation VBG Base Excess Sodium Potassium Chloride Carbon Dioxide Anion Gap BUN Creatinine Estim Creat Clear Calc Estimated GFR Random Glucose Calcium Phosphorus Magnesium Albumin Microbiology Microbiology Results: Microbiology 02/08/23 Unknown Sputum - Suctioned Gram Stain - Final 01/26/23 16:17 Blood - Venous Blood Culture - Final No growth after 5 days. 01/26/23 16:09 Blood - Venous Blood Culture - Final No growth after 5 days. Progress Note: A&P Assessment and plan (1) Aspiration pneumonia: Status: Acute (2) Failure to wean from mechanical ventilation: Status: Acute (3) Dysphagia: Status: Acute (4) Acute on chronic respiratory failure with hypoxia and hypercapnia: Status: Acute (5) Muscular dystrophy: Status: Acute (6) Pulmonary edema: Status: Acute (7) Pneumonia: Status: Acute (8) Respiratory failure: Status: Acute Plan so the plan is to proceed with tracheostomy and PEG tube placement and continue IV vancomycin but might consider for a few more days in addition to vancomycin possibly a meropenem Quality Stroke Does the patient have a stroke diagnosis?: No VTE Prior VTE?: No VTE Risk Level:: Medical - moderate - high VTE Device Contraindication: N/A - Device Ordered VTE Drug Contraindication: N/A - Med Ordered
--- NOTE | 2023-02-09 14:01 | MHC.CLN ---
F/U PT REMAINS INTUBATED AND SEDATED. NUTRITION/HYDRATION VIA TUBE FEEDING. SCHEDULED FOR TRACH/PEG PROCEDURES 02/11. RECEIVING TF NEPRO AT MAX GOAL RATE AT 30ML/HR WITH 120ML FWF Q 8 HRS. PROVIDES 1296KCALS (1790KCALS WITH SEDATION; 32KCALS/KG BASED ON CMW), 58G PROTEIN (1.03G/KG), 883ML TOTAL WATER FROM FORMULA AND FLUSHES. MONITOR TOLERANCE, RESIDUALS AND LYTES.
--- NOTE | 2023-02-09 15:08 | MHC.CM.PN ---
Pt cannot wean from ventilatory support and will need a Peg/Trach placed. This has been scheduled for 02/11. Pt does not have a HCP on file - spouse Gamal has been making care decisions for pt. Pt will need legal guardian appointment to transfer to LTAC for continued care following trach/peg. Updated CM director on guardianship need. Pt has been referred to [facility] for eventual placement. CM to follow.
[2023-02-09 16:37] LABS: Vancomycin Trough 18.3 mcg/mL (10.0-20.0)
--- NOTE | 2023-02-09 16:48 | HE.PHANOTE ---
RE: vanco Trough on 02/09 came back at 18.3, current dose of 1250mg Q12H had predicted AUC of 721. Changed dose to 1000mg Q12H with predicted AUC of 575 mg/L, trough of 16.6 mg/L. Next level to be drawn after two doses 02/10 @1600
[2023-02-09] MEDS: vancomycin HCL 1,000 MG in 0.9 % Sodium Chloride 250 ML 270 MG IV (17:45)
[2023-02-09] MEDS: Albuterol Sulfate (0.083%) 2.5 MG/3 ML VIAL.NEB INHALE (20:16)
[2023-02-09] MEDS: propofoL 1,000 MG/100 ML VIAL 14.04 MG IVCONT (20:30)
[2023-02-09] MEDS: Lactated Ringers 500 ML 100 ML IVCONT (23:39)
[2023-02-10] VITALS (32 sets, daily range): BP systolic 90–115; BP diastolic 50–68; PULSE 65–106; RESP 16–37; TEMP 34.8–37.7; O2SAT 63–95; BMI 42.9
[2023-02-10] MEDS: propofoL 1,000 MG/100 ML VIAL 14.04 MG IVCONT ×5 (00:26→23:17)
[2023-02-10] MEDS: fentaNYL citrate/NS 1,000 MCG/100 ML PLAST..BAG 7.5 MCG IVCONT ×2 (01:01→16:06)
[2023-02-10 04:39] LABS: VBG Base Excess 4.9 mmol/L; VBG HCO3 29 mmol/L (22-26); VBG pCO2 43 mmHg; VBG pH 7.43 (7.32-7.43); VBG pO2 47 mmHg
[2023-02-10 04:44] LABS: MANUAL DIFF FLAG NO
[2023-02-10 04:47] LABS: Basophils Percent Auto 0.4 % (0-2); Eosinophils Absolute Auto 0.8 X10*3/uL (0.0-0.4); Eosinophils Percent Auto 9.2 % (0-4); Hematocrit 30.6 % (37.0-47.0); Hemoglobin 9.3 g/dl (12.0-16.0); Imm Gran Abs Auto 0.09 X10*3/uL (0.00-0.03); Imm Gran Pct Auto 1.1 % (0.0-0.4); Lymphocytes Absolute Auto 1.2 X10*3/uL (1.2-4.9); Lymphocytes Percent Auto 13.6 % (20-40); Mean Corpuscular HGB Conc 30.4 g/dl (31.0-35.0); Mean Corpuscular Hemoglobin 29.1 pg (27.0-33.0); Mean Corpuscular Volume 95.6 fL (80.0-98.0); Mean Platelet Volume 10.7 fL (9.4-12.3); Monocytes Absolute Auto 0.6 X10*3/uL (0.1-1.2); Monocytes Percent Auto 6.7 % (2-11); Neutrophils Absolute Auto 5.9 x10*3/uL (2.0-8.3); Platelet Count 309 X10*3/uL (160-400); Red Cell Distribution Width 14.9 % (11.0-16.0); White Blood Count 8.5 X10*3/uL (4.8-10.8)
[2023-02-10 04:49] LABS: Venous Blood Gas Refer to POC result
[2023-02-10] MEDS: vancomycin HCL 1,000 MG in 0.9 % Sodium Chloride 250 ML 270 MG IV ×2 (04:57→17:55)
[2023-02-10 05:02] LABS: Alanine Aminotransferase 74 U/L (0-31); Albumin Level 3.3 g/dL (3.5-5.0); Alkaline Phosphatase 227 U/L (39-117); Anion Gap 12 (12-20); Aspartate Amino Transferase 74 U/L (5-31); Bilirubin Total 0.3 mg/dL (0.0-1.0); Blood Urea Nitrogen 8 mg/dL (9-16); Calcium 10.4 mg/dL (8.4-10.2); Carbon Dioxide 25 mmol/L (22-29); Chloride 110 mmol/L (96-108); Creatinine Clr Calc Pharmacy 152.4; Estimated Glomerular Filt Rate > 60; Glucose Random 101 mg/dL (60-115); Potassium 3.3 mmol/L (3.3-5.1); Sodium 144 mmol/L (135-145); Total Protein 6.6 g/dL (6.5-8.0)
[2023-02-10] MEDS: Potassium Chloride Packet 20 MEQ PACKET 40 MEQ PO (06:47)
[2023-02-10] MEDS: Chlorhexidine Gluc Oral Rinse 15 ML MOUTHWASH BUCCAL ×3 (08:15→20:07)
--- NOTE | 2023-02-10 08:43 | MHC.CLN ---
F/U PT REMAINS INTUBATED AND SEDATED. NUTRITION/HYDRATION VIA TUBE FEEDING. SCHEDULED FOR TRACH/PEG PROCEDURES 02/11. RECEIVING TF NEPRO AT MAX GOAL RATE AT 30ML/HR WITH 120ML FWF Q 8 HRS. PROVIDES 1296KCALS (1666KCALS WITH SEDATION; 30KCALS/KG BASED ON CMW), 58G PROTEIN (1.03G/KG), 883ML TOTAL WATER FROM FORMULA AND FLUSHES. EVALUATE FOR FORMULARY CHANGE POST PEG PLACEMENT. MONITOR TOLERANCE, RESIDUALS AND LYTES.
--- NOTE | 2023-02-10 09:50 | MHC.SHP ---
Pre-Procedural Eval Section A Date of Service: 02/10/23 The patient is an INPATIENT: Yes Changes since office visit: No Cold of Flu in the past 2 weeks, No New Medical Problems, No Changes in Medication and No Patient answered all questions The History & Physical has been completed within 30 days and I have reviewed it.: Yes Section B Chief Complaint: acute hypoxia hypercapnic respiratory failure Allergies: Allergies Allergy/AdvReac Type Severity Reaction Status Date / Time No Known Allergies Allergy Unverified 03/08/20 18:23 Plan I have reviewed the history and physical and performed a pertinent physical examination on my patient. No changes have occurred unless specified. Time Spent With Patient Time: Total time managing care of this patient today ____ minutes.
[2023-02-10] MEDS: Lactated Ringers 1,000 ML 100 ML IVCONT ×2 (10:15→20:06)
[2023-02-10] MEDS: Norepinephrine Bitartrate/D5W 8 MG/250 ML PLAST..BAG 9.08 MG IV (14:05)
[2023-02-10 16:30] LABS: Vancomycin Trough 17.7 mcg/mL (10.0-20.0)
[2023-02-10] MEDS: Albuterol Sulfate (0.083%) 2.5 MG/3 ML VIAL.NEB INHALE (19:53)
[2023-02-11] VITALS (37 sets, daily range): BP systolic 91–136; BP diastolic 42–88; PULSE 66–103; RESP 12–70; TEMP 34.9–38.1; O2SAT 90–98; BMI 44.0
[2023-02-11] MEDS: propofoL 1,000 MG/100 ML VIAL 14.04 MG IVCONT (04:28)
[2023-02-11] MEDS: fentaNYL citrate/NS 1,000 MCG/100 ML PLAST..BAG 7.5 MCG IVCONT ×2 (04:55→16:08)
[2023-02-11 04:56] LABS: VBG Base Excess 4.7 mmol/L; VBG HCO3 29 mmol/L (22-26); VBG pCO2 45 mmHg; VBG pH 7.42 (7.32-7.43); VBG pO2 48 mmHg
[2023-02-11] MEDS: vancomycin HCL 1,000 MG in 0.9 % Sodium Chloride 250 ML 270 MG IV ×2 (05:14→18:38)
[2023-02-11] MEDS: Lactated Ringers 1,000 ML 100 ML IVCONT ×2 (05:24→16:04)
[2023-02-11 05:39] LABS: MANUAL DIFF FLAG NO
[2023-02-11 05:42] LABS: Basophils Percent Auto 0.3 % (0-2); Eosinophils Absolute Auto 0.7 X10*3/uL (0.0-0.4); Eosinophils Percent Auto 8.2 % (0-4); Hemoglobin 9.8 g/dl (12.0-16.0); Imm Gran Abs Auto 0.08 X10*3/uL (0.00-0.03); Imm Gran Pct Auto 0.9 % (0.0-0.4); Lymphocytes Absolute Auto 1.6 X10*3/uL (1.2-4.9); Lymphocytes Percent Auto 17.7 % (20-40); Mean Corpuscular HGB Conc 30.6 g/dl (31.0-35.0); Mean Corpuscular Hemoglobin 29.5 pg (27.0-33.0); Mean Corpuscular Volume 96.4 fL (80.0-98.0); Mean Platelet Volume 10.5 fL (9.4-12.3); Monocytes Absolute Auto 0.6 X10*3/uL (0.1-1.2); Monocytes Percent Auto 6.4 % (2-11); Neutrophils Percent Auto 66.5 % (45-73); Platelet Count 306 X10*3/uL (160-400); Red Blood Count 3.32 X10*6/uL (4.20-5.50); Red Cell Distribution Width 14.8 % (11.0-16.0); White Blood Count 9.1 X10*3/uL (4.8-10.8)
[2023-02-11 05:59] LABS: Albumin Level 3.2 g/dL (3.5-5.0); Anion Gap 15 (12-20); Blood Urea Nitrogen 7 mg/dL (9-16); Calcium 10.3 mg/dL (8.4-10.2); Carbon Dioxide 25 mmol/L (22-29); Chloride 109 mmol/L (96-108); Creatinine Clr Calc Pharmacy 164.3; Estimated Glomerular Filt Rate > 60; Glucose Random 98 mg/dL (60-115); Magnesium 1.9 mg/dL (1.6-2.6); Phosphorus 3.3 mg/dL (2.7-4.5); Potassium 3.5 mmol/L (3.3-5.1); Sodium 145 mmol/L (135-145)
[2023-02-11] MEDS: ceFAZolin Sodium/Dextrose,Iso 2 GM/50 ML PIGGYBACK IV (06:36)
--- NOTE | 2023-02-11 07:05 | PM.CCPN ---
Subjective Subjective Date of Service: 02/10/23 Interval History: 48-year-old female with progressive respiratory failure based on hypoventilation and that is due to muscular dystrophy currently ventilator dependent cannot be weaned and therefore for tracheostomy and PEG tube placement to do tomorrow on 02/11 currently and had a witnessed aspiration during the period where she was extubated reintubated with extensive bilateral consolidations treated only with Zosyn and then developed a fever cough increased FiO2 we made a presumptive diagnosis of Staph thus that was not covered for specially methicillin-resistant and sputum is indicating Gram-positive cocci with significant white count so we stop the Zosyn replace it with vancomycin she is doing clinically well stable comfortable minute ventilatory requirement and FiO2 without any increased work of breathing and completely sedated on assist control Critical Care Time (minutes): 45 Physical Exam Vital Signs: Vital Signs: Last Vital Signs Temp 99.1 F 02/11/23 06:48 Pulse 80 02/11/23 06:48 Resp 16 02/11/23 06:48 BP 109/63 02/11/23 06:48 Pulse Ox 90 L 02/11/23 06:48 O2 Del Method Mechanical Ventil ation 02/11/23 06:48 O2 Flow Rate 11 01/26/23 16:00 FiO2 35 02/11/23 06:48 Oxygen Flow Rate 4 01/26/23 13:05 BMI result Body Mass Index 44.0 sedated and intubated with with stable pressures of 100/70 means of 75-77 she does awaken appropriately when stimulated abdomen is soft with no organomegaly no tenderness tolerating tube feedings skin is intact with no evidence of breakdown no cellulitis no acrocyanosis lungs with with scattered coarse bilateral rales no other adventitious sounds Objective Data Labs 02/11/23 04:42 02/11/23 04:42 Labs: Laboratory Results - last 24 hr 02/10/23 02/11/23 02/11/23 16:01 04:42 04:42 WBC 9.1 RBC 3.32 L Hgb 9.8 L Hct 32.0 L MCV 96.4 MCH 29.5 MCHC 30.6 L RDW 14.8 Plt Count 306 MPV 10.5 Immature Gran % (Auto) 0.9 H Neut % (Auto) 66.5 Lymph % (Auto) 17.7 L [place] % (Auto) 6.4 Eos % (Auto) 8.2 H Baso % (Auto) 0.3 Lymph # (Auto) 1.6 [place] # (Auto) 0.6 Eos # (Auto) 0.7 H Baso # (Auto) 0.0 Abs Immat Gran (auto) 0.08 H Absolute Neuts (auto) 6.0 Absolute Nucleated RBC 0.000 Nucleated RBC % (auto) 0.0 VBG pH VBG pCO2 VBG pO2 VBG HCO3 VBG O2 Saturation VBG Base Excess Sodium 145 Potassium 3.5 Chloride 109 H Carbon Dioxide 25 Anion Gap 15 BUN 7 L Creatinine 0.46 L Estim Creat Clear Calc 164.3 Estimated GFR > 60 Random Glucose 98 Calcium 10.3 H Phosphorus 3.3 Magnesium 1.9 Albumin 3.2 L Vancomycin Trough 17.7 02/11/23 02/11/23 04:42 04:50 WBC RBC Hgb Hct MCV MCH MCHC RDW Plt Count MPV Immature Gran % (Auto) Neut % (Auto) Lymph % (Auto) [place] % (Auto) Eos % (Auto) Baso % (Auto) Lymph # (Auto) [place] # (Auto) Eos # (Auto) Baso # (Auto) Abs Immat Gran (auto) Absolute Neuts (auto) Absolute Nucleated RBC Nucleated RBC % (auto) VBG pH 7.42 VBG pCO2 45 VBG pO2 48 VBG HCO3 29 H VBG O2 Saturation 74.0 VBG Base Excess 4.7 Sodium Potassium Chloride Carbon Dioxide Anion Gap BUN Creatinine Cancelled Estim Creat Clear Calc Cancelled Estimated GFR Cancelled Random Glucose Calcium Phosphorus Magnesium Albumin Vancomycin Trough Microbiology Microbiology Results: Microbiology 02/08/23 Unknown Sputum - Suctioned Gram Stain - Final 02/08/23 Unknown Sputum - Suctioned Sputum Culture - Preliminary Staphylococcus aureus Yeast 01/26/23 16:17 Blood - Venous Blood Culture - Final No growth after 5 days. 01/26/23 16:09 Blood - Venous Blood Culture - Final No growth after 5 days. Progress Note: A&P Assessment and plan (1) Aspiration pneumonia: Status: Acute (2) Failure to wean from mechanical ventilation: Status: Acute (3) Dysphagia: Status: Acute (4) Acute on chronic respiratory failure with hypoxia and hypercapnia: Status: Acute (5) Muscular dystrophy: Status: Acute (6) Pulmonary edema: Status: Acute (7) Pneumonia: Status: Acute (8) Respiratory failure: Status: Acute Plan so at this point treating as a a nosocomial probably MRSA pneumonia doing clinically well and unless there were no another temperature spike on not going to cover for any enteral organisms and and 24 hours will have tracheostomy and PEG Quality Stroke Does the patient have a stroke diagnosis?: No VTE Prior VTE?: No VTE Risk Level:: Medical - moderate - high VTE Device Contraindication: N/A - Device Ordered VTE Drug Contraindication: N/A - Med Ordered
--- NOTE | 2023-02-11 07:18 | HO.ANESPROP2 ---
HPI - Anesthesia Eval Consult details Narrative: for tracheostomy and PEG PMFSH Active Problems Active Problems: All Active Problems (Updated 02/05/23 @ 08:36 by Max Seals MD) Aspiration pneumonia (Acute) Failure to wean from mechanical ventilation (Acute) Dysphagia (Acute) Acute on chronic respiratory failure with hypoxia and hypercapnia (Acute) Muscular dystrophy (Acute) Pulmonary edema (Acute) Pneumonia (Acute) Respiratory failure (Acute) Past Medical History Medical History (Updated 02/05/23 @ 08:36 by Mxa Seals MD) COPD (chronic obstructive pulmonary disease) Dysphagia Muscular dystrophy Patient : No Family History Family history of problems with anesthesia: No Surgical History History of Problems with Anesthesia: No Social History Social History Household Members: Significant Other Housing: House Do you presently have visiting nurse or other home services: Yes Unable to assess alcohol history related to: Unknown Alcohol intake: never Patient Tobacco Use Status: Tobacco use Unknown Smoked in Last 30 Days: No Use of substances other than those prescribed or required for medical reasons: Unknown Currently Displaying Signs/Symptoms of Drug Intoxication Withdrawal: No Advance Directives: No Advance Directives Information Provided: No Recently lost weight without trying: Unsure Nutrition Risks: Difficulty chewing and Difficulty swallowing Patient : No Poor oral hygiene: Yes service: No Meds Allergies Allergy/AdvReac Type Severity Reaction Status Date / Time No Known Allergies Allergy Unverified 03/08/20 18:23 Active Medications: Current Medications Albuterol Sulfate (Albuterol Sulfate (0.083%) 2.5 Mg/3 Ml Vial.Neb) 2.5 mg INHALE Q4H PRN PRN Reason: Wheezing Last Admin: 02/10/23 19:53 Dose: 2.5 mg Chlorhexidine Gluconate (Chlorhexidine Gluc Oral Rinse 15 Ml Mouthwash) 15 ml BUCCAL TID CARINA Last Admin: 02/10/23 20:07 Dose: 15 ml Enoxaparin Sodium (Enoxaparin Sodium 40 Mg/0.4 Ml Syringe) 40 mg SUBCUT Q24H CARINA Last Admin: 02/08/23 18:16 Dose: 40 mg Propofol (Diprivan) 1,000 mg in 100 mls @ 0 mls/hr IVCONT .Q0M CARINA; Protocol Last Admin: 02/11/23 04:28 Dose: 30 mcg/kg/min, 14.04 mls/hr Norepinephrine Bitartrate (Levophed) 8 mg in 250 mls @ 0 mls/hr IV .Q0M CARINA; Protocol Last Titration: 02/11/23 01:02 Dose: 0.07 mcg/kg/min, 12.72 mls/hr Vancomycin HCl 1,000 mg/ (Sodium Chloride) 270 mls @ 270 mls/hr IV Q12H CARINA Last Infusion: 02/11/23 06:49 Dose: Infused Lactated Ringer's (Lr) 1,000 mls @ 100 mls/hr IVCONT .Q10H CARINA Last Admin: 02/11/23 05:24 Dose: 100 mls/hr Fentanyl (Sublimaze/Ns) 1,000 mcg in 100 mls @ 0 mls/hr IVCONT .Q0M CARINA; Protocol Last Admin: 02/11/23 04:55 Dose: 75 mcg/hr, 7.5 mls/hr Naloxone HCl (Naloxone Hcl 0.4 Mg/Ml Vial) 0.2 mg IVPUSH Q2M PRN PRN Reason: Excessive sedation or RR < 8 Ondansetron HCl (Ondansetron Hcl 4 Mg/2 Ml Vial) 4 mg IVPUSH Q6H PRN PRN Reason: Nausea Pharmacy Consult (Consult Rx Vancomycin Dosing) 1 each MISCELLANE DAILY PRN PRN Reason: Consult order Home Medications Medication Instructions Recorded Confirmed Last Taken Type albuterol sulfate 90 mcg/actuation 2 puff inhalation Q4-6H PRN 01/26/23 01/26/23 Unknown History aerosol inhaler (Ventolin HFA) Shortness Of Breath Or Wheezing cyanocobalamin (vitamin B-12) 1,000 mcg PO DAILY 01/26/23 01/26/23 Unknown History 1,000 mcg tablet omeprazole 20 mg capsule,delayed 20 mg PO DAILY@0630 01/26/23 01/27/23 Unknown History release Exam Exam Date and Time: February 11, 2023 0718 Height,Weight and Vital Signs: Height 5 ft Weight 102.1 kg Last Vital Signs Temp 99.1 F 02/11/23 06:48 Pulse 80 02/11/23 06:48 Resp 16 02/11/23 06:48 BP 109/63 02/11/23 06:48 Pulse Ox 90 L 02/11/23 06:48 O2 Del Method Mechanical Ventilation 02/11/23 06:48 O2 Flow Rate 11 01/26/23 16:00 FiO2 35 02/11/23 06:48 Oxygen Flow Rate 4 01/26/23 13:05 Pertinent Lab Results Pertinent Lab Results: Laboratory Tests 01/26/23 01/26/23 01/26/23 13:33 13:34 13:34 WBC 4.7 L RBC 3.82 L Hgb 11.4 L Hct 40.3 MCV 105.5 H MCH 29.8 MCHC 28.3 L RDW 13.2 Plt Count 179 MPV 10.5 Immature Gran % (Auto) 0.4 Neut % (Auto) 73.4 H Lymph % (Auto) 17.6 L [place] % (Auto) 6.7 Eos % (Auto) 1.7 Baso % (Auto) 0.2 Lymph # (Auto) 0.8 L [place] # (Auto) 0.3 Eos # (Auto) 0.1 Baso # (Auto) 0.0 Abs Immat Gran (auto) 0.02 Absolute Neuts (auto) 3.4 Absolute Nucleated RBC 0.000 Nucleated RBC % (auto) 0.0 PT INR APTT D-Dimer High Sensitivty O2 Saturation ABG pH at Pt Temp ABG pCO2 at Pt Temp ABG pO2 at Pt Temp ABG HCO3 ABG Base Excess (Actual) VBG pH VBG pCO2 VBG pO2 VBG HCO3 VBG O2 Saturation VBG Base Excess Sodium 148 H Potassium 4.2 Chloride 97 Carbon Dioxide 41 H* Anion Gap 14 BUN 8 L Creatinine 0.53 Estim Creat Clear Calc 123.8 Estimated GFR > 60 Random Glucose 104 Lactic Acid Calcium 9.5 Phosphorus Magnesium 2.2 Total Bilirubin 0.5 AST 27 ALT 22 Alkaline Phosphatase 64 Troponin I High Sens B-Natriuretic Peptide 42 Total Protein 6.7 Albumin 3.4 L Urine Color Urine Appearance Urine pH Ur Specific [place] Urine Protein Urine Glucose (UA) Urine Ketones Urine Blood Urine Nitrite Ur Leukocyte Esterase Vancomycin Trough COVID-19 (JOEL) COVID-19 Clin Com 01/26/23 01/26/23 01/26/23 13:34 13:34 13:34 WBC RBC Hgb Hct MCV MCH MCHC RDW Plt Count MPV Immature Gran % (Auto) Neut % (Auto) Lymph % (Auto) [place] % (Auto) Eos % (Auto) Baso % (Auto) Lymph # (Auto) [place] # (Auto) Eos # (Auto) Baso # (Auto) Abs Immat Gran (auto) Absolute Neuts (auto) Absolute Nucleated RBC Nucleated RBC % (auto) PT INR APTT D-Dimer High Sensitivty 285 O2 Saturation ABG pH at Pt Temp ABG pCO2 at Pt Temp ABG pO2 at Pt Temp ABG HCO3 ABG Base Excess (Actual) VBG pH VBG pCO2 VBG pO2 VBG HCO3 VBG O2 Saturation VBG Base Excess Sodium Potassium Chloride Carbon Dioxide Anion Gap BUN Creatinine Estim Creat Clear Calc Estimated GFR Random Glucose Lactic Acid Calcium Phosphorus Magnesium Total Bilirubin AST ALT Alkaline Phosphatase Troponin I High Sens 221.3 H* B-Natriuretic Peptide Total Protein Albumin Urine Color Urine Appearance Urine pH Ur Specific [place] Urine Protein Urine Glucose (UA) Urine Ketones Urine Blood Urine Nitrite Ur Leukocyte Esterase Vancomycin Trough COVID-19 (JOEL) Negative COVID-19 Clin Com See Note 01/26/23 01/26/23 01/26/23 13:35 15:26 16:04 WBC RBC Hgb Hct MCV MCH MCHC RDW Plt Count MPV Immature Gran % (Auto) Neut % (Auto) Lymph % (Auto) [place] % (Auto) Eos % (Auto) Baso % (Auto) Lymph # (Auto) [place] # (Auto) Eos # (Auto) Baso # (Auto) Abs Immat Gran (auto) Absolute Neuts (auto) Absolute Nucleated RBC Nucleated RBC % (auto) PT INR APTT D-Dimer High Sensitivty O2 Saturation 96.0 ABG pH at Pt Temp 7.27 L ABG pCO2 at Pt Temp 100 H* ABG pO2 at Pt Temp 94 ABG HCO3 46 H ABG Base Excess (Actual) 14.8 VBG pH 7.38 VBG pCO2 80 VBG pO2 38 VBG HCO3 47 H VBG O2 Saturation 60.0 VBG Base Excess 18.5 Sodium Potassium Chloride Carbon Dioxide Anion Gap BUN Creatinine Estim Creat Clear Calc Estimated GFR Random Glucose Lactic Acid Calcium Phosphorus Magnesium Total Bilirubin AST ALT Alkaline Phosphatase Troponin I High Sens B-Natriuretic Peptide Total Protein Albumin Urine Color Yellow Urine Appearance Turbid Urine pH 8.5 Ur Specific [place] 1.020 Urine Protein Trace Urine Glucose (UA) Negative Urine Ketones Trace Urine Blood Negative Urine Nitrite Negative Ur Leukocyte Esterase Negative Vancomycin Trough COVID-19 (JOEL) COVID-19 Clin Com 0801/26/23 01/26/23 16:09 20:39 20:54 WBC RBC Hgb Hct MCV MCH MCHC RDW Plt Count MPV Immature Gran % (Auto) Neut % (Auto) Lymph % (Auto) [place] % (Auto) Eos % (Auto) Baso % (Auto) Lymph # (Auto) [place] # (Auto) Eos # (Auto) Baso # (Auto) Abs Immat Gran (auto) Absolute Neuts (auto) Absolute Nucleated RBC Nucleated RBC % (auto) PT INR APTT D-Dimer High Sensitivty O2 Saturation ABG pH at Pt Temp ABG pCO2 at Pt Temp ABG pO2 at Pt Temp ABG HCO3 ABG Base Excess (Actual) VBG pH 7.58 H VBG pCO2 53 VBG pO2 54 VBG HCO3 51 H VBG O2 Saturation 91.0 VBG Base Excess 25.5 Sodium Potassium Chloride Carbon Dioxide Anion Gap BUN Creatinine Estim Creat Clear Calc Estimated GFR Random Glucose Lactic Acid 0.6 Calcium Phosphorus Magnesium Total Bilirubin AST ALT Alkaline Phosphatase Troponin I High Sens 223.9 H* B-Natriuretic Peptide Total Protein Albumin Urine Color Urine Appearance Urine pH Ur Specific [place] Urine Protein Urine Glucose (UA) Urine Ketones Urine Blood Urine Nitrite Ur Leukocyte Esterase Vancomycin Trough COVID-19 (JOEL) COVID-19 Clin Com 01/27/23 01/27/23 01/27/23 04:33 04:33 04:41 WBC 6.1 RBC 3.62 L Hgb 10.9 L Hct 37.2 MCV 102.8 H MCH 30.1 MCHC 29.3 L RDW 13.0 Plt Count 161 MPV 11.0 Immature Gran % (Auto) 0.3 Neut % (Auto) 87.6 H Lymph % (Auto) 8.1 L [place] % (Auto) 4.0 Eos % (Auto) 0.0 Baso % (Auto) 0.0 Lymph # (Auto) 0.5 L [place] # (Auto) 0.2 Eos # (Auto) 0.0 Baso # (Auto) 0.0 Abs Immat Gran (auto) 0.02 Absolute Neuts (auto) 5.3 Absolute Nucleated RBC 0.000 Nucleated RBC % (auto) 0.0 PT INR APTT D-Dimer High Sensitivty O2 Saturation ABG pH at Pt Temp ABG pCO2 at Pt Temp ABG pO2 at Pt Temp ABG HCO3 ABG Base Excess (Actual) VBG pH 7.60 H* VBG pCO2 31 VBG pO2 26 VBG HCO3 30 H VBG O2 Saturation 50.0 VBG Base Excess 9.3 Sodium 145 Potassium 3.6 Chloride 104 Carbon Dioxide 27 Anion Gap 18 BUN 8 L Creatinine 0.60 Estim Creat Clear Calc 109.3 Estimated GFR > 60 Random Glucose 95 Lactic Acid Calcium 9.5 Phosphorus 0.8 L* Magnesium 2.1 Total Bilirubin AST ALT Alkaline Phosphatase Troponin I High Sens B-Natriuretic Peptide Total Protein Albumin 3.7 Urine Color Urine Appearance Urine pH Ur Specific [place] Urine Protein Urine Glucose (UA) Urine Ketones Urine Blood Urine Nitrite Ur Leukocyte Esterase Vancomycin Trough COVID-19 (JOEL) COVID-19 Clin Com 01/27/23 01/28/23 01/28/23 11:03 04:57 05:01 WBC 5.2 RBC 3.32 L Hgb 10.7 L Hct 32.7 L MCV 98.5 H MCH 32.2 MCHC 32.7 RDW 13.9 Plt Count 175 MPV 11.0 Immature Gran % (Auto) 0.4 Neut % (Auto) 65.2 Lymph % (Auto) 26.8 [place] % (Auto) 6.8 Eos % (Auto) 0.6 Baso % (Auto) 0.2 Lymph # (Auto) 1.4 [place] # (Auto) 0.4 Eos # (Auto) 0.0 Baso # (Auto) 0.0 Abs Immat Gran (auto) 0.02 Absolute Neuts (auto) 3.4 Absolute Nucleated RBC 0.000 Nucleated RBC % (auto) 0.0 PT INR APTT D-Dimer High Sensitivty O2 Saturation ABG pH at Pt Temp ABG pCO2 at Pt Temp ABG pO2 at Pt Temp ABG HCO3 ABG Base Excess (Actual) VBG pH 7.43 7.45 H VBG pCO2 44 35 VBG pO2 53 45 VBG HCO3 29 H 25 VBG O2 Saturation 83.0 76.0 VBG Base Excess 5.1 1.4 Sodium Potassium Chloride Carbon Dioxide Anion Gap BUN Creatinine Estim Creat Clear Calc Estimated GFR Random Glucose Lactic Acid Calcium Phosphorus Magnesium Total Bilirubin AST ALT Alkaline Phosphatase Troponin I High Sens B-Natriuretic Peptide Total Protein Albumin Urine Color Urine Appearance Urine pH Ur Specific [place] Urine Protein Urine Glucose (UA) Urine Ketones Urine Blood Urine Nitrite Ur Leukocyte Esterase Vancomycin Trough COVID-19 (JOEL) COVID-19 Clin Com 01/28/23 01/28/23 01/28/23 05:01 09:06 19:39 WBC RBC Hgb Hct MCV MCH MCHC RDW Plt Count MPV Immature Gran % (Auto) Neut % (Auto) Lymph % (Auto) [place] % (Auto) Eos % (Auto) Baso % (Auto) Lymph # (Auto) [place] # (Auto) Eos # (Auto) Baso # (Auto) Abs Immat Gran (auto) Absolute Neuts (auto) Absolute Nucleated RBC Nucleated RBC % (auto) PT INR APTT D-Dimer High Sensitivty O2 Saturation ABG pH at Pt Temp ABG pCO2 at Pt Temp ABG pO2 at Pt Temp ABG HCO3 ABG Base Excess (Actual) VBG pH VBG pCO2 VBG pO2 VBG HCO3 VBG O2 Saturation VBG Base Excess Sodium 134 L 146 H Potassium 3.4 3.0 L Chloride 102 107 Carbon Dioxide 21 L 26 Anion Gap 14 16 BUN 8 L 8 L Creatinine 0.60 0.68 Estim Creat Clear Calc 123.4 108.9 Estimated GFR > 60 > 60 Random Glucose 65 82 Lactic Acid Calcium 8.2 L D 9.5 D Phosphorus 2.6 L 2.6 L Magnesium 1.7 1.8 Total Bilirubin 0.4 AST 20 ALT 14 Alkaline Phosphatase 47 Troponin I High Sens B-Natriuretic Peptide Total Protein 7.1 Albumin 2.9 L Urine Color Urine Appearance Urine pH Ur Specific [place] Urine Protein Urine Glucose (UA) Urine Ketones Urine Blood Urine Nitrite Ur Leukocyte Esterase Vancomycin Trough 5.0 L COVID-19 (JOEL) COVID-19 Clin Com 01/29/23 01/29/23 01/29/23 05:00 05:00 05:04 WBC 6.3 RBC 3.31 L Hgb 10.1 L Hct 32.8 L MCV 99.1 H MCH 30.5 MCHC 30.8 L RDW 14.2 Plt Count 178 MPV 10.1 Immature Gran % (Auto) 0.5 H Neut % (Auto) 64.3 Lymph % (Auto) 22.8 [place] % (Auto) 8.9 Eos % (Auto) 3.0 Baso % (Auto) 0.5 Lymph # (Auto) 1.4 [place] # (Auto) 0.6 Eos # (Auto) 0.2 Baso # (Auto) 0.0 Abs Immat Gran (auto) 0.03 Absolute Neuts (auto) 4.0 Absolute Nucleated RBC 0.000 Nucleated RBC % (auto) 0.0 PT INR APTT D-Dimer High Sensitivty O2 Saturation ABG pH at Pt Temp ABG pCO2 at Pt Temp ABG pO2 at Pt Temp ABG HCO3 ABG Base Excess (Actual) VBG pH 7.40 VBG pCO2 40 VBG pO2 55 VBG HCO3 25 VBG O2 Saturation 84.0 VBG Base Excess 0.7 Sodium 145 Potassium 3.7 D Chloride 110 H Carbon Dioxide 24 Anion Gap 15 BUN 8 L Creatinine 0.66 Estim Creat Clear Calc 109.7 Estimated GFR > 60 Random Glucose 107 Lactic Acid Calcium 9.6 Phosphorus 3.3 Magnesium 1.9 Total Bilirubin AST ALT Alkaline Phosphatase Troponin I High Sens B-Natriuretic Peptide Total Protein Albumin 4.4 Urine Color Urine Appearance Urine pH Ur Specific [place] Urine Protein Urine Glucose (UA) Urine Ketones Urine Blood Urine Nitrite Ur Leukocyte Esterase Vancomycin Trough COVID-19 (JOEL) COVID-19 Clin Com 01/29/23 01/30/23 01/30/23 20:25 04:52 04:52 WBC 6.3 RBC 3.72 L Hgb 11.1 L Hct 36.2 L MCV 97.3 MCH 29.8 MCHC 30.7 L RDW 14.2 Plt Count 199 MPV 11.0 Immature Gran % (Auto) 0.6 H Neut % (Auto) 70.3 Lymph % (Auto) 17.5 L [place] % (Auto) 8.3 Eos % (Auto) 3.0 Baso % (Auto) 0.3 Lymph # (Auto) 1.1 L [place] # (Auto) 0.5 Eos # (Auto) 0.2 Baso # (Auto) 0.0 Abs Immat Gran (auto) 0.04 H Absolute Neuts (auto) 4.4 Absolute Nucleated RBC 0.000 Nucleated RBC % (auto) 0.0 PT INR APTT D-Dimer High Sensitivty O2 Saturation ABG pH at Pt Temp ABG pCO2 at Pt Temp ABG pO2 at Pt Temp ABG HCO3 ABG Base Excess (Actual) VBG pH VBG pCO2 VBG pO2 VBG HCO3 VBG O2 Saturation VBG Base Excess Sodium 146 H 145 Potassium 3.7 3.6 Chloride 111 H 111 H Carbon Dioxide 25 24 Anion Gap 14 14 BUN 7 L 8 L Creatinine 0.60 0.64 Estim Creat Clear Calc 120.7 113.1 Estimated GFR > 60 > 60 Random Glucose 109 133 H Lactic Acid Calcium 9.5 9.8 Phosphorus 2.2 L 2.2 L Magnesium 1.8 2.0 Total Bilirubin AST ALT Alkaline Phosphatase Troponin I High Sens B-Natriuretic Peptide Total Protein Albumin 4.0 Urine Color Urine Appearance Urine pH Ur Specific [place] Urine Protein Urine Glucose (UA) Urine Ketones Urine Blood Urine Nitrite Ur Leukocyte Esterase Vancomycin Trough COVID-19 (JOEL) COVID-19 Clin Com 01/30/23 01/31/23 01/31/23 04:53 05:42 05:44 WBC 6.9 RBC 3.82 L Hgb 11.6 L Hct 37.1 MCV 97.1 MCH 30.4 MCHC 31.3 RDW 14.4 Plt Count 192 MPV 11.7 Immature Gran % (Auto) 0.4 Neut % (Auto) 71.2 Lymph % (Auto) 16.3 L [place] % (Auto) 7.0 Eos % (Auto) 4.8 H Baso % (Auto) 0.3 Lymph # (Auto) 1.1 L [place] # (Auto) 0.5 Eos # (Auto) 0.3 Baso # (Auto) 0.0 Abs Immat Gran (auto) 0.03 Absolute Neuts (auto) 4.9 Absolute Nucleated RBC 0.000 Nucleated RBC % (auto) 0.0 PT INR APTT D-Dimer High Sensitivty O2 Saturation ABG pH at Pt Temp ABG pCO2 at Pt Temp ABG pO2 at Pt Temp ABG HCO3 ABG Base Excess (Actual) VBG pH 7.41 7.47 H VBG pCO2 41 30 VBG pO2 53 54 VBG HCO3 26 22 VBG O2 Saturation 84.0 85.0 VBG Base Excess 1.9 -0.4 Sodium Potassium Chloride Carbon Dioxide Anion Gap BUN Creatinine Estim Creat Clear Calc Estimated GFR Random Glucose Lactic Acid Calcium Phosphorus Magnesium Total Bilirubin AST ALT Alkaline Phosphatase Troponin I High Sens B-Natriuretic Peptide Total Protein Albumin Urine Color Urine Appearance Urine pH Ur Specific [place] Urine Protein Urine Glucose (UA) Urine Ketones Urine Blood Urine Nitrite Ur Leukocyte Esterase Vancomycin Trough COVID-19 (JOEL) COVID-19 Clin Com 01/31/23 02/01/23 02/01/23 05:44 05:22 05:22 WBC 10.5 RBC 3.69 L Hgb 11.2 L Hct 35.2 L MCV 95.4 MCH 30.4 MCHC 31.8 RDW 14.4 Plt Count 206 MPV 11.6 Immature Gran % (Auto) 0.4 Neut % (Auto) 76.7 H Lymph % (Auto) 14.0 L [place] % (Auto) 6.5 Eos % (Auto) 2.2 Baso % (Auto) 0.2 Lymph # (Auto) 1.5 [place] # (Auto) 0.7 Eos # (Auto) 0.2 Baso # (Auto) 0.0 Abs Immat Gran (auto) 0.04 H Absolute Neuts (auto) 8.1 Absolute Nucleated RBC 0.000 Nucleated RBC % (auto) 0.0 PT INR APTT D-Dimer High Sensitivty O2 Saturation ABG pH at Pt Temp ABG pCO2 at Pt Temp ABG pO2 at Pt Temp ABG HCO3 ABG Base Excess (Actual) VBG pH VBG pCO2 VBG pO2 VBG HCO3 VBG O2 Saturation VBG Base Excess Sodium 144 143 Potassium 3.9 3.5 Chloride 113 H 109 H Carbon Dioxide 21 L 24 Anion Gap 14 14 BUN 6 L 6 L Creatinine 0.54 0.51 Estim Creat Clear Calc 135.6 145.2 Estimated GFR > 60 > 60 Random Glucose 106 113 Lactic Acid Calcium 10.0 9.7 Phosphorus 2.7 2.9 Magnesium 2.2 2.2 Total Bilirubin AST ALT Alkaline Phosphatase Troponin I High Sens B-Natriuretic Peptide Total Protein Albumin 3.9 3.7 Urine Color Urine Appearance Urine pH Ur Specific [place] Urine Protein Urine Glucose (UA) Urine Ketones Urine Blood Urine Nitrite Ur Leukocyte Esterase Vancomycin Trough COVID-19 (JOEL) COVID-19 Clin Com 02/01/23 02/02/23 02/02/23 05:27 04:41 04:41 WBC 13.7 H RBC 3.65 L Hgb 10.9 L Hct 34.9 L MCV 95.6 MCH 29.9 MCHC 31.2 RDW 14.5 Plt Count 207 MPV 11.4 Immature Gran % (Auto) 0.3 Neut % (Auto) 87.8 H Lymph % (Auto) 4.1 L [place] % (Auto) 4.8 Eos % (Auto) 2.9 Baso % (Auto) 0.1 Lymph # (Auto) 0.6 L [place] # (Auto) 0.7 Eos # (Auto) 0.4 Baso # (Auto) 0.0 Abs Immat Gran (auto) 0.04 H Absolute Neuts (auto) 12.1 H Absolute Nucleated RBC 0.000 Nucleated RBC % (auto) 0.0 PT INR APTT D-Dimer High Sensitivty O2 Saturation ABG pH at Pt Temp ABG pCO2 at Pt Temp ABG pO2 at Pt Temp ABG HCO3 ABG Base Excess (Actual) VBG pH 7.44 H VBG pCO2 37 VBG pO2 54 VBG HCO3 26 VBG O2 Saturation 83.0 VBG Base Excess 2.2 Sodium 144 Potassium 3.4 Chloride 110 H Carbon Dioxide 23 Anion Gap 13 BUN 5 L Creatinine 0.51 Estim Creat Clear Calc 148.0 Estimated GFR > 60 Random Glucose 161 H Lactic Acid Calcium 9.5 Phosphorus 2.8 Magnesium 2.0 Total Bilirubin AST ALT Alkaline Phosphatase Troponin I High Sens B-Natriuretic Peptide Total Protein Albumin 3.4 L Urine Color Urine Appearance Urine pH Ur Specific [place] Urine Protein Urine Glucose (UA) Urine Ketones Urine Blood Urine Nitrite Ur Leukocyte Esterase Vancomycin Trough COVID-19 (JOEL) COVID-19 Clin Com 02/02/23 02/03/23 02/03/23 04:51 05:02 05:02 WBC 12.8 H RBC 3.60 L Hgb 11.0 L Hct 34.6 L MCV 96.1 MCH 30.6 MCHC 31.8 RDW 14.4 Plt Count 226 MPV 11.7 Immature Gran % (Auto) 0.4 Neut % (Auto) 81.4 H Lymph % (Auto) 6.8 L [place] % (Auto) 7.2 Eos % (Auto) 4.0 Baso % (Auto) 0.2 Lymph # (Auto) 0.9 L [place] # (Auto) 0.9 Eos # (Auto) 0.5 H Baso # (Auto) 0.0 Abs Immat Gran (auto) 0.05 H Absolute Neuts (auto) 10.5 H Absolute Nucleated RBC 0.000 Nucleated RBC % (auto) 0.0 PT INR APTT D-Dimer High Sensitivty O2 Saturation ABG pH at Pt Temp ABG pCO2 at Pt Temp ABG pO2 at Pt Temp ABG HCO3 ABG Base Excess (Actual) VBG pH 7.49 H VBG pCO2 35 VBG pO2 71 VBG HCO3 27 H VBG O2 Saturation 94.0 VBG Base Excess 4.1 Sodium 143 Potassium 4.3 D Chloride 106 Carbon Dioxide 29 Anion Gap 12 BUN 7 L Creatinine 0.58 Estim Creat Clear Calc 130.1 Estimated GFR > 60 Random Glucose 131 H Lactic Acid Calcium 9.6 Phosphorus 3.3 Magnesium 2.0 Total Bilirubin 0.6 AST 32 H ALT 32 H Alkaline Phosphatase 130 H Troponin I High Sens B-Natriuretic Peptide Total Protein 6.4 L Albumin 3.3 L Urine Color Urine Appearance Urine pH Ur Specific [place] Urine Protein Urine Glucose (UA) Urine Ketones Urine Blood Urine Nitrite Ur Leukocyte Esterase Vancomycin Trough COVID-19 (JOEL) COVID-19 Clin Com 02/03/23 02/04/23 02/04/23 05:04 04:34 04:34 WBC 12.7 H RBC 3.22 L Hgb 9.7 L Hct 31.6 L MCV 98.1 H MCH 30.1 MCHC 30.7 L RDW 14.6 Plt Count 278 MPV 11.5 Immature Gran % (Auto) 0.6 H Neut % (Auto) 83.1 H Lymph % (Auto) 5.3 L [place] % (Auto) 7.3 Eos % (Auto) 3.5 Baso % (Auto) 0.2 Lymph # (Auto) 0.7 L [place] # (Auto) 0.9 Eos # (Auto) 0.4 Baso # (Auto) 0.0 Abs Immat Gran (auto) 0.08 H Absolute Neuts (auto) 10.6 H Absolute Nucleated RBC 0.000 Nucleated RBC % (auto) 0.0 PT INR APTT D-Dimer High Sensitivty O2 Saturation ABG pH at Pt Temp ABG pCO2 at Pt Temp ABG pO2 at Pt Temp ABG HCO3 ABG Base Excess (Actual) VBG pH 7.44 H VBG pCO2 47 VBG pO2 40 VBG HCO3 32 H VBG O2 Saturation 60.0 VBG Base Excess 7.8 Sodium 146 H Potassium 3.4 D Chloride 104 Carbon Dioxide 30 H Anion Gap 15 BUN 11 Creatinine 0.70 Estim Creat Clear Calc 108.8 Estimated GFR > 60 Random Glucose 124 H Lactic Acid Calcium 9.5 Phosphorus 3.2 Magnesium 2.2 Total Bilirubin AST ALT Alkaline Phosphatase Troponin I High Sens B-Natriuretic Peptide Total Protein Albumin Urine Color Urine Appearance Urine pH Ur Specific [place] Urine Protein Urine Glucose (UA) Urine Ketones Urine Blood Urine Nitrite Ur Leukocyte Esterase Vancomycin Trough COVID-19 (JOEL) COVID-19 Clin Com 02/04/23 02/04/23 02/05/23 04:35 15:36 04:31 WBC RBC Hgb Hct MCV MCH MCHC RDW Plt Count MPV Immature Gran % (Auto) Neut % (Auto) Lymph % (Auto) [place] % (Auto) Eos % (Auto) Baso % (Auto) Lymph # (Auto) [place] # (Auto) Eos # (Auto) Baso # (Auto) Abs Immat Gran (auto) Absolute Neuts (auto) Absolute Nucleated RBC Nucleated RBC % (auto) PT INR APTT D-Dimer High Sensitivty O2 Saturation 93.0 ABG pH at Pt Temp 7.38 ABG pCO2 at Pt Temp 59 H ABG pO2 at Pt Temp 74 L ABG HCO3 36 H ABG Base Excess (Actual) 9.3 VBG pH 7.47 H VBG pCO2 48 VBG pO2 43 VBG HCO3 35 H VBG O2 Saturation 69.0 VBG Base Excess 10.9 Sodium 144 Potassium 3.4 Chloride 102 Carbon Dioxide 31 H Anion Gap 14 BUN 10 Creatinine 0.65 Estim Creat Clear Calc 117.2 Estimated GFR > 60 Random Glucose 106 Lactic Acid Calcium 10.1 D Phosphorus 3.3 Magnesium 2.4 Total Bilirubin AST ALT Alkaline Phosphatase Troponin I High Sens B-Natriuretic Peptide Total Protein Albumin 3.4 L Urine Color Urine Appearance Urine pH Ur Specific [place] Urine Protein Urine Glucose (UA) Urine Ketones Urine Blood Urine Nitrite Ur Leukocyte Esterase Vancomycin Trough COVID-19 (JOEL) COVID-19 Clin Com 02/05/23 02/05/23 02/06/23 04:31 04:38 04:53 WBC 10.1 RBC 3.32 L Hgb 9.9 L Hct 32.1 L MCV 96.7 MCH 29.8 MCHC 30.8 L RDW 14.5 Plt Count 283 MPV 11.0 Immature Gran % (Auto) 0.6 H Neut % (Auto) 75.5 H Lymph % (Auto) 9.7 L [place] % (Auto) 8.0 Eos % (Auto) 5.8 H Baso % (Auto) 0.4 Lymph # (Auto) 1.0 L [place] # (Auto) 0.8 Eos # (Auto) 0.6 H Baso # (Auto) 0.0 Abs Immat Gran (auto) 0.06 H Absolute Neuts (auto) 7.7 Absolute Nucleated RBC 0.000 Nucleated RBC % (auto) 0.0 PT INR APTT D-Dimer High Sensitivty O2 Saturation ABG pH at Pt Temp ABG pCO2 at Pt Temp ABG pO2 at Pt Temp ABG HCO3 ABG Base Excess (Actual) VBG pH 7.45 H VBG pCO2 50 VBG pO2 50 VBG HCO3 35 H VBG O2 Saturation 78.0 VBG Base Excess 10.2 Sodium 146 H Potassium 3.6 Chloride 107 Carbon Dioxide 28 Anion Gap 15 BUN 7 L Creatinine 0.60 Estim Creat Clear Calc 121.9 Estimated GFR > 60 Random Glucose 107 Lactic Acid Calcium 10.3 H Phosphorus 3.2 Magnesium 2.3 Total Bilirubin 0.7 AST 121 H ALT 160 H Alkaline Phosphatase 305 H Troponin I High Sens B-Natriuretic Peptide Total Protein 6.9 Albumin 3.3 L Urine Color Urine Appearance Urine pH Ur Specific [place] Urine Protein Urine Glucose (UA) Urine Ketones Urine Blood Urine Nitrite Ur Leukocyte Esterase Vancomycin Trough COVID-19 (JOEL) COVID-19 Clin Com 02/06/23 02/06/23 02/07/23 04:53 04:53 04:49 WBC 11.4 H RBC 3.53 L Hgb 10.4 L Hct 33.7 L MCV 95.5 MCH 29.5 MCHC 30.9 L RDW 14.6 Plt Count 316 MPV 10.5 Immature Gran % (Auto) 0.6 H Neut % (Auto) 71.4 Lymph % (Auto) 12.3 L [place] % (Auto) 6.6 Eos % (Auto) 8.7 H Baso % (Auto) 0.4 Lymph # (Auto) 1.4 [place] # (Auto) 0.8 Eos # (Auto) 1.0 H Baso # (Auto) 0.1 Abs Immat Gran (auto) 0.07 H Absolute Neuts (auto) 8.2 Absolute Nucleated RBC 0.000 Nucleated RBC % (auto) 0.0 PT INR APTT D-Dimer High Sensitivty O2 Saturation ABG pH at Pt Temp ABG pCO2 at Pt Temp ABG pO2 at Pt Temp ABG HCO3 ABG Base Excess (Actual) VBG pH 7.47 H VBG pCO2 44 VBG pO2 42 VBG HCO3 32 H VBG O2 Saturation 65.0 VBG Base Excess 8.4 Sodium 146 H Potassium 3.4 Chloride 107 Carbon Dioxide 28 Anion Gap 14 BUN 7 L Creatinine 0.62 Estim Creat Clear Calc 120.9 Estimated GFR > 60 Random Glucose 107 Lactic Acid Calcium 9.7 Phosphorus 3.7 Magnesium 2.3 Total Bilirubin AST ALT Alkaline Phosphatase Troponin I High Sens B-Natriuretic Peptide Total Protein Albumin 3.0 L Urine Color Urine Appearance Urine pH Ur Specific [place] Urine Protein Urine Glucose (UA) Urine Ketones Urine Blood Urine Nitrite Ur Leukocyte Esterase Vancomycin Trough COVID-19 (JOEL) COVID-19 Clin Com 02/07/23 02/07/23 02/08/23 04:49 04:50 04:48 WBC 9.2 8.9 RBC 3.25 L 3.22 L Hgb 9.6 L 9.5 L Hct 31.0 L 31.4 L MCV 95.4 97.5 MCH 29.5 29.5 MCHC 31.0 30.3 L RDW 14.6 15.0 Plt Count 300 308 MPV 10.0 10.0 Immature Gran % (Auto) 0.8 H 1.2 H Neut % (Auto) 67.4 64.1 Lymph % (Auto) 14.5 L 14.5 L [place] % (Auto) 6.9 7.2 Eos % (Auto) 10.1 H 12.6 H Baso % (Auto) 0.3 0.4 Lymph # (Auto) 1.3 1.3 [place] # (Auto) 0.6 0.6 Eos # (Auto) 0.9 H 1.1 H Baso # (Auto) 0.0 0.0 Abs Immat Gran (auto) 0.07 H 0.11 H Absolute Neuts (auto) 6.2 5.7 Absolute Nucleated RBC 0.000 0.000 Nucleated RBC % (auto) 0.0 0.0 PT INR APTT D-Dimer High Sensitivty O2 Saturation ABG pH at Pt Temp ABG pCO2 at Pt Temp ABG pO2 at Pt Temp ABG HCO3 ABG Base Excess (Actual) VBG pH 7.50 H VBG pCO2 40 VBG pO2 47 VBG HCO3 31 H VBG O2 Saturation 76.0 VBG Base Excess 8.1 Sodium Potassium Chloride Carbon Dioxide Anion Gap BUN Creatinine Estim Creat Clear Calc Estimated GFR Random Glucose Lactic Acid Calcium Phosphorus Magnesium Total Bilirubin AST ALT Alkaline Phosphatase Troponin I High Sens B-Natriuretic Peptide Total Protein Albumin Urine Color Urine Appearance Urine pH Ur Specific [place] Urine Protein Urine Glucose (UA) Urine Ketones Urine Blood Urine Nitrite Ur Leukocyte Esterase Vancomycin Trough COVID-19 (JOEL) COVID-19 Clin Com 02/08/23 02/08/23 02/09/23 04:48 04:52 04:26 WBC 11.1 H RBC 3.27 L Hgb 9.7 L Hct 31.8 L MCV 97.2 MCH 29.7 MCHC 30.5 L RDW 14.9 Plt Count 277 MPV 9.9 Immature Gran % (Auto) 1.0 H Neut % (Auto) 71.8 Lymph % (Auto) 12.2 L [place] % (Auto) 5.5 Eos % (Auto) 9.1 H Baso % (Auto) 0.4 Lymph # (Auto) 1.4 [place] # (Auto) 0.6 Eos # (Auto) 1.0 H Baso # (Auto) 0.0 Abs Immat Gran (auto) 0.11 H Absolute Neuts (auto) 8.0 Absolute Nucleated RBC 0.000 Nucleated RBC % (auto) 0.0 PT INR APTT D-Dimer High Sensitivty O2 Saturation ABG pH at Pt Temp ABG pCO2 at Pt Temp ABG pO2 at Pt Temp ABG HCO3 ABG Base Excess (Actual) VBG pH 7.39 VBG pCO2 45 VBG pO2 56 VBG HCO3 28 H VBG O2 Saturation 82.0 VBG Base Excess 2.8 Sodium 147 H Potassium 3.2 L Chloride 112 H Carbon Dioxide 25 Anion Gap 13 BUN 7 L Creatinine 0.64 Estim Creat Clear Calc 117.1 Estimated GFR > 60 Random Glucose 111 Lactic Acid Calcium 10.5 H D Phosphorus 3.3 Magnesium 2.4 Total Bilirubin AST ALT Alkaline Phosphatase Troponin I High Sens B-Natriuretic Peptide Total Protein Albumin 3.7 Urine Color Urine Appearance Urine pH Ur Specific [place] Urine Protein Urine Glucose (UA) Urine Ketones Urine Blood Urine Nitrite Ur Leukocyte Esterase Vancomycin Trough COVID-19 (JOEL) COVID-19 Clin Com 02/09/23 02/09/23 02/09/23 04:26 04:29 07:20 WBC RBC Hgb Hct MCV MCH MCHC RDW Plt Count MPV Immature Gran % (Auto) Neut % (Auto) Lymph % (Auto) [place] % (Auto) Eos % (Auto) Baso % (Auto) Lymph # (Auto) [place] # (Auto) Eos # (Auto) Baso # (Auto) Abs Immat Gran (auto) Absolute Neuts (auto) Absolute Nucleated RBC Nucleated RBC % (auto) PT 11.8 INR 1.0 APTT 28.3 D-Dimer High Sensitivty O2 Saturation ABG pH at Pt Temp ABG pCO2 at Pt Temp ABG pO2 at Pt Temp ABG HCO3 ABG Base Excess (Actual) VBG pH 7.43 VBG pCO2 41 VBG pO2 51 VBG HCO3 28 H VBG O2 Saturation 80.0 VBG Base Excess 3.6 Sodium 145 Potassium 3.3 Chloride 110 H Carbon Dioxide 25 Anion Gap 13 BUN 7 L Creatinine 0.61 Estim Creat Clear Calc 123.5 Estimated GFR > 60 Random Glucose 104 Lactic Acid Calcium 10.3 H Phosphorus 3.0 Magnesium 2.2 Total Bilirubin AST ALT Alkaline Phosphatase Troponin I High Sens B-Natriuretic Peptide Total Protein Albumin 3.5 Urine Color Urine Appearance Urine pH Ur Specific [place] Urine Protein Urine Glucose (UA) Urine Ketones Urine Blood Urine Nitrite Ur Leukocyte Esterase Vancomycin Trough COVID-19 (JOEL) COVID-19 Clin Com 02/09/23 02/10/23 02/10/23 16:06 04:22 04:22 WBC 8.5 RBC 3.20 L Hgb 9.3 L Hct 30.6 L MCV 95.6 MCH 29.1 MCHC 30.4 L RDW 14.9 Plt Count 309 MPV 10.7 Immature Gran % (Auto) 1.1 H Neut % (Auto) 69.0 Lymph % (Auto) 13.6 L [place] % (Auto) 6.7 Eos % (Auto) 9.2 H Baso % (Auto) 0.4 Lymph # (Auto) 1.2 [place] # (Auto) 0.6 Eos # (Auto) 0.8 H Baso # (Auto) 0.0 Abs Immat Gran (auto) 0.09 H Absolute Neuts (auto) 5.9 Absolute Nucleated RBC 0.000 Nucleated RBC % (auto) 0.0 PT INR APTT D-Dimer High Sensitivty O2 Saturation ABG pH at Pt Temp ABG pCO2 at Pt Temp ABG pO2 at Pt Temp ABG HCO3 ABG Base Excess (Actual) VBG pH VBG pCO2 VBG pO2 VBG HCO3 VBG O2 Saturation VBG Base Excess Sodium 144 Potassium 3.3 Chloride 110 H Carbon Dioxide 25 Anion Gap 12 BUN 8 L Creatinine 0.49 L Estim Creat Clear Calc 152.4 Estimated GFR > 60 Random Glucose 101 Lactic Acid Calcium 10.4 H Phosphorus Magnesium Total Bilirubin 0.3 AST 74 H ALT 74 H Alkaline Phosphatase 227 H Troponin I High Sens B-Natriuretic Peptide Total Protein 6.6 Albumin 3.3 L Urine Color Urine Appearance Urine pH Ur Specific [place] Urine Protein Urine Glucose (UA) Urine Ketones Urine Blood Urine Nitrite Ur Leukocyte Esterase Vancomycin Trough 18.3 COVID-19 (JOEL) COVID-19 Clin Com 02/10/23 02/10/23 02/11/23 04:34 16:01 04:42 WBC 9.1 RBC 3.32 L Hgb 9.8 L Hct 32.0 L MCV 96.4 MCH 29.5 MCHC 30.6 L RDW 14.8 Plt Count 306 MPV 10.5 Immature Gran % (Auto) 0.9 H Neut % (Auto) 66.5 Lymph % (Auto) 17.7 L [place] % (Auto) 6.4 Eos % (Auto) 8.2 H Baso % (Auto) 0.3 Lymph # (Auto) 1.6 [place] # (Auto) 0.6 Eos # (Auto) 0.7 H Baso # (Auto) 0.0 Abs Immat Gran (auto) 0.08 H Absolute Neuts (auto) 6.0 Absolute Nucleated RBC 0.000 Nucleated RBC % (auto) 0.0 PT INR APTT D-Dimer High Sensitivty O2 Saturation ABG pH at Pt Temp ABG pCO2 at Pt Temp ABG pO2 at Pt Temp ABG HCO3 ABG Base Excess (Actual) VBG pH 7.43 VBG pCO2 43 VBG pO2 47 VBG HCO3 29 H VBG O2 Saturation 75.0 VBG Base Excess 4.9 Sodium Potassium Chloride Carbon Dioxide Anion Gap BUN Creatinine Estim Creat Clear Calc Estimated GFR Random Glucose Lactic Acid Calcium Phosphorus Magnesium Total Bilirubin AST ALT Alkaline Phosphatase Troponin I High Sens B-Natriuretic Peptide Total Protein Albumin Urine Color Urine Appearance Urine pH Ur Specific [place] Urine Protein Urine Glucose (UA) Urine Ketones Urine Blood Urine Nitrite Ur Leukocyte Esterase Vancomycin Trough 17.7 COVID-19 (JOEL) COVID-19 Clin Com 02/11/23 02/11/23 02/11/23 04:42 04:42 04:50 WBC RBC Hgb Hct MCV MCH MCHC RDW Plt Count MPV Immature Gran % (Auto) Neut % (Auto) Lymph % (Auto) [place] % (Auto) Eos % (Auto) Baso % (Auto) Lymph # (Auto) [place] # (Auto) Eos # (Auto) Baso # (Auto) Abs Immat Gran (auto) Absolute Neuts (auto) Absolute Nucleated RBC Nucleated RBC % (auto) PT INR APTT D-Dimer High Sensitivty O2 Saturation ABG pH at Pt Temp ABG pCO2 at Pt Temp ABG pO2 at Pt Temp ABG HCO3 ABG Base Excess (Actual) VBG pH 7.42 VBG pCO2 45 VBG pO2 48 VBG HCO3 29 H VBG O2 Saturation 74.0 VBG Base Excess 4.7 Sodium 145 Potassium 3.5 Chloride 109 H Carbon Dioxide 25 Anion Gap 15 BUN 7 L Creatinine 0.46 L Cancelled Estim Creat Clear Calc 164.3 Cancelled Estimated GFR > 60 Cancelled Random Glucose 98 Lactic Acid Calcium 10.3 H Phosphorus 3.3 Magnesium 1.9 Total Bilirubin AST ALT Alkaline Phosphatase Troponin I High Sens B-Natriuretic Peptide Total Protein Albumin 3.2 L Urine Color Urine Appearance Urine pH Ur Specific [place] Urine Protein Urine Glucose (UA) Urine Ketones Urine Blood Urine Nitrite Ur Leukocyte Esterase Vancomycin Trough COVID-19 (JOEL) COVID-19 Clin Com Narrative Narrative: 7.5 ETT in situ from ICU. Airway Heart: OK Lungs: On vent AC 16/450/35%/+8 -> RR 16, ETCO2 38, Sat 91% Assessment and Plan Assessment Anesthesia Assessment: Anesthesia Plan Discussed and Chart Reviewed Final Anesthetic Review Family History of Problems with Anesthesia: No History of Problems with Anesthesia: No NPO: Yes ASA Class: IV Final Preanesthetic Review: No Changes in Pt Med Stat, Meds/Allgs Chart Reviewed, Consent Obtained/Reviewed and Anes Risks/Benef Reviewed Patient Risk: High Procedure Risk: Intermediate Anesthetic Plan Anesthetic Plan: GA and Agree w/ Assess. and Plan Disposition: Inp. Admit - ICU
[2023-02-11 07:31] LABS: Venous Blood Gas Refer to POC result
[2023-02-11] MEDS: Norepinephrine Bitartrate/D5W 8 MG/250 ML PLAST..BAG 12.72 MG IV (07:36)
[2023-02-11] MEDS: Chlorhexidine Gluc Oral Rinse 15 ML MOUTHWASH BUCCAL ×3 (07:48→20:19)
--- NOTE | 2023-02-11 07:54 | PM.EVENT ---
Event Note Date of Service: 02/11/23 Event Note: H and P reviewed pt with COPD, muscular dystrophy admitted for acute on chronic respiratory failure with multlobar pneumonia had failed extubation unable to be weaned off vent abd soft benign no abdominal scars for PEG placement - I discussed this with Lexx I explained to him technique of the procedure as well as the risks,benefits and alternatives He says he understands and has given consent Dr. Bennett to do tracheostomy Time Spent With Patient Time: Total time managing care of this patient today ____ minutes.
--- NOTE | 2023-02-11 08:53 | P.OP_ITS ---
Operative Note Operative Note Date of Service: 02/11/23 Narrative: Preoperative diagnosis: [] Ventilatory dependence Postop diagnosis: [] Same Procedure [] open tracheostomy Surgeon: [] Donald Compensation Business Partner: [] CARMEN Patel Type of Anesthesia: [] General Indication for surgery: [] Ventilatory dependence, muscular dystrophy Findings: [] Patient brought to the operating room, placed on operative table in a supine position, patient was already intubated secondary to ventilator dependence, after adequate level of general anesthesia was induced, the patient's upper chest and neck area were prepped and draped in usual sterile fashion. Using a transverse incision approximately 1 finger breath above the sternal notch, this carried down through skin, subcutaneous tissue, cervical fascia. Dissection down to the trachea was accomplished. Isthmus of thyroid was transected with Bovie and 3-0 Vicryl suture ligatures. Wound was secured hemostasis prior to formal tracheostomy. A transverse tracheotomy was made between the 2nd and 3rd tracheal rings. Concurrent with endotracheal tube withdrawal just above the tracheostomy site, an # 7. Shiley tracheostomy tube was advanced into the distal trachea. Obturator was then connected. Tracheostomy was then connected via tubing to the ventilator. End-tidal CO2, and O2 saturations were recorded as normal. Wound was irrigated, and secured hemostasis. Interrupted inverted dermal 3-0 Vicryl sutures used to approximate tracheostomy site skin on either side of the tube. Tracheostomy flanges were then secured to the skin using 2-0 nylon sutures followed by velcro strap. Sponge, needle, instrument counts reported correct. Patient tolerated this portion of procedure well. EBL minimal. Patient is to have a sequential procedure of PEG tube placement next.
--- NOTE | 2023-02-11 09:08 | P.OP_ITS ---
Operative Note Operative Note Date of Service: 02/11/23 Narrative: Preop diagnosis: Acute on chronic respiratory failure with recurrent aspiration Postop diagnosis: The same Procedure: Percutaneous endoscopic gastrostomy tube placement Surgeon: Yonny Gutierrez MD contact center assistant: CARMEN Patel The patient is a 48-year-old female admitted because pneumonia with acute on chronic respiratory failure. She was referred therefore for tracheostomy tube placement and PEG tube placement. The tracheostomy tube had placement had been done by Dr. Bennett earlier. I had discussed the technique of PEG tube placement with the Lexx and he was aware of the risks, benefits, and alternatives. The patient was brought to the operating room and placed in reverse Trendelenberg position under general anesthesia via the tracheostomy tube. A bite block was in position. A surgical time-out had been done earlier prior to the tracheostomy tube placement. I inserted the gastroscope through the bite block into the oropharynx. There was note of a lot of edema of the tongue as well as the oropharynx so we had a little bit of difficulty visualizing the esophageal slit. Eventually I was able to identify this and I was able to advance the scope through the esophageal slit, all the way through the entire length of esophagus into the stomach. The stomach was insufflated. We were able to see transillumination through the abdominal wall in the epigastric area. I could also easily see indentation on the anterior stomach wall by pressing on this same area on the epigastric region with a finger. This area was therefore prepped and draped and infiltrated with lidocaine 1%. The small gauge needle was seen easily as well when advanced all the way to the stomach lumen. The large gauge needle with the cannula was then inserted. The needle was removed. The cannula was seen in the stomach lumen. The guidewire was inserted through this cannula and was grasped with a snare. We pulled out this guidewire out through the mouth. We looped the feeding tube through this and pulled this out through the abdominal wall along with the PEG tube until this felt snug. I then reinserted the scope all the way to the stomach. I was able to visualize the inner bolster and this appeared to be in good position. There was no evidence of any bleeding. I then removed the scope completely . The external bolster was positioned to make this snug on the skin The procedure was completed. The patient tolerated the procedure well. There were no immediate complications. There was no significant blood loss. The patient was then transferred to the recovery room with stable vital signs.
--- NOTE | 2023-02-11 09:51 | MHC.CLN ---
F/U PATIENT WITH PEG AND TRACH PLACEMENT THIS MORNING. CURRENTLY NPO. NUTRITIONAL NEEDS CALCULATED ON CURRENT WEIGHT. CALCULATED METABOLIC WEIGHT (CMW) DUE TO OBESITY=59.7 KG. ESTIMATED ENERGY NEEDS: 1373 KCALS (23 KCALS/KG CMW); 71.7 G PROTEIN (1.2 G/KG CMW); 1500 ML FREE WATER (25 ML/KG CMW). FOLLOW FOR RE START OF TUBE FEEDING.
[2023-02-11] MEDS: propofoL 1,000 MG/100 ML VIAL 18.72 MG IVCONT (09:55)
[2023-02-11] MEDS: Midazolam HCl/NS 50 MG/50 ML PLAST..BAG IVCONT (12:23)
--- NOTE | 2023-02-11 14:05 | PM.CCPN ---
Subjective Subjective Date of Service: 02/11/23 Interval History: 48-year-old female with muscular dystrophy respiratory failure based on weakness of her Chadd mechanism resulting in hypoventilation and she is ventilator dependent and after a failed attempt at extubation with witnessed aspiration which was nosocomial she has what in all likelihood will be a nosocomial staphylococcal pneumonia she was just recently switched over to vancomycin still has extensive bibasilar consolidation but is clinically improving with low FiO2 requirements and today underwent tracheostomy and PEG tube placement and thus far doing very well Critical Care Time (minutes): 35 Physical Exam Vital Signs: Vital Signs: Last Vital Signs Temp 99.9 F 02/11/23 13:00 Pulse 73 02/11/23 13:00 Resp 16 02/11/23 13:00 BP 110/65 02/11/23 13:00 Pulse Ox 93 02/11/23 13:00 O2 Del Method Mechanical Ventil ation 02/11/23 13:00 O2 Flow Rate 11 01/26/23 16:00 FiO2 35 02/11/23 13:00 Oxygen Flow Rate 4 01/26/23 13:05 BMI result Body Mass Index 44.0 Sedated and intubated and today we switched from propofol which is stopped and over to Versed because I am just afraid of the persistent high-dose propofol for this length of time She does awaken Abdomen is benign soft no organomegaly Lungs with diminished bilateral breath sounds and some scattered coarse bibasilar rales Bedside echo demonstrating normal LV and RV function and no primary valve or pericardial disease Objective Data Labs 02/11/23 04:42 02/11/23 04:42 Labs: Laboratory Results - last 24 hr 02/10/23 02/11/23 02/11/23 16:01 04:42 04:42 WBC 9.1 RBC 3.32 L Hgb 9.8 L Hct 32.0 L MCV 96.4 MCH 29.5 MCHC 30.6 L RDW 14.8 Plt Count 306 MPV 10.5 Immature Gran % (Auto) 0.9 H Neut % (Auto) 66.5 Lymph % (Auto) 17.7 L [place] % (Auto) 6.4 Eos % (Auto) 8.2 H Baso % (Auto) 0.3 Lymph # (Auto) 1.6 [place] # (Auto) 0.6 Eos # (Auto) 0.7 H Baso # (Auto) 0.0 Abs Immat Gran (auto) 0.08 H Absolute Neuts (auto) 6.0 Absolute Nucleated RBC 0.000 Nucleated RBC % (auto) 0.0 VBG pH VBG pCO2 VBG pO2 VBG HCO3 VBG O2 Saturation VBG Base Excess Sodium 145 Potassium 3.5 Chloride 109 H Carbon Dioxide 25 Anion Gap 15 BUN 7 L Creatinine 0.46 L Estim Creat Clear Calc 164.3 Estimated GFR > 60 Random Glucose 98 Calcium 10.3 H Phosphorus 3.3 Magnesium 1.9 Albumin 3.2 L Vancomycin Trough 17.7 02/11/23 02/11/23 04:42 04:50 WBC RBC Hgb Hct MCV MCH MCHC RDW Plt Count MPV Immature Gran % (Auto) Neut % (Auto) Lymph % (Auto) [place] % (Auto) Eos % (Auto) Baso % (Auto) Lymph # (Auto) [place] # (Auto) Eos # (Auto) Baso # (Auto) Abs Immat Gran (auto) Absolute Neuts (auto) Absolute Nucleated RBC Nucleated RBC % (auto) VBG pH 7.42 VBG pCO2 45 VBG pO2 48 VBG HCO3 29 H VBG O2 Saturation 74.0 VBG Base Excess 4.7 Sodium Potassium Chloride Carbon Dioxide Anion Gap BUN Creatinine Cancelled Estim Creat Clear Calc Cancelled Estimated GFR Cancelled Random Glucose Calcium Phosphorus Magnesium Albumin Vancomycin Trough Microbiology Microbiology Results: Microbiology 02/08/23 Unknown Sputum - Suctioned Gram Stain - Final 02/08/23 Unknown Sputum - Suctioned Sputum Culture - Preliminary Staphylococcus aureus Yeast 01/26/23 16:17 Blood - Venous Blood Culture - Final No growth after 5 days. 01/26/23 16:09 Blood - Venous Blood Culture - Final No growth after 5 days. Progress Note: A&P Assessment and plan (1) Aspiration pneumonia: Status: Acute (2) Failure to wean from mechanical ventilation: Status: Acute (3) Dysphagia: Status: Acute (4) Acute on chronic respiratory failure with hypoxia and hypercapnia: Status: Acute (5) Muscular dystrophy: Status: Acute (6) Pulmonary edema: Status: Acute (7) Pneumonia: Status: Acute (8) Respiratory failure: Status: Acute Plan So now status post tracheostomy and PEG tube placement and will probably start a sedation vacation in the morning and if that goes well will make an attempt at pressure support weaning trial Quality Stroke Does the patient have a stroke diagnosis?: No VTE Prior VTE?: No VTE Risk Level:: Medical - moderate - high VTE Device Contraindication: N/A - Device Ordered VTE Drug Contraindication: N/A - Med Ordered
--- NOTE | 2023-02-11 16:09 | MHC.CM.PN ---
PT HAS HAD PEG PLACEMENT WELL TRACHEOSTOMY TODAY. PT REMAINS IN ICU. PT WILL REQUIRE GUARDIANSHIP TO BE OBTAINED FOR EVENTUAL LTACH PLACEMENT. CM WILL CONTINUE TO FOLLOW FOR ANY CHANGES IN DC PLAN/NEEDS.
[2023-02-11 16:39] LABS: Vancomycin Random 16.2 mcg/mL (15-20)
--- NOTE | 2023-02-11 16:53 | PC.NURSE ---
Assumed care at 07:00. Upon initial assessment, patient essentially unarousable. No gag, positive cough, PERRL, VALERIO with nonpurposeful movement, opened eyes to painful stimulus. Was initially on 30 mcg/kg/min prop gtt, which was uptitrated to 40 due to frequent coughing and ventilator desynchrony. Patient was taken early to OR for tracheostomy and PEG placement after consent obtained by anesthesia obtained consent over the phone with patient's . Patient was taken to OR, returned shortely thereafter, extubated, and with new Shiley cuffed #7 tracheostomy, small amount of sanguineous drainage to trach dressing. trach ties and TLC dressing changed. Patient continues on same ventilator settings with this new airway, ACVC+ 16Rt; 350 TV; 35% FiO2, and 8 Peep. Patient with minute volumes about 5 L/min, and peak pressures about 29. Patient LS with diminished bases and inspiratory rhonchi to auscultation at LLL. Patient with new PEG to left upper quadrant intact to abdominal dressing. Per MD, ok to start feeding tomorrow, and PEG is clamped at this time. Patient with sinus rhythm on monitor with 1st degree AV block, distant heart sounds. [place] with ample amounts of pale yellow urine. Incontinent of large loose neri BM today. Skin with Shira-rectal MDPI to barrier cream. Upper lip appears chapped, and mouth moisturizer applied. Patient's updated regarding her status this afternoon.
--- NOTE | 2023-02-11 23:35 | PC.NURSE ---
ASSUMED CARE OF PT AT 1900. S/P TRACHEOSTOMY EARLIER TODAY. #7 SHILEY TRACH MIDLINE. DISPOSABLE INNER CANNULA CHANGED. ONLY SUCTIONING SCANT TO SMALL AMOUNTS OF THICH CREAM/WHITE SPUTUM FROM TRACH. LARGE AMOUTS OF CLEAR ORAL SECRETIONS NOTED. TRACH DSG CHANGED FOR SMALL AMT OF BLOODY STAINING. STOMA SITE CLEAN AND Q-TIP USED TO CLEAN UNDERNEATH. NO RESP DISTRESS. PT SEDATED ON VERSED AND FENTANYL ORDERED WITH GOOD EFFECT. OPENS EYES WITH NSG INTERVENTIONS BUT NO TRACKING OR FOLLOWING. POSITIVE COUGH, NO GAG REFLEX. DOES NOT FOLLOW COMMANDS. VALERIO NON PURPOSEFULLY. MONITOR SHOWS SR, 70'S-80'S, NO ECTOPY. URINE OUTPUT GOOD. WILL RESTART TUBE FEEDS IN AM PER SURGEON. PEG TUBE IN PLACE WITH DSG, NO STAINING ON DSG.
[2023-02-12] VITALS (33 sets, daily range): BP systolic 99–138; BP diastolic 53–80; PULSE 60–109; RESP 10–22; TEMP 34.9–38.5; O2SAT 85–100; BMI 43.5
[2023-02-12] MEDS: Lactated Ringers 1,000 ML 100 ML IVCONT ×2 (00:29→10:28)
[2023-02-12] MEDS: Midazolam HCl/NS 50 MG/50 ML PLAST..BAG IVCONT (00:30)
[2023-02-12] MEDS: fentaNYL citrate/NS 1,000 MCG/100 ML PLAST..BAG 10 MCG IVCONT ×2 (00:36→07:50)
[2023-02-12 04:59] LABS: VBG Base Excess 6.8 mmol/L; VBG HCO3 30 mmol/L (22-26); VBG pCO2 39 mmHg; VBG pH 7.49 (7.32-7.43); VBG pO2 47 mmHg
[2023-02-12] MEDS: vancomycin HCL 1,000 MG in 0.9 % Sodium Chloride 250 ML 270 MG IV ×2 (05:30→17:21)
[2023-02-12 05:59] LABS: Alanine Aminotransferase 44 U/L (0-31); Alkaline Phosphatase 226 U/L (39-117); Anion Gap 12 (12-20); Aspartate Amino Transferase 47 U/L (5-31); Bilirubin Total 0.5 mg/dL (0.0-1.0); Blood Urea Nitrogen 4 mg/dL (9-16); Calcium 9.7 mg/dL (8.4-10.2); Carbon Dioxide 26 mmol/L (22-29); Chloride 107 mmol/L (96-108); Creatinine Clr Calc Pharmacy 164.3; Estimated Glomerular Filt Rate > 60; Glucose Random 84 mg/dL (60-115); Magnesium 1.7 mg/dL (1.6-2.6); Phosphorus 3.1 mg/dL (2.7-4.5); Potassium 3.3 mmol/L (3.3-5.1); Sodium 142 mmol/L (135-145); Total Protein 6.2 g/dL (6.5-8.0)
[2023-02-12 06:14] LABS: Venous Blood Gas Refer to POC result
[2023-02-12 06:26] LABS: MANUAL DIFF FLAG NO
[2023-02-12] MEDS: Pantoprazole Sodium 40 MG/10 ML VIAL IVPUSH (06:29)
[2023-02-12 06:32] LABS: Basophils Percent Auto 0.5 % (0-2); Eosinophils Absolute Auto 0.6 X10*3/uL (0.0-0.4); Eosinophils Percent Auto 7.9 % (0-4); Hematocrit 29.9 % (37.0-47.0); Hemoglobin 9.3 g/dl (12.0-16.0); Imm Gran Abs Auto 0.04 X10*3/uL (0.00-0.03); Imm Gran Pct Auto 0.5 % (0.0-0.4); Lymphocytes Absolute Auto 1.2 X10*3/uL (1.2-4.9); Lymphocytes Percent Auto 14.9 % (20-40); Mean Corpuscular HGB Conc 31.1 g/dl (31.0-35.0); Mean Corpuscular Hemoglobin 29.9 pg (27.0-33.0); Mean Corpuscular Volume 96.1 fL (80.0-98.0); Mean Platelet Volume 10.8 fL (9.4-12.3); Monocytes Absolute Auto 0.5 X10*3/uL (0.1-1.2); Monocytes Percent Auto 5.8 % (2-11); NRBC Pct Auto 0.3 /100WBC (0.0-0.2); Neutrophils Absolute Auto 5.4 x10*3/uL (2.0-8.3); Neutrophils Percent Auto 70.4 % (45-73); Platelet Count 276 X10*3/uL (160-400); Red Blood Count 3.11 X10*6/uL (4.20-5.50); Red Cell Distribution Width 14.8 % (11.0-16.0); White Blood Count 7.7 X10*3/uL (4.8-10.8)
[2023-02-12] MEDS: Chlorhexidine Gluc Oral Rinse 15 ML MOUTHWASH BUCCAL ×3 (07:32→22:10)
--- NOTE | 2023-02-12 08:15 | PM.PNGS ---
Subjective Subjective Date of Service: 02/12/23 <Lisa Patel PA-C - Last Filed: 02/12/23 08:22> 02/12/23 <Yonny Gutierrez MD - Last Filed: 02/12/23 08:43> Interval history: S/p trach and peg. Remains sedated. No events overnight. <Lisa Patel PA-C - Last Filed: 02/12/23 08:22> Physical Exam Vital Signs: Vital Signs: Last Vital Signs Temp 99.5 F 02/12/23 07:00 Pulse 64 02/12/23 07:00 Resp 16 02/12/23 07:00 BP 110/60 02/12/23 07:00 Pulse Ox 90 L 02/12/23 07:00 O2 Del Method Mechanical Ventil ation 02/12/23 07:00 O2 Flow Rate 11 01/26/23 16:00 FiO2 35 02/12/23 07:32 Oxygen Flow Rate 4 01/26/23 13:05 BMI result Body Mass Index 43.5 <Lisa Patel PA-C - Last Filed: 02/12/23 08:22> Neck: Other: trach in place, very scant sanguineous drainage <Lisa Patel PA-C - Last Filed: 02/12/23 08:22> GI: Other: PEG tube in place, bolster snug, no drainage <Lisa Patel PA-C - Last Filed: 02/12/23 08:22> Inspection: No distended <Lisa Patel PA-C - Last Filed: 02/12/23 08:22> Palpation (GI): Soft to palpation and nontender <Lisa Ptael PA-C - Last Filed: 02/12/23 08:22> Skin: General skin exam: no rashes or lesions noted <Lisa Patel PA-C - Last Filed: 02/12/23 08:22> Objective Data Active Medications Albuterol Sulfate (Albuterol Sulfate (0.083%) 2.5 Mg/3 Ml Vial.Neb) 2.5 mg INHALE Q4H PRN PRN Reason: Wheezing Last Admin: 02/10/23 19:53 Dose: 2.5 mg Documented By: HO.[email or web address] Chlorhexidine Gluconate (Chlorhexidine Gluc Oral Rinse 15 Ml Mouthwash) 15 ml BUCCAL TID [facility] Last Admin: 02/12/23 07:32 Dose: 15 ml Documented By: CARL Enoxaparin Sodium (Enoxaparin Sodium 40 Mg/0.4 Ml Syringe) 40 mg SUBCUT Q24H [facility] Last Admin: 02/08/23 18:16 Dose: 40 mg Documented By: BRENDAN Norepinephrine Bitartrate (Levophed) 8 mg in 250 mls @ 0 mls/hr IV .Q0M [facility]; Protocol Last Titration: 02/11/23 21:12 Dose: 0.05 mcg/kg/min, 9.08 mls/hr Documented By: COURTNEY Vancomycin HCl 1,000 mg/ (Sodium Chloride) 270 mls @ 270 mls/hr IV Q12H [facility] Last Infusion: 02/12/23 06:31 Dose: 0 mls/hr Documented By: COURTNEY Lactated Ringer's (Lr) 1,000 mls @ 100 mls/hr IVCONT .Q10H [facility] Last Admin: 02/12/23 00:29 Dose: 100 mls/hr Documented By: COURTNEY Fentanyl (Sublimaze/Ns) 1,000 mcg in 100 mls @ 0 mls/hr IVCONT .Q0M [facility]; Protocol Last Admin: 02/12/23 07:50 Dose: 100 mcg/hr, 10 mls/hr Documented By: CARL Midazolam HCl (Versed) 50 mg in 50 mls @ 2 mls/hr IVCONT .Q24H [facility] Last Infusion: 02/12/23 07:55 Dose: 0 mg/hr, 0 mls/hr Documented By: CARL Naloxone HCl (Naloxone Hcl 0.4 Mg/Ml Vial) 0.2 mg IVPUSH Q2M PRN PRN Reason: Excessive sedation or RR < 8 Ondansetron HCl (Ondansetron Hcl 4 Mg/2 Ml Vial) 4 mg IVPUSH Q6H PRN PRN Reason: Nausea Pantoprazole Sodium (Pantoprazole Sodium 40 Mg/10 Ml Vial) 40 mg IVPUSH DAILY@0630 [facility] Last Admin: 02/12/23 06:29 Dose: 40 mg Documented By: COURTNEY Pharmacy Consult (Consult Rx Vancomycin Dosing) 1 each MISCELLANE DAILY PRN PRN Reason: Consult order <Lisa Patel PA-C - Last Filed: 02/12/23 08:22> Labs CBC & Chem 7: 02/12/23 04:50 02/12/23 04:50 <Lisa Patel PA-C - Last Filed: 02/12/23 08:22> Labs: Laboratory Results - last 24 hr 02/11/23 02/12/23 02/12/23 15:56 04:50 04:50 MCV 96.1 MCH 29.9 MCHC 31.1 RDW 14.8 Plt Count 276 MPV 10.8 Immature Gran % (Auto) 0.5 H Neut % (Auto) 70.4 Lymph % (Auto) 14.9 L [place] % (Auto) 5.8 Eos % (Auto) 7.9 H Baso % (Auto) 0.5 Lymph # (Auto) 1.2 [place] # (Auto) 0.5 Eos # (Auto) 0.6 H Baso # (Auto) 0.0 Abs Immat Gran (auto) 0.04 H Absolute Neuts (auto) 5.4 Absolute Nucleated RBC 0.020 H Nucleated RBC % (auto) 0.3 H VBG pH VBG pCO2 VBG pO2 VBG HCO3 VBG O2 Saturation VBG Base Excess Anion Gap 12 Estim Creat Clear Calc 164.3 Estimated GFR > 60 Random Glucose 84 Calcium 9.7 Phosphorus 3.1 Magnesium 1.7 Total Bilirubin 0.5 AST 47 H ALT 44 H Alkaline Phosphatase 226 H Total Protein 6.2 L Albumin 3.0 L Random Vancomycin 16.2 02/12/23 04:55 MCV MCH MCHC RDW Plt Count MPV Immature Gran % (Auto) Neut % (Auto) Lymph % (Auto) [place] % (Auto) Eos % (Auto) Baso % (Auto) Lymph # (Auto) [place] # (Auto) Eos # (Auto) Baso # (Auto) Abs Immat Gran (auto) Absolute Neuts (auto) Absolute Nucleated RBC Nucleated RBC % (auto) VBG pH 7.49 H VBG pCO2 39 VBG pO2 47 VBG HCO3 30 H VBG O2 Saturation 77.0 VBG Base Excess 6.8 Anion Gap Estim Creat Clear Calc Estimated GFR Random Glucose Calcium Phosphorus Magnesium Total Bilirubin AST ALT Alkaline Phosphatase Total Protein Albumin Random Vancomycin <Lisa Patel PA-C - Last Filed: 02/12/23 08:22> Microbiology Microbiology Results: Microbiology 02/08/23 Unknown Gram Stain - Final Sputum - Suctioned Sputum Culture - Final Methicillin Res Staph Aureus Yeast <DAVEY Velazco Last Filed: 02/12/23 08:22> Procedures Date of Service Date of Service: 02/12/23 <Lisa Patel PA-C - Last Filed: 02/12/23 08:22> 02/12/23 <Yonny Gutierrez MD - Last Filed: 02/12/23 08:43> Progress Note: A&P Assessment and plan (1) Failure to wean from mechanical ventilation: Status: Acute <Lisa Patel PA-C - Last Filed: 02/12/23 08:22> (2) Acute on chronic respiratory failure with hypoxia and hypercapnia: Status: Acute <Lisa Patel PA-C - Last Filed: 02/12/23 08:22> (3) Status post tracheostomy: Status: Acute <DAVEY Velazco Last Filed: 02/12/23 08:22> (4) S/P percutaneous endoscopic gastrostomy (PEG) tube placement: Status: Acute <Lisa Patel PA-C - Last Filed: 02/12/23 08:22> Assessment and Plan: Seen and examined independently Agree with CARMEN Patel <Yonny Gutierrez MD - Last Filed: 02/12/23 08:43> Assessment and Plan: 48 year old female with admitted for aspiration PNA, acute respiratory failure. Vent dependent. POD #1 s/p tracheostomy and PEG tube. Trach in place, O2 sat stable. Abd benign, soft. PEG tube snug, no drainage noted. Can begin to use PEG tube today. ICU attempting to wean pressors and sedation today. <DAVEY Velazco Last Filed: 02/12/23 08:22> Time Spent With Patient Time: Total time managing care of this patient today ____ minutes. <DAVEY Velazco Last Filed: 02/12/23 08:22> Quality Stroke Does the patient have a stroke diagnosis?: No <Lisa Patel PA-C - Last Filed: 02/12/23 08:22> VTE Prior VTE?: No <Lisa Patel PA-C - Last Filed: 02/12/23 08:22> VTE Risk Level:: Medical - moderate - high <Lisa Patel PA-C - Last Filed: 02/12/23 08:22> VTE Device Contraindication: N/A - Device Ordered <Lisa Patel PA-C - Last Filed: 02/12/23 08:22> VTE Drug Contraindication: N/A - Med Ordered <Lisa Patel PA-C - Last Filed: 02/12/23 08:22>
--- NOTE | 2023-02-12 09:40 | MHC.CLN ---
F/U TRACH/PEG PROCEDURES DONE 02/11. ORDER IN PLACE FOR NEPRO TUBE FEEDING. IBW=45.45 KG. CALCULATED METABOLIC WEIGHT (CMW) DUE TO OBESITY=59.7 KG. NEPRO AT MAX GOAL RATE 30 ML/HR WITH 120 ML FWF Q 8 HRS. PROVIDES 1296 KCALS (28.5 KCALS/KG IBW; 21.7 KCALS/KG CMW); 58 G PROTEIN (1.3 G/KG IBW); 883 ML TOTAL WATER FROM FORMULA AND FLUSHES (19.4 ML/KG IBW). FOLLOW FOR TUBE FEED TOLERANCE, LABS, WEIGHT, SKIN INTEGRITY.
--- NOTE | 2023-02-12 10:02 | HO.POSTANES ---
Post Anesthesia Evaluation Post Anesthesia Evaluation Date of Service: 02/12/23 Vital Signs: Vital Signs Temp Pulse Resp BP Pulse Ox O2 Del Method FiO2 02/12/23 09:25 35 02/12/23 07:32 35 02/12/23 08:00 99.7 F 100 17 119/70 88 L Mechanical Ventilation 35 02/12/23 07:24 35 02/12/23 09:00 100.2 F 96 19 117/71 88 L Mechanical Ventilation 35 02/12/23 08:00 99.9 F 81 16 122/71 100 Mechanical Ventilation 100 02/12/23 07:00 99.5 F 64 16 110/60 90 L Mechanical Ventilation 35 02/12/23 06:08 35 02/12/23 04:00 35 02/12/23 06:00 99.3 F 80 16 114/67 92 Mechanical Ventilation 35 02/12/23 05:00 99 F 75 16 113/61 93 Mechanical Ventilation 35 02/12/23 04:00 98.6 F 70 16 126/69 90 L Mechanical Ventilation 35 02/12/23 03:00 98.6 F 68 16 125/70 91 L Mechanical Ventilation 35 02/12/23 02:00 98.8 F 72 16 118/56 L 90 L Mechanical Ventilation 35 02/12/23 00:59 98.8 F 81 16 127/67 91 L Mechanical Ventilation 35 02/12/23 00:59 98.9 F 80 16 127/67 91 L Mechanical Ventilation 35 02/12/23 00:00 99.0 F 82 16 124/69 91 L Mechanical Ventilation 35 02/11/23 23:13 35 02/11/23 23:09 35 02/11/23 23:00 99.1 F 70 70 H 114/64 90 L Mechanical Ventilation 35 Anesthesia: General Endotracheal-GETA Mental Status: Awake Pain Control: Satisfactory Nausea/Vomiting: None Hydration: Adequate Anesthesia-Related Issues: No Anes. Related Issues
[2023-02-12 11:47] LABS: Appearance Urine Clear; Color Urine Yellow; Glucose Urine UA Negative (Negative); Leukocyte Esterase Urine Small (1+) (Negative); Nitrite Urine Negative (Negative); PH 6.5 (5.0-9.0); Specific Gravity - Urine 1.015 (1.005-1.025); UMIC TRIGGER UA YES; Urine Blood Moderate (2+) (Negative); Urine Ketones Negative (Negative); Urine Protein Negative (Neg-Trace)
[2023-02-12 12:06] LABS: Bacteria Urine None Seen (None Seen); RBC Urine 0-2 /HPF (0-2); Squamous Epithelial Cell Urine 0-2 /HPF (0-2)
[2023-02-12] MEDS: Caspofungin Acetate 70 MG in 0.9 % Sodium Chloride 250 ML 250 MG IV (12:06)
--- NOTE | 2023-02-12 12:45 | P.PNCC_ITS ---
Subjective Subjective Date of Service: 02/12/23 Interval History: 48-year-old female with muscular dystrophy and marked respiratory failure based on hypoventilation intubated for 2 weeks with an attempt at extubation resulting in aspiration and then reintubated now status post tracheostomy and PEG tube placement and currently being fed through the PEG tube and still running on assist control with marginal oxygen saturations where we had to creep up on the FiO2 some concern that there is something increasing the A to a gradient and currently she is on vancomycin because she did grow methicillin-resistant Staph from the sputum but in addition I added caspofungin because were growing yeast at the same time and a persistent low-grade temperature even though there is no significant white count or left shift Chest x-ray by and large is unchanged and bedside echo indicating normal cardiac function Critical Care Time (minutes): 45 Physical Exam Vital Signs: Vital Signs: Last Vital Signs Temp 100.2 F 02/12/23 12:00 Pulse 103 H 02/12/23 12:00 Resp 14 02/12/23 12:00 BP 109/57 L 02/12/23 12:00 Pulse Ox 89 L 02/12/23 12:00 O2 Del Method Mechanical Ventil ation 02/12/23 12:00 O2 Flow Rate 11 01/26/23 16:00 FiO2 35 02/12/23 12:00 Oxygen Flow Rate 4 01/26/23 13:05 BMI result Body Mass Index 43.5 Good bilateral carotid upstrokes no apparent neck vein distension Sedated and intubated but does gesture some all of in 0 4 extremity motion Abdomen soft with good bowel sounds Chest bibasilar rales no other adventitious sounds Objective Data Labs 02/12/23 04:50 02/12/23 04:50 Labs: Laboratory Results - last 24 hr 02/11/23 02/12/23 02/12/23 15:56 04:50 04:50 WBC 7.7 RBC 3.11 L Hgb 9.3 L Hct 29.9 L MCV 96.1 MCH 29.9 MCHC 31.1 RDW 14.8 Plt Count 276 MPV 10.8 Immature Gran % (Auto) 0.5 H Neut % (Auto) 70.4 Lymph % (Auto) 14.9 L [place] % (Auto) 5.8 Eos % (Auto) 7.9 H Baso % (Auto) 0.5 Lymph # (Auto) 1.2 [place] # (Auto) 0.5 Eos # (Auto) 0.6 H Baso # (Auto) 0.0 Abs Immat Gran (auto) 0.04 H Absolute Neuts (auto) 5.4 Absolute Nucleated RBC 0.020 H Nucleated RBC % (auto) 0.3 H VBG pH VBG pCO2 VBG pO2 VBG HCO3 VBG O2 Saturation VBG Base Excess Sodium 142 Potassium 3.3 Chloride 107 Carbon Dioxide 26 Anion Gap 12 BUN 4 L Creatinine 0.46 L Estim Creat Clear Calc 164.3 Estimated GFR > 60 Random Glucose 84 Calcium 9.7 Phosphorus 3.1 Magnesium 1.7 Total Bilirubin 0.5 AST 47 H ALT 44 H Alkaline Phosphatase 226 H Total Protein 6.2 L Albumin 3.0 L Urine Color Urine Appearance Urine pH Ur Specific [place] Urine Protein Urine Glucose (UA) Urine Ketones Urine Blood Urine Nitrite Ur Leukocyte Esterase Urine RBC Urine WBC Ur Squamous Epith Cells Urine Bacteria Hyaline Casts Urine Yeast Random Vancomycin 16.2 02/12/23 02/12/23 04:55 11:27 WBC RBC Hgb Hct MCV MCH MCHC RDW Plt Count MPV Immature Gran % (Auto) Neut % (Auto) Lymph % (Auto) [place] % (Auto) Eos % (Auto) Baso % (Auto) Lymph # (Auto) [place] # (Auto) Eos # (Auto) Baso # (Auto) Abs Immat Gran (auto) Absolute Neuts (auto) Absolute Nucleated RBC Nucleated RBC % (auto) VBG pH 7.49 H VBG pCO2 39 VBG pO2 47 VBG HCO3 30 H VBG O2 Saturation 77.0 VBG Base Excess 6.8 Sodium Potassium Chloride Carbon Dioxide Anion Gap BUN Creatinine Estim Creat Clear Calc Estimated GFR Random Glucose Calcium Phosphorus Magnesium Total Bilirubin AST ALT Alkaline Phosphatase Total Protein Albumin Urine Color Yellow Urine Appearance Clear Urine pH 6.5 Ur Specific [place] 1.015 Urine Protein Negative Urine Glucose (UA) Negative Urine Ketones Negative Urine Blood Moderate (2+) H Urine Nitrite Negative Ur Leukocyte Esterase Small (1+) H Urine RBC 0-2 Urine WBC 11-20 H Ur Squamous Epith Cells 0-2 Urine Bacteria None Seen Hyaline Casts 3-5 Urine Yeast Present Random Vancomycin Microbiology Microbiology Results: Microbiology 02/08/23 Unknown Sputum - Suctioned Gram Stain - Final 02/08/23 Unknown Sputum - Suctioned Sputum Culture - Final Methicillin Res Staph Aureus Yeast 01/26/23 16:17 Blood - Venous Blood Culture - Final No growth after 5 days. 01/26/23 16:09 Blood - Venous Blood Culture - Final No growth after 5 days. Progress Note: A&P Assessment and plan (1) S/P percutaneous endoscopic gastrostomy (PEG) tube placement: Status: Acute (2) Status post tracheostomy: Status: Acute (3) Aspiration pneumonia: Status: Acute (4) Failure to wean from mechanical ventilation: Status: Acute (5) Dysphagia: Status: Acute (6) Acute on chronic respiratory failure with hypoxia and hypercapnia: Status: Acute (7) Muscular dystrophy: Status: Acute (8) Pulmonary edema: Status: Acute (9) Pneumonia: Status: Acute (10) Respiratory failure: Status: Acute Plan We might need at some point to do a therapeutic bronchoscopy possibly to lavage and collect better BAL specimens if this pattern persists Additional concerns have to be the urine and and also concerns have to be about the central line which is also in for quite a while Quality Stroke Does the patient have a stroke diagnosis?: No VTE Prior VTE?: No VTE Risk Level:: Medical - moderate - high VTE Device Contraindication: N/A - Device Ordered VTE Drug Contraindication: N/A - Med Ordered
[2023-02-12] MEDS: Norepinephrine Bitartrate/D5W 8 MG/250 ML PLAST..BAG 5.45 MG IV (13:11)
[2023-02-12] MEDS: Potassium Chloride Packet 20 MEQ PACKET 40 MEQ PO (13:12)
[2023-02-12 16:21] LABS: Vancomycin Random 15.5 mcg/mL (15-20)
--- NOTE | 2023-02-12 16:26 | HE.PHANOTE ---
RE: [facility] Patients level came back at 15.5 this afternoon. Patient is running lower than [employer] is predicting. It was predicted that her level would have been 18.1. Will continue with current dose and get a random tomorrow at 1600.
[2023-02-12] MEDS: Enoxaparin Sodium 40 MG/0.4 ML SYRINGE SUBCUT (18:34)
[2023-02-12] MEDS: dexmedeTOMIDidine HCL/NS 400 MCG/100 ML INFUS..BTL 25.25 MCG IVCONT (22:06)
[2023-02-13] VITALS (37 sets, daily range): BP systolic 83–141; BP diastolic 45–111; PULSE 50–103; RESP 10–99; TEMP 34.9–38.5; O2SAT 87–96; BMI 42.1
[2023-02-13 04:47] LABS: VBG Base Excess 11.1 mmol/L; VBG HCO3 36 mmol/L (22-26); VBG pCO2 48 mmHg; VBG pH 7.47 (7.32-7.43); VBG pO2 45 mmHg
[2023-02-13 04:49] LABS: Venous Blood Gas Refer to POC result
[2023-02-13 04:50] LABS: MANUAL DIFF FLAG NO
[2023-02-13 04:52] LABS: Basophils Absolute Auto 0.1 X10*3/uL (0.0-0.2); Basophils Percent Auto 0.5 % (0-2); Eosinophils Absolute Auto 0.4 X10*3/uL (0.0-0.4); Eosinophils Percent Auto 3.9 % (0-4); Hematocrit 32.5 % (37.0-47.0); Hemoglobin 10.2 g/dl (12.0-16.0); Imm Gran Pct Auto 0.9 % (0.0-0.4); Lymphocytes Absolute Auto 1.7 X10*3/uL (1.2-4.9); Lymphocytes Percent Auto 16.2 % (20-40); Mean Corpuscular HGB Conc 31.4 g/dl (31.0-35.0); Mean Corpuscular Hemoglobin 29.6 pg (27.0-33.0); Mean Corpuscular Volume 94.2 fL (80.0-98.0); Mean Platelet Volume 10.4 fL (9.4-12.3); Monocytes Absolute Auto 0.7 X10*3/uL (0.1-1.2); Monocytes Percent Auto 6.9 % (2-11); Neutrophils Absolute Auto 7.6 x10*3/uL (2.0-8.3); Neutrophils Percent Auto 71.6 % (45-73); Platelet Count 314 X10*3/uL (160-400); Red Blood Count 3.45 X10*6/uL (4.20-5.50); Red Cell Distribution Width 14.6 % (11.0-16.0); White Blood Count 10.6 X10*3/uL (4.8-10.8)
[2023-02-13 05:08] LABS: Albumin Level 3.4 g/dL (3.5-5.0); Anion Gap 13 (12-20); Blood Urea Nitrogen 5 mg/dL (9-16); Calcium 10.4 mg/dL (8.4-10.2); Carbon Dioxide 29 mmol/L (22-29); Chloride 105 mmol/L (96-108); Creatinine Clr Calc Pharmacy 150.2; Estimated Glomerular Filt Rate > 60; Glucose Random 91 mg/dL (60-115); Magnesium 1.8 mg/dL (1.6-2.6); Phosphorus 4.2 mg/dL (2.7-4.5); Potassium 4.1 mmol/L (3.3-5.1); Sodium 143 mmol/L (135-145)
[2023-02-13] MEDS: fentaNYL citrate/NS 1,000 MCG/100 ML PLAST..BAG 5 MCG IVCONT (05:27)
[2023-02-13] MEDS: vancomycin HCL 1,000 MG in 0.9 % Sodium Chloride 250 ML 270 MG IV (05:40)
[2023-02-13] MEDS: Pantoprazole Sodium 40 MG/10 ML VIAL IVPUSH (05:41)
[2023-02-13] MEDS: dexmedeTOMIDidine HCL/NS 400 MCG/100 ML INFUS..BTL 5.05 MCG IVCONT (06:57)
[2023-02-13] MEDS: levoFLOXacin/D5W 500 MG/100 ML PIGGYBACK 100 MG IV (07:15)
[2023-02-13] MEDS: Chlorhexidine Gluc Oral Rinse 15 ML MOUTHWASH BUCCAL ×3 (07:20→20:03)
[2023-02-13] MEDS: Caspofungin Acetate 50 MG in 0.9 % Sodium Chloride 250 ML 250 MG IV (08:51)
[2023-02-13] MEDS: Nystatin Powder 15 GM BOTTLE 1 APPL TOPICAL ×3 (08:54→19:54)
--- NOTE | 2023-02-13 11:07 | MHC.CM.PN ---
Pt continues to make clinical progress following peg/trach placement on 02/11 Clinicial updates remitted to [facility] and [facility] for LT[facility] needs. Cognitive/neuro functions slowly returning as pt is able to follow some commands and use hand squeezing to denote yes and no. Guardianship petition completed and remitted to [place] however, if pt continues to make clinical progress and can name a HCP, guardianship can be d/c'd. Will revisit on Thursday. Call placed to pt's spouse Lexx to update on above. He is in agreement with plan with the exception of the distance to [place]. CM to follow for stability and d/c planning.
--- NOTE | 2023-02-13 11:10 | MHC.CLN ---
F/U PATIENT WITH TRACH AND PEG. TUBE FEEDING ON HOLD THIS MORNING DUE TO HIGH RESIDUALS. WHEN ABLE, CONTINUE NEPRO TUBE FEEDING AT MAX GOAL RATE 30 ML/HR WITH 120 ML FWF Q 8 HRS. PROVIDES 1296 KCALS (28.5 KCALS/KG IBW; 21.7 KCALS/KG CMW); 58 G PROTEIN (1.3 G/KG IBW); 883 ML TOTAL WATER FROM FORMULA AND FLUSHES (19.4 ML/KG IBW). FOLLOW FOR TUBE FEED TOLERANCE, LABS, WEIGHT, SKIN INTEGRITY.
--- NOTE | 2023-02-13 13:15 | PM.CCPN ---
Subjective Subjective Date of Service: 02/13/23 Interval History: 48-year-old female with muscular dystrophy who presented with acute hypoxic and hypercarbic respiratory failure from hypoventilation due to her muscle insufficiency and poor Chadd function and she had 1 brief extubation with a witnessed aspiration which was clearly nosocomial in she was reintubated at that time and with that she was placed on 5 a 6 days of Zosyn by itself and then she started to have fevers and a little bit of an increased FiO2 requirement and at that point with with a positive MRSA screen I made the presumptive diagnosis of staphylococcal pneumonia and she has been on vancomycin since that time with preserved renal function and we have already undergone a sedation weaning trial she has been following commands and being appropriate she spent the entire day the date yesterday on pressure support and then she started to we can towards the early evening and was placed back on pressure control with higher inspiratory pressures and expiratory pressures namely 24/8 keep tidal volumes in the low 300s and she with that she did well end-tidal CO2 is with very stable but she has since developed and in looking at her laboratory work it seems that she may have some early evidence of urinary tract involvement so started her on something to cover g negatives and and be also because of the sputum growing methicillin-resistant Staph aureus it also grew Valeria so I added caspofungin and then her liver functions went up including alkaline phosphatase so I took her off both the caspofungin and the Levaquin and I will had just have to rethink antibiotics tomorrow but in the meantime because of high residuals her tube feedings are now being held Critical Care Time (minutes): 45 Physical Exam Vital Signs: Vital Signs: Last Vital Signs Temp 100.9 F H 02/13/23 12:00 Pulse 86 02/13/23 12:00 Resp 24 H 02/13/23 12:00 BP 130/75 02/13/23 12:00 Pulse Ox 89 L 02/13/23 12:00 O2 Del Method Mechanical Ventil ation 02/13/23 12:00 O2 Flow Rate 11 01/26/23 16:00 FiO2 40 02/13/23 12:00 Oxygen Flow Rate 4 01/26/23 13:05 BMI result Body Mass Index 42.1 Physical exam is stable running adequate pressures and still on a very low-dose of of Levophed but still requiring Moves all 4 extremities she has not focal Cardiac exam bedside echo showing normal LV and RV function no primary valve or pericardial disease Lungs with scattered bibasilar rales no other adventitious sounds Abdomen is nontender no palpable organomegaly Objective Data Labs 02/13/23 04:39 02/13/23 04:39 Labs: Laboratory Results - last 24 hr 02/12/23 02/13/23 02/13/23 15:52 04:39 04:39 WBC 10.6 RBC 3.45 L Hgb 10.2 L Hct 32.5 L MCV 94.2 MCH 29.6 MCHC 31.4 RDW 14.6 Plt Count 314 MPV 10.4 Immature Gran % (Auto) 0.9 H Neut % (Auto) 71.6 Lymph % (Auto) 16.2 L [place] % (Auto) 6.9 Eos % (Auto) 3.9 Baso % (Auto) 0.5 Lymph # (Auto) 1.7 [place] # (Auto) 0.7 Eos # (Auto) 0.4 Baso # (Auto) 0.1 Abs Immat Gran (auto) 0.10 H Absolute Neuts (auto) 7.6 Absolute Nucleated RBC 0.000 Nucleated RBC % (auto) 0.0 VBG pH VBG pCO2 VBG pO2 VBG HCO3 VBG O2 Saturation VBG Base Excess Sodium 143 Potassium 4.1 D Chloride 105 Carbon Dioxide 29 Anion Gap 13 BUN 5 L Creatinine 0.50 Estim Creat Clear Calc 150.2 Estimated GFR > 60 Random Glucose 91 Calcium 10.4 H D Phosphorus 4.2 Magnesium 1.8 Albumin 3.4 L Random Vancomycin 15.5 02/13/23 04:42 WBC RBC Hgb Hct MCV MCH MCHC RDW Plt Count MPV Immature Gran % (Auto) Neut % (Auto) Lymph % (Auto) [place] % (Auto) Eos % (Auto) Baso % (Auto) Lymph # (Auto) [place] # (Auto) Eos # (Auto) Baso # (Auto) Abs Immat Gran (auto) Absolute Neuts (auto) Absolute Nucleated RBC Nucleated RBC % (auto) VBG pH 7.47 H VBG pCO2 48 VBG pO2 45 VBG HCO3 36 H VBG O2 Saturation 71.0 VBG Base Excess 11.1 Sodium Potassium Chloride Carbon Dioxide Anion Gap BUN Creatinine Estim Creat Clear Calc Estimated GFR Random Glucose Calcium Phosphorus Magnesium Albumin Random Vancomycin Microbiology Microbiology Results: Microbiology 02/08/23 Unknown Sputum - Suctioned Gram Stain - Final 02/08/23 Unknown Sputum - Suctioned Sputum Culture - Final Methicillin Res Staph Aureus Yeast 01/26/23 16:17 Blood - Venous Blood Culture - Final No growth after 5 days. 01/26/23 16:09 Blood - Venous Blood Culture - Final No growth after 5 days. Progress Note: A&P Assessment and plan (1) S/P percutaneous endoscopic gastrostomy (PEG) tube placement: Status: Acute (2) Status post tracheostomy: Status: Acute (3) Aspiration pneumonia: Status: Acute (4) Failure to wean from mechanical ventilation: Status: Acute (5) Dysphagia: Status: Acute (6) Acute on chronic respiratory failure with hypoxia and hypercapnia: Status: Acute (7) Muscular dystrophy: Status: Acute (8) Pulmonary edema: Status: Acute (9) Pneumonia: Status: Acute (10) Respiratory failure: Status: Acute Plan So feedings are being held and will observe overnight for the degree of gastric residual Quality Stroke Does the patient have a stroke diagnosis?: No VTE Prior VTE?: No VTE Risk Level:: Medical - moderate - high VTE Device Contraindication: N/A - Device Ordered VTE Drug Contraindication: N/A - Med Ordered
[2023-02-13 16:45] LABS: Vancomycin Random 13.1 mcg/mL (15-20)
[2023-02-13] MEDS: vancomycin HCL 1,250 MG in 0.9 % Sodium Chloride 250 ML 166.67 MG IV (17:36)
[2023-02-13] MEDS: Enoxaparin Sodium 40 MG/0.4 ML SYRINGE SUBCUT (18:18)
[2023-02-13] MEDS: Norepinephrine Bitartrate/D5W 8 MG/250 ML PLAST..BAG 3.63 MG IV (20:33)
[2023-02-14] VITALS (34 sets, daily range): BP systolic 98–124; BP diastolic 38–104; PULSE 83–115; RESP 10–20; TEMP 34.1–38.5; O2SAT 91–100; BMI 39.8
[2023-02-14] MEDS: Albuterol Sulfate (0.083%) 2.5 MG/3 ML VIAL.NEB INHALE (00:30)
[2023-02-14] MEDS: vancomycin HCL 1,250 MG in 0.9 % Sodium Chloride 250 ML 166.67 MG IV ×2 (05:12→18:04)
[2023-02-14] MEDS: Pantoprazole Sodium 40 MG/10 ML VIAL IVPUSH (05:13)
[2023-02-14 05:25] LABS: VBG Base Excess 6.8 mmol/L; VBG HCO3 29 mmol/L (22-26); VBG pCO2 33 mmHg; VBG pH 7.54 (7.32-7.43); VBG pO2 41 mmHg
[2023-02-14 05:27] LABS: Venous Blood Gas Refer to POC result
[2023-02-14 06:24] LABS: MANUAL DIFF FLAG NO
[2023-02-14 06:33] LABS: Basophils Percent Auto 0.3 % (0-2); Eosinophils Absolute Auto 0.1 X10*3/uL (0.0-0.4); Eosinophils Percent Auto 1.2 % (0-4); Hematocrit 31.7 % (37.0-47.0); Hemoglobin 9.8 g/dl (12.0-16.0); Imm Gran Abs Auto 0.05 X10*3/uL (0.00-0.03); Imm Gran Pct Auto 0.5 % (0.0-0.4); Lymphocytes Absolute Auto 1.1 X10*3/uL (1.2-4.9); Lymphocytes Percent Auto 12.1 % (20-40); Mean Corpuscular HGB Conc 30.9 g/dl (31.0-35.0); Mean Corpuscular Hemoglobin 29.1 pg (27.0-33.0); Mean Corpuscular Volume 94.1 fL (80.0-98.0); Monocytes Absolute Auto 0.7 X10*3/uL (0.1-1.2); Monocytes Percent Auto 7.7 % (2-11); Neutrophils Absolute Auto 7.2 x10*3/uL (2.0-8.3); Neutrophils Percent Auto 78.2 % (45-73); Platelet Count 311 X10*3/uL (160-400); Red Blood Count 3.37 X10*6/uL (4.20-5.50); Red Cell Distribution Width 14.7 % (11.0-16.0); White Blood Count 9.2 X10*3/uL (4.8-10.8)
[2023-02-14 06:51] LABS: Alanine Aminotransferase 65 U/L (0-31); Albumin Level 3.4 g/dL (3.5-5.0); Alkaline Phosphatase 438 U/L (39-117); Anion Gap 13 (12-20); Aspartate Amino Transferase 92 U/L (5-31); Bilirubin Total 0.4 mg/dL (0.0-1.0); Blood Urea Nitrogen 8 mg/dL (9-16); Calcium 9.8 mg/dL (8.4-10.2); Carbon Dioxide 28 mmol/L (22-29); Chloride 108 mmol/L (96-108); Creatinine Clr Calc Pharmacy 151.7; Estimated Glomerular Filt Rate > 60; Glucose Random 79 mg/dL (60-115); Potassium 2.8 mmol/L (3.3-5.1); Sodium 146 mmol/L (135-145); Total Protein 6.7 g/dL (6.5-8.0)
[2023-02-14] MEDS: KCl 40 mEq in 5% Dex/0.45% Sod 40 MEQ/1,000 ML IV.SOLN 80 MEQ IVCONT ×2 (08:23→20:13)
[2023-02-14] MEDS: Chlorhexidine Gluc Oral Rinse 15 ML MOUTHWASH BUCCAL ×3 (08:23→20:18)
[2023-02-14] MEDS: Potassium Chloride Packet 20 MEQ PACKET 40 MEQ PO (08:24)
[2023-02-14] MEDS: levoFLOXacin/D5W 250 MG/50 ML PIGGYBACK 50 MG IV (08:24)
[2023-02-14] MEDS: Nystatin Powder 15 GM BOTTLE 1 APPL TOPICAL ×3 (08:43→20:15)
[2023-02-14] MEDS: Caspofungin Acetate 50 MG in 0.9 % Sodium Chloride 250 ML 250 MG IV (08:54)
--- NOTE | 2023-02-14 16:47 | P.PNCC_ITS ---
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 so she presented with a hypoventilatory form of respiratory failure status post tracheostomy and PEG t ube an since the PEG tube was inserted she has demonstrated very high residuals and we have had a Christine feedings she also since we started Levaquin and caspofungin increase her liver function tests including alkaline phosphatase so both the antibiotic and antifungal were stopped and will be read thought but she still has a low-grade temperature and she remains now on vancomycin because she was growing methicillin-resistant Staph aureus with persistent infiltrates after almost a week of Zosyn therapy She has since had weaning from her sedation and she is awake understands appropriate cognitive function and spent yesterday almost the whole day with just pressure support and into sheath fatigued at the end of the day and was placed back on pressure control so the process of trying to extricate her from the ventilator has begun Critical Care Time (minutes): 35 Physical Exam Vital Signs: Vital Signs: Last Vital Signs Temp 100.6 F H 02/14/23 15:55 Pulse 87 02/14/23 15:55 Resp 11 L 02/14/23 15:55 BP 104/62 02/14/23 15:55 Pulse Ox 96 02/14/23 15:55 O2 Del Method Mechanical Ventil ation 02/14/23 15:55 O2 Flow Rate 11 01/26/23 16:00 FiO2 30 02/14/23 15:55 Oxygen Flow Rate 4 01/26/23 13:05 BMI result Body Mass Index 39.8 Pressure 111/74 for a mean of 85 on trivial dose of Levophed O2 sat 97% sinus rhythm rate 85 currently just breathing at the machine rate and pressure control at a rate of 10 5 L minute ventilation with end-tidal CO2 of 34 Lungs without adventitious sounds clearly no work of breathing issues Abdomen is soft it is nontender Bedside cardiac exam by echo with normal LV function Skin intact no pressure sores no cellulitis Objective Data Labs 02/14/23 05:15 02/14/23 05:20 Labs: Laboratory Results - last 24 hr 02/14/23 02/14/23 02/14/23 05:15 05:18 05:20 WBC 9.2 RBC 3.37 L Hgb 9.8 L Hct 31.7 L MCV 94.1 MCH 29.1 MCHC 30.9 L RDW 14.7 Plt Count 311 MPV 11.0 Immature Gran % (Auto) 0.5 H Neut % (Auto) 78.2 H Lymph % (Auto) 12.1 L [place] % (Auto) 7.7 Eos % (Auto) 1.2 Baso % (Auto) 0.3 Lymph # (Auto) 1.1 L [place] # (Auto) 0.7 Eos # (Auto) 0.1 Baso # (Auto) 0.0 Abs Immat Gran (auto) 0.05 H Absolute Neuts (auto) 7.2 Absolute Nucleated RBC 0.000 Nucleated RBC % (auto) 0.0 VBG pH 7.54 H VBG pCO2 33 VBG pO2 41 VBG HCO3 29 H VBG O2 Saturation 60.0 VBG Base Excess 6.8 Sodium 146 H Potassium 2.8 L D Chloride 108 Carbon Dioxide 28 Anion Gap 13 BUN 8 L Creatinine 0.47 L Estim Creat Clear Calc 151.7 Estimated GFR > 60 Random Glucose 79 Calcium 9.8 Phosphorus 2.0 L Magnesium 2.0 Total Bilirubin 0.4 AST 92 H ALT 65 H Alkaline Phosphatase 438 H Total Protein 6.7 Albumin 3.4 L Microbiology Microbiology Results: Microbiology 02/08/23 Unknown Sputum - Suctioned Gram Stain - Final 02/08/23 Unknown Sputum - Suctioned Sputum Culture - Final Methicillin Res Staph Aureus Yeast 01/26/23 16:17 Blood - Venous Blood Culture - Final No growth after 5 days. 01/26/23 16:09 Blood - Venous Blood Culture - Final No growth after 5 days. Progress Note: A&P Assessment and plan (1) S/P percutaneous endoscopic gastrostomy (PEG) tube placement: Status: Acute (2) Status post tracheostomy: Status: Acute (3) Aspiration pneumonia: Status: Acute (4) Failure to wean from mechanical ventilation: Status: Acute (5) Dysphagia: Status: Acute (6) Acute on chronic respiratory failure with hypoxia and hypercapnia: Status: Acute (7) Muscular dystrophy: Status: Acute (8) Pulmonary edema: Status: Acute (9) Pneumonia: Status: Acute (10) Respiratory failure: Status: Acute Plan So right now and she is doing well with the tracheostomy but we have developed a new ileus and began to evaluate this with a KUB and because of the elevated LFTs I am stopping the caspofungin and the Levaquin will probably switch him to fluc onazole and possibly meropenem tomorrow covering you urinary tract Quality Stroke Does the patient have a stroke diagnosis?: No VTE Prior VTE?: No VTE Risk Level:: Medical - moderate - high VTE Device Contraindication: N/A - Device Ordered VTE Drug Contraindication: N/A - Med Ordered
[2023-02-14 16:52] LABS: Vancomycin Random 16.4 mcg/mL (15-20)
--- NOTE | 2023-02-14 16:58 | HE.PHANOTE ---
Re: vanco dosing trough 16.4 today. continue current regimen and continue to monitor scr daily for safety. next trough 02/15 @1600.
[2023-02-14] MEDS: Enoxaparin Sodium 40 MG/0.4 ML SYRINGE SUBCUT (18:05)
[2023-02-14] MEDS: Doxycycline Hyclate 100 MG in 0.9 % Sodium Chloride 250 ML 166.67 MG IV (20:49)
[2023-02-15] VITALS (29 sets, daily range): BP systolic 91–122; BP diastolic 52–77; PULSE 67–118; RESP 10–26; TEMP 34.1–38; O2SAT 90–99; BMI 39.8
[2023-02-15 04:55] LABS: VBG Base Excess 4.5 mmol/L; VBG HCO3 27 mmol/L (22-26); VBG pCO2 36 mmHg; VBG pH 7.49 (7.32-7.43); VBG pO2 50 mmHg
[2023-02-15 04:57] LABS: Venous Blood Gas Refer to POC result
[2023-02-15] MEDS: vancomycin HCL 1,250 MG in 0.9 % Sodium Chloride 250 ML 166.67 MG IV (05:11)
[2023-02-15] MEDS: Pantoprazole Sodium 40 MG/10 ML VIAL IVPUSH (05:11)
[2023-02-15 05:43] LABS: MANUAL DIFF FLAG NO
[2023-02-15 06:06] LABS: Alanine Aminotransferase 44 U/L (0-31); Albumin Level 3.1 g/dL (3.5-5.0); Alkaline Phosphatase 289 U/L (39-117); Anion Gap 11 (12-20); Aspartate Amino Transferase 39 U/L (5-31); Bilirubin Total 0.4 mg/dL (0.0-1.0); Blood Urea Nitrogen 6 mg/dL (9-16); Calcium 9.6 mg/dL (8.4-10.2); Carbon Dioxide 25 mmol/L (22-29); Chloride 111 mmol/L (96-108); Creatinine Clr Calc Pharmacy 165.8; Estimated Glomerular Filt Rate > 60; Glucose Random 103 mg/dL (60-115); Magnesium 1.9 mg/dL (1.6-2.6); Phosphorus 2.4 mg/dL (2.7-4.5); Potassium 3.4 mmol/L (3.3-5.1); Sodium 144 mmol/L (135-145); Total Protein 6.3 g/dL (6.5-8.0)
[2023-02-15 07:06] LABS: Basophils Percent Auto 0.4 % (0-2); Eosinophils Absolute Auto 0.2 X10*3/uL (0.0-0.4); Eosinophils Percent Auto 2.6 % (0-4); Hematocrit 30.3 % (37.0-47.0); Hemoglobin 9.2 g/dl (12.0-16.0); Imm Gran Abs Auto 0.06 X10*3/uL (0.00-0.03); Imm Gran Pct Auto 0.7 % (0.0-0.4); Lymphocytes Absolute Auto 1.1 X10*3/uL (1.2-4.9); Lymphocytes Percent Auto 13.2 % (20-40); Mean Corpuscular HGB Conc 30.4 g/dl (31.0-35.0); Mean Corpuscular Hemoglobin 29.4 pg (27.0-33.0); Mean Corpuscular Volume 96.8 fL (80.0-98.0); Mean Platelet Volume 11.1 fL (9.4-12.3); Monocytes Absolute Auto 0.5 X10*3/uL (0.1-1.2); Monocytes Percent Auto 6.1 % (2-11); Neutrophils Absolute Auto 6.6 x10*3/uL (2.0-8.3); Platelet Count 318 X10*3/uL (160-400); Red Blood Count 3.13 X10*6/uL (4.20-5.50); Red Cell Distribution Width 15.1 % (11.0-16.0); White Blood Count 8.5 X10*3/uL (4.8-10.8)
[2023-02-15] MEDS: Chlorhexidine Gluc Oral Rinse 15 ML MOUTHWASH BUCCAL ×3 (08:38→20:26)
[2023-02-15] MEDS: Doxycycline Hyclate 100 MG in 0.9 % Sodium Chloride 250 ML 166.67 MG IV ×2 (08:38→20:26)
[2023-02-15] MEDS: Nystatin Powder 15 GM BOTTLE 1 APPL TOPICAL ×3 (08:38→20:27)
[2023-02-15] MEDS: KCl 40 mEq in 5% Dex/0.45% Sod 40 MEQ/1,000 ML IV.SOLN 80 MEQ IVCONT ×2 (08:38→20:34)
[2023-02-15] MEDS: Potassium Chloride Packet 20 MEQ PACKET PO (09:58)
[2023-02-15] MEDS: Fluconazole in NaCl,Iso-Osm 200 MG/100 ML PIGGYBACK 100 MG IV (10:00)
--- NOTE | 2023-02-15 12:42 | PM.CCPN ---
Subjective Subjective Date of Service: 02/15/23 Interval History: 48-year-old female morbidly obese who has Chadd insufficiency from muscular dystrophy and fails to wean from the ventilator in an attempt to extubate and requiring re-intubation there was witnessed aspiration initially treated with just Zosyn and then with subsequent temperature spike and and increased FiO2 requirement there was some increased bilateral consolidations and the sputum aspirate and and the MRSA screen both showed methicillin-resistant Staph aureus and as well as Valeria so she is on vancomycin and then we just recently started caspofungin but with the acute climb in her LFTs I switch caspofungin to fluconazole and she remains with very very small low-grade temperature but awake and alert doing well off of sedation and daily Percy on pressure support slowly weaning the inspiratory pressure were now down to 20 of inspiratory pressure and 8 of PEEP maintaining tidal volumes of approximately 300-350 main it which maintains an end-tidal CO2 in the mid to high 30s Critical Care Time (minutes): 35 Physical Exam Vital Signs: Vital Signs: Last Vital Signs Temp 99.0 F 02/15/23 12:00 Pulse 106 H 02/15/23 12:00 Resp 22 H 02/15/23 12:00 BP 102/67 02/15/23 12:00 Pulse Ox 95 02/15/23 12:00 O2 Del Method Mechanical Ventil ation 02/15/23 12:00 O2 Flow Rate 11 01/26/23 16:00 FiO2 30 02/15/23 12:00 Oxygen Flow Rate 4 01/26/23 13:05 BMI result Body Mass Index 39.8 Still on very low-dose Levophed pressure is 105/74 for a mean of 86 respiratory rates on her own 19-20 oxygen saturation on an FiO2 of 35% or 95% and she is in normal sinus rhythm Bedside echo with normal LV RV function Chest with no adventitious sounds Abdomen soft nontender and ileus is clinically resolving she is now tolerating the tube feedings Objective Data Labs 02/15/23 04:48 02/15/23 04:48 Labs: Laboratory Results - last 24 hr 02/14/23 02/15/23 02/15/23 16:01 04:48 04:48 WBC 8.5 RBC 3.13 L Hgb 9.2 L Hct 30.3 L MCV 96.8 MCH 29.4 MCHC 30.4 L RDW 15.1 Plt Count 318 MPV 11.1 Immature Gran % (Auto) 0.7 H Neut % (Auto) 77.0 H Lymph % (Auto) 13.2 L [place] % (Auto) 6.1 Eos % (Auto) 2.6 Baso % (Auto) 0.4 Lymph # (Auto) 1.1 L [place] # (Auto) 0.5 Eos # (Auto) 0.2 Baso # (Auto) 0.0 Abs Immat Gran (auto) 0.06 H Absolute Neuts (auto) 6.6 Absolute Nucleated RBC 0.000 Nucleated RBC % (auto) 0.0 VBG pH VBG pCO2 VBG pO2 VBG HCO3 VBG O2 Saturation VBG Base Excess Sodium 144 Potassium 3.4 D Chloride 111 H Carbon Dioxide 25 Anion Gap 11 L BUN 6 L Creatinine 0.43 L Estim Creat Clear Calc 165.8 Estimated GFR > 60 Random Glucose 103 Calcium 9.6 Phosphorus 2.4 L Magnesium 1.9 Total Bilirubin 0.4 AST 39 H ALT 44 H Alkaline Phosphatase 289 H Total Protein 6.3 L Albumin 3.1 L Random Vancomycin 16.4 02/15/23 04:48 WBC RBC Hgb Hct MCV MCH MCHC RDW Plt Count MPV Immature Gran % (Auto) Neut % (Auto) Lymph % (Auto) [place] % (Auto) Eos % (Auto) Baso % (Auto) Lymph # (Auto) [place] # (Auto) Eos # (Auto) Baso # (Auto) Abs Immat Gran (auto) Absolute Neuts (auto) Absolute Nucleated RBC Nucleated RBC % (auto) VBG pH 7.49 H VBG pCO2 36 VBG pO2 50 VBG HCO3 27 H VBG O2 Saturation 77.0 VBG Base Excess 4.5 Sodium Potassium Chloride Carbon Dioxide Anion Gap BUN Creatinine Estim Creat Clear Calc Estimated GFR Random Glucose Calcium Phosphorus Magnesium Total Bilirubin AST ALT Alkaline Phosphatase Total Protein Albumin Random Vancomycin Microbiology Microbiology Results: Microbiology 02/08/23 Unknown Sputum - Suctioned Gram Stain - Final 02/08/23 Unknown Sputum - Suctioned Sputum Culture - Final Methicillin Res Staph Aureus Yeast 01/26/23 16:17 Blood - Venous Blood Culture - Final No growth after 5 days. 01/26/23 16:09 Blood - Venous Blood Culture - Final No growth after 5 days. Progress Note: A&P Assessment and plan (1) S/P percutaneous endoscopic gastrostomy (PEG) tube placement: Status: Acute (2) Status post tracheostomy: Status: Acute (3) Aspiration pneumonia: Status: Acute (4) Failure to wean from mechanical ventilation: Status: Acute (5) Dysphagia: Status: Acute (6) Acute on chronic respiratory failure with hypoxia and hypercapnia: Status: Acute (7) Muscular dystrophy: Status: Acute (8) Pulmonary edema: Status: Acute (9) Pneumonia: Status: Acute (10) Respiratory failure: Status: Acute Plan So the plan continue the vancomycin and fluconazole at this point and continued pressure support weaning and urinalysis that had white cells and a little bit of a leukocyte esterase reaction I am covering just empirically with with meropenem primary at least for 5 days at which point I would consider a PA pure which I just have concerns because because of her muscular dystrophy she is always in this supine position of her just developing some skin breakdown Quality Stroke Does the patient have a stroke diagnosis?: No VTE Prior VTE?: No VTE Risk Level:: Medical - moderate - high VTE Device Contraindication: N/A - Device Ordered VTE Drug Contraindication: N/A - Med Ordered
[2023-02-15 16:27] LABS: Vancomycin Random 18.5 mcg/mL (15-20)
[2023-02-15] MEDS: vancomycin HCL 1,000 MG in 0.9 % Sodium Chloride 250 ML 270 MG IV (17:57)
[2023-02-15] MEDS: Enoxaparin Sodium 40 MG/0.4 ML SYRINGE SUBCUT (18:41)
[2023-02-16] VITALS (31 sets, daily range): BP systolic 85–124; BP diastolic 51–80; PULSE 59–103; RESP 10–30; TEMP 35–38; O2SAT 90–99; BMI 42.3
[2023-02-16 04:20] LABS: VBG Base Excess 5.2 mmol/L; VBG HCO3 29 mmol/L (22-26); VBG pCO2 41 mmHg; VBG pH 7.45 (7.32-7.43); VBG pO2 54 mmHg
[2023-02-16 04:28] LABS: Venous Blood Gas Refer to POC result
[2023-02-16 04:40] LABS: Basophils Percent Auto 0.5 % (0-2); Eosinophils Absolute Auto 0.3 X10*3/uL (0.0-0.4); Eosinophils Percent Auto 3.8 % (0-4); Hemoglobin 9.3 g/dl (12.0-16.0); Imm Gran Abs Auto 0.09 X10*3/uL (0.00-0.03); Imm Gran Pct Auto 1.2 % (0.0-0.4); Lymphocytes Absolute Auto 1.2 X10*3/uL (1.2-4.9); Lymphocytes Percent Auto 16.2 % (20-40); MANUAL DIFF FLAG NO; Mean Corpuscular Hemoglobin 29.2 pg (27.0-33.0); Mean Corpuscular Volume 97.2 fL (80.0-98.0); Mean Platelet Volume 10.8 fL (9.4-12.3); Monocytes Absolute Auto 0.5 X10*3/uL (0.1-1.2); Monocytes Percent Auto 6.4 % (2-11); Neutrophils Absolute Auto 5.3 x10*3/uL (2.0-8.3); Neutrophils Percent Auto 71.9 % (45-73); Platelet Count 334 X10*3/uL (160-400); Red Blood Count 3.19 X10*6/uL (4.20-5.50); Red Cell Distribution Width 15.2 % (11.0-16.0); White Blood Count 7.4 X10*3/uL (4.8-10.8)
[2023-02-16 04:55] LABS: Alanine Aminotransferase 38 U/L (0-31); Albumin Level 3.2 g/dL (3.5-5.0); Alkaline Phosphatase 279 U/L (39-117); Anion Gap 10 (12-20); Aspartate Amino Transferase 32 U/L (5-31); Bilirubin Total 0.3 mg/dL (0.0-1.0); Blood Urea Nitrogen 5 mg/dL (9-16); Calcium 9.9 mg/dL (8.4-10.2); Carbon Dioxide 26 mmol/L (22-29); Chloride 112 mmol/L (96-108); Estimated Glomerular Filt Rate > 60; Glucose Random 105 mg/dL (60-115); Magnesium 1.9 mg/dL (1.6-2.6); Phosphorus 2.6 mg/dL (2.7-4.5); Potassium 3.9 mmol/L (3.3-5.1); Sodium 144 mmol/L (135-145); Total Protein 6.3 g/dL (6.5-8.0)
[2023-02-16] MEDS: Pantoprazole Sodium 40 MG/10 ML VIAL IVPUSH (04:55)
[2023-02-16] MEDS: vancomycin HCL 1,000 MG in 0.9 % Sodium Chloride 250 ML 270 MG IV ×2 (04:55→18:20)
[2023-02-16] MEDS: KCl 40 mEq in 5% Dex/0.45% Sod 40 MEQ/1,000 ML IV.SOLN 80 MEQ IVCONT (06:13)
[2023-02-16] MEDS: Potassium Chloride Packet 20 MEQ PACKET 60 MEQ PO (08:25)
[2023-02-16] MEDS: Chlorhexidine Gluc Oral Rinse 15 ML MOUTHWASH BUCCAL ×3 (08:26→20:00)
[2023-02-16] MEDS: Furosemide 200 MG in 0.9 % Sodium Chloride 80 ML IVCONT (09:15)
[2023-02-16] MEDS: Fluconazole in NaCl,Iso-Osm 200 MG/100 ML PIGGYBACK 100 MG IV (09:46)
[2023-02-16] MEDS: Nystatin Powder 15 GM BOTTLE 1 APPL TOPICAL ×3 (09:49→20:06)
--- NOTE | 2023-02-16 10:24 | MHC.CLN ---
F/U PATIENT WITH TRACH AND PEG TUBE FEEDING CHANGED TO JEVITY 1.0 FORMULA DISCUSSED AT ROUNDS WITH PT TOLERATING JEVITY 1.0 AT 30ML/HR WITH NO RESIDUALS PER NSG RECOMMEND INCREASING TF JEVITY 1.0 AT MAX GOAL RATE 45 ML/HR WITH 120 ML FWF Q 8 HRS TO PROVIDE 1145 KCALS (25 KCALS/KG IBW); 48 G PROTEIN (1.06 G/KG IBW); 1262 ML TOTAL WATER FROM FORMULA AND FLUSHES (28 ML/KG IBW) MONITOR TOLERANCE, RESIDUALS AND LYTES
--- NOTE | 2023-02-16 10:42 | PC.NURSE ---
Addendum entered by Jed Dempsey RN 02/16/23 14:56: Temp max 100.4 - patient on antibiotics - Dr Seals made aware, no new orders at this time. Original Note: Shift eval 7a-present: Patient continues to be off sedation. Trach - 7 shiley, stoma mild redness / pink, sutures intact. Small amt clear drainage noted. Airleak noted - Dr Seals made aware. RT at bedside to ensure balloon volume adequate. Maintaining Min vol 4-6. Patient responding to verbal stimuli, following simple directions, making eye contact. Initially lethargic. Weak cough & gag. Moderate amt of oral & in-line secretions. Moving extremities - Extremely weak. Weak hand grasps. Moving feet. Tolerating vent settings - PC 20, peep 8, rate 14, fio2 30%. O2sat 90-94%. Tachypneic with care, otherwise RR WNL. Skin assessed with Wound provider - perianal area was intact. No orders. Mild bruising on lower arms. Full bath, linen change, moved to [place] chair at 10:15am. Tolerating activity - sitting up. Diuresing with lasix drip - see I&O - U/O > 200-350/hr.
--- NOTE | 2023-02-16 10:58 | P.PNCC_ITS ---
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 On ER evaluation patient with iatrogenic hyperoxia induced hypercarbia progressing to hypoxia requiring intubation. CT angio chest with no evidence for pulmonary emboli, but pulmonary edema. Patient started on Diamox and empiric antibiotics, with significant improvement. Extubated on 01/29/2023, but required re-intubation within 30 minutes for inability to control secretions/ pulmonary aspirations. Continues to fail pressure support trials secondary to tachypnea and low tidal volumes. EMG with abnormal low/absent motor responses.Now status post tracheostomy/PEG placement on 02/11/2023. No events overnight. Critical Care Time (minutes): 45 Physical Exam Vital Signs: Vital Signs: Last Vital Signs Temp 100.2 F 02/16/23 10:00 Pulse 93 02/16/23 10:00 Resp 14 02/16/23 10:00 BP 116/72 02/16/23 10:00 Pulse Ox 93 02/16/23 10:00 O2 Del Method Mechanical Ventil ation 02/16/23 10:00 O2 Flow Rate 11 01/26/23 16:00 FiO2 30 02/16/23 10:00 Oxygen Flow Rate 4 01/26/23 13:05 BMI result Body Mass Index 42.3 Const: General: no acute distress and lethargic Nutritional Appearance: obese and Edematous Orientation/consciousness: lethargic HEENT: Head: Yes atraumatic Eyes: General: appearance normal, both eyes and all related structures Sclerae: sclerae normal EOM: EOMs intact bilaterally Neck: Neck: Yes tracheostomy present ( on vent) Resp: Auscultation: crackles ( mild bilateral) Cardio: Rate: regular rate Rhythm: regular rhythm Heart sounds: no gallops, no murmurs and no rubs Skin: General skin exam: other ( warm) Extrem: General: No clubbing, No cyanosis and Yes edema ( 1+ bilateral) Objective Data Labs 02/16/23 04:09 02/16/23 04:09 Labs: Laboratory Results - last 24 hr 02/15/23 02/16/23 02/16/23 16:03 04:09 04:09 WBC 7.4 RBC 3.19 L Hgb 9.3 L Hct 31.0 L MCV 97.2 MCH 29.2 MCHC 30.0 L RDW 15.2 Plt Count 334 MPV 10.8 Immature Gran % (Auto) 1.2 H Neut % (Auto) 71.9 Lymph % (Auto) 16.2 L [place] % (Auto) 6.4 Eos % (Auto) 3.8 Baso % (Auto) 0.5 Lymph # (Auto) 1.2 [place] # (Auto) 0.5 Eos # (Auto) 0.3 Baso # (Auto) 0.0 Abs Immat Gran (auto) 0.09 H Absolute Neuts (auto) 5.3 Absolute Nucleated RBC 0.000 Nucleated RBC % (auto) 0.0 VBG pH VBG pCO2 VBG pO2 VBG HCO3 VBG O2 Saturation VBG Base Excess Sodium 144 Potassium 3.9 Chloride 112 H Carbon Dioxide 26 Anion Gap 10 L BUN 5 L Creatinine 0.44 L Estim Creat Clear Calc 162.0 Estimated GFR > 60 Random Glucose 105 Calcium 9.9 Phosphorus 2.6 L Magnesium 1.9 Total Bilirubin 0.3 AST 32 H ALT 38 H Alkaline Phosphatase 279 H Total Protein 6.3 L Albumin 3.2 L Random Vancomycin 18.5 02/16/23 04:15 WBC RBC Hgb Hct MCV MCH MCHC RDW Plt Count MPV Immature Gran % (Auto) Neut % (Auto) Lymph % (Auto) [place] % (Auto) Eos % (Auto) Baso % (Auto) Lymph # (Auto) [place] # (Auto) Eos # (Auto) Baso # (Auto) Abs Immat Gran (auto) Absolute Neuts (auto) Absolute Nucleated RBC Nucleated RBC % (auto) VBG pH 7.45 H VBG pCO2 41 VBG pO2 54 VBG HCO3 29 H VBG O2 Saturation 82.0 VBG Base Excess 5.2 Sodium Potassium Chloride Carbon Dioxide Anion Gap BUN Creatinine Estim Creat Clear Calc Estimated GFR Random Glucose Calcium Phosphorus Magnesium Total Bilirubin AST ALT Alkaline Phosphatase Total Protein Albumin Random Vancomycin Microbiology Microbiology Results: Microbiology 02/08/23 Unknown Sputum - Suctioned Gram Stain - Final 02/08/23 Unknown Sputum - Suctioned Sputum Culture - Final Methicillin Res Staph Aureus Yeast 01/26/23 16:17 Blood - Venous Blood Culture - Final No growth after 5 days. 01/26/23 16:09 Blood - Venous Blood Culture - Final No growth after 5 days. Progress Note: A&P Assessment and plan (1) S/P percutaneous endoscopic gastrostomy (PEG) tube placement: Status: Acute (2) Status post tracheostomy: Status: Acute (3) Aspiration pneumonia: Status: Acute (4) Failure to wean from mechanical ventilation: Status: Acute (5) Dysphagia: Status: Acute (6) Acute on chronic respiratory failure with hypoxia and hypercapnia: Status: Acute (7) Muscular dystrophy: Status: Acute Plan Assessment: 47-year-old lady with unspecified underlying muscular dystrophy admitted with acute on chronic hypoxic and hypercapnic respiratory failure requiring ventilatory support, likely secondary to underlying congestive heart failure. Plan: Neuro: Underlying unspecified (?myotonic) muscular dystrophy, EMG with abnormal low/absent motor responses. Cardiac: No acute issues. Pulmonary: Acute on chronic hypoxic and hypercapnic respiratory failure with inability to clear secretions/pulmonary aspiration on the background of unspecified muscular dystrophy with failure to wean from mechanical ventilation. Status post tracheostomy/ gastrostomy placement on 02/11/2023. Continue to wean off ventilatory support as tolerated. Renal: No acute issues. Endo: No acute issues. GI: No acute issues. ID: Tracheobronchitis with MRSA, continue vancomycin for total of 7 days. Heme/Onc: No acute issues. Psych: No acute issues. Miscellaneous: No acute issues. Prophylaxis: Lovenox, ppi Diet: tube feeds Critical care time spent: 45 minutes Quality Stroke Does the patient have a stroke diagnosis?: No VTE Prior VTE?: No VTE Risk Level:: Medical - moderate - high VTE Device Contraindication: N/A - Device Ordered VTE Drug Contraindication: N/A - Med Ordered
--- NOTE | 2023-02-16 12:27 | P.CONWO_ITS ---
History of Present Illness Data of Consult Service Date: 02/16/23 Requesting physician: Nataly Aguayo Primary Care Provider: Allison Almanzar MD [facility] Reason for consult: [facility] [id number]: 48-year-old female admitted since January 26 for shortness of breath and hypoxia. Her oxygen saturation was 71% on arrival via nasal cannula supplementation. She was switched to a non-rebreather and her hypoxia improved. Her chest x-ray showed pneumonitis and multi lobar pneumonia verses edema and she was intubated for respiratory failure in the ED. Further investigation suggested that she either has a family history or a self history of muscular dystrophy. There is no report of established debility easily identifiable and she is noted to be moving her extremities when she becomes agitated. Her nurse tells me that she had a rectal tube in there was concern of skin breakdown in that area. Review of Systems Review of Systems: Yes Unobtainable due to mental condition [facility] Medical History (Updated 02/05/23 @ 08:36 by Max Seals MD) COPD (chronic obstructive pulmonary disease) Dysphagia Muscular dystrophy Social History Household Members: Significant Other Housing: House Do you presently have visiting nurse or other home services: Yes Unable to assess alcohol history related to: Unknown Alcohol intake: never Patient Tobacco Use Status: Tobacco use Unknown Smoked in Last 30 Days: No Use of substances other than those prescribed or required for medical reasons: Unknown Currently Displaying Signs/Symptoms of Drug Intoxication Withdrawal: No Advance Directives: No Advance Directives Information Provided: No Recently lost weight without trying: Unsure Nutrition Risks: Difficulty chewing and Difficulty swallowing Patient : No Poor oral hygiene: Yes service: No Meds Allergies Allergy/AdvReac Type Severity Reaction Status Date / Time No Known Allergies Allergy Unverified 03/08/20 18:23 Active Medications: Current Medications Chlorhexidine Gluconate (Chlorhexidine Gluc Oral Rinse 15 Ml Mouthwash) 15 ml BUCCAL TID [facility] [place] Last Admin: 02/16/23 08:26 Dose: 15 ml Enoxaparin Sodium (Enoxaparin Sodium 40 Mg/0.4 Ml Syringe) 40 mg SUBCUT Q24H [facility] Last Admin: 02/15/23 18:41 Dose: 40 mg Norepinephrine Bitartrate (Levophed) 8 mg in 250 mls @ 0 mls/hr IV .Q0M [facility] [place]; Protocol Last Titration: 02/14/23 20:19 Dose: Infused Fluconazole (Diflucan) 200 mg in 100 mls @ 100 mls/hr IV Q24H [facility] [place] Last Infusion: 02/16/23 10:55 Dose: Infused Vancomycin HCl 1,000 mg/ (Sodium Chloride) 270 mls @ 270 mls/hr IV Q12H [facility] [place] Last Infusion: 02/16/23 06:02 Dose: Infused Furosemide 200 mg/ Sodium (Chloride) 100 mls @ 1 mls/hr IVCONT .Q24H [facility] Last Admin: 02/16/23 09:15 Dose: 2 mg/hr, 1 mls/hr Naloxone HCl (Naloxone Hcl 0.4 Mg/Ml Vial) 0.2 mg IVPUSH Q2M PRN PRN Reason: Excessive sedation or RR < 8 Nystatin (Nystatin Powder 15 Gm Bottle) 1 appl TOPICAL TID [facility] [place]; Protocol Last Admin: 02/16/23 09:49 Dose: 1 appl Pantoprazole Sodium (Pantoprazole Sodium 40 Mg/10 Ml Vial) 40 mg IVPUSH DAILY@629 [facility] Last Admin: 02/16/23 04:55 Dose: 40 mg Pharmacy Consult (Consult Rx Vancomycin Dosing) 1 each MISCELLANE DAILY PRN PRN Reason: Consult order Home Medications Medication Instructions Recorded Confirmed Last Taken Type albuterol sulfate 90 mcg/actuation 2 puff inhalation Q4-6H PRN 01/26/23 01/26/23 Unknown History aerosol inhaler (Ventolin HFA) Shortness Of Breath Or Wheezing cyanocobalamin (vitamin B-12) 1,000 mcg PO DAILY 01/26/23 01/26/23 Unknown History 1,000 mcg tablet omeprazole 20 mg capsule,delayed 20 mg PO DAILY@0630 01/26/23 01/27/23 Unknown History release Physical Exam Vital Signs and Narrative: Vital Signs: Last Vital Signs Temp 100.2 F 02/16/23 12:00 Pulse 97 02/16/23 12:00 Resp 30 H 02/16/23 12:00 BP 113/76 02/16/23 12:00 Pulse Ox 90 L 02/16/23 12:00 O2 Del Method Mechanical Ventil ation 02/16/23 12:00 O2 Flow Rate 11 01/26/23 16:00 FiO2 30 02/16/23 12:00 Oxygen Flow Rate 4 01/26/23 13:05 BMI result Body Mass Index 42.3 No skin breakdown in the postauricular region. Slight maceration of para tracheal dermis without overt ulceration. Pinkish discoloration from secretions is noted. The dermis around the G-tube is intact without skin breakdown or redness. There are no heel ulcers. Close look at the marcelo rectal dermis shows completely intact skin with appropriately applied barrier cream. The proximal medial thigh on the left could have scant redness but no skin breakdown. I do not see any open areas at suggest intervention is necessary. The rectal tube has also been removed. Results Labs 02/16/23 04:09 02/16/23 04:09 Labs: Laboratory Results - last 24 hr 02/15/23 02/16/23 02/16/23 16:03 04:09 04:09 MCV 97.2 MCH 29.2 MCHC 30.0 L RDW 15.2 Plt Count 334 MPV 10.8 Immature Gran % (Auto) 1.2 H Neut % (Auto) 71.9 Lymph % (Auto) 16.2 L [place] % (Auto) 6.4 Eos % (Auto) 3.8 Baso % (Auto) 0.5 Lymph # (Auto) 1.2 [place] # (Auto) 0.5 Eos # (Auto) 0.3 Baso # (Auto) 0.0 Abs Immat Gran (auto) 0.09 H Absolute Neuts (auto) 5.3 Absolute Nucleated RBC 0.000 Nucleated RBC % (auto) 0.0 VBG pH VBG pCO2 VBG pO2 VBG HCO3 VBG O2 Saturation VBG Base Excess Anion Gap 10 L Estim Creat Clear Calc 162.0 Estimated GFR > 60 Random Glucose 105 Calcium 9.9 Phosphorus 2.6 L Magnesium 1.9 Total Bilirubin 0.3 AST 32 H ALT 38 H Alkaline Phosphatase 279 H Total Protein 6.3 L Albumin 3.2 L Random Vancomycin 18.5 02/16/23 04:15 MCV MCH MCHC RDW Plt Count MPV Immature Gran % (Auto) Neut % (Auto) Lymph % (Auto) [place] % (Auto) Eos % (Auto) Baso % (Auto) Lymph # (Auto) [place] # (Auto) Eos # (Auto) Baso # (Auto) Abs Immat Gran (auto) Absolute Neuts (auto) Absolute Nucleated RBC Nucleated RBC % (auto) VBG pH 7.45 H VBG pCO2 41 VBG pO2 54 VBG HCO3 29 H VBG O2 Saturation 82.0 VBG Base Excess 5.2 Anion Gap Estim Creat Clear Calc Estimated GFR Random Glucose Calcium Phosphorus Magnesium Total Bilirubin AST ALT Alkaline Phosphatase Total Protein Albumin Random Vancomycin Assessment and Plan (1) S/P percutaneous endoscopic gastrostomy (PEG) tube placement: Status: Acute (2) Status post tracheostomy: Status: Acute Plan 48-year-old female with respiratory failure and no evidence of medical social worker associated skin breakdown. Continue with trach care as ordered by customer engineer. Continued use of protective barrier cream in the perirectal region and continuation of pressure ulcer relief techniques is suggested. Call if any concerns of the scalp or posterior thorax/buttocks, not observed during this encounter. Time Spent With Patient Time: Total time managing care of this patient today ____ minutes.
--- NOTE | 2023-02-16 14:10 | MHC.CM.PN ---
Pt continues care in ICU: peg / trach on 02/11 with referrals made to [facility]. Pt will require a guardian unless she can return to baseline neuro/cognitive status and name a proxy: presumably her spouse Lexx. Guardianship request has been filed w/attorney lawyer and courtdate is pending. Goals of care today will be OOB to Garnica chair, vent wean to trach collar. CM to follow.
[2023-02-16] MEDS: Acetaminophen Oral Liquid 650 MG/20.3 ML SOLUTION PO (16:31)
[2023-02-16 16:41] LABS: Vancomycin Random 18.3 mcg/mL (15-20)
--- NOTE | 2023-02-16 16:49 | HE.PHANOTE ---
Vanco trough 18.3, continue 1 gm q12h AUC ~480 next trough 02/18/23 1600
[2023-02-16] MEDS: Enoxaparin Sodium 40 MG/0.4 ML SYRINGE SUBCUT (19:57)
[2023-02-17] VITALS (28 sets, daily range): BP systolic 86–111; BP diastolic 51–82; PULSE 71–108; RESP 13–29; TEMP 35–37.9; O2SAT 88–98; BMI 39.8
[2023-02-17] MEDS: Acetaminophen Oral Liquid 650 MG/20.3 ML SOLUTION PO ×2 (00:20→17:30)
[2023-02-17 04:35] LABS: MANUAL DIFF FLAG NO
[2023-02-17 04:39] LABS: Basophils Absolute Auto 0.1 X10*3/uL (0.0-0.2); Basophils Percent Auto 0.7 % (0-2); Eosinophils Absolute Auto 0.3 X10*3/uL (0.0-0.4); Eosinophils Percent Auto 3.2 % (0-4); Hematocrit 34.1 % (37.0-47.0); Hemoglobin 10.3 g/dl (12.0-16.0); Imm Gran Abs Auto 0.05 X10*3/uL (0.00-0.03); Imm Gran Pct Auto 0.6 % (0.0-0.4); Lymphocytes Absolute Auto 1.4 X10*3/uL (1.2-4.9); Lymphocytes Percent Auto 15.5 % (20-40); Mean Corpuscular HGB Conc 30.2 g/dl (31.0-35.0); Mean Corpuscular Hemoglobin 29.6 pg (27.0-33.0); Mean Platelet Volume 10.9 fL (9.4-12.3); Monocytes Absolute Auto 0.6 X10*3/uL (0.1-1.2); Monocytes Percent Auto 7.1 % (2-11); Neutrophils Absolute Auto 6.5 x10*3/uL (2.0-8.3); Neutrophils Percent Auto 72.9 % (45-73); Platelet Count 376 X10*3/uL (160-400); Red Blood Count 3.48 X10*6/uL (4.20-5.50); Red Cell Distribution Width 15.4 % (11.0-16.0); White Blood Count 8.9 X10*3/uL (4.8-10.8)
[2023-02-17 04:43] LABS: VBG Base Excess 9.6 mmol/L; VBG HCO3 32 mmol/L (22-26); VBG pCO2 36 mmHg; VBG pH 7.56 (7.32-7.43); VBG pO2 52 mmHg
[2023-02-17 04:43] LABS: Venous Blood Gas Refer to POC result
[2023-02-17 05:02] LABS: Albumin Level 3.5 g/dL (3.5-5.0); Anion Gap 14 (12-20); Blood Urea Nitrogen 8 mg/dL (9-16); Calcium 10.1 mg/dL (8.4-10.2); Carbon Dioxide 29 mmol/L (22-29); Chloride 104 mmol/L (96-108); Creatinine Clr Calc Pharmacy 131.9; Estimated Glomerular Filt Rate > 60; Glucose Random 106 mg/dL (60-115); Magnesium 2.2 mg/dL (1.6-2.6); Phosphorus 3.6 mg/dL (2.7-4.5); Potassium 3.9 mmol/L (3.3-5.1); Sodium 143 mmol/L (135-145)
[2023-02-17] MEDS: vancomycin HCL 1,000 MG in 0.9 % Sodium Chloride 250 ML 270 MG IV ×2 (05:36→17:31)
[2023-02-17] MEDS: Pantoprazole Sodium 40 MG/10 ML VIAL IVPUSH (05:41)
--- NOTE | 2023-02-17 06:00 | PC.NURSE ---
ASSUMED CARE OF PT AT 1900. ON PC VENT SETTINGS VIA TRACH. NO ACUTE RESP DISTRESS. TRACH SUCTIONED FOR SMALL AMT OF THICK CLEAR SECRETIONS. SECRETIONS OOZING FROM AROUND STOMA AND DSG CHANGED NEEDED. STOMA SITE SLIGHTLY REDENNED. VITAL SIGNS STABLE. MONITOR SHOWS NSR, RATE 60'S-90'S, NO ECTOPY. ON LASIX DRIP AT 2 MG/HR. U/O HAS BEEN 50-250 ML/HR. AT 1900, PT WAS OPENING EYES TO NAME BUT NOT TRACKING OR FOLLOWING AND WAS NOT FOLLOWING COMMANDS. THE NIGHT WENT ON, PT WAS OPENING EYES TO NAME AND WAS TRACKING AND FOLLOWING COMMANDS. FOR EXAMPLE, SHE WOULD SQUEEZE YOUR HAND WHEN ASKED. SHE ALSO WOULD NOD HER HEAD YES OR NO WHEN ASKED QUESTIONS. SHE TRIED TO SPEAK AND WOULD MOUTH WORDS. HEART RATE STARTED IN THE 60'S BUT NOW IS MOSTLY 90'S-LOW 100'S. SHE IS MILDLY ANXIOUS REFLECTED IN HEART RATE BUT ALSO MOVING IN BED MORE AND SHAKING LEGS ANXIOUSLY. TURNED AND REPOSITIONED TO COMFORT.
[2023-02-17] MEDS: Fluconazole in NaCl,Iso-Osm 200 MG/100 ML PIGGYBACK 100 MG IV (08:01)
[2023-02-17] MEDS: Nystatin Powder 15 GM BOTTLE 1 APPL TOPICAL ×3 (08:01→21:03)
[2023-02-17] MEDS: Chlorhexidine Gluc Oral Rinse 15 ML MOUTHWASH BUCCAL ×3 (08:01→21:03)
--- NOTE | 2023-02-17 08:23 | P.PNCC_ITS ---
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 On ER evaluation patient with iatrogenic hyperoxia induced hypercarbia progressing to hypoxia requiring intubation. CT angio chest with no evidence for pulmonary emboli, but pulmonary edema. Patient started on Diamox and empiric antibiotics, with significant improvement. Extubated on 01/29/2023, but required re-intubation within 30 minutes for inability to control secretions/ pulmonary aspirations. Continues to fail pressure support trials secondary to tachypnea and low tidal volumes. EMG with abnormal low/absent motor responses. Now status post tracheostomy/PEG placement on 02/11/2023. Some improvement in tolerance of pressor support. No events overnight. Critical Care Time (minutes): 45 Physical Exam Vital Signs: Vital Signs: Last Vital Signs Temp 99.7 F 02/17/23 08:00 Pulse 99 02/17/23 08:00 Resp 13 02/17/23 08:00 BP 90/51 L 02/17/23 08:00 Pulse Ox 93 02/17/23 08:00 O2 Del Method Mechanical Ventil ation, Trach Colla r 02/17/23 08:00 O2 Flow Rate 11 01/26/23 16:00 FiO2 30 02/17/23 08:15 Oxygen Flow Rate 4 01/26/23 13:05 BMI result Body Mass Index 39.8 Const: General: no acute distress and lethargic Orientation/consciousness: lethargic Eyes: Sclerae: sclerae normal EOM: EOMs intact bilaterally Neck: Neck: Yes tracheostomy present (On vent) Resp: Auscultation: crackles (Mild bilateral) Cardio: Rate: regular rate Rhythm: regular rhythm Heart sounds: no alejo ps, no murmurs and no rubs GI: Palpation (GI): Soft to palpation and Other GI palpation findings present ( Nontender) Auscultation: normal bowel sounds Extrem: General: No clubbing, No cyanosis and Yes edema (Trace bilateral) Objective Data Labs 02/17/23 04:30 02/17/23 04:30 Labs: Laboratory Results - last 24 hr 02/16/23 02/17/23 02/17/23 16:19 04:30 04:30 WBC 8.9 RBC 3.48 L Hgb 10.3 L Hct 34.1 L MCV 98.0 MCH 29.6 MCHC 30.2 L RDW 15.4 Plt Count 376 MPV 10.9 Immature Gran % (Auto) 0.6 H Neut % (Auto) 72.9 Lymph % (Auto) 15.5 L [place] % (Auto) 7.1 Eos % (Auto) 3.2 Baso % (Auto) 0.7 Lymph # (Auto) 1.4 [place] # (Auto) 0.6 Eos # (Auto) 0.3 Baso # (Auto) 0.1 Abs Immat Gran (auto) 0.05 H Absolute Neuts (auto) 6.5 Absolute Nucleated RBC 0.000 Nucleated RBC % (auto) 0.0 VBG pH VBG pCO2 VBG pO2 VBG HCO3 VBG O2 Saturation VBG Base Excess Sodium 143 Potassium 3.9 Chloride 104 Carbon Dioxide 29 Anion Gap 14 BUN 8 L Creatinine 0.56 Estim Creat Clear Calc 131.9 Estimated GFR > 60 Random Glucose 106 Calcium 10.1 Phosphorus 3.6 Magnesium 2.2 Albumin 3.5 Random Vancomycin 18.3 02/17/23 04:37 WBC RBC Hgb Hct MCV MCH MCHC RDW Plt Count MPV Immature Gran % (Auto) Neut % (Auto) Lymph % (Auto) [place] % (Auto) Eos % (Auto) Baso % (Auto) Lymph # (Auto) [place] # (Auto) Eos # (Auto) Baso # (Auto) Abs Immat Gran (auto) Absolute Neuts (auto) Absolute Nucleated RBC Nucleated RBC % (auto) VBG pH 7.56 H VBG pCO2 36 VBG pO2 52 VBG HCO3 32 H VBG O2 Saturation 84.0 VBG Base Excess 9.6 Sodium Potassium Chloride Carbon Dioxide Anion Gap BUN Creatinine Estim Creat Clear Calc Estimated GFR Random Glucose Calcium Phosphorus Magnesium Albumin Random Vancomycin Microbiology Microbiology Results: Microbiology 02/08/23 Unknown Sputum - Suctioned Gram Stain - Final 02/08/23 Unknown Sputum - Suctioned Sputum Culture - Final Methicillin Res Staph Aureus Yeast 01/26/23 16:17 Blood - Venous Blood Culture - Final No growth after 5 days. 01/26/23 16:09 Blood - Venous Blood Culture - Final No growth after 5 days. Progress Note: A&P Assessment and plan (1) S/P percutaneous endoscopic gastrostomy (PEG) tube placement: Status: Acute (2) Status post tracheostomy: Status: Acute (3) Aspiration pneumonia: Status: Acute (4) Failure to wean from mechanical ventilation: Status: Acute (5) Dysphagia: Status: Acute (6) Acute on chronic respiratory failure with hypoxia and hypercapnia: Status: Acute (7) Muscular dystrophy: Status: Acute Plan Assessment: 47-year-old lady with unspecified underlying muscular dystrophy ad mitted with acute on chronic hypoxic and hypercapnic respiratory failure requiring ventilatory support, likely secondary to underlying congestive heart failure. Plan: Neuro: Underlying unspecified (?myotonic) muscular dystrophy, EMG with abnormal low/absent motor responses. Cardiac: No acute issues. Pulmonary: Acute on chronic hypoxic and hypercapnic respiratory failure with inability to clear secretions/pulmonary aspiration on the background of unspecified muscular dystrophy with failure to wean from mechanical ventilation. Status post tracheostomy/ gastrostomy placement on 02/11/2023. Continue to wean off ventilatory support as tolerated. Patient with some improvement in ability to tolerate ventilator weaning. Renal: No acute issues. Endo: No acute issues. GI: No acute issues. ID: Tracheobronchitis with MRSA, continue vancomycin for total of 7 days. Heme/Onc: No acute issues. Psych: No acute issues. Miscellaneous: No acute issues. Prophylaxis: Lovenox, ppi Diet: tube feeds Critical care time spent: 45 minutes Quality Stroke Does the patient have a stroke diagnosis?: No VTE Prior VTE?: No VTE Risk Level:: Medical - moderate - high VTE Device Contraindication: N/A - Device Ordered VTE Drug Contraindication: N/A - Med Ordered
--- NOTE | 2023-02-17 08:42 | PC.NURSE ---
Assumed care at 7 am, Communicating with Patient in Russian, she is alert/easily arousable to voice, RASS -1, oriented to person, endorses place, and seems to be oriented to situation, specifying she wants to watch TV and univision on tv, PERRL, 4 mm briskly reactive, + cough and no gag, tracks, mouths words and seems to reply appropriately to questions in Russian. Endorsed pain, rated as moderate intensity, motions with hand that is at mid abdomen, declined pain medication. Patient assisted to OOB to Garnica chair and well tolerted. Isabela gibsonimariely, patient with low MAP from 6:22 to 7 am, MD and RETURN TO SERVICE INSPECTOR aware, MAP goal 60 and highter, much improved when OOB to recliner. Patient refused/deferred oral care.
[2023-02-17] MEDS: modafiniL 100 MG TABLET 200 MG PO (09:42)
[2023-02-17] MEDS: Furosemide 200 MG in 0.9 % Sodium Chloride 80 ML IVCONT (09:42)
--- NOTE | 2023-02-17 10:40 | MHC.CLN ---
F/U REVIEWED LABS DISCUSSED AT ROUNDS WITH MD PT TOLERATING TF JEVITY 1.0 AT MAX GOAL RATE 45 ML/HR WITH 120 ML FWF Q 8 HRS PROVIDES 1145 KCALS (25 KCALS/KG IBW); 48G PROTEIN (1.06 G/KG IBW); 1262 ML TOTAL WATER FROM FORMULA AND FLUSHES (28 ML/KG IBW) MONITOR TOLERANCE, RESIDUALS AND LYTES
--- NOTE | 2023-02-17 13:23 | MHC.CM.PN ---
Pt continues care in ICU: OOB to Garnica chair - cognitive improvements noted with more attempts at communication and ability to respond to yes/no questions w/hand grasps and nods. Per MD, pt is still unable to make major decisions (ie HCP completion) at this time but may be able to do so in 2-3 days with a copra processor. Guardianship has been filed with a hearing date of 02/22 at 8:[address] documents delivered to pt with assistance of water and sewer systems superintendent. Pt's spouse Lexx would be the appointed guardian. Call placed to Lexx to inform him of hearing date and updated referral information. CM to follow for LTAC placement ([facility] vs [facility]) when medically stable.
[2023-02-17] MEDS: Potassium Chloride Packet 20 MEQ PACKET 60 MEQ PO (13:29)
[2023-02-17] MEDS: Enoxaparin Sodium 40 MG/0.4 ML SYRINGE SUBCUT (18:37)
[2023-02-18] VITALS (33 sets, daily range): BP systolic 92–128; BP diastolic 51–89; PULSE 91–120; RESP 14–39; TEMP 35–38; O2SAT 90–94; BMI 38.4
[2023-02-18] MEDS: fentaNYL citrate/PF 100 MCG/2 ML VIAL 50 MCG IVPUSH ×2 (02:42→22:18)
[2023-02-18 04:53] LABS: VBG Base Excess 15.7 mmol/L; VBG HCO3 39 mmol/L (22-26); VBG pCO2 41 mmHg; VBG pH 7.58 (7.32-7.43); VBG pO2 47 mmHg
[2023-02-18 04:59] LABS: MANUAL DIFF FLAG NO
[2023-02-18 05:04] LABS: Basophils Absolute Auto 0.1 X10*3/uL (0.0-0.2); Basophils Percent Auto 0.6 % (0-2); Eosinophils Absolute Auto 0.3 X10*3/uL (0.0-0.4); Eosinophils Percent Auto 3.2 % (0-4); Hematocrit 35.6 % (37.0-47.0); Imm Gran Abs Auto 0.06 X10*3/uL (0.00-0.03); Imm Gran Pct Auto 0.7 % (0.0-0.4); Lymphocytes Absolute Auto 1.5 X10*3/uL (1.2-4.9); Lymphocytes Percent Auto 18.1 % (20-40); Mean Corpuscular HGB Conc 30.9 g/dl (31.0-35.0); Mean Corpuscular Hemoglobin 29.1 pg (27.0-33.0); Mean Corpuscular Volume 94.2 fL (80.0-98.0); Mean Platelet Volume 10.2 fL (9.4-12.3); Monocytes Absolute Auto 0.6 X10*3/uL (0.1-1.2); Monocytes Percent Auto 7.9 % (2-11); Neutrophils Absolute Auto 5.6 x10*3/uL (2.0-8.3); Neutrophils Percent Auto 69.5 % (45-73); Platelet Count 427 X10*3/uL (160-400); Red Blood Count 3.78 X10*6/uL (4.20-5.50); Red Cell Distribution Width 15.4 % (11.0-16.0); White Blood Count 8.1 X10*3/uL (4.8-10.8)
[2023-02-18 05:24] LABS: Albumin Level 3.9 g/dL (3.5-5.0); Anion Gap 14 (12-20); Blood Urea Nitrogen 9 mg/dL (9-16); Calcium 11.1 mg/dL (8.4-10.2); Carbon Dioxide 32 mmol/L (22-29); Chloride 100 mmol/L (96-108); Estimated Glomerular Filt Rate > 60; Glucose Random 102 mg/dL (60-115); Magnesium 2.2 mg/dL (1.6-2.6); Phosphorus 3.5 mg/dL (2.7-4.5); Potassium 3.3 mmol/L (3.3-5.1); Sodium 143 mmol/L (135-145)
[2023-02-18] MEDS: Pantoprazole Sodium 40 MG/10 ML VIAL IVPUSH (05:48)
[2023-02-18] MEDS: vancomycin HCL 1,000 MG in 0.9 % Sodium Chloride 250 ML 270 MG IV (05:48)
[2023-02-18 05:57] LABS: Venous Blood Gas Refer to POC result
[2023-02-18] MEDS: Chlorhexidine Gluc Oral Rinse 15 ML MOUTHWASH BUCCAL ×3 (07:40→20:58)
[2023-02-18] MEDS: Fluconazole in NaCl,Iso-Osm 200 MG/100 ML PIGGYBACK 100 MG IV (07:42)
[2023-02-18] MEDS: Potassium Chloride Packet 20 MEQ PACKET 40 MEQ PO (07:43)
--- NOTE | 2023-02-18 08:41 | PM.CCPN ---
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 On ER evaluation patient with iatrogenic hyperoxia induced hypercarbia progressing to hypoxia requiring intubation. CT angio chest with no evidence for pulmonary emboli, but pulmonary edema. Patient started on Diamox and empiric antibiotics, with significant improvement. Extubated on 01/29/2023, but required re-intubation within 30 minutes for inability to control secretions/pulmonary aspirations. Continues to fail pressure support trials secondary to tachypnea and low tidal volumes. EMG with abnormal low/absent motor responses. Now status post tracheostomy/PEG placement on 02/11/2023. Some improvement in tolerance of pressure support. No events overnight. Critical Care Time (minutes): 45 Physical Exam Vital Signs: Vital Signs: Last Vital Signs Temp 99.9 F 02/18/23 08:00 Pulse 93 02/18/23 08:00 Resp 17 02/18/23 08:00 BP 109/64 02/18/23 08:00 Pulse Ox 92 02/18/23 08:00 O2 Del Method Mechanical Ventil ation, Trach Colla r 02/18/23 08:00 O2 Flow Rate 11 01/26/23 16:00 FiO2 30 02/18/23 08:00 Oxygen Flow Rate 4 01/26/23 13:05 BMI result Body Mass Index 38.4 Const: General: no acute distress and lethargic Nutritional Appearance: obese Orientation/consciousness: lethargic Eyes: Sclerae: sclerae normal EOM: EOMs intact bilaterally Neck: Neck: Yes tracheostomy present ( on vent) Resp: Auscultation: crackles ( mild bilateral) Cardio: Rate: tachycardic Rhythm: regular rhythm Heart sounds: no gallops, no murmurs and no rubs GI: Palpation (GI): Soft to palpation and Other GI palpation findings present ( Nontender) Auscultation: normal bowel sounds Extrem: General: No clubbing, No cyanosis and Yes edema ( trace bilateral) Objective Data Labs 02/18/23 04:48 02/18/23 04:48 Labs: Laboratory Results - last 24 hr 02/18/23 02/18/23 02/18/23 04:48 04:48 04:49 WBC 8.1 RBC 3.78 L Hgb 11.0 L Hct 35.6 L MCV 94.2 MCH 29.1 MCHC 30.9 L RDW 15.4 Plt Count 427 H MPV 10.2 Immature Gran % (Auto) 0.7 H Neut % (Auto) 69.5 Lymph % (Auto) 18.1 L [place] % (Auto) 7.9 Eos % (Auto) 3.2 Baso % (Auto) 0.6 Lymph # (Auto) 1.5 [place] # (Auto) 0.6 Eos # (Auto) 0.3 Baso # (Auto) 0.1 Abs Immat Gran (auto) 0.06 H Absolute Neuts (auto) 5.6 Absolute Nucleated RBC 0.000 Nucleated RBC % (auto) 0.0 VBG pH 7.58 H VBG pCO2 41 VBG pO2 47 VBG HCO3 39 H VBG O2 Saturation 77.0 VBG Base Excess 15.7 Sodium 143 Potassium 3.3 Chloride 100 Carbon Dioxide 32 H Anion Gap 14 BUN 9 Creatinine 0.54 Estim Creat Clear Calc 132.0 Estimated GFR > 60 Random Glucose 102 Calcium 11.1 H D Phosphorus 3.5 Magnesium 2.2 Albumin 3.9 Microbiology Microbiology Results: Microbiology 02/08/23 Unknown Sputum - Suctioned Gram Stain - Final 02/08/23 Unknown Sputum - Suctioned Sputum Culture - Final Methicillin Res Staph Aureus Yeast 01/26/23 16:17 Blood - Venous Blood Culture - Final No growth after 5 days. 01/26/23 16:09 Blood - Venous Blood Culture - Final No growth after 5 days. Progress Note: A&P Assessment and plan (1) S/P percutaneous endoscopic gastrostomy (PEG) tube placement: Status: Acute (2) Status post tracheostomy: Status: Acute (3) Aspiration pneumonia: Status: Acute (4) Failure to wean from mechanical ventilation: Status: Acute (5) Dysphagia: Status: Acute (6) Acute on chronic respiratory failure with hypoxia and hypercapnia: Status: Acute (7) Muscular dystrophy: Status: Acute Plan Assessment: 47-year-old lady with unspecified underlying muscular dystrophy admitted with acute on chronic hypoxic and hypercapnic respiratory failure requiring ventilatory support, likely secondary to underlying congestive heart failure. Plan: Neuro: Underlying unspecified (?myotonic) muscular dystrophy, EMG with abnormal low/absent motor responses. Cardiac: No acute issues. Pulmonary: Acute on chronic hypoxic and hypercapnic respiratory failure with inability to clear secretions/pulmonary aspiration on the background of unspecified muscular dystrophy with failure to wean from mechanical ventilation. Status post tracheostomy/ gastrostomy placement on 02/11/2023. Continue to wean off ventilatory support as tolerated. Patient with some improvement in ability to tolerate ventilator weaning. Renal: No acute issues. Endo: No acute issues. GI: No acute issues. ID: Tracheobronchitis with MRSA, continue vancomycin for total of 7 days. Heme/Onc: No acute issues. Psych: No acute issues. Miscellaneous: No acute issues. Prophylaxis: Lovenox, ppi Diet: tube feeds Critical care time spent: 45 minutes Quality Stroke Does the patient have a stroke diagnosis?: No VTE Prior VTE?: No VTE Risk Level:: Medical - moderate - high VTE Device Contraindication: N/A - Device Ordered VTE Drug Contraindication: N/A - Med Ordered
[2023-02-18] MEDS: Furosemide 200 MG in 0.9 % Sodium Chloride 80 ML IVCONT (08:55)
[2023-02-18] MEDS: Nystatin Powder 15 GM BOTTLE 1 APPL TOPICAL ×3 (08:56→20:58)
--- NOTE | 2023-02-18 09:25 | MHC.CLN ---
F/U DISCUSSED AT ROUNDS WITH MD PT TOLERATING TF JEVITY 1.0 AT MAX GOAL RATE 45 ML/HR WITH 120 ML FWF Q 8 HRS PROVIDES 1145 KCALS (25 KCALS/KG IBW); 48G PROTEIN (1.06 G/KG IBW); 1262 ML TOTAL WATER FROM FORMULA AND FLUSHES (28 ML/KG IBW) MONITOR TOLERANCE, RESIDUALS AND LYTES
[2023-02-18] MEDS: Acetaminophen Oral Liquid 650 MG/20.3 ML SOLUTION PO (10:57)
[2023-02-18] MEDS: modafiniL 100 MG TABLET 200 MG PO (10:58)
--- NOTE | 2023-02-18 11:59 | MHC.CM.PN ---
EMR REVIEWED. PT REMAINS IN ICU S/P TRACH/PEG PLACEMENT. AWAITING GUARDIANSHIP HEARING 03/04/23 AT 8:30 AM. UPDATES SENT TO LTAC REFERRALS VIA [facility].
[2023-02-18 16:35] LABS: Vancomycin Trough 19.2 mcg/mL (10.0-20.0)
[2023-02-18] MEDS: Enoxaparin Sodium 40 MG/0.4 ML SYRINGE SUBCUT (18:18)
[2023-02-18] MEDS: vancomycin HCL 750 MG in 0.9 % Sodium Chloride 250 ML 265 MG IV (18:19)
[2023-02-19] VITALS (31 sets, daily range): BP systolic 94–135; BP diastolic 38–79; PULSE 11–122; RESP 14–35; TEMP 35–37.9; O2SAT 88–95; BMI 38.3
[2023-02-19] MEDS: fentaNYL citrate/PF 100 MCG/2 ML VIAL 50 MCG IVPUSH (02:08)
[2023-02-19 04:45] LABS: VBG Base Excess 12.2 mmol/L; VBG HCO3 34 mmol/L (22-26); VBG pCO2 36 mmHg; VBG pH 7.59 (7.32-7.43); VBG pO2 38 mmHg
[2023-02-19 04:57] LABS: MANUAL DIFF FLAG NO
[2023-02-19 05:00] LABS: Basophils Absolute Auto 0.1 X10*3/uL (0.0-0.2); Basophils Percent Auto 0.5 % (0-2); Eosinophils Absolute Auto 0.3 X10*3/uL (0.0-0.4); Hematocrit 37.9 % (37.0-47.0); Hemoglobin 11.9 g/dl (12.0-16.0); Imm Gran Abs Auto 0.04 X10*3/uL (0.00-0.03); Imm Gran Pct Auto 0.4 % (0.0-0.4); Lymphocytes Absolute Auto 1.6 X10*3/uL (1.2-4.9); Lymphocytes Percent Auto 15.3 % (20-40); Mean Corpuscular HGB Conc 31.4 g/dl (31.0-35.0); Mean Corpuscular Hemoglobin 30.1 pg (27.0-33.0); Mean Corpuscular Volume 95.9 fL (80.0-98.0); Mean Platelet Volume 11.2 fL (9.4-12.3); Monocytes Absolute Auto 0.9 X10*3/uL (0.1-1.2); Monocytes Percent Auto 8.6 % (2-11); Neutrophils Absolute Auto 7.4 x10*3/uL (2.0-8.3); Neutrophils Percent Auto 72.2 % (45-73); Platelet Count 389 X10*3/uL (160-400); Red Blood Count 3.95 X10*6/uL (4.20-5.50); Red Cell Distribution Width 15.4 % (11.0-16.0); White Blood Count 10.3 X10*3/uL (4.8-10.8)
[2023-02-19 05:30] LABS: Venous Blood Gas Refer to POC result
[2023-02-19] MEDS: vancomycin HCL 750 MG in 0.9 % Sodium Chloride 250 ML 265 MG IV ×2 (06:02→16:31)
[2023-02-19] MEDS: Pantoprazole Sodium 40 MG/10 ML VIAL IVPUSH (06:02)
[2023-02-19 06:08] LABS: Anion Gap 17 (12-20); Blood Urea Nitrogen 10 mg/dL (9-16); Carbon Dioxide 28 mmol/L (22-29); Chloride 99 mmol/L (96-108); Creatinine Clr Calc Pharmacy 122.7; Estimated Glomerular Filt Rate > 60; Glucose Random 104 mg/dL (60-115); Magnesium 2.5 mg/dL (1.6-2.6); Phosphorus 4.1 mg/dL (2.7-4.5); Potassium 5.7 mmol/L (3.3-5.1); Sodium 138 mmol/L (135-145)
[2023-02-19] MEDS: Chlorhexidine Gluc Oral Rinse 15 ML MOUTHWASH BUCCAL ×3 (08:08→20:22)
[2023-02-19] MEDS: Fluconazole in NaCl,Iso-Osm 200 MG/100 ML PIGGYBACK 100 MG IV (08:08)
--- NOTE | 2023-02-19 11:00 | P.PNCC_ITS ---
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 On ER evaluation patient with iatrogenic hyperoxia induced hypercarbia progressing to hypoxia requiring intubation. CT angio chest with no evidence for pulmonary emboli, but pulmonary edema. Patient started on Diamox and empiric antibiotics, with significant improvement. Extubated on 01/29/2023, but required re-intubation within 30 minutes for inability to control secretions/ pulmonary aspirations. Continues to fail pressure support trials secondary to tachypnea and low tidal volumes. EMG with abnormal low/absent motor responses. Now status post tracheostomy/PEG placement on 02/11/2023. Some improvement in tolerance of pressure support. No events overnight. Critical Care Time (minutes): 45 Physical Exam Vital Signs: Vital Signs: Last Vital Signs Temp 99.7 F 02/19/23 10:00 Pulse 105 H 02/19/23 10:00 Resp 21 H 02/19/23 10:00 BP 103/74 02/19/23 10:00 Pulse Ox 90 L 02/19/23 10:00 O2 Del Method Mechanical Ventil ation 02/19/23 10:00 O2 Flow Rate 30 02/18/23 14:00 FiO2 30 02/19/23 10:00 Oxygen Flow Rate 4 01/26/23 13:05 BMI result Body Mass Index 38.3 Const: General: no acute distress and lethargic Nutritional Appearance: obese Orientation/consciousness: lethargic Eyes: Sclerae: sclerae normal EOM: EOMs intact bilaterally Neck: Neck: Yes tracheostomy present ( on vent) Resp: Auscultation: clear to auscultation bilaterally Cardio: Rate: regular rate Rhythm: regular rhythm Heart sounds: no gallops, no murmurs and no rubs GI: Palpation (GI): Soft to palpation and Other GI palpation findings present ( Nontender) Auscultation: normal bowel sounds Extrem: General: No clubbing, No cyanosis and Yes edema ( trace bilateral) Objective Data Labs 02/19/23 04:39 02/19/23 04:39 Labs: Laboratory Results - last 24 hr 02/18/23 02/19/23 02/19/23 16:13 04:39 04:39 WBC 10.3 RBC 3.95 L Hgb 11.9 L Hct 37.9 MCV 95.9 MCH 30.1 MCHC 31.4 RDW 15.4 Plt Count 389 MPV 11.2 Immature Gran % (Auto) 0.4 Neut % (Auto) 72.2 Lymph % (Auto) 15.3 L [place] % (Auto) 8.6 Eos % (Auto) 3.0 Baso % (Auto) 0.5 Lymph # (Auto) 1.6 [place] # (Auto) 0.9 Eos # (Auto) 0.3 Baso # (Auto) 0.1 Abs Immat Gran (auto) 0.04 H Absolute Neuts (auto) 7.4 Absolute Nucleated RBC 0.000 Nucleated RBC % (auto) 0.0 VBG pH VBG pCO2 VBG pO2 VBG HCO3 VBG O2 Saturation VBG Base Excess Sodium 138 Potassium 5.7 H D Chloride 99 Carbon Dioxide 28 Anion Gap 17 BUN 10 Creatinine 0.57 Estim Creat Clear Calc 122.7 Estimated GFR > 60 Random Glucose 104 Calcium 11.0 H Phosphorus 4.1 Magnesium 2.5 Albumin 4.0 Vancomycin Trough 19.2 02/19/23 04:40 WBC RBC Hgb Hct MCV MCH MCHC RDW Plt Count MPV Immature Gran % (Auto) Neut % (Auto) Lymph % (Auto) [place] % (Auto) Eos % (Auto) Baso % (Auto) Lymph # (Auto) [place] # (Auto) Eos # (Auto) Baso # (Auto) Abs Immat Gran (auto) Absolute Neuts (auto) Absolute Nucleated RBC Nucleated RBC % (auto) VBG pH 7.59 H VBG pCO2 36 VBG pO2 38 VBG HCO3 34 H VBG O2 Saturation 59.0 VBG Base Excess 12.2 Sodium Potassium Chloride Carbon Dioxide Anion Gap BUN Creatinine Estim Creat Clear Calc Estimated GFR Random Glucose Calcium Phosphorus Magnesium Albumin Vancomycin Trough Microbiology Microbiology Results: Microbiology 02/08/23 Unknown Sputum - Suctioned Gram Stain - Final 02/08/23 Unknown Sputum - Suctioned Sputum Culture - Final Methicillin Res Staph Aureus Yeast 01/26/23 16:17 Blood - Venous Blood Culture - Final No growth after 5 days. 01/26/23 16:09 Blood - Venous Blood Culture - Final No growth after 5 days. Progress Note: A&P Assessment and plan (1) S/P percutaneous endoscopic gastrostomy (PEG) tube placement: Status: Acute (2) Status post tracheostomy: Status: Acute (3) Aspiration pneumonia: Status: Acute (4) Failure to wean from mechanical ventilation: Status: Acute (5) Dysphagia: Status: Acute (6) Acute on chronic respiratory failure with hypoxia and hypercapnia: Status: Acute (7) Muscular dystrophy: Status: Acute Plan Assessment: 47-year-old lady with unspecified underlying muscular dystrophy admitted with acute on chronic hypoxic and hypercapnic respiratory failure requiring ventilatory support, likely secondary to underlying congestive heart failure. Plan: Neuro: Underlying unspecified (?myotonic) muscular dystrophy, EMG with abnormal low/absent motor responses. Cardiac: No acute issues. Pulmonary: Acute on chronic hypoxic and hypercapnic respiratory failure with inability to clear secretions/pulmonary aspiration on the background of unspecified muscular dystrophy with failure to wean from mechanical ventilation. Status post tracheostomy/ gastrostomy placement on 02/11/2023. Continue to wean off ventilatory support as tolerated. Patient with some improvement in ability to tolerate ventilator weaning. Renal: No acute issues. Endo: No acute issues. GI: No acute issues. ID: Tracheobronchitis with MRSA, continue vancomycin for total of 7 days (through 02/21). Heme/Onc: No acute issues. Psych: No acute issues. Miscellaneous: No acute issues. Prophylaxis: Lovenox, ppi Diet: tube feeds Critical care time spent: 45 minutes Quality Stroke Does the patient have a stroke diagnosis?: No VTE Prior VTE?: No VTE Risk Level:: Medical - moderate - high VTE Device Contraindication: N/A - Device Ordered VTE Drug Contraindication: N/A - Med Ordered
[2023-02-19 12:59] LABS: Anion Gap 15 (12-20); Blood Urea Nitrogen 12 mg/dL (9-16); Calcium 11.5 mg/dL (8.4-10.2); Carbon Dioxide 30 mmol/L (22-29); Chloride 97 mmol/L (96-108); Creatinine Clr Calc Pharmacy 116.3; Estimated Glomerular Filt Rate > 60; Glucose Random 108 mg/dL (60-115); Potassium 3.6 mmol/L (3.3-5.1); Sodium 138 mmol/L (135-145)
--- NOTE | 2023-02-19 13:58 | MHC.CM.PN ---
Pt continues care in ICU - OOB to chair and doing well with trach. Discussed d/c plan w/MD: feels pt could be ready by Thursday, 02/24. [facility] updated: medical team will review clinical and have the date for the guardianship hearing. - Call placed to spouse/ guardian appointee Lexx to inform him of tentative d/c plan. CM to follow up on weekend.
[2023-02-19] MEDS: Nystatin Powder 15 GM BOTTLE 1 APPL TOPICAL ×3 (13:59→20:22)
[2023-02-19] MEDS: Furosemide 200 MG in 0.9 % Sodium Chloride 80 ML IVCONT (14:47)
--- NOTE | 2023-02-19 17:20 | HE.PHANOTE ---
RE [place] PT TROUGH WAS 22, BUT DOSE ALREADY STARTED INFUSING. PT RECEIVED ROUGHLY HALF THE DOSE. CHANGED THE ORDER TO 1250 Q 24H, NEXT LEVEL DUE FOR 02/21 @0600. I STARTED THE NEW DOSE IN THE AM TO GIVE THE PT MORE TIME TO CLEAR. AUC IS 452, TROUGH 17.4 PREDICTED
[2023-02-19] MEDS: Enoxaparin Sodium 40 MG/0.4 ML SYRINGE SUBCUT (20:22)
[2023-02-19] MEDS: Acetaminophen Oral Liquid 650 MG/20.3 ML SOLUTION PO (23:35)
[2023-02-20] VITALS (29 sets, daily range): BP systolic 88–127; BP diastolic 51–89; PULSE 72–120; RESP 14–93; TEMP 35–37.8; O2SAT 89–98; BMI 35.9
[2023-02-20] MEDS: LORazepam 2 MG/ML VIAL 1 MG IVPUSH ×2 (00:12→23:24)
[2023-02-20 04:52] LABS: VBG Base Excess 10.8 mmol/L; VBG HCO3 34 mmol/L (22-26); VBG pCO2 41 mmHg; VBG pH 7.53 (7.32-7.43); VBG pO2 65 mmHg
[2023-02-20 05:01] LABS: MANUAL DIFF FLAG NO
[2023-02-20 05:03] LABS: Basophils Absolute Auto 0.1 X10*3/uL (0.0-0.2); Basophils Percent Auto 0.9 % (0-2); Eosinophils Absolute Auto 0.4 X10*3/uL (0.0-0.4); Hematocrit 37.8 % (37.0-47.0); Imm Gran Abs Auto 0.02 X10*3/uL (0.00-0.03); Imm Gran Pct Auto 0.3 % (0.0-0.4); Lymphocytes Absolute Auto 1.6 X10*3/uL (1.2-4.9); Lymphocytes Percent Auto 22.7 % (20-40); Mean Corpuscular HGB Conc 31.7 g/dl (31.0-35.0); Mean Corpuscular Hemoglobin 29.6 pg (27.0-33.0); Mean Corpuscular Volume 93.1 fL (80.0-98.0); Mean Platelet Volume 10.7 fL (9.4-12.3); Monocytes Absolute Auto 0.8 X10*3/uL (0.1-1.2); Monocytes Percent Auto 11.3 % (2-11); Neutrophils Absolute Auto 4.2 x10*3/uL (2.0-8.3); Neutrophils Percent Auto 59.8 % (45-73); Platelet Count 457 X10*3/uL (160-400); Red Blood Count 4.06 X10*6/uL (4.20-5.50); Red Cell Distribution Width 15.1 % (11.0-16.0)
[2023-02-20 05:15] LABS: Venous Blood Gas Refer to POC result
[2023-02-20 05:19] LABS: Albumin Level 4.1 g/dL (3.5-5.0); Anion Gap 20 (12-20); Blood Urea Nitrogen 16 mg/dL (9-16); Carbon Dioxide 25 mmol/L (22-29); Chloride 97 mmol/L (96-108); Creatinine Clr Calc Pharmacy 120.3; Estimated Glomerular Filt Rate > 60; Glucose Random 107 mg/dL (60-115); Magnesium 2.4 mg/dL (1.6-2.6); Potassium 3.6 mmol/L (3.3-5.1); Sodium 138 mmol/L (135-145)
[2023-02-20] MEDS: vancomycin HCL 1,250 MG in 0.9 % Sodium Chloride 250 ML 166.67 MG IV (08:42)
[2023-02-20] MEDS: Chlorhexidine Gluc Oral Rinse 15 ML MOUTHWASH BUCCAL ×2 (09:09→20:18)
[2023-02-20] MEDS: Fluconazole in NaCl,Iso-Osm 200 MG/100 ML PIGGYBACK 100 MG IV (09:09)
[2023-02-20] MEDS: Nystatin Powder 15 GM BOTTLE 1 APPL TOPICAL ×3 (10:06→20:19)
--- NOTE | 2023-02-20 10:14 | P.PNCC_ITS ---
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 On ER evaluation patient with iatrogenic hyperoxia induced hypercarbia progressing to hypoxia requiring intubation. CT angio chest with no evidence for pulmonary emboli, but pulmonary edema. Patient started on Diamox and empiric antibiotics, with significant improvement. Extubated on 01/29/2023, but required re-intubation within 30 minutes for inability to control secretions/ pulmonary aspirations. Continues to fail pressure support trials secondary to tachypnea and low tidal volumes. EMG with abnormal low/absent motor responses. Now status post tracheostomy/PEG placement on 02/11/2023. Some improvement in tolerance of pressure support. No events overnight. Critical Care Time (minutes): 45 Physical Exam Vital Signs: Vital Signs: Last Vital Signs Temp 96.0 F L 02/20/23 10:00 Pulse 112 H 02/20/23 10:00 Resp 29 H 02/20/23 10:00 BP 91/51 L 02/20/23 10:00 Pulse Ox 93 02/20/23 10:00 O2 Del Method Mechanical Ventil ation 02/20/23 10:00 O2 Flow Rate 30 02/20/23 09:00 FiO2 30 02/20/23 10:00 Oxygen Flow Rate 4 01/26/23 13:05 BMI result Body Mass Index 35.9 Const: General: no acute distress and lethargic Nutritional Appearance: obese Orientation/consciousness: lethargic Eyes: Sclerae: sclerae normal EOM: EOMs intact bilaterally Neck: Neck: Yes tracheostomy present ( on vent) Resp: Effort & Inspection: normal respiratory effort and no respiratory distress Auscultation: clear to auscultation bilaterally Cardio: Rate: tachycardic Rhythm: regular rhythm Heart sounds: no gallops, no murmurs and no rubs GI: Palpation (GI): Soft to palpation and Other GI palpation findings present ( Nontender) Auscultation: normal bowel sounds Extrem: General: Yes no pedal edema, No clubbing and No cyanosis Objective Data Labs 02/20/23 04:46 02/20/23 04:46 Labs: Laboratory Results - last 24 hr 02/19/23 02/19/23 02/20/23 12:29 15:53 04:46 WBC 7.0 RBC 4.06 L Hgb 12.0 Hct 37.8 MCV 93.1 MCH 29.6 MCHC 31.7 RDW 15.1 Plt Count 457 H MPV 10.7 Immature Gran % (Auto) 0.3 Neut % (Auto) 59.8 Lymph % (Auto) 22.7 [place] % (Auto) 11.3 H Eos % (Auto) 5.0 H Baso % (Auto) 0.9 Lymph # (Auto) 1.6 [place] # (Auto) 0.8 Eos # (Auto) 0.4 Baso # (Auto) 0.1 Abs Immat Gran (auto) 0.02 Absolute Neuts (auto) 4.2 Absolute Nucleated RBC 0.000 Nucleated RBC % (auto) 0.0 VBG pH VBG pCO2 VBG pO2 VBG HCO3 VBG O2 Saturation VBG Base Excess Sodium 138 Potassium 3.6 D Chloride 97 Carbon Dioxide 30 H Anion Gap 15 BUN 12 Creatinine 0.60 Estim Creat Clear Calc 116.3 Estimated GFR > 60 Random Glucose 108 Calcium 11.5 H Phosphorus Magnesium Albumin Random Vancomycin 22.0 H 02/20/23 02/20/23 04:46 04:47 WBC RBC Hgb Hct MCV MCH MCHC RDW Plt Count MPV Immature Gran % (Auto) Neut % (Auto) Lymph % (Auto) [place] % (Auto) Eos % (Auto) Baso % (Auto) Lymph # (Auto) [place] # (Auto) Eos # (Auto) Baso # (Auto) Abs Immat Gran (auto) Absolute Neuts (auto) Absolute Nucleated RBC Nucleated RBC % (auto) VBG pH 7.53 H VBG pCO2 41 VBG pO2 65 VBG HCO3 34 H VBG O2 Saturation 89.0 VBG Base Excess 10.8 Sodium 138 Potassium 3.6 Chloride 97 Carbon Dioxide 25 Anion Gap 20 BUN 16 Creatinine 0.58 Estim Creat Clear Calc 120.3 Estimated GFR > 60 Random Glucose 107 Calcium 11.0 H Phosphorus 4.0 Magnesium 2.4 Albumin 4.1 Random Vancomycin Microbiology Microbiology Results: Microbiology 02/08/23 Unknown Sputum - Suctioned Gram Stain - Final 02/08/23 Unknown Sputum - Suctioned Sputum Culture - Final Methicillin Res Staph Aureus Yeast 01/26/23 16:17 Blood - Venous Blood Culture - Final No growth after 5 days. 01/26/23 16:09 Blood - Venous Blood Culture - Final No growth after 5 days. Progress Note: A&P Assessment and plan (1) S/P percutaneous endoscopic gastrostomy (PEG) tube placement: Status: Acute (2) Aspiration pneumonia: Status: Acute (3) Failure to wean from mechanical ventilation: Status: Acute (4) Dysphagia: Status: Acute (5) Acute on chronic respiratory failure with hypoxia and hypercapnia: Status: Acute (6) Muscular dystrophy: Status: Acute (7) Status post tracheostomy: Status: Acute Plan Assessment: 47-year-old lady with unspecified underlying muscular dystrophy admitted with acute on chronic hypoxic and hypercapnic respiratory failure requiring ventilatory support, likely secondary to underlying congestive heart failure. Plan: Neuro: Underlying unspecified (?myotonic) muscular dystrophy, EMG with abnormal low/absent motor responses. Cardiac: No acute issues. Pulmonary: Acute on chronic hypoxic and hypercapnic respiratory failure with inability to clear secretions/pulmonary aspiration on the background of unspecified muscular dystrophy with failure to wean from mechanical ventilation. Status post tracheostomy/ gastrostomy placement on 02/11/2023. Continue to wean off ventilatory support as tolerated. Patient with some improvement in ability to tolerate ventilator weaning. Renal: No acute issues. Endo: No acute issues. GI: No acute issues. ID: Tracheobronchitis with MRSA, continue vancomycin for total of 7 days (through 02/21). Heme/Onc: No acute issues. Psych: No acute issues. Miscellaneous: No acute issues. Prophylaxis: Lovenox, ppi Diet: tube feeds Critical care time spent: 45 minutes Quality Stroke Does the patient have a stroke diagnosis?: No VTE Prior VTE?: No VTE Risk Level:: Medical - moderate - high VTE Device Contraindication: N/A - Device Ordered VTE Drug Contraindication: N/A - Med Ordered
[2023-02-20] MEDS: Acetaminophen Oral Liquid 650 MG/20.3 ML SOLUTION PO (10:55)
[2023-02-20] MEDS: Midazolam HCl/PF 2 MG/2 ML VIAL 1 MG IVPUSH ×2 (11:08→21:44)
--- NOTE | 2023-02-20 11:36 | MHC.CLN ---
F/U DISCUSSED AT ROUNDS WITH MD PT TOLERATING TF JEVITY 1.0 AT MAX GOAL RATE 45 ML/HR WITH 120 ML FWF Q 8 HRS PROVIDES 1145 KCALS (25 KCALS/KG IBW); 48G PROTEIN (1.06 G/KG IBW); 1262 ML TOTAL WATER FROM FORMULA AND FLUSHES (28 ML/KG IBW) CONTINUE TO MONITOR TOLERANCE, RESIDUALS AND LYTES
[2023-02-20] MEDS: Enoxaparin Sodium 40 MG/0.4 ML SYRINGE SUBCUT (20:18)
[2023-02-21] VITALS (30 sets, daily range): BP systolic 84–131; BP diastolic 53–90; PULSE 68–123; RESP 15–42; TEMP 35–37.8; O2SAT 90–97; BMI 35.9
[2023-02-21 04:55] LABS: VBG Base Excess 9.9 mmol/L; VBG HCO3 32 mmol/L (22-26); VBG pCO2 35 mmHg; VBG pH 7.57 (7.32-7.43); VBG pO2 48 mmHg
[2023-02-21 05:06] LABS: MANUAL DIFF FLAG NO
[2023-02-21 05:07] LABS: Basophils Absolute Auto 0.1 X10*3/uL (0.0-0.2); Basophils Percent Auto 0.9 % (0-2); Eosinophils Absolute Auto 0.2 X10*3/uL (0.0-0.4); Eosinophils Percent Auto 3.3 % (0-4); Hemoglobin 11.7 g/dl (12.0-16.0); Imm Gran Abs Auto 0.04 X10*3/uL (0.00-0.03); Imm Gran Pct Auto 0.6 % (0.0-0.4); Lymphocytes Absolute Auto 1.4 X10*3/uL (1.2-4.9); Lymphocytes Percent Auto 20.3 % (20-40); Mean Corpuscular HGB Conc 31.6 g/dl (31.0-35.0); Mean Corpuscular Hemoglobin 29.3 pg (27.0-33.0); Mean Corpuscular Volume 92.7 fL (80.0-98.0); Mean Platelet Volume 10.7 fL (9.4-12.3); Monocytes Absolute Auto 0.7 X10*3/uL (0.1-1.2); Monocytes Percent Auto 9.9 % (2-11); Neutrophils Absolute Auto 4.5 x10*3/uL (2.0-8.3); Platelet Count 434 X10*3/uL (160-400); Red Blood Count 3.99 X10*6/uL (4.20-5.50); White Blood Count 6.9 X10*3/uL (4.8-10.8)
[2023-02-21 05:16] LABS: Venous Blood Gas Refer to POC result
[2023-02-21 05:23] LABS: Vancomycin Random 15.1 mcg/mL (15-20)
[2023-02-21 05:27] LABS: Albumin Level 3.9 g/dL (3.5-5.0); Anion Gap 18 (12-20); Blood Urea Nitrogen 15 mg/dL (9-16); Calcium 11.3 mg/dL (8.4-10.2); Carbon Dioxide 25 mmol/L (22-29); Chloride 100 mmol/L (96-108); Creatinine Clr Calc Pharmacy 122.4; Estimated Glomerular Filt Rate > 60; Glucose Random 112 mg/dL (60-115); Magnesium 2.6 mg/dL (1.6-2.6); Potassium 3.2 mmol/L (3.3-5.1); Sodium 140 mmol/L (135-145)
--- NOTE | 2023-02-21 06:36 | HE.PHANOTE ---
RE: VANCO Patients level was drawn an hour early. Level came back at 15.1. Patients renal function has been stable. Increasing to 1500 mg Q24H. Predicted AUC 430. NExt draw 02/22 @0600.
[2023-02-21] MEDS: vancomycin HCL 1,500 MG in 0.9 % Sodium Chloride 500 ML 333.33 MG IV (09:13)
[2023-02-21] MEDS: Fluconazole in NaCl,Iso-Osm 200 MG/100 ML PIGGYBACK 100 MG IV (09:17)
[2023-02-21] MEDS: Chlorhexidine Gluc Oral Rinse 15 ML MOUTHWASH BUCCAL ×3 (09:17→19:31)
[2023-02-21] MEDS: Potassium Chloride Packet 20 MEQ PACKET 40 MEQ NG-TUBE (09:17)
[2023-02-21] MEDS: Nystatin Powder 15 GM BOTTLE 1 APPL TOPICAL ×3 (09:35→19:44)
--- NOTE | 2023-02-21 10:34 | P.PNCC_ITS ---
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 On ER evaluation patient with iatrogenic hyperoxia induced hypercarbia progressing to hypoxia requiring intubation. CT angio chest with no evidence for pulmonary emboli, but pulmonary edema. Patient started on Diamox and empiric antibiotics, with significant improvement. Extubated on 01/29/2023, but required re-intubation within 30 minutes for inability to control secretions/ pulmonary aspirations. Continues to fail pressure support trials secondary to tachypnea and low tidal volumes. EMG with abnormal low/absent motor responses. Now status post tracheostomy/PEG placement on 02/11/2023. Some improvement in tolerance of pressure support. No events overnight. Critical Care Time (minutes): 45 Physical Exam Vital Signs: Vital Signs: Last Vital Signs Temp 99.1 F 02/21/23 10:00 Pulse 110 H 02/21/23 10:00 Resp 25 H 02/21/23 10:00 BP 96/62 02/21/23 10:00 Pulse Ox 91 L 02/21/23 10:00 O2 Del Method Mechanical Ventil ation 02/21/23 10:00 O2 Flow Rate 30 02/20/23 09:00 FiO2 30 02/21/23 10:00 Oxygen Flow Rate 4 01/26/23 13:05 BMI result Body Mass Index 35.9 Const: General: no acute distress and lethargic Nutritional Appearance: obese Orientation/consciousness: lethargic Eyes: Sclerae: sclerae normal EOM: EOMs intact bilaterally Neck: Neck: Yes tracheostomy present ( tracheostomy on vent) Resp: Effort & Inspection: normal respiratory effort and no respiratory distress Auscultation: clear to auscultation bilaterally Cardio: Rate: tachycardic Rhythm: regular rhythm Heart sounds: no gallops, no murmurs and no rubs GI: Inspection: Yes other ( PEG) Palpation (GI): Soft to palpation and Other GI palpation findings present ( Nontender) Auscultation: normal bowel sounds Extrem: General: Yes no pedal edema, No clubbing and No cyanosis Objective Data Labs 02/21/23 04:49 02/21/23 04:49 Labs: Laboratory Results - last 24 hr 02/21/23 02/21/23 02/21/23 04:49 04:49 04:49 WBC 6.9 RBC 3.99 L Hgb 11.7 L Hct 37.0 MCV 92.7 MCH 29.3 MCHC 31.6 RDW 15.0 Plt Count 434 H MPV 10.7 Immature Gran % (Auto) 0.6 H Neut % (Auto) 65.0 Lymph % (Auto) 20.3 [place] % (Auto) 9.9 Eos % (Auto) 3.3 Baso % (Auto) 0.9 Lymph # (Auto) 1.4 [place] # (Auto) 0.7 Eos # (Auto) 0.2 Baso # (Auto) 0.1 Abs Immat Gran (auto) 0.04 H Absolute Neuts (auto) 4.5 Absolute Nucleated RBC 0.000 Nucleated RBC % (auto) 0.0 VBG pH VBG pCO2 VBG pO2 VBG HCO3 VBG O2 Saturation VBG Base Excess Sodium 140 Potassium 3.2 L Chloride 100 Carbon Dioxide 25 Anion Gap 18 BUN 15 Creatinine 0.55 Estim Creat Clear Calc 122.4 Estimated GFR > 60 Random Glucose 112 Calcium 11.3 H Phosphorus 3.0 Magnesium 2.6 Albumin 3.9 Random Vancomycin 15.1 02/21/23 04:49 WBC RBC Hgb Hct MCV MCH MCHC RDW Plt Count MPV Immature Gran % (Auto) Neut % (Auto) Lymph % (Auto) [place] % (Auto) Eos % (Auto) Baso % (Auto) Lymph # (Auto) [place] # (Auto) Eos # (Auto) Baso # (Auto) Abs Immat Gran (auto) Absolute Neuts (auto) Absolute Nucleated RBC Nucleated RBC % (auto) VBG pH 7.57 H VBG pCO2 35 VBG pO2 48 VBG HCO3 32 H VBG O2 Saturation 78.0 VBG Base Excess 9.9 Sodium Potassium Chloride Carbon Dioxide Anion Gap BUN Creatinine Estim Creat Clear Calc Estimated GFR Random Glucose Calcium Phosphorus Magnesium Albumin Random Vancomycin Microbiology Microbiology Results: Microbiology 02/08/23 Unknown Sputum - Suctioned Gram Stain - Final 02/08/23 Unknown Sputum - Suctioned Sputum Culture - Final Methicillin Res Staph Aureus Yeast 01/26/23 16:17 Blood - Venous Blood Culture - Final No growth after 5 days. 01/26/23 16:09 Blood - Venous Blood Culture - Final No growth after 5 days. Progress Note: A&P Assessment and plan (1) S/P percutaneous endoscopic gastrostomy (PEG) tube placement: Status: Acute (2) Status post tracheostomy: Status: Acute (3) Aspiration pneumonia: Status: Acute (4) Failure to wean from mechanical ventilation: Status: Acute (5) Dysphagia: Status: Acute (6) Acute on chronic respiratory failure with hypoxia and hypercapnia: Status: Acute (7) Muscular dystrophy: Status: Acute Plan Assessment: 47-year-old lady with unspecified underlying muscular dystrophy admitted with acute on chronic hypoxic and hypercapnic respiratory failure requiring ventilatory support, likely secondary to underlying congestive heart failure. Plan: Neuro: Underlying unspecified (?myotonic) muscular dystrophy, EMG with abnormal low/absent motor responses. Cardiac: No acute issues. Pulmonary: Acute on chronic hypoxic and hypercapnic respiratory failure with inability to clear secretions/pulmonary aspiration on the background of unspecified muscular dystrophy with failure to wean from mechanical ventilation. Status post tracheostomy/ gastrostomy placement on 02/11/2023. Continue to wean off ventilatory support as tolerated. Patient with some improvement in ability to tolerate ventilator weaning. Renal: No acute issues. Endo: No acute issues. GI: No acute issues. ID: Tracheobronchitis with MRSA, continue vancomycin for total of 7 days (through 02/21). Heme/Onc: No acute issues. Psych: No acute issues. Miscellaneous: No acute issues. Prophylaxis: Lovenox, ppi Diet: tube feeds Critical care time spent: 45 minutes Quality Stroke Does the patient have a stroke diagnosis?: No VTE Prior VTE?: No VTE Risk Level:: Medical - moderate - high VTE Device Contraindication: N/A - Device Ordered VTE Drug Contraindication: N/A - Med Ordered
[2023-02-21] MEDS: Furosemide 40 MG/4 ML VIAL IVPUSH (11:02)
[2023-02-21] MEDS: diphenhydrAMINE HCL 50 MG/ML VIAL 25 MG IVPUSH ×2 (11:03→19:31)
[2023-02-21] MEDS: Midazolam HCl/PF 2 MG/2 ML VIAL 1 MG IVPUSH ×2 (14:12→20:15)
[2023-02-21] MEDS: Albuterol Sulfate (0.083%) 2.5 MG/3 ML VIAL.NEB INHALE (15:21)
--- NOTE | 2023-02-21 15:32 | PC.RT ---
RT called, pt c/o sob on psv 14 cmh20. VT noted > 200ml and VE > 4.5L. Psv was increased by 2cmh2o to 16 cmh20 with vt > 280ml and VE 6-7L. Pt noted to be anxious, shaking legs and reaching for vent circuit. Rt called again for sob, svn requested, given. LS exp rhonchi noted, no change in pts rr > 30-35 and anxiety persists post svn. Rt called for pt RR > 35. RT assist returning pt to bed and returned pt to PC ventilation. Noted anxiety persisting. VT > 350ml and VE 8.0L at this time with RR 30. RN aware.
--- NOTE | 2023-02-21 18:59 | PC.NURSE ---
Assumed care at 07:00. Patient initially drowsy and limited assessment, mouths words to reply to questions. Patient was resting, assisted OOB to [place] chair after she had about 7 hours of sleep, patient was placed on PSV 14/6 and 30%, after changing inner cannula and trach care, this was somewhat poorly tolerated with repeated complaints of shortness of breath and some chest tightness, RR 32-48; tachycardia with sinus tachycardia 130's, MD aware and PRN versed, PRN albuterol with effect, as well as increasing pressure support to 16/6 30%, patient tired out around 1600 and was both placed back on PC settings and assisted back to bed with effect. LS clear throughout to auscultation, thin clear inline secretions. Stoma from tracheostomy with neri thick secretions this morning, growing more copious and greener throughout the day, patient on vancomycin and fluconazole, MD aware. Since waking, patient has been restless and reaching for various tubes and lines, and is somewhat redirectable, requiring frequent redirection, telesitter in use; patient also endorsed itchiness this morning at left side of neck, where she has a pink rash behind and distal to left ear, cleaned sweat from around trach ties, and applied lotion with effect. Patient reported burning sensation from tatum, and criteria met for removal, replaced at 17:20 with purewick, due to void at 2120.
[2023-02-21] MEDS: Enoxaparin Sodium 40 MG/0.4 ML SYRINGE SUBCUT (19:04)
[2023-02-21] MEDS: QUEtiapine Fumarate 25 MG TABLET PO (19:31)
[2023-02-22] VITALS (29 sets, daily range): BP systolic 85–120; BP diastolic 49–77; PULSE 68–115; RESP 14–32; TEMP 34.6–37.1; O2SAT 90–97; BMI 37.2
[2023-02-22] MEDS: Midazolam HCl/PF 2 MG/2 ML VIAL 1 MG IVPUSH
[2023-02-22] MEDS: LORazepam 2 MG/ML VIAL 1 MG IVPUSH (01:02)
[2023-02-22 04:53] LABS: MANUAL DIFF FLAG NO
[2023-02-22 04:55] LABS: Basophils Absolute Auto 0.1 X10*3/uL (0.0-0.2); Basophils Percent Auto 0.9 % (0-2); Eosinophils Absolute Auto 0.2 X10*3/uL (0.0-0.4); Eosinophils Percent Auto 3.1 % (0-4); Hematocrit 36.9 % (37.0-47.0); Hemoglobin 11.4 g/dl (12.0-16.0); Imm Gran Abs Auto 0.02 X10*3/uL (0.00-0.03); Imm Gran Pct Auto 0.3 % (0.0-0.4); Lymphocytes Absolute Auto 1.5 X10*3/uL (1.2-4.9); Lymphocytes Percent Auto 21.5 % (20-40); Mean Corpuscular HGB Conc 30.9 g/dl (31.0-35.0); Mean Corpuscular Hemoglobin 29.5 pg (27.0-33.0); Mean Corpuscular Volume 95.6 fL (80.0-98.0); Mean Platelet Volume 10.9 fL (9.4-12.3); Monocytes Absolute Auto 0.7 X10*3/uL (0.1-1.2); Monocytes Percent Auto 10.2 % (2-11); Neutrophils Absolute Auto 4.4 x10*3/uL (2.0-8.3); Platelet Count 448 X10*3/uL (160-400); Red Blood Count 3.86 X10*6/uL (4.20-5.50); Red Cell Distribution Width 15.3 % (11.0-16.0); White Blood Count 6.8 X10*3/uL (4.8-10.8)
[2023-02-22 04:57] LABS: VBG Base Excess 5.6 mmol/L; VBG HCO3 27 mmol/L (22-26); VBG pCO2 31 mmHg; VBG pH 7.54 (7.32-7.43); VBG pO2 76 mmHg
[2023-02-22 04:58] LABS: Venous Blood Gas Refer to POC result
[2023-02-22 05:10] LABS: Vancomycin Random 19.6 mcg/mL (15-20)
[2023-02-22 05:11] LABS: Albumin Level 3.9 g/dL (3.5-5.0); Anion Gap 14 (12-20); Blood Urea Nitrogen 21 mg/dL (9-16); Carbon Dioxide 27 mmol/L (22-29); Chloride 105 mmol/L (96-108); Estimated Glomerular Filt Rate > 60; Glucose Random 107 mg/dL (60-115); Magnesium 2.8 mg/dL (1.6-2.6); Phosphorus 3.3 mg/dL (2.7-4.5); Potassium 3.4 mmol/L (3.3-5.1); Sodium 143 mmol/L (135-145)
[2023-02-22] MEDS: Potassium Chloride Packet 20 MEQ PACKET 40 MEQ NG-TUBE (05:43)
--- NOTE | 2023-02-22 06:46 | HE.PHANOTE ---
RE: THONG Patient was increased to 1500 mg Q24H yesterday, patient recieved one dose and had a level of 19.1. However level was drawn 75 minutes early, therefore, level could have been lower. Going to continue with 1500 mg Q24H. Patients predicted AUC 473. Next draw will be tomorrow 02/23 @0600 to ensure safety vs efficacy.
[2023-02-22] MEDS: vancomycin HCL 1,500 MG in 0.9 % Sodium Chloride 500 ML 333.33 MG IV (07:53)
[2023-02-22] MEDS: Fluconazole in NaCl,Iso-Osm 200 MG/100 ML PIGGYBACK 100 MG IV (08:13)
[2023-02-22] MEDS: lamoTRIgine 25 MG TABLET 50 MG PO ×2 (09:20→19:43)
[2023-02-22] MEDS: Chlorhexidine Gluc Oral Rinse 15 ML MOUTHWASH BUCCAL ×3 (09:20→19:43)
[2023-02-22] MEDS: Nystatin Powder 15 GM BOTTLE 1 APPL TOPICAL ×3 (09:21→19:43)
--- NOTE | 2023-02-22 10:01 | PM.CCPN ---
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 On ER evaluation patient with iatrogenic hyperoxia induced hypercarbia progressing to hypoxia requiring intubation. CT angio chest with no evidence for pulmonary emboli, but pulmonary edema. Patient started on Diamox and empiric antibiotics, with significant improvement. Extubated on 01/29/2023, but required re-intubation within 30 minutes for inability to control secretions/pulmonary aspirations. Continues to fail pressure support trials secondary to tachypnea and low tidal volumes. EMG with abnormal low/absent motor responses. Now status post tracheostomy/PEG placement on 02/11/2023. Some improvement in tolerance of pressure support. No events overnight. Critical Care Time (minutes): 45 Physical Exam Vital Signs: Vital Signs: Last Vital Signs Temp 98.5 F 02/22/23 09:00 Pulse 103 H 02/22/23 09:00 Resp 22 H 02/22/23 09:00 BP 108/66 02/22/23 09:00 Pulse Ox 94 02/22/23 09:00 O2 Del Method Mechanical Ventil ation 02/22/23 09:00 O2 Flow Rate 30 02/20/23 09:00 FiO2 30 02/22/23 09:00 Oxygen Flow Rate 4 01/26/23 13:05 BMI result Body Mass Index 37.2 Const: General: no acute distress, alert and lethargic ( following commands) Nutritional Appearance: obese Orientation/consciousness: lethargic ( following commands) Eyes: Sclerae: sclerae normal EOM: EOMs intact bilaterally Neck: Neck: Yes tracheostomy present ( on vent) Resp: Auscultation: clear to auscultation bilaterally Cardio: Rate: tachycardic Rhythm: regular rhythm Heart sounds: no gallops, no murmurs and no rubs GI: Inspection: Yes G-tube present Palpation (GI): Soft to palpation and Other GI palpation findings present ( Nontender) Auscultation: normal bowel sounds Extrem: General: Yes no pedal edema, No clubbing and No cyanosis Objective Data Labs 02/22/23 04:48 02/22/23 04:48 Labs: Laboratory Results - last 24 hr 02/22/23 02/22/23 02/22/23 04:48 04:48 04:48 WBC 6.8 RBC 3.86 L Hgb 11.4 L Hct 36.9 L MCV 95.6 MCH 29.5 MCHC 30.9 L RDW 15.3 Plt Count 448 H MPV 10.9 Immature Gran % (Auto) 0.3 Neut % (Auto) 64.0 Lymph % (Auto) 21.5 [place] % (Auto) 10.2 Eos % (Auto) 3.1 Baso % (Auto) 0.9 Lymph # (Auto) 1.5 [place] # (Auto) 0.7 Eos # (Auto) 0.2 Baso # (Auto) 0.1 Abs Immat Gran (auto) 0.02 Absolute Neuts (auto) 4.4 Absolute Nucleated RBC 0.000 Nucleated RBC % (auto) 0.0 VBG pH VBG pCO2 VBG pO2 VBG HCO3 VBG O2 Saturation VBG Base Excess Sodium 143 Potassium 3.4 Chloride 105 Carbon Dioxide 27 Anion Gap 14 BUN 21 H Creatinine 0.66 Estim Creat Clear Calc 102.0 Estimated GFR > 60 Random Glucose 107 Calcium 11.0 H Phosphorus 3.3 Magnesium 2.8 H Albumin 3.9 Random Vancomycin 19.6 02/22/23 04:51 WBC RBC Hgb Hct MCV MCH MCHC RDW Plt Count MPV Immature Gran % (Auto) Neut % (Auto) Lymph % (Auto) [place] % (Auto) Eos % (Auto) Baso % (Auto) Lymph # (Auto) [place] # (Auto) Eos # (Auto) Baso # (Auto) Abs Immat Gran (auto) Absolute Neuts (auto) Absolute Nucleated RBC Nucleated RBC % (auto) VBG pH 7.54 H VBG pCO2 31 VBG pO2 76 VBG HCO3 27 H VBG O2 Saturation 95.0 VBG Base Excess 5.6 Sodium Potassium Chloride Carbon Dioxide Anion Gap BUN Creatinine Estim Creat Clear Calc Estimated GFR Random Glucose Calcium Phosphorus Magnesium Albumin Random Vancomycin Microbiology Microbiology Results: Microbiology 02/08/23 Unknown Sputum - Suctioned Gram Stain - Final 02/08/23 Unknown Sputum - Suctioned Sputum Culture - Final Methicillin Res Staph Aureus Yeast 01/26/23 16:17 Blood - Venous Blood Culture - Final No growth after 5 days. 01/26/23 16:09 Blood - Venous Blood Culture - Final No growth after 5 days. Progress Note: A&P Assessment and plan (1) S/P percutaneous endoscopic gastrostomy (PEG) tube placement: Status: Acute (2) Status post tracheostomy: Status: Acute (3) Aspiration pneumonia: Status: Acute (4) Failure to wean from mechanical ventilation: Status: Acute (5) Dysphagia: Status: Acute (6) Acute on chronic respiratory failure with hypoxia and hypercapnia: Status: Acute (7) Muscular dystrophy: Status: Acute Plan Assessment: 47-year-old lady with unspecified underlying muscular dystrophy admitted with acute on chronic hypoxic and hypercapnic respiratory failure requiring ventilatory support, likely secondary to underlying congestive heart failure. Plan: Neuro: Underlying unspecified (?myotonic) muscular dystrophy, EMG with abnormal low/absent motor responses. Cardiac: No acute issues. Pulmonary: Acute on chronic hypoxic and hypercapnic respiratory failure with inability to clear secretions/pulmonary aspiration on the background of unspecified muscular dystrophy with failure to wean from mechanical ventilation. Status post tracheostomy/ gastrostomy placement on 02/11/2023. Continue to wean off ventilatory support as tolerated. Patient with some improvement in ability to tolerate ventilator weaning. Plan is for discharge to ventilator weaning facility on 02/24/2023. Renal: No acute issues. Endo: No acute issues. GI: No acute issues. ID: Tracheobronchitis with MRSA, status post 7 days of vancomycin. Heme/Onc: No acute issues. Psych: No acute issues. Miscellaneous: No acute issues. Prophylaxis: Lovenox, ppi Diet: tube feeds Critical care time spent: 45 minutes Quality Stroke Does the patient have a stroke diagnosis?: No VTE Prior VTE?: No VTE Risk Level:: Medical - moderate - high VTE Device Contraindication: N/A - Device Ordered VTE Drug Contraindication: N/A - Med Ordered
[2023-02-22] MEDS: Enoxaparin Sodium 40 MG/0.4 ML SYRINGE SUBCUT (19:16)
[2023-02-22] MEDS: QUEtiapine Fumarate 25 MG TABLET PO (19:43)
[2023-02-23] VITALS (35 sets, daily range): BP systolic 92–138; BP diastolic 47–76; PULSE 71–120; RESP 14–32; TEMP 34.2–37.2; O2SAT 93–100; BMI 37.5
[2023-02-23] MEDS: diphenhydrAMINE HCL 50 MG/ML VIAL 25 MG IVPUSH (01:03)
[2023-02-23] MEDS: Midazolam HCl/PF 2 MG/2 ML VIAL 1 MG IVPUSH (02:15)
[2023-02-23] MEDS: LORazepam 2 MG/ML VIAL IVPUSH (03:13)
[2023-02-23] MEDS: Albuterol Sulfate (0.083%) 2.5 MG/3 ML VIAL.NEB INHALE ×3 (03:22→23:16)
--- NOTE | 2023-02-23 03:50 | PC.NURSE ---
CARE ASSUMED 23;15...REMAINS PCV/AC VENT SUPPORT VIA TRACH...INITIALLY RESTFUL...AROUSED TO VERBAL STIMULI AND NODDED YES/NO TO QUESTIONS.....INCONTINANT AT 12AM...BLADDER SCANNED 38 & 46ML....PERSONAL CARE GIVEN AND PURWIK RE-APPLIED....INCREASED RESTLESSNESS OVERNIGHT...C/O ITCHY SENSATION TO FACE/NECK...PRN BENADRYL GIVEN 01:03 WITH SOME EFFECT....INCREASED RESTLESS...PERIODS OF AGITATION...C/O ANXIETY AND I CAN'T COUGH ANYTHING UP ...SUCTIONED/BAGGED & LAVAGED W/O SIGNIFICANT SPUTUM...PRN VERSED GIVEN 02:15 WITH TRANSIENT EFFECT.....ICU KISS SETTER HAND PRESENT...ATIVAN 2MG IV X1 GIVEN 03:13 WITH GRADUAL RESTFUL EFFECT...PRN UPDRAFT GIVEN...CURRENTLY DOZING...PREVIOUSLY AT HS PATIENT C/O BURNING AT IV SITES TO RIGHT FOREARM AND LEFT WRIST....IV SITES D/C'D WITH ANGIO'S INTACT AND #22 ANGIO/PRN ADAPTOR STARTED TO LEFT FOREARM....REPEAT BLADDER SCAN 03:00 FOR 0-15ML....
[2023-02-23 05:28] LABS: MANUAL DIFF FLAG NO
[2023-02-23 05:28] LABS: VBG Base Excess 4.3 mmol/L; VBG HCO3 26 mmol/L (22-26); VBG pCO2 32 mmHg; VBG pH 7.51 (7.32-7.43); VBG pO2 47 mmHg
[2023-02-23 05:29] LABS: Venous Blood Gas Refer to POC result
[2023-02-23 05:30] LABS: Basophils Absolute Auto 0.1 X10*3/uL (0.0-0.2); Basophils Percent Auto 0.6 % (0-2); Eosinophils Absolute Auto 0.3 X10*3/uL (0.0-0.4); Eosinophils Percent Auto 3.3 % (0-4); Hematocrit 38.3 % (37.0-47.0); Hemoglobin 11.7 g/dl (12.0-16.0); Imm Gran Abs Auto 0.03 X10*3/uL (0.00-0.03); Imm Gran Pct Auto 0.3 % (0.0-0.4); Lymphocytes Absolute Auto 1.8 X10*3/uL (1.2-4.9); Lymphocytes Percent Auto 20.7 % (20-40); Mean Corpuscular HGB Conc 30.5 g/dl (31.0-35.0); Mean Corpuscular Hemoglobin 29.3 pg (27.0-33.0); Mean Platelet Volume 11.1 fL (9.4-12.3); Monocytes Absolute Auto 0.7 X10*3/uL (0.1-1.2); Neutrophils Percent Auto 67.1 % (45-73); Platelet Count 381 X10*3/uL (160-400); Red Blood Count 3.99 X10*6/uL (4.20-5.50); Red Cell Distribution Width 15.2 % (11.0-16.0); White Blood Count 8.9 X10*3/uL (4.8-10.8)
[2023-02-23 05:46] LABS: Vancomycin Random 19.2 mcg/mL (15-20)
[2023-02-23 05:50] LABS: Albumin Level 3.8 g/dL (3.5-5.0); Anion Gap 18 (12-20); Blood Urea Nitrogen 16 mg/dL (9-16); Calcium 10.9 mg/dL (8.4-10.2); Carbon Dioxide 21 mmol/L (22-29); Chloride 108 mmol/L (96-108); Creatinine Clr Calc Pharmacy 114.9; Estimated Glomerular Filt Rate > 60; Glucose Random 92 mg/dL (60-115); Phosphorus 3.7 mg/dL (2.7-4.5); Potassium 3.6 mmol/L (3.3-5.1); Sodium 143 mmol/L (135-145)
[2023-02-23] MEDS: Chlorhexidine Gluc Oral Rinse 15 ML MOUTHWASH BUCCAL ×3 (08:15→20:55)
[2023-02-23] MEDS: lamoTRIgine 25 MG TABLET 50 MG PO ×2 (08:16→20:55)
[2023-02-23] MEDS: Nystatin Powder 15 GM BOTTLE 1 APPL TOPICAL ×3 (08:16→20:55)
--- NOTE | 2023-02-23 08:16 | P.PNCC_ITS ---
Subjective Subjective Date of Service: 02/23/23 Interval History: Reportedly restless in PM, improved with lorazepam PRN Critical Care Time (minutes): 30 Physical Exam Vital Signs: Vital Signs: Last Vital Signs Temp 96.3 F L 02/23/23 08:00 Pulse 76 02/23/23 08:00 Resp 16 02/23/23 08:00 BP 106/69 02/23/23 08:00 Pulse Ox 97 02/23/23 08:00 O2 Del Method Mechanical Ventil ation 02/23/23 08:00 O2 Flow Rate 30 02/20/23 09:00 FiO2 30 02/23/23 08:00 Oxygen Flow Rate 4 01/26/23 13:05 BMI result Body Mass Index 37.5 Const: Other: sitting in chair; maintains eyes closed, though answers yes-no questions appropriately General: comfortable and no acute distress Nutritional Appearance: overweight HEENT: Other: appreciable tracheostomy site, clean, mild discharge, otherwise intact Head: Yes normal to inspection, Yes normocephalic and Yes atraumatic Chest: Chest palpation & inspection: normal inspection of the chest Resp: Effort & Inspection: normal respiratory effort Auscultation: clear to auscultation bilaterally Cardio: Rate: regular rate Rhythm: regular rhythm Heart sounds: S1 normal heart sound present and S2 normal heart sound present GI: Other: soft, non-tender to palpation throughout; appreciable G-tube in left upper quadrant, clean, dry, intact Inspection: Yes normal to inspection Auscultation: normal bowel sounds Skin: General skin exam: no rashes or lesions noted Neuro: Other: does not consistently follows commands, though answers yes-no questions appropriately Extrem: Other: no appreciable edema, erythema General: Yes normal to inspection Psych: Appearance: grossly normal Mental Status: mental status grossly normal Objective Data Labs 02/23/23 05:15 02/23/23 05:15 Labs: Laboratory Results - last 24 hr 02/23/23 02/23/23 02/23/23 05:15 05:15 05:15 WBC 8.9 RBC 3.99 L Hgb 11.7 L Hct 38.3 MCV 96.0 MCH 29.3 MCHC 30.5 L RDW 15.2 Plt Count 381 MPV 11.1 Immature Gran % (Auto) 0.3 Neut % (Auto) 67.1 Lymph % (Auto) 20.7 [place] % (Auto) 8.0 Eos % (Auto) 3.3 Baso % (Auto) 0.6 Lymph # (Auto) 1.8 [place] # (Auto) 0.7 Eos # (Auto) 0.3 Baso # (Auto) 0.1 Abs Immat Gran (auto) 0.03 Absolute Neuts (auto) 6.0 Absolute Nucleated RBC 0.000 Nucleated RBC % (auto) 0.0 VBG pH VBG pCO2 VBG pO2 VBG HCO3 VBG O2 Saturation VBG Base Excess Sodium 143 Potassium 3.6 Chloride 108 Carbon Dioxide 21 L Anion Gap 18 BUN 16 Creatinine 0.60 Estim Creat Clear Calc 114.9 Estimated GFR > 60 Random Glucose 92 Calcium 10.9 H Phosphorus 3.7 Magnesium 3.0 H Albumin 3.8 Random Vancomycin 19.2 02/23/23 05:22 WBC RBC Hgb Hct MCV MCH MCHC RDW Plt Count MPV Immature Gran % (Auto) Neut % (Auto) Lymph % (Auto) [place] % (Auto) Eos % (Auto) Baso % (Auto) Lymph # (Auto) [place] # (Auto) Eos # (Auto) Baso # (Auto) Abs Immat Gran (auto) Absolute Neuts (auto) Absolute Nucleated RBC Nucleated RBC % (auto) VBG pH 7.51 H VBG pCO2 32 VBG pO2 47 VBG HCO3 26 VBG O2 Saturation 74.0 VBG Base Excess 4.3 Sodium Potassium Chloride Carbon Dioxide Anion Gap BUN Creatinine Estim Creat Clear Calc Estimated GFR Random Glucose Calcium Phosphorus Magnesium Albumin Random Vancomycin Microbiology Microbiology Results: Microbiology 02/08/23 Unknown Sputum - Suctioned Gram Stain - Final 02/08/23 Unknown Sputum - Suctioned Sputum Culture - Final Methicillin Res Staph Aureus Yeast 01/26/23 16:17 Blood - Venous Blood Culture - Final No growth after 5 days. 01/26/23 16:09 Blood - Venous Blood Culture - Final No growth after 5 days. Progress Note: A&P Assessment and plan (1) Muscular dystrophy: Status: Acute (2) Respiratory failure: Status: Acute (3) Acute on chronic respiratory failure with hypoxia and hypercapnia: Status: Acute (4) Failure to wean from mechanical ventilation: Status: Acute (5) Aspiration pneumonia: Status: Acute (6) Status post tracheostomy: Status: Acute (7) S/P percutaneous endoscopic gastrostomy (PEG) tube placement: Status: Acute Plan 48 Y F, morbid obesity, muscular dystrophy, c/b dysphagia, recurrent aspiration pneumonia, COPD c/b chronic hypoxic/hypercapnic respiratory failure, previously on NC, p/t ED on 01/26 w/ acute/chronic hypoxic respiratory failure, likely d/t aspiration pneumonia, and pulmonary edema; hospital course c/b persistent mixed respiratory failure, s/p trach/PEG 02/11; maintains in ICU d/t persistent ventilator dependence, improving, plan for placement to trach/vent facility tentatively 02/24 Neuro: no acute issues; mobility: out of bed as tolerated CV: hemodynamically stable; no acute issues Pulm: acute/chronic mixed respiratory failure, likely d/t aspiration pneumonia, pulmonary edema; s/p trach, persistent ventilator dependence, PS AM, PC PM, though slowly improving; plan for PS AM as tolerated, ventilator facility tentatively 02/24 GI: no acute issues; nutrition: tube feeds : no acute issues; function: at baseline creatinine; electrolytes: no appr eciable derangements; volume: maintain euvolemia ID: tracheobronchitis d/t MSRA, s/p vancomycin, resolved Heme: no acute issues; DVT prophylaxis: chemical, enoxaparin Endo: no acute issues Psych: mild restlessness in PM, improved w/ lorazepam PRN Dispo: ICU d/t ventilator dependence, ventilatory facility tentatively 02/24 Quality Stroke Does the patient have a stroke diagnosis?: No VTE Prior VTE?: No VTE Risk Level:: Medical - moderate - high VTE Device Contraindication: N/A - Device Ordered VTE Drug Contraindication: N/A - Med Ordered
--- NOTE | 2023-02-23 09:13 | MHC.CLN ---
F/U PT TOLERATING TF JEVITY 1.0 AT MAX GOAL RATE 45 ML/HR WITH 120 ML FWF Q 8 HRS. PROVIDES 1145 KCALS (25 KCALS/KG IBW); 48G PROTEIN (1.06 G/KG IBW); 1262 ML TOTAL WATER FROM FORMULA AND FLUSHES (28 ML/KG IBW). CONTINUE TO MONITOR TOLERANCE, RESIDUALS AND LYTES.
[2023-02-23] MEDS: QUEtiapine Fumarate 25 MG TABLET PO (20:55)
[2023-02-23] MEDS: Enoxaparin Sodium 40 MG/0.4 ML SYRINGE SUBCUT (20:55)
[2023-02-24] VITALS (30 sets, daily range): BP systolic 89–121; BP diastolic 53–86; PULSE 71–110; RESP 14–111; TEMP 34.4–37.1; O2SAT 92–99; BMI 37.5
[2023-02-24 05:40] LABS: VBG Base Excess 7.2 mmol/L; VBG HCO3 29 mmol/L (22-26); VBG pCO2 34 mmHg; VBG pH 7.54 (7.32-7.43); VBG pO2 47 mmHg
[2023-02-24 05:48] LABS: Basophils Absolute Auto 0.1 X10*3/uL (0.0-0.2); Basophils Percent Auto 0.7 % (0-2); Eosinophils Absolute Auto 0.5 X10*3/uL (0.0-0.4); Hemoglobin 10.7 g/dl (12.0-16.0); Imm Gran Abs Auto 0.02 X10*3/uL (0.00-0.03); Imm Gran Pct Auto 0.3 % (0.0-0.4); Lymphocytes Absolute Auto 1.8 X10*3/uL (1.2-4.9); Lymphocytes Percent Auto 23.4 % (20-40); Mean Corpuscular HGB Conc 30.6 g/dl (31.0-35.0); Mean Corpuscular Hemoglobin 29.6 pg (27.0-33.0); Mean Platelet Volume 11.4 fL (9.4-12.3); Monocytes Absolute Auto 0.6 X10*3/uL (0.1-1.2); Monocytes Percent Auto 7.4 % (2-11); Neutrophils Absolute Auto 4.8 x10*3/uL (2.0-8.3); Neutrophils Percent Auto 62.2 % (45-73); PLT CLUMP 1; Red Blood Count 3.61 X10*6/uL (4.20-5.50); Red Cell Distribution Width 15.1 % (11.0-16.0); SCAN SMEAR FLAG 1
[2023-02-24 05:50] LABS: MANUAL DIFF FLAG NO; Platelet Count 374 X10*3/uL (160-400); White Blood Count 7.7 X10*3/uL (4.8-10.8)
[2023-02-24 05:55] LABS: Anion Gap 14 (12-20); Blood Urea Nitrogen 16 mg/dL (9-16); Calcium 10.9 mg/dL (8.4-10.2); Carbon Dioxide 25 mmol/L (22-29); Chloride 107 mmol/L (96-108); Creatinine Clr Calc Pharmacy 113.1; Estimated Glomerular Filt Rate > 60; Glucose Random 94 mg/dL (60-115); Sodium 142 mmol/L (135-145)
[2023-02-24 06:48] LABS: Venous Blood Gas Refer to POC result
[2023-02-24] MEDS: Chlorhexidine Gluc Oral Rinse 15 ML MOUTHWASH BUCCAL ×3 (08:37→21:21)
[2023-02-24] MEDS: Nystatin Powder 15 GM BOTTLE 1 APPL TOPICAL ×3 (08:37→21:21)
[2023-02-24] MEDS: lamoTRIgine 25 MG TABLET 50 MG PO ×2 (08:37→21:21)
--- NOTE | 2023-02-24 08:51 | P.PNCC_ITS ---
Subjective Subjective Date of Service: 02/24/23 Interval History: no appreciable overnight events Critical Care Time (minutes): 30 Physical Exam Vital Signs: Vital Signs: Last Vital Signs Temp 98.5 F 02/24/23 08:00 Pulse 79 02/24/23 08:00 Resp 23 H 02/24/23 08:00 BP 89/62 L 02/24/23 08:00 Pulse Ox 96 02/24/23 08:00 O2 Del Method Mechanical Ventil ation 02/24/23 08:00 O2 Flow Rate 30 02/20/23 09:00 FiO2 30 02/24/23 08:00 Oxygen Flow Rate 4 01/26/23 13:05 BMI result Body Mass Index 37.5 Const: Other: answers yes-no questions appropriately General: cooperative, comfortable and no acute distress HEENT: Head: Yes normocephalic and Yes atraumatic Eyes: General: appearance normal, both eyes and all related structures Neck: Other: appreciable tracheostomy, mild white discharge Chest: Chest palpation & inspection: normal inspection of the chest Resp: Effort & Inspection: normal respiratory effort, no respiratory distress and no stridor Cardio: Rate: regular rate Rhythm: regular rhythm Heart sounds: S1 normal heart sound present, S2 normal heart sound present, no gallops, no murmu rs and no rubs GI: Inspection: Yes normal to inspection and No distended : General: Yes bladder normal to palpation Bimanual exam- vagina & uterus: bladder normal to palpation Skin: General skin exam: no rashes or lesions noted Neuro: Other: overall weakness, though no focal neurological deficits Extrem: General: Yes normal to inspection, No clubbing, No cyanosis and No claire ma Psych: Appearance: grossly normal Objective Data Labs 02/24/23 05:13 02/24/23 05:13 Labs: Laboratory Results - last 24 hr 02/24/23 02/24/23 02/24/23 05:13 05:13 05:35 WBC 7.7 RBC 3.61 L Hgb 10.7 L Hct 35.0 L MCV 97.0 MCH 29.6 MCHC 30.6 L RDW 15.1 Plt Count 374 MPV 11.4 Immature Gran % (Auto) 0.3 Neut % (Auto) 62.2 Lymph % (Auto) 23.4 [place] % (Auto) 7.4 Eos % (Auto) 6.0 H Baso % (Auto) 0.7 Lymph # (Auto) 1.8 [place] # (Auto) 0.6 Eos # (Auto) 0.5 H Baso # (Auto) 0.1 Abs Immat Gran (auto) 0.02 Absolute Neuts (auto) 4.8 Absolute Nucleated RBC 0.000 Nucleated RBC % (auto) 0.0 VBG pH 7.54 H VBG pCO2 34 VBG pO2 47 VBG HCO3 29 H VBG O2 Saturation 74.0 VBG Base Excess 7.2 Sodium 142 Potassium 4.0 Chloride 107 Carbon Dioxide 25 Anion Gap 14 BUN 16 Creatinine 0.61 Estim Creat Clear Calc 113.1 Estimated GFR > 60 Random Glucose 94 Calcium 10.9 H Microbiology Microbiology Results: Microbiology 02/08/23 Unknown Sputum - Suctioned Gram Stain - Final 02/08/23 Unknown Sputum - Suctioned Sputum Culture - Final Methicillin Res Staph Aureus Yeast 01/26/23 16:17 Blood - Venous Blood Culture - Final No growth after 5 days. 01/26/23 16:09 Blood - Venous Blood Culture - Final No growth after 5 days. Progress Note: A&P Assessment and plan (1) S/P percutaneous endoscopic gastrostomy (PEG) tube placement: Status: Acute (2) Status post tracheostomy: Status: Acute (3) Aspiration pneumonia: Status: Acute (4) Failure to wean from mechanical ventilation: Status: Acute (5) Acute on chronic respiratory failure with hypoxia and hypercapnia: Status: Acute (6) Muscular dystrophy: Status: Acute (7) Respiratory failure: Status: Acute Plan 48 Y F, morbid obesity, muscular dystrophy, c/b dysphagia, recurrent aspiration pneumonia, COPD c/b chronic hypoxic/hypercapnic respiratory failure, previously on NC, p/t ED on 01/26 w/ acute/chronic hypoxic respiratory failure, likely d/t aspiration pneumonia, and pulmonary edema; hospital course c/b persistent mixed respiratory failure, s/p trach/PEG 02/11; maintains in ICU d/t persistent ventilator dependence, improving, plan for placement to trach/vent facility tentatively 02/24 Neuro: no acute issues; mobility: out of bed as tolerated CV: hemodynamically stable; no acute issues Pulm: acute/chronic mixed respiratory failure, likely d/t aspiration pneumonia, pulmonary edema; s/p trach, persistent ventilator dependence, PS AM, PC PM, though slowly improving; plan for PS AM as tolerated, ventilator facility te ntatively 02/24 GI: no acute issues; nutrition: tube feeds : intermittent urinary retention, straight catheterization PRN; function: at baseline creatinine; electrolytes: no appreciable derangements; volume: maintain euvolemia ID: tracheobronchitis d/t MSRA, s/p vancomycin, resolved Heme: no acute issues; DVT prophylaxis: chemical, enoxaparin Endo: no acute issues Psych: mild restlessness in PM, improved w/ lorazepam PRN Dispo: ICU d/t ventilator dependence, ventilatory facility tentatively 02/24 Quality Stroke Does the patient have a stroke diagnosis?: No VTE Prior VTE?: No VTE Risk Level:: Medical - moderate - high VTE Device Contraindication: N/A - Device Ordered VTE Drug Contraindication: N/A - Med Ordered
[2023-02-24] MEDS: Acetaminophen Oral Liquid 650 MG/20.3 ML SOLUTION PO (11:13)
[2023-02-24] MEDS: polyethylene glycoL 3350 17 GM POWD.PACK PO (11:17)
--- NOTE | 2023-02-24 15:26 | MHC.CM.PN ---
Pt continues care in ICU: on PSV trials: able to tolerate 12 hrs: Trach/peg on 02/11. Referred to [facility]: 02/24: [facility] has referred pt to medical leadership for clinical review/acceptance. No determination as of this note. [facility] only accepts [facility] payor: pt has [facility] - would need to drop managed portion and would need 30 day mature trach to transfer there. Goals of care today: OOB to chair, PROM, PSV trials. ICU care team updated on above at rounds. CM to follow.
[2023-02-24] MEDS: Enoxaparin Sodium 40 MG/0.4 ML SYRINGE SUBCUT (21:20)
[2023-02-24] MEDS: QUEtiapine Fumarate 25 MG TABLET PO (21:21)
[2023-02-25] VITALS (32 sets, daily range): BP systolic 82–149; BP diastolic 42–95; PULSE 74–131; RESP 14–38; TEMP 35–36.9; O2SAT 88–97; BMI 37.6
[2023-02-25] MEDS: Albuterol Sulfate (0.083%) 2.5 MG/3 ML VIAL.NEB INHALE (00:37)
[2023-02-25] MEDS: Midazolam HCl/PF 2 MG/2 ML VIAL 1 MG IVPUSH ×2 (00:51→16:27)
[2023-02-25] MEDS: LORazepam 2 MG/ML VIAL 0.5 MG IVPUSH (01:10)
[2023-02-25] MEDS: HYDROmorphone HCl 1 MG/ML SYRINGE IVPUSH (01:20)
--- NOTE | 2023-02-25 01:52 | PC.NURSE ---
Upon initial assessment at 1900- pt alert, difficult to assess orientation but follows simple commands and weakly VALERIO. Attempts to mouth words, seems to nod yes/no appropriately, able to make some needs known. Educated program director/air personality marshall and able to use. Afebrile. NSR/ST on tele, HR 90-100s. SBP > 90, MAP > 65. #7.[address], moderate amount of secretions orally and inline, given yankauer for self-suctioning. On PSV throughout day/evening but switched to PCV overnight d/t tachypnea and low Vt- see vent/trach assessment. At approx 0100- pt increasingly ?anxious, HR up to 130s, incessant coughing (despite repositioning/suctioning/nebulizer), and restless requiring PRN versed 1 mg IVP, and additionally Ativan 0.5 mg IVP and Dilaudid 1 mg IVP per MAR ordered by CARMEN Bray- given with positive effect, resting comfortably with eyes closed at this time. TF infusing at goal. Small BM and voiding sufficiently on bedpan. Skin overall intact. Repositioned in bed q2hr. Bed locked in lowest position. Call marshall in reach, bed alarm on. Pt/family updated on pt status/plan of care.
[2023-02-25 05:23] LABS: VBG Base Excess 7.1 mmol/L; VBG HCO3 28 mmol/L (22-26); VBG pCO2 31 mmHg; VBG pH 7.57 (7.32-7.43); VBG pO2 58 mmHg
[2023-02-25 05:43] LABS: MANUAL DIFF FLAG NO
[2023-02-25 05:48] LABS: Basophils Absolute Auto 0.1 X10*3/uL (0.0-0.2); Basophils Percent Auto 0.6 % (0-2); Eosinophils Absolute Auto 0.5 X10*3/uL (0.0-0.4); Eosinophils Percent Auto 5.5 % (0-4); Hematocrit 34.5 % (37.0-47.0); Hemoglobin 10.6 g/dl (12.0-16.0); Imm Gran Abs Auto 0.03 X10*3/uL (0.00-0.03); Imm Gran Pct Auto 0.3 % (0.0-0.4); Lymphocytes Absolute Auto 1.8 X10*3/uL (1.2-4.9); Lymphocytes Percent Auto 20.5 % (20-40); Mean Corpuscular HGB Conc 30.7 g/dl (31.0-35.0); Mean Corpuscular Hemoglobin 29.4 pg (27.0-33.0); Mean Corpuscular Volume 95.8 fL (80.0-98.0); Mean Platelet Volume 11.5 fL (9.4-12.3); Monocytes Absolute Auto 0.8 X10*3/uL (0.1-1.2); Monocytes Percent Auto 9.3 % (2-11); Neutrophils Absolute Auto 5.5 x10*3/uL (2.0-8.3); Neutrophils Percent Auto 63.8 % (45-73); Platelet Count 422 X10*3/uL (160-400); Red Cell Distribution Width 14.8 % (11.0-16.0); White Blood Count 8.6 X10*3/uL (4.8-10.8)
[2023-02-25 06:06] LABS: Anion Gap 12 (12-20); Blood Urea Nitrogen 15 mg/dL (9-16); Carbon Dioxide 26 mmol/L (22-29); Chloride 108 mmol/L (96-108); Estimated Glomerular Filt Rate > 60; Glucose Random 96 mg/dL (60-115); Potassium 3.5 mmol/L (3.3-5.1); Sodium 142 mmol/L (135-145)
[2023-02-25 07:15] LABS: Venous Blood Gas Refer to POC result
[2023-02-25] MEDS: Potassium Chloride Packet 20 MEQ PACKET 40 MEQ PO (08:32)
[2023-02-25] MEDS: Chlorhexidine Gluc Oral Rinse 15 ML MOUTHWASH BUCCAL ×3 (08:32→19:50)
[2023-02-25] MEDS: lamoTRIgine 25 MG TABLET 50 MG PO ×2 (08:32→19:50)
[2023-02-25] MEDS: Nystatin Powder 15 GM BOTTLE 1 APPL TOPICAL ×3 (08:33→20:07)
--- NOTE | 2023-02-25 10:03 | MHC.CLN ---
F/U REVIEWED LABS DISCUSSED AT ROUNDS WITH PT TOLERATING TF JEVITY 1.0 AT MAX GOAL RATE 45 ML/HR WITH 120 ML FWF Q 8 HRS PROVIDES 1145 KCALS (25 KCALS/KG IBW); 48G PROTEIN (1.06 G/KG IBW); 1262 ML TOTAL WATER FROM FORMULA AND FLUSHES (28 ML/KG IBW) CONTINUE TO MONITOR TOLERANCE, RESIDUALS AND LYTES
--- NOTE | 2023-02-25 11:12 | PM.CCPN ---
Subjective Subjective Date of Service: 02/25/23 Interval History: no appreciable overnight events Critical Care Time (minutes): 30 Physical Exam Vital Signs: Vital Signs: Last Vital Signs Temp 98.2 F 02/25/23 11:00 Pulse 92 02/25/23 11:00 Resp 31 H 02/25/23 11:00 BP 93/57 L 02/25/23 11:00 Pulse Ox 93 02/25/23 11:00 O2 Del Method Mechanical Ventil ation 02/25/23 11:00 O2 Flow Rate 30 02/24/23 23:00 FiO2 30 02/25/23 11:00 Oxygen Flow Rate 4 01/26/23 13:05 BMI result Body Mass Index 37.6 Const: General: cooperative, comfortable and no acute distress HEENT: Head: Yes normal to inspection, Yes normocephalic and Yes atraumatic Eyes: General: appearance normal, both eyes and all related structures Pupils: Equal, round and reactive pupils present Neck: Other: tracheostomy site clean, dry intact Neck: Yes normal visual inspection and Yes supple Chest: Chest palpation & inspection: normal inspection of the chest Resp: Effort & Inspection: normal respiratory effort and no respiratory distress Auscultation: clear to auscultation bilaterally Cardio: Rate: regular rate Rhythm: regular rhythm Heart sounds: S1 normal heart sound present and S2 normal heart sound present GI: Inspection: Yes normal to inspection Palpation (GI): Soft to palpation, no guarding, not rigid and No Rebound tenderness present Auscultation: normal bowel sounds Skin: General skin exam: no rashes or lesions noted Neuro: Other: opens eyes to verbal stimulus; answers yes-no questions appropriately Cranial nerves: Yes Equal, round and reactive pupils present Extrem: General: Yes normal to inspection, Yes no clubbing, cyanosis or edema and Yes edema Psych: Appearance: grossly normal Objective Data Labs 02/25/23 05:16 02/25/23 05:16 Labs: Laboratory Results - last 24 hr 02/25/23 02/25/23 02/25/23 05:16 05:16 05:17 WBC 8.6 RBC 3.60 L Hgb 10.6 L Hct 34.5 L MCV 95.8 MCH 29.4 MCHC 30.7 L RDW 14.8 Plt Count 422 H MPV 11.5 Immature Gran % (Auto) 0.3 Neut % (Auto) 63.8 Lymph % (Auto) 20.5 [place] % (Auto) 9.3 Eos % (Auto) 5.5 H Baso % (Auto) 0.6 Lymph # (Auto) 1.8 [place] # (Auto) 0.8 Eos # (Auto) 0.5 H Baso # (Auto) 0.1 Abs Immat Gran (auto) 0.03 Absolute Neuts (auto) 5.5 Absolute Nucleated RBC 0.000 Nucleated RBC % (auto) 0.0 VBG pH 7.57 H VBG pCO2 31 VBG pO2 58 VBG HCO3 28 H VBG O2 Saturation 88.0 VBG Base Excess 7.1 Sodium 142 Potassium 3.5 Chloride 108 Carbon Dioxide 26 Anion Gap 12 BUN 15 Creatinine 0.60 Estim Creat Clear Calc 115.0 Estimated GFR > 60 Random Glucose 96 Calcium 11.0 H Microbiology Microbiology Results: Microbiology 02/08/23 Unknown Sputum - Suctioned Gram Stain - Final 02/08/23 Unknown Sputum - Suctioned Sputum Culture - Final Methicillin Res Staph Aureus Yeast 01/26/23 16:17 Blood - Venous Blood Culture - Final No growth after 5 days. 01/26/23 16:09 Blood - Venous Blood Culture - Final No growth after 5 days. Progress Note: A&P Assessment and plan (1) S/P percutaneous endoscopic gastrostomy (PEG) tube placement: Status: Acute (2) Status post tracheostomy: Status: Acute (3) Aspiration pneumonia: Status: Acute (4) Failure to wean from mechanical ventilation: Status: Acute (5) Acute on chronic respiratory failure with hypoxia and hypercapnia: Status: Acute (6) Muscular dystrophy: Status: Acute (7) Respiratory failure: Status: Acute Plan 48 Y F, morbid obesity, muscular dystrophy, c/b dysphagia, recurrent aspiration pneumonia, COPD c/b chronic hypoxic/hypercapnic respiratory failure, previously on NC, p/t ED on 01/26 w/ acute/chronic hypoxic respiratory failure, likely d/t aspiration pneumonia, and pulmonary edema; hospital course c/b persistent mixed respiratory failure, s/p trach/PEG 02/11; maintains in ICU d/t persistent ventilator dependence, improving, plan for placement to trach/vent facility tentatively 02/26 Neuro: no acute issues; mobility: out of bed as tolerated CV: hemodynamically stable; no acute issues Pulm: acute/chronic mixed respiratory failure, likely d/t aspiration pneumonia, pulmonary edema; s/p trach, persistent ventilator dependence, PS AM, PC PM, though slowly improving; plan for PS AM as tolerated, ventilator facility tentatively 02/26 GI: no acute issues; nutrition: tube feeds : intermittent urinary retention, straight catheterization PRN; function: at baseline creatinine; electrolytes: no appreciable derangements; volume: maintain euvolemia ID: tracheobronchitis d/t MSRA, s/p vancomycin, resolved Heme: no acute issues; DVT prophylaxis: chemical, enoxaparin Endo: no acute issues Psych: no acute issues Dispo: ICU d/t ventilator dependence, ventilatory facility tentatively 02/26 Quality Stroke Does the patient have a stroke diagnosis?: No VTE Prior VTE?: No VTE Risk Level:: Medical - moderate - high VTE Device Contraindication: N/A - Device Ordered VTE Drug Contraindication: N/A - Med Ordered
--- NOTE | 2023-02-25 14:48 | MHC.CM.PN ---
[facility] HAS CLINICALLY ACCEPTED PT PENDING INSURANCE AUTH. P.T./OT IN TO SEE PT AND EVALS SENT VIA [facility] TO [facility]. THIS CM SPOKE WITH LIAISON EVANGELIST WHO VERIFIES SHE RECEIVED THE PAPERWORK TO START AUTH BUT PROBABLY WOULD NOT RECEIVE AUTH UNTIL 02/26. SPOUSE TRACI UPDATED AND VERY PLEASED. CM WILL CONTINUE TO FOLLOW FOR ANY CHANGE IN DC PLAN.
[2023-02-25] MEDS: Acetaminophen Oral Liquid 650 MG/20.3 ML SOLUTION PO (16:24)
[2023-02-25] MEDS: QUEtiapine Fumarate 25 MG TABLET PO (19:50)
[2023-02-25] MEDS: Enoxaparin Sodium 40 MG/0.4 ML SYRINGE SUBCUT (20:02)
[2023-02-26] VITALS (30 sets, daily range): BP systolic 79–146; BP diastolic 42–98; PULSE 70–116; RESP 14–26; TEMP 35–37; O2SAT 90–99; BMI 37.8
[2023-02-26 05:44] LABS: VBG Base Excess 7.4 mmol/L; VBG HCO3 32 mmol/L (22-26); VBG pCO2 46 mmHg; VBG pH 7.45 (7.32-7.43); VBG pO2 35 mmHg
[2023-02-26] MEDS: Midazolam HCl/PF 2 MG/2 ML VIAL 1 MG IVPUSH (06:38)
[2023-02-26 06:39] LABS: Alanine Aminotransferase 61 U/L (0-31); Alkaline Phosphatase 256 U/L (39-117); Anion Gap 14 (12-20); Aspartate Amino Transferase 49 U/L (5-31); Bilirubin Total 0.4 mg/dL (0.0-1.0); Blood Urea Nitrogen 14 mg/dL (9-16); Calcium 11.5 mg/dL (8.4-10.2); Carbon Dioxide 29 mmol/L (22-29); Chloride 103 mmol/L (96-108); Estimated Glomerular Filt Rate > 60; Glucose Random 84 mg/dL (60-115); Potassium 4.8 mmol/L (3.3-5.1); Sodium 141 mmol/L (135-145); Total Protein 7.4 g/dL (6.5-8.0)
[2023-02-26 06:41] LABS: Basophils Absolute Auto 0.1 X10*3/uL (0.0-0.2); Basophils Percent Auto 0.4 % (0-2); Eosinophils Absolute Auto 0.9 X10*3/uL (0.0-0.4); Eosinophils Percent Auto 7.1 % (0-4); Hematocrit 37.2 % (37.0-47.0); Hemoglobin 11.2 g/dl (12.0-16.0); Imm Gran Abs Auto 0.04 X10*3/uL (0.00-0.03); Imm Gran Pct Auto 0.3 % (0.0-0.4); Lymphocytes Absolute Auto 1.6 X10*3/uL (1.2-4.9); Lymphocytes Percent Auto 13.5 % (20-40); MANUAL DIFF FLAG NO; Mean Corpuscular HGB Conc 30.1 g/dl (31.0-35.0); Mean Corpuscular Hemoglobin 29.8 pg (27.0-33.0); Mean Corpuscular Volume 98.9 fL (80.0-98.0); Mean Platelet Volume 11.8 fL (9.4-12.3); Monocytes Absolute Auto 0.5 X10*3/uL (0.1-1.2); Monocytes Percent Auto 4.5 % (2-11); Neutrophils Absolute Auto 8.9 x10*3/uL (2.0-8.3); Neutrophils Percent Auto 74.2 % (45-73); Platelet Count 331 X10*3/uL (160-400); Red Blood Count 3.76 X10*6/uL (4.20-5.50)
--- NOTE | 2023-02-26 07:05 | PC.NURSE ---
decrease urine output, MD notified.
[2023-02-26 08:02] LABS: Venous Blood Gas Refer to POC result
--- NOTE | 2023-02-26 08:04 | PM.CCPN ---
Subjective Subjective Date of Service: 02/26/23 Interval History: some anxiety in PM, given midazolam Critical Care Time (minutes): 90 Physical Exam Vital Signs: Vital Signs: Last Vital Signs Temp 96.4 F L 02/26/23 00:00 Pulse 85 02/26/23 07:00 Resp 14 02/26/23 07:00 BP 113/68 02/26/23 07:00 Pulse Ox 92 02/26/23 07:00 O2 Del Method Mechanical Ventil ation 02/26/23 07:00 O2 Flow Rate 30 02/24/23 23:00 FiO2 40 02/26/23 07:34 Oxygen Flow Rate 4 01/26/23 13:05 BMI result Body Mass Index 37.8 Const: General: cooperative, comfortable and no acute distress HEENT: Head: Yes normal to inspection, Yes normocephalic and Yes atraumatic Eyes: General: appearance normal, both eyes and all related structures Pupils: Equal, round and reactive pupils present Neck: Other: tracheostomy site with some white-yellow discharge Neck: Yes normal visual inspection and Yes supple Chest: Chest palpation & inspection: normal inspection of the chest Resp: Other: some rhonchi upper anterior lung rivas Cardio: Rate: regular rate Rhythm: regular rhythm GI: Inspection: Yes normal to inspection, No distended and Yes G-tube present Skin: General skin exam: no rashes or lesions noted Neuro: Other: answers questions appropriately General: moves all extremities Cranial nerves: Yes Equal, round and reactive pupils present Extrem: General: Yes normal to inspection Psych: Appearance: grossly normal and well kempt Objective Data Labs 02/26/23 05:20 02/26/23 05:20 Labs: Laboratory Results - last 24 hr 02/26/23 02/26/23 05:18 05:20 WBC 12.0 H RBC 3.76 L Hgb 11.2 L Hct 37.2 MCV 98.9 H MCH 29.8 MCHC 30.1 L RDW 15.0 Plt Count 331 MPV 11.8 Immature Gran % (Auto) 0.3 Neut % (Auto) 74.2 H Lymph % (Auto) 13.5 L [place] % (Auto) 4.5 Eos % (Auto) 7.1 H Baso % (Auto) 0.4 Lymph # (Auto) 1.6 [place] # (Auto) 0.5 Eos # (Auto) 0.9 H Baso # (Auto) 0.1 Abs Immat Gran (auto) 0.04 H Absolute Neuts (auto) 8.9 H Absolute Nucleated RBC 0.000 Nucleated RBC % (auto) 0.0 VBG pH 7.45 H VBG pCO2 46 VBG pO2 35 VBG HCO3 32 H VBG O2 Saturation 49.0 VBG Base Excess 7.4 Sodium 141 Potassium 4.8 D Chloride 103 Carbon Dioxide 29 Anion Gap 14 BUN 14 Creatinine 0.58 Estim Creat Clear Calc 119.0 Estimated GFR > 60 Random Glucose 84 Calcium 11.5 H Total Bilirubin 0.4 AST 49 H ALT 61 H Alkaline Phosphatase 256 H Total Protein 7.4 Albumin 4.0 Microbiology Microbiology Results: Microbiology 02/08/23 Unknown Sputum - Suctioned Gram Stain - Final 02/08/23 Unknown Sputum - Suctioned Sputum Culture - Final Methicillin Res Staph Aureus Yeast 01/26/23 16:17 Blood - Venous Blood Culture - Final No growth after 5 days. 01/26/23 16:09 Blood - Venous Blood Culture - Final No growth after 5 days. Progress Note: A&P Assessment and plan (1) S/P percutaneous endoscopic gastrostomy (PEG) tube placement: Status: Acute (2) Status post tracheostomy: Status: Acute (3) Aspiration pneumonia: Status: Acute (4) Failure to wean from mechanical ventilation: Status: Acute (5) Acute on chronic respiratory failure with hypoxia and hypercapnia: Status: Acute (6) Muscular dystrophy: Status: Acute (7) Respiratory failure: Status: Acute Plan 48 Y F, morbid obesity, muscular dystrophy, c/b dysphagia, recurrent aspiration pneumonia, COPD c/b chronic hypoxic/hypercapnic respiratory failure, previously on NC, p/t ED on 01/26 w/ acute/chronic hypoxic respiratory failure, likely d/t aspiration pneumonia, and pulmonary edema; hospital course c/b persistent mixed respiratory failure, s/p trach/PEG 02/11; maintains in ICU d/t persistent ventilator dependence, improving, plan for placement to trach/vent facility tentatively 02/26 Neuro: muscular dystrophy; out of bed as tolerated CV: hemodynamically stable; no acute issues Pulm: acute/chronic mixed respiratory failure, likely d/t aspiration pneumonia, pulmonary edema; s/p trach, persistent ventilator dependence, goal for PS AM, PC PM; not tolerating PS as long today d/t increased RR; chest x-ray with smaller lung volumes, though no new infiltrates; procalcitonin negative GI: no acute issues; nutrition: tube feeds : intermittent urinary retention, straight catheterization PRN; function: at baseline creatinine; electrolytes: no appreciable derangements; volume: maintain euvolemia ID: tracheobronchitis d/t MSRA, s/p vancomycin, resolved; leukocytosis, though chest x-ray without new infiltrates, procalcitonin negative, no other infectious signs/symptoms; to continue to monitor closely Heme: no acute issues; DVT prophylaxis: chemical, enoxaparin Endo: no acute issues Psych: no acute issues Dispo: ICU d/t ventilator dependence, eventually ventilatory facility Quality Stroke Does the patient have a stroke diagnosis?: No VTE Prior VTE?: No VTE Risk Level:: Medical - moderate - high VTE Device Contraindication: N/A - Device Ordered VTE Drug Contraindication: N/A - Med Ordered
[2023-02-26] MEDS: Nystatin Powder 15 GM BOTTLE 1 APPL TOPICAL ×3 (08:26→20:05)
[2023-02-26] MEDS: lamoTRIgine 25 MG TABLET 50 MG PO ×2 (08:26→20:05)
[2023-02-26] MEDS: Chlorhexidine Gluc Oral Rinse 15 ML MOUTHWASH BUCCAL ×3 (08:26→20:04)
[2023-02-26] MEDS: Acetaminophen Oral Liquid 650 MG/20.3 ML SOLUTION PO (11:14)
[2023-02-26 13:08] LABS: Procalcitonin 0.03 ng/mL
--- NOTE | 2023-02-26 13:37 | MHC.CM.PN ---
Patient remains in ICU, vented via trach. Indira is in the process of trying to obtain insuarnce auth. [address]ianship [address] date is scheduled for 03/04. Continue to monitor for d/c needs.
[2023-02-26 15:50] LABS: COVID-19 Test Invalid (Negative); IDNOW Serial# BCCEAD1C
[2023-02-26 17:53] LABS: COVID-19 Test Invalid (Negative); IDNOW Serial# BCCEAD1C
[2023-02-26 18:21] LABS: COVID-19 Test Negative (Negative); IDNOW Serial# 08D9AD1C
[2023-02-26] MEDS: Enoxaparin Sodium 40 MG/0.4 ML SYRINGE SUBCUT (19:23)
[2023-02-26] MEDS: QUEtiapine Fumarate 25 MG TABLET PO (20:05)
[2023-02-27] VITALS (30 sets, daily range): BP systolic 93–127; BP diastolic 53–83; PULSE 69–125; RESP 14–34; TEMP 35–36.9; O2SAT 88–95; BMI 37.7
[2023-02-27 05:06] LABS: VBG Base Excess 6.6 mmol/L; VBG HCO3 30 mmol/L (22-26); VBG pCO2 38 mmHg; VBG pO2 49 mmHg
[2023-02-27 05:07] LABS: Venous Blood Gas Refer to POC result
[2023-02-27 05:24] LABS: MANUAL DIFF FLAG NO
[2023-02-27 05:27] LABS: Basophils Percent Auto 0.2 % (0-2); Eosinophils Absolute Auto 0.7 X10*3/uL (0.0-0.4); Eosinophils Percent Auto 5.7 % (0-4); Hematocrit 32.6 % (37.0-47.0); Hemoglobin 10.1 g/dl (12.0-16.0); Imm Gran Abs Auto 0.04 X10*3/uL (0.00-0.03); Imm Gran Pct Auto 0.3 % (0.0-0.4); Lymphocytes Absolute Auto 1.2 X10*3/uL (1.2-4.9); Lymphocytes Percent Auto 9.6 % (20-40); Mean Corpuscular Hemoglobin 30.1 pg (27.0-33.0); Mean Platelet Volume 11.5 fL (9.4-12.3); Monocytes Absolute Auto 0.6 X10*3/uL (0.1-1.2); Monocytes Percent Auto 5.1 % (2-11); Neutrophils Percent Auto 79.1 % (45-73); Platelet Count 383 X10*3/uL (160-400); Red Blood Count 3.36 X10*6/uL (4.20-5.50); Red Cell Distribution Width 14.8 % (11.0-16.0); White Blood Count 12.7 X10*3/uL (4.8-10.8)
[2023-02-27 05:49] LABS: Alanine Aminotransferase 48 U/L (0-31); Albumin Level 3.7 g/dL (3.5-5.0); Alkaline Phosphatase 253 U/L (39-117); Anion Gap 14 (12-20); Aspartate Amino Transferase 36 U/L (5-31); Bilirubin Total 0.4 mg/dL (0.0-1.0); Blood Urea Nitrogen 12 mg/dL (9-16); Calcium 10.8 mg/dL (8.4-10.2); Carbon Dioxide 27 mmol/L (22-29); Chloride 105 mmol/L (96-108); Creatinine Clr Calc Pharmacy 119.3; Estimated Glomerular Filt Rate > 60; Glucose Random 92 mg/dL (60-115); Magnesium 2.5 mg/dL (1.6-2.6); Phosphorus 3.2 mg/dL (2.7-4.5); Potassium 3.7 mmol/L (3.3-5.1); Sodium 142 mmol/L (135-145); Total Protein 6.9 g/dL (6.5-8.0)
[2023-02-27] MEDS: Nystatin Powder 15 GM BOTTLE 1 APPL TOPICAL ×3 (09:05→20:28)
[2023-02-27] MEDS: Chlorhexidine Gluc Oral Rinse 15 ML MOUTHWASH BUCCAL ×3 (09:05→20:28)
[2023-02-27] MEDS: QUEtiapine Fumarate 25 MG TABLET PO ×3 (09:05→21:28)
[2023-02-27] MEDS: lamoTRIgine 25 MG TABLET 50 MG PO ×2 (09:05→20:28)
--- NOTE | 2023-02-27 10:04 | MHC.CM.PN ---
Addendum entered by Evelyn Andrade 02/27/23 13:25: Met w/pt using internet sales manager: pt alert, maintaining eye contact and nodding in affirmation to questions as well as mouthing answers with accuracy and consistency. HCP explained to pt using mincemeat maker: pt nods yes to understanding it's function when it was verbally explained. When asked for an agent, pt mouthed Lexx Giles without an alternate wanted at this time. Form completed in front of witnesses, CM signed pt's name on her behalf as pt could not hold a pen for the time needed to sign d/t muscle weakness. Will remit copy and other clinical updates to [facility] in anticipation of transfer next week. Guardianship hearing scheduled for 03/04 will be cancelled d/t above findings. Original Note: Pt continues care in ICU: WBC trending up to 12.2: CXR,COVID negative: Blood and urine cx pending: D/C to [facility] is on hold and will be revisited on Thursday, 03/02 to ensure cx are returned and pt maintains clinical stability. Update sent to [facility]: CM to contact pt's spouse Lexx. Pt's neurological status has improved dramatically. CM to discuss HCP with pt - pt may be able to verbally complete a HCP and avoid the need for guardianship. CM to follow
--- NOTE | 2023-02-27 13:50 | PM.CCPN ---
Subjective Subjective Date of Service: 02/27/23 Interval History: no overnight events; much more alert and interactive this AM Critical Care Time (minutes): 90 Physical Exam Vital Signs: Vital Signs: Last Vital Signs Temp 97.5 F 02/27/23 11:58 Pulse 101 H 02/27/23 13:00 Resp 32 H 02/27/23 13:00 BP 96/63 02/27/23 13:00 Pulse Ox 94 02/27/23 11:58 O2 Del Method Mechanical Ventil ation 02/27/23 13:00 O2 Flow Rate 30 02/24/23 23:00 FiO2 35 02/27/23 13:00 Oxygen Flow Rate 4 01/26/23 13:05 BMI result Body Mass Index 37.7 Const: General: cooperative, healthy appearing, comfortable and no acute distress HEENT: Head: Yes normal to inspection, Yes normocephalic and Yes atraumatic Eyes: General: appearance normal, both eyes and all related structures Pupils: Equal, round and reactive pupils present Neck: Neck: Yes normal visual inspection and Yes supple Chest: Chest palpation & inspection: normal inspection of the chest Resp: Other: some rhonchi bilateral upper lung rivas Effort & Inspection: no respiratory distress Cardio: Rate: regular rate Rhythm: regular rhythm Heart sounds: S1 normal heart sound present and S2 normal heart sound present GI: Inspection: Yes normal to inspection and No distended Palpation (GI): Soft to palpation, not firm, nontender, no guarding and not rigid Skin: General skin exam: no rashes or lesions noted Neuro: Other: much more alert, oriented to person, place, time, situation; much more conversant Cranial nerves: Yes Equal, round and reactive pupils present Extrem: General: Yes normal to inspection Psych: Appearance: grossly normal and well kempt Objective Data Labs 02/27/23 04:56 02/27/23 04:56 Labs: Laboratory Results - last 24 hr 02/26/23 02/26/23 02/26/23 14:40 17:13 17:45 WBC RBC Hgb Hct MCV MCH MCHC RDW Plt Count MPV Immature Gran % (Auto) Neut % (Auto) Lymph % (Auto) [place] % (Auto) Eos % (Auto) Baso % (Auto) Lymph # (Auto) [place] # (Auto) Eos # (Auto) Baso # (Auto) Abs Immat Gran (auto) Absolute Neuts (auto) Absolute Nucleated RBC Nucleated RBC % (auto) VBG pH VBG pCO2 VBG pO2 VBG HCO3 VBG O2 Saturation VBG Base Excess Sodium Potassium Chloride Carbon Dioxide Anion Gap BUN Creatinine Estim Creat Clear Calc Estimated GFR Random Glucose Calcium Phosphorus Magnesium Total Bilirubin AST ALT Alkaline Phosphatase Total Protein Albumin COVID-19 (JOEL) Invalid Invalid Negative COVID-19 Clin Com See Note See Note See Note 02/27/23 02/27/23 04:56 05:01 WBC 12.7 H RBC 3.36 L Hgb 10.1 L Hct 32.6 L MCV 97.0 MCH 30.1 MCHC 31.0 RDW 14.8 Plt Count 383 MPV 11.5 Immature Gran % (Auto) 0.3 Neut % (Auto) 79.1 H Lymph % (Auto) 9.6 L [place] % (Auto) 5.1 Eos % (Auto) 5.7 H Baso % (Auto) 0.2 Lymph # (Auto) 1.2 [place] # (Auto) 0.6 Eos # (Auto) 0.7 H Baso # (Auto) 0.0 Abs Immat Gran (auto) 0.04 H Absolute Neuts (auto) 10.0 H Absolute Nucleated RBC 0.000 Nucleated RBC % (auto) 0.0 VBG pH 7.50 H VBG pCO2 38 VBG pO2 49 VBG HCO3 30 H VBG O2 Saturation 77.0 VBG Base Excess 6.6 Sodium 142 Potassium 3.7 D Chloride 105 Carbon Dioxide 27 Anion Gap 14 BUN 12 Creatinine 0.58 Estim Creat Clear Calc 119.3 Estimated GFR > 60 Random Glucose 92 Calcium 10.8 H D Phosphorus 3.2 Magnesium 2.5 Total Bilirubin 0.4 AST 36 H ALT 48 H Alkaline Phosphatase 253 H Total Protein 6.9 Albumin 3.7 COVID-19 (JOEL) COVID-19 Clin Com Microbiology Microbiology Results: Microbiology 02/08/23 Unknown Sputum - Suctioned Gram Stain - Final 02/08/23 Unknown Sputum - Suctioned Sputum Culture - Final Methicillin Res Staph Aureus Yeast 01/26/23 16:17 Blood - Venous Blood Culture - Final No growth after 5 days. 01/26/23 16:09 Blood - Venous Blood Culture - Final No growth after 5 days. Progress Note: A&P Assessment and plan (1) S/P percutaneous endoscopic gastrostomy (PEG) tube placement: Status: Acute (2) Status post tracheostomy: Status: Acute (3) Aspiration pneumonia: Status: Acute (4) Failure to wean from mechanical ventilation: Status: Acute (5) Acute on chronic respiratory failure with hypoxia and hypercapnia: Status: Acute (6) Muscular dystrophy: Status: Acute (7) Respiratory failure: Status: Acute Plan 48 Y F, morbid obesity, muscular dystrophy, c/b dysphagia, recurrent aspiration pneumonia, COPD c/b chronic hypoxic/hypercapnic respiratory failure, previously on NC, p/t ED on 01/26 w/ acute/chronic hypoxic respiratory failure, likely d/t aspiration pneumonia, and pulmonary edema; hospital course c/b persistent mixed respiratory failure, s/p trach/PEG 02/11; maintains in ICU d/t persistent ventilator dependence, improving, plan for placement to trach/vent facility tentatively 02/26 Neuro: muscular dystrophy; out of bed as tolerated CV: hemodynamically stable; no acute issues Pulm: acute/chronic mixed respiratory failure, likely d/t aspiration pneumonia, pulmonary edema; s/p trach, persistent ventilator dependence, goal for PS AM, PC PM GI: no acute issues; nutrition: tube feeds : intermittent urinary retention, straight catheterization PRN; function: at baseline creatinine; electrolytes: mild hypercalcemia; volume: maintain euvolemia ID: tracheobronchitis d/t MSRA, s/p vancomycin, resolved; leukocytosis, though chest x-ray without new infiltrates, procalcitonin negative; to follow-up UA, blood cultures Heme: no acute issues; DVT prophylaxis: chemical, enoxaparin Endo: no acute issues Psych: no acute issues Dispo: ICU d/t ventilator dependence, eventually ventilatory facility Quality Stroke Does the patient have a stroke diagnosis?: No VTE Prior VTE?: No VTE Risk Level:: Medical - moderate - high VTE Device Contraindication: N/A - Device Ordered VTE Drug Contraindication: N/A - Med Ordered
--- NOTE | 2023-02-27 14:28 | PM.EVENT ---
Event Note Date of Service: 02/27/23 Event Note: Upon my evaluation of Regina Thacker today, 02/27/2023, she appears alert, oriented to person, place, time, situation. Moreover, she is conversant, answering questions appropriately and with sound logic. I declare under penalty of perjury that Regina Thacker is of sound mind to declare her own healthcare proxy, and that the foregoing is true and correct. Chrissy Cross MD 02/27/2023
[2023-02-27] MEDS: Simethicone 80 MG TAB.CHEW PO (16:39)
[2023-02-27] MEDS: Enoxaparin Sodium 40 MG/0.4 ML SYRINGE SUBCUT (18:28)
[2023-02-27] MEDS: Albuterol Sulfate (0.083%) 2.5 MG/3 ML VIAL.NEB INHALE (20:48)
[2023-02-27] MEDS: Acetaminophen Oral Liquid 650 MG/20.3 ML SOLUTION PO (21:08)
[2023-02-27] MEDS: diphenhydrAMINE HCL 50 MG/ML VIAL 25 MG IVPUSH (21:53)
[2023-02-28] VITALS (29 sets, daily range): BP systolic 91–116; BP diastolic 54–75; PULSE 76–119; RESP 12–37; TEMP 35–36.9; O2SAT 84–97; BMI 37.7
[2023-02-28 05:22] LABS: VBG Base Excess 7.9 mmol/L; VBG HCO3 33 mmol/L (22-26); VBG pCO2 49 mmHg; VBG pH 7.43 (7.32-7.43); VBG pO2 36 mmHg
[2023-02-28 05:46] LABS: MANUAL DIFF FLAG NO
[2023-02-28 05:53] LABS: Basophils Percent Auto 0.2 % (0-2); Eosinophils Absolute Auto 0.8 X10*3/uL (0.0-0.4); Eosinophils Percent Auto 5.5 % (0-4); Hematocrit 35.5 % (37.0-47.0); Hemoglobin 10.9 g/dl (12.0-16.0); Imm Gran Abs Auto 0.06 X10*3/uL (0.00-0.03); Imm Gran Pct Auto 0.4 % (0.0-0.4); Lymphocytes Absolute Auto 1.2 X10*3/uL (1.2-4.9); Lymphocytes Percent Auto 8.4 % (20-40); Mean Corpuscular HGB Conc 30.7 g/dl (31.0-35.0); Mean Corpuscular Hemoglobin 29.5 pg (27.0-33.0); Mean Corpuscular Volume 96.2 fL (80.0-98.0); Mean Platelet Volume 11.2 fL (9.4-12.3); Monocytes Absolute Auto 0.9 X10*3/uL (0.1-1.2); Monocytes Percent Auto 6.3 % (2-11); Neutrophils Absolute Auto 10.9 x10*3/uL (2.0-8.3); Neutrophils Percent Auto 79.2 % (45-73); Platelet Count 365 X10*3/uL (160-400); Red Blood Count 3.69 X10*6/uL (4.20-5.50); Red Cell Distribution Width 14.8 % (11.0-16.0); White Blood Count 13.8 X10*3/uL (4.8-10.8)
[2023-02-28 06:03] LABS: Venous Blood Gas Refer to POC result
[2023-02-28 06:05] LABS: Alanine Aminotransferase 58 U/L (0-31); Albumin Level 3.8 g/dL (3.5-5.0); Alkaline Phosphatase 283 U/L (39-117); Anion Gap 12 (12-20); Aspartate Amino Transferase 53 U/L (5-31); Bilirubin Total 0.4 mg/dL (0.0-1.0); Blood Urea Nitrogen 11 mg/dL (9-16); Calcium 11.3 mg/dL (8.4-10.2); Carbon Dioxide 30 mmol/L (22-29); Chloride 104 mmol/L (96-108); Creatinine Clr Calc Pharmacy 119.3; Estimated Glomerular Filt Rate > 60; Glucose Random 92 mg/dL (60-115); Magnesium 2.5 mg/dL (1.6-2.6); Phosphorus 4.4 mg/dL (2.7-4.5); Potassium 4.2 mmol/L (3.3-5.1); Sodium 142 mmol/L (135-145); Total Protein 7.2 g/dL (6.5-8.0)
[2023-02-28] MEDS: lamoTRIgine 25 MG TABLET 50 MG PO ×2 (08:37→20:29)
[2023-02-28] MEDS: Chlorhexidine Gluc Oral Rinse 15 ML MOUTHWASH BUCCAL ×3 (08:37→20:29)
[2023-02-28] MEDS: QUEtiapine Fumarate 25 MG TABLET PO ×2 (08:38→20:29)
[2023-02-28] MEDS: Nystatin Powder 15 GM BOTTLE 1 APPL TOPICAL ×3 (08:38→20:29)
--- NOTE | 2023-02-28 09:17 | P.PNCC_ITS ---
Subjective Subjective Date of Service: 02/28/23 Interval History: no significant overnight events Critical Care Time (minutes): 60 Physical Exam 2 Vital Signs: Vital Signs: Last Vital Signs Temp 97.5 F 02/28/23 08:00 Pulse 98 02/28/23 09:00 Resp 18 02/28/23 09:00 BP 98/75 02/28/23 09:00 Pulse Ox 95 02/28/23 09:00 O2 Del Method Mechanical Ventil ation 02/28/23 09:00 O2 Flow Rate 30 02/24/23 23:00 FiO2 35 02/28/23 09:00 Oxygen Flow Rate 4 01/26/23 13:05 BMI result Body Mass Index 37.7 Const: General: cooperative, healthy appearing, comfortable, no acute distress, well developed, alert, awake and Physically active O rientation/consciousness: patient oriented x3 HEENT: Head: Yes normal to inspection, Yes normocephalic and Yes atraumatic Eyes: General: appearance normal, both eyes and all related structures P upils: Equal, round and reactive pupils present Neck: Neck: Yes normal visual inspection and Yes supple Chest: Chest palpation & inspection: normal inspection of the chest Resp: Other: some rhonchi bilateral anterior, upper lung rivas Effort & Inspection: normal respiratory effort Cardio: Rate: regular rate Rhythm: regular rhythm GI: Inspection: Yes normal to inspection and No distended Palpation (GI): S oft to palpation, not firm, nontender, no guarding and not rigid Skin: General skin exam: no rashes or lesions noted Neuro: General: patient oriented x3 Cranial nerves: Yes Equal, round and reactive pupils present Extrem: General: Yes normal to inspection Psych: Appearance: grossly normal Objective Data Labs 02/28/23 05:16 02/28/23 05:16 Labs: Laboratory Results - last 24 hr 02/28/23 02/28/23 05:16 05:17 WBC 13.8 H RBC 3.69 L Hgb 10.9 L Hct 35.5 L MCV 96.2 MCH 29.5 MCHC 30.7 L RDW 14.8 Plt Count 365 MPV 11.2 Immature Gran % (Auto) 0.4 Neut % (Auto) 79.2 H Lymph % (Auto) 8.4 L [place] % (Auto) 6.3 Eos % (Auto) 5.5 H Baso % (Auto) 0.2 Lymph # (Auto) 1.2 [place] # (Auto) 0.9 Eos # (Auto) 0.8 H Baso # (Auto) 0.0 Abs Immat Gran (auto) 0.06 H Absolute Neuts (auto) 10.9 H Absolute Nucleated RBC 0.000 Nucleated RBC % (auto) 0.0 VBG pH 7.43 VBG pCO2 49 VBG pO2 36 VBG HCO3 33 H VBG O2 Saturation 44.0 VBG Base Excess 7.9 Sodium 142 Potassium 4.2 Chloride 104 Carbon Dioxide 30 H Anion Gap 12 BUN 11 Creatinine 0.58 Estim Creat Clear Calc 119.3 Estimated GFR > 60 Random Glucose 92 Calcium 11.3 H Phosphorus 4.4 Magnesium 2.5 Total Bilirubin 0.4 AST 53 H ALT 58 H Alkaline Phosphatase 283 H Total Protein 7.2 Albumin 3.8 Microbiology Microbiology Results: Microbiology 02/08/23 Unknown Sputum - Suctioned Gram Stain - Final 02/08/23 Unknown Sputum - Suctioned Sputum Culture - Final Methicillin Res Staph Aureus Yeast 01/26/23 16:17 Blood - Venous Blood Culture - Final No growth after 5 days. 01/26/23 16:09 Blood - Venous Blood Culture - Final No growth after 5 days. Progress Note: A&P Assessment and plan (1) S/P percutaneous endoscopic gastrostomy (PEG) tube placement: Status: Acute (2) Status post tracheostomy: Status: Acute (3) Aspiration pneumonia: Status: Acute (4) Failure to wean from mechanical ventilation: Status: Acute (5) Acute on chronic respiratory failure with hypoxia and hypercapnia: Status: Acute (6) Muscular dystrophy: Status: Acute (7) Respiratory failure: Status: Acute Plan 48 Y F, morbid obesity, muscular dystrophy, c/b dysphagia, recurrent aspiration pneumonia, COPD c/b chronic hypoxic/hypercapnic respiratory failure, previously on NC, p/t ED on 01/26 w/ acute/chronic hypoxic respiratory failure, likely d/t aspiration pneumonia, and pulmonary edema; hospital course c/b persistent mixed respiratory failure, s/p trach/PEG 02/11; maintains in ICU d/t persistent ventilator dependence, improving, plan for placement to trach/vent facility Neuro: muscular dystrophy; out of bed as tolerated CV: hemodynamically stable; no acute issues Pulm: acute/chronic mixed respiratory failure, likely d/t aspiration pneumonia, pulmonary edema; s/p trach, persistent ventilator dependence, goal for PS AM, PC PM GI: no acute issues; nutrition: tube feeds : intermittent urinary retention, straight catheterization PRN; function: at baseline creatinine; electrolytes: mild hypercalcemia; volume: maintain euvolemia ID: tracheobronchitis d/t MSRA, s/p vancomycin, resolved; leukocytosis, though chest x-ray without new infiltrates, procalcitonin negative; to follow-up UA, blood cultures Heme: no acute issues; DVT prophylaxis: chemical, enoxaparin Endo: no acute issues Psych: no acute issues Dispo: ICU d/t ventilator dependence, eventually ventilatory facility Quality Stroke Does the patient have a stroke diagnosis?: No VTE Prior VTE?: No VTE Risk Level:: Medical - moderate - high VTE Device Contraindication: N/A - Device Ordered VTE Drug Contraindication: N/A - Med Ordered
[2023-02-28] MEDS: Acetaminophen Oral Liquid 650 MG/20.3 ML SOLUTION PO (13:54)
[2023-02-28] MEDS: Albuterol Sulfate (0.083%) 2.5 MG/3 ML VIAL.NEB INHALE (20:24)
[2023-02-28] MEDS: Enoxaparin Sodium 40 MG/0.4 ML SYRINGE SUBCUT (20:28)
[2023-02-28 22:40] LABS: Appearance Urine Clear; Color Urine Yellow; Glucose Urine UA Negative (Negative); Leukocyte Esterase Urine Trace (Negative); Nitrite Urine Positive (Negative); PH 5.5 (5.0-9.0); Specific Gravity - Urine 1.025 (1.005-1.025); UMIC TRIGGER UA YES; Urine Blood Negative (Negative); Urine Ketones Negative (Negative); Urine Protein Negative (Neg-Trace)
[2023-02-28 22:54] LABS: Bacteria Urine 4+ (None Seen); Calcium Oxalate Crystals Urine Present; Hyaline Casts Urine 0-2 /LPF (0-2); RBC Urine 0-2 /HPF (0-2); Squamous Epithelial Cell Urine 0-2 /HPF (0-2)
[2023-03-01] VITALS (31 sets, daily range): BP systolic 94–129; BP diastolic 54–84; PULSE 69–111; RESP 14–30; TEMP 34–36.9; O2SAT 90–100; BMI 38.3
[2023-03-01 06:00] LABS: MANUAL DIFF FLAG NO
[2023-03-01 06:03] LABS: Basophils Percent Auto 0.5 % (0-2); Eosinophils Absolute Auto 0.9 X10*3/uL (0.0-0.4); Eosinophils Percent Auto 12.2 % (0-4); Hematocrit 33.9 % (37.0-47.0); Hemoglobin 10.5 g/dl (12.0-16.0); Imm Gran Abs Auto 0.02 X10*3/uL (0.00-0.03); Imm Gran Pct Auto 0.3 % (0.0-0.4); Lymphocytes Absolute Auto 1.2 X10*3/uL (1.2-4.9); Lymphocytes Percent Auto 16.7 % (20-40); Mean Corpuscular Hemoglobin 29.3 pg (27.0-33.0); Mean Corpuscular Volume 94.7 fL (80.0-98.0); Monocytes Absolute Auto 0.5 X10*3/uL (0.1-1.2); Monocytes Percent Auto 6.4 % (2-11); Neutrophils Absolute Auto 4.7 x10*3/uL (2.0-8.3); Neutrophils Percent Auto 63.9 % (45-73); Platelet Count 348 X10*3/uL (160-400); Red Blood Count 3.58 X10*6/uL (4.20-5.50); Red Cell Distribution Width 14.6 % (11.0-16.0); White Blood Count 7.4 X10*3/uL (4.8-10.8)
[2023-03-01 06:06] LABS: VBG Base Excess 9.6 mmol/L; VBG HCO3 33 mmol/L (22-26); VBG pCO2 41 mmHg; VBG pH 7.51 (7.32-7.43); VBG pO2 57 mmHg
[2023-03-01 06:08] LABS: Venous Blood Gas Refer to POC result
[2023-03-01 06:26] LABS: Alanine Aminotransferase 54 U/L (0-31); Albumin Level 3.6 g/dL (3.5-5.0); Alkaline Phosphatase 280 U/L (39-117); Anion Gap 13 (12-20); Aspartate Amino Transferase 43 U/L (5-31); Bilirubin Total 0.3 mg/dL (0.0-1.0); Blood Urea Nitrogen 10 mg/dL (9-16); Calcium 11.1 mg/dL (8.4-10.2); Carbon Dioxide 28 mmol/L (22-29); Chloride 103 mmol/L (96-108); Creatinine Clr Calc Pharmacy 126.8; Estimated Glomerular Filt Rate > 60; Glucose Random 106 mg/dL (60-115); Potassium 3.5 mmol/L (3.3-5.1); Sodium 140 mmol/L (135-145); Total Protein 6.8 g/dL (6.5-8.0)
[2023-03-01] MEDS: lamoTRIgine 25 MG TABLET 50 MG PO ×2 (08:00→20:25)
[2023-03-01] MEDS: Chlorhexidine Gluc Oral Rinse 15 ML MOUTHWASH BUCCAL ×3 (08:01→20:25)
[2023-03-01] MEDS: QUEtiapine Fumarate 25 MG TABLET PO ×2 (08:01→20:25)
[2023-03-01] MEDS: Nystatin Powder 15 GM BOTTLE 1 APPL TOPICAL ×3 (08:01→21:07)
--- NOTE | 2023-03-01 09:48 | P.PNCC_ITS ---
Subjective Subjective Date of Service: 03/01/23 Interval History: no significant overnight events Critical Care Time (minutes): 60 Physical Exam 2 Vital Signs: Vital Signs: Last Vital Signs Temp 98.4 F 03/01/23 07:00 Pulse 70 03/01/23 09:00 Resp 14 03/01/23 09:00 BP 94/59 L 03/01/23 09:00 Pulse Ox 95 03/01/23 09:00 O2 Del Method Mechanical Ventil ation, Trach Colla r 03/01/23 09:00 O2 Flow Rate 40 02/28/23 14:00 FiO2 35 03/01/23 09:00 Oxygen Flow Rate 4 01/26/23 13:05 BMI result Body Mass Index 38.3 Const: General: cooperative, healthy appearing, comfortable, no acute distress and well developed HEENT: Head: Yes normal to inspection, Yes normocephalic and Yes atraumatic Eyes: General: appearance normal, both eyes and all related structures P upils: Equal, round and reactive pupils present Chest: Chest palpation & inspection: normal inspection of the chest Resp: Effort & Inspection: normal respiratory effort and no respiratory distress Auscultation: clear to auscultation bilaterally Cardio: Rate: regular rate Rhythm: regular rhythm Heart sounds: S1 normal heart sound present and S2 normal heart sound present GI: Other: appreciable G tube, clean, dry, intact Inspection: Yes normal to inspection and No distended Palpation (GI): S oft to palpation, not firm, nontender, no guarding and not rigid Skin: General skin exam: no rashes or lesions noted Neuro: Other: opens eyes, answers questions appropriately Cranial nerves: Yes Equal, round and reactive pupils present Extrem: Other: 1+ pitting edema bilateral lower extremi ties Psych: Appearance: grossly normal Objective Data Labs 03/01/23 05:56 03/01/23 05:56 Labs: Laboratory Results - last 24 hr 02/28/23 03/01/23 03/01/23 20:57 05:56 05:59 WBC 7.4 RBC 3.58 L Hgb 10.5 L Hct 33.9 L MCV 94.7 MCH 29.3 MCHC 31.0 RDW 14.6 Plt Count 348 MPV 11.0 Immature Gran % (Auto) 0.3 Neut % (Auto) 63.9 Lymph % (Auto) 16.7 L [place] % (Auto) 6.4 Eos % (Auto) 12.2 H Baso % (Auto) 0.5 Lymph # (Auto) 1.2 [place] # (Auto) 0.5 Eos # (Auto) 0.9 H Baso # (Auto) 0.0 Abs Immat Gran (auto) 0.02 Absolute Neuts (auto) 4.7 Absolute Nucleated RBC 0.000 Nucleated RBC % (auto) 0.0 VBG pH 7.51 H VBG pCO2 41 VBG pO2 57 VBG HCO3 33 H VBG O2 Saturation 86.0 VBG Base Excess 9.6 Sodium 140 Potassium 3.5 Chloride 103 Carbon Dioxide 28 Anion Gap 13 BUN 10 Creatinine 0.55 Estim Creat Clear Calc 126.8 Estimated GFR > 60 Random Glucose 106 Calcium 11.1 H Total Bilirubin 0.3 AST 43 H ALT 54 H Alkaline Phosphatase 280 H Total Protein 6.8 Albumin 3.6 Urine Color Yellow Urine Appearance Clear Urine pH 5.[address] 1.025 Urine Protein Negative Urine Glucose (UA) Negative Urine Ketones Negative Urine Blood Negative Urine Nitrite Positive H Ur Leukocyte Esterase Trace H Urine RBC 0-2 Urine WBC 6-10 H Ur Squamous Epith Cells 0-2 Calcium Oxalate Crystal Present Urine Bacteria 4+ Hyaline Casts 0-2 Microbiology Microbiology Results: Microbiology 02/27/23 07:29 Blood - Venous Blood Culture - Preliminary No growth after 24 hours. 02/27/23 07:29 Blood - Venous Blood Culture - Preliminary No growth after 24 hours. 02/08/23 Unknown Sputum - Suctioned Gram Stain - Final 02/08/23 Unknown Sputum - Suctioned Sputum Culture - Final Methicillin Res Staph Aureus Yeast 01/26/23 16:17 Blood - Venous Blood Culture - Final No growth after 5 days. 01/26/23 16:09 Blood - Venous Blood Culture - Final No growth after 5 days. Progress Note: A&P Assessment and plan (1) S/P percutaneous endoscopic gastrostomy (PEG) tube placement: Status: Acute (2) Status post tracheostomy: Status: Acute (3) Aspiration pneumonia: Status: Acute (4) Failure to wean from mechanical ventilation: Status: Acute (5) Acute on chronic respiratory failure with hypoxia and hypercapnia: Status: Acute (6) Muscular dystrophy: Status: Acute (7) Respiratory failure: Status: Acute (8) Urinary tract infection: Status: Acute Plan 48 Y F, morbid obesity, muscular dystrophy, c/b dysphagia, recurrent aspiration pneumonia, COPD c/b chronic hypoxic/hypercapnic respiratory failure, previously on NC, p/t ED on 01/26 w/ acute/chronic hypoxic respiratory failure, likely d/t aspiration pneumonia, and pulmonary edema; hospital course c/b persistent mixed respiratory failure, s/p trach/PEG 02/11; maintains in ICU d/t persistent ventilator dependence, improving, plan for placement to trach/vent facility Neuro: muscular dystrophy; out of bed as tolerated CV: hemodynamically stable; no acute issues Pulm: acute/chronic mixed respiratory failure, likely d/t aspiration pneumonia, pulmonary edema; s/p trach, persistent ventilator dependence, goal for PS AM, PC PM GI: no acute issues; nutrition: tube feeds : intermittent urinary retention, straight catheterization PRN; function: at baseline creatinine; electrolytes: mild hypercalcemia, likely d/t immobilization; to avoid dehydration, follow-up endocrinology recommendations; volume: maintain euvolemia ID: tracheobronchitis d/t MSRA, s/p vancomycin, resolved; UA suggestive of UTI; to follow-up urine culture; empiric ceftriaxone 1 g starting 03/01 for 5 days; to de-escalate pending urine culture results Heme: no acute issues; DVT prophylaxis: chemical, enoxaparin Endo: no acute issues Psych: no acute issues Dispo: ICU d/t ventilator dependence, eventually ventilatory facility Quality Stroke Does the patient have a stroke diagnosis?: No VTE Prior VTE?: No VTE Risk Level:: Medical - moderate - high VTE Device Contraindication: N/A - Device Ordered VTE Drug Contraindication: N/A - Med Ordered
[2023-03-01] MEDS: 0.9 % Sodium Chloride 500 ML IV (10:58)
[2023-03-01] MEDS: cefTRIAXone sodium 1 GM in 0.9 % Sodium Chloride 50 ML IV (12:19)
[2023-03-01] MEDS: Acetaminophen Oral Liquid 650 MG/20.3 ML SOLUTION PO (12:19)
[2023-03-01 12:39] LABS: Calcium (PTHI) 10.6 mg/dL (8.6-10.2); PTHI 39 pg/mL (16-77)
[2023-03-01] MEDS: Enoxaparin Sodium 40 MG/0.4 ML SYRINGE SUBCUT (20:25)
[2023-03-02] VITALS (30 sets, daily range): BP systolic 89–122; BP diastolic 52–79; PULSE 64–113; RESP 14–33; TEMP 34.1–37; O2SAT 90–98; BMI 38.7
[2023-03-02] MEDS: Acetaminophen Oral Liquid 650 MG/20.3 ML SOLUTION PO ×3 (03:56→19:21)
[2023-03-02 05:13] LABS: VBG Base Excess 6.2 mmol/L; VBG HCO3 29 mmol/L (22-26); VBG pCO2 37 mmHg; VBG pO2 73 mmHg
[2023-03-02 05:14] LABS: Venous Blood Gas Refer to POC result
[2023-03-02 05:24] LABS: MANUAL DIFF FLAG NO
[2023-03-02 05:33] LABS: Basophils Percent Auto 0.6 % (0-2); Eosinophils Absolute Auto 0.8 X10*3/uL (0.0-0.4); Eosinophils Percent Auto 11.5 % (0-4); Hematocrit 32.9 % (37.0-47.0); Hemoglobin 10.1 g/dl (12.0-16.0); Imm Gran Abs Auto 0.03 X10*3/uL (0.00-0.03); Imm Gran Pct Auto 0.4 % (0.0-0.4); Lymphocytes Absolute Auto 1.4 X10*3/uL (1.2-4.9); Lymphocytes Percent Auto 19.2 % (20-40); Mean Corpuscular HGB Conc 30.7 g/dl (31.0-35.0); Mean Corpuscular Hemoglobin 29.8 pg (27.0-33.0); Mean Corpuscular Volume 97.1 fL (80.0-98.0); Mean Platelet Volume 11.2 fL (9.4-12.3); Monocytes Absolute Auto 0.5 X10*3/uL (0.1-1.2); Monocytes Percent Auto 6.9 % (2-11); Neutrophils Absolute Auto 4.4 x10*3/uL (2.0-8.3); Neutrophils Percent Auto 61.4 % (45-73); Platelet Count 340 X10*3/uL (160-400); Red Blood Count 3.39 X10*6/uL (4.20-5.50); Red Cell Distribution Width 14.5 % (11.0-16.0); White Blood Count 7.1 X10*3/uL (4.8-10.8)
[2023-03-02 05:43] LABS: Alanine Aminotransferase 42 U/L (0-31); Albumin Level 3.4 g/dL (3.5-5.0); Alkaline Phosphatase 239 U/L (39-117); Anion Gap 12 (12-20); Aspartate Amino Transferase 35 U/L (5-31); Bilirubin Total 0.3 mg/dL (0.0-1.0); Blood Urea Nitrogen 11 mg/dL (9-16); Calcium 10.4 mg/dL (8.4-10.2); Carbon Dioxide 28 mmol/L (22-29); Chloride 106 mmol/L (96-108); Creatinine Clr Calc Pharmacy 129.1; Estimated Glomerular Filt Rate > 60; Glucose Random 113 mg/dL (60-115); Potassium 3.4 mmol/L (3.3-5.1); Sodium 143 mmol/L (135-145); Total Protein 6.6 g/dL (6.5-8.0)
[2023-03-02 06:22] LABS: TSH reflex Free T4 0.47 uIU/mL (0.32-4.0)
[2023-03-02] MEDS: Potassium Chloride Packet 20 MEQ PACKET 40 MEQ PO (06:26)
[2023-03-02] MEDS: Furosemide 20 MG/2 ML VIAL IVPUSH (06:26)
[2023-03-02] MEDS: Chlorhexidine Gluc Oral Rinse 15 ML MOUTHWASH BUCCAL ×3 (08:21→19:21)
[2023-03-02] MEDS: Nystatin Powder 15 GM BOTTLE 1 APPL TOPICAL ×3 (08:22→20:06)
[2023-03-02] MEDS: QUEtiapine Fumarate 25 MG TABLET PO ×2 (08:22→20:05)
[2023-03-02] MEDS: lamoTRIgine 25 MG TABLET 50 MG PO ×2 (08:22→20:06)
--- NOTE | 2023-03-02 08:55 | PC.NURSE ---
pt is well appearing, moving all extremities, cleansed for incont. am meds given. ot and pt work with patient rolling side to side. pt tolerates poorly rolling this am and did requre suction of thick yellow secretions. pt is able to communicate basic needs. plays music for self. plan to get pt oob and into chair with resp assistance soon.
--- NOTE | 2023-03-02 10:06 | PC.NURSE ---
Addendum entered by Mary Suarez RN 03/02/23 14:04: 1400- pt requesting to be returned to bed. pt is assisted in transfer with 2 rns and 2 rts. pt tolerates well. report to Marsha at . Original Note: pt moved to bedside chair, tolerated moving well, moved to Pressure support, tolerating well. 14/ 5 35% fio2. makes needs known. trach patent, breathing is spont equal non labored, skin is pink warm and dry. continue to monitor close. cm at bedside.
[2023-03-02] MEDS: cefTRIAXone sodium 1 GM in 0.9 % Sodium Chloride 50 ML IV (11:43)
--- NOTE | 2023-03-02 12:01 | MHC.CLN ---
F/U PT TOLERATING TF JEVITY 1.0 AT MAX GOAL RATE 45 ML/HR WITH 120 ML FWF Q 8 HRS PROVIDES 1145 KCALS (25 KCALS/KG IBW); 48G PROTEIN (1.06 G/KG IBW); 1262 ML TOTAL WATER FROM FORMULA AND FLUSHES (28 ML/KG IBW) CONTINUE TO MONITOR TOLERANCE, RESIDUALS AND LYTES
--- NOTE | 2023-03-02 12:44 | MHC.CM.PN ---
Clinical updates remitted to [facility] noting medical stability and readiness to transfer for next level of care. Call placed to Evelin Carver RN , clinical liasion at [facility]: she has received all requested information and will submit for payor auth. She requests a 03/03 1pm arrival time. Call placed to Cindy: ALS transport arranged for a 12pm [facility] p/u. ICU MD and RN aware and in agreement w/plan. Call placed to spouse Lexx to inform him of transfer. He states he will be in to visit pt today. CM to follow.
--- NOTE | 2023-03-02 14:39 | P.PNCC_ITS ---
Subjective Subjective Date of Service: 03/02/23 Interval History: 48-year-old female with known background of muscular dystrophy came in with progressively worsening hypoventilation on the basis of her Chadd insufficiency and presented with an acute on chronic hypercarbic respiratory failure requiring intubation and there was 1 attempt at extubation in between with a witnessed aspiration episode which was nosocomial and placed on Zosyn for several days with fever persisted and infiltrate seem to worsen we did an MRSA screen which was positive for for MRSA and patient having been reintubated had sputum Gram stain and culture also positive for MRSA pneumonia patient did well with that has been doing very well with tracheostomy and PEG tube with good feedings normal bowel function preserved renal function just recently developed urinary tract infection Gram-negative cristino receiving ceftriaxone switched to oral Levaquin good mental status good cognitive function and currently on pressure support and nocturnally is on pressure control on the ventilator Critical Care Time (minutes): 35 Physical Exam 2 Vital Signs: Vital Signs: Last Vital Signs Temp 98.5 F 03/02/23 12:00 Pulse 82 03/02/23 14:00 Resp 28 H 03/02/23 14:00 BP 114/61 03/02/23 14:00 Pulse Ox 97 03/02/23 14:00 O2 Del Method Mechanical Ventil ation 03/02/23 14:00 O2 Flow Rate 40 02/28/23 14:00 FiO2 35 03/02/23 14:00 Oxygen Flow Rate 4 01/26/23 13:05 BMI result Body Mass Index 38.7 She is awake with good cognitive function 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 and nonfocal neurologically Bedside echo with normal LV and RV function Abdomen tolerating feedings soft nondistended good bowel sounds no organomegaly Chest without any adventitious sounds Skin is intact Objective Data Labs 03/02/23 05:09 03/02/23 05:09 Labs: Laboratory Results - last 24 hr 03/02/23 03/02/23 05:08 05:09 WBC 7.1 RBC 3.39 L Hgb 10.1 L Hct 32.9 L MCV 97.1 MCH 29.8 MCHC 30.7 L RDW 14.5 Plt Count 340 MPV 11.2 Immature Gran % (Auto) 0.4 Neut % (Auto) 61.4 Lymph % (Auto) 19.2 L [place] % (Auto) 6.9 Eos % (Auto) 11.5 H Baso % (Auto) 0.6 Lymph # (Auto) 1.4 [place] # (Auto) 0.5 Eos # (Auto) 0.8 H Baso # (Auto) 0.0 Abs Immat Gran (auto) 0.03 Absolute Neuts (auto) 4.4 Absolute Nucleated RBC 0.000 Nucleated RBC % (auto) 0.0 VBG pH 7.50 H VBG pCO2 37 VBG pO2 73 VBG HCO3 29 H VBG O2 Saturation 94.0 VBG Base Excess 6.2 Sodium 143 Potassium 3.4 Chloride 106 Carbon Dioxide 28 Anion Gap 12 BUN 11 Creatinine 0.54 Estim Creat Clear Calc 129.1 Estimated GFR > 60 Random Glucose 113 Calcium 10.4 H D Total Bilirubin 0.3 AST 35 H ALT 42 H Alkaline Phosphatase 239 H Total Protein 6.6 Albumin 3.4 L TSH 0.47 Microbiology Microbiology Results: Microbiology 02/28/23 Unknown Urine Catheterized - Straight Catheter Urine Culture - Preliminary Gram negative cristino 02/27/23 07:29 Blood - Venous Blood Culture - Preliminary No growth after 48 hours. 02/27/23 07:29 Blood - Venous Blood Culture - Preliminary No growth after 48 hours. 02/08/23 Unknown Sputum - Suctioned Gram Stain - Final 02/08/23 Unknown Sputum - Suctioned Sputum Culture - Final Methicillin Res Staph Aureus Yeast 01/26/23 16:17 Blood - Venous Blood Culture - Final No growth after 5 days. 01/26/23 16:09 Blood - Venous Blood Culture - Final No growth after 5 days. Progress Note: A&P Assessment and plan (1) Urinary tract infection: Status: Acute (2) S/P percutaneous endoscopic gastrostomy (PEG) tube placement: Status: Acute (3) Status post tracheostomy: Status: Acute (4) Aspiration pneumonia: Status: Acute (5) Failure to wean from mechanical ventilation: Status: Acute (6) Dysphagia: Status: Acute (7) Acute on chronic respiratory failure with hypoxia and hypercapnia: Status: Acute (8) Muscular dystrophy: Status: Acute (9) Pulmonary edema: Status: Acute (10) Pneumonia: Status: Acute (11) Respiratory failure: Status: Acute Plan So the plan of course is to alternate between nocturnal pressure control and otherwise pressure support during the day and I do not know if prognostically were ever going to progress to a trach mask I do think they will be ventilator dependence I would complete 3-4 more days of Levaquin and the Bergman catheter has been removed Quality Stroke Does the patient have a stroke diagnosis?: No VTE Prior VTE?: No VTE Risk Level:: Medical - moderate - high VTE Device Contraindication: N/A - Device Ordered VTE Drug Contraindication: N/A - Med Ordered
[2023-03-02] MEDS: levoFLOXacin 500 MG TABLET PO (16:32)
[2023-03-02] MEDS: Enoxaparin Sodium 40 MG/0.4 ML SYRINGE SUBCUT (19:21)
[2023-03-03] VITALS (17 sets, daily range): BP systolic 91–118; BP diastolic 58–70; PULSE 69–112; RESP 14–32; TEMP 34.5–36.4; O2SAT 90–97; BMI 38.8
[2023-03-03] MEDS: Acetaminophen Oral Liquid 650 MG/20.3 ML SOLUTION PO (02:15)
[2023-03-03 04:27] LABS: VBG Base Excess 7.9 mmol/L; VBG HCO3 28 mmol/L (22-26); VBG pCO2 26 mmHg; VBG pH 7.63 (7.32-7.43); VBG pO2 44 mmHg
[2023-03-03 04:33] LABS: MANUAL DIFF FLAG NO
[2023-03-03 04:39] LABS: Basophils Percent Auto 0.4 % (0-2); Eosinophils Absolute Auto 0.6 X10*3/uL (0.0-0.4); Eosinophils Percent Auto 7.6 % (0-4); Hemoglobin 11.1 g/dl (12.0-16.0); Imm Gran Abs Auto 0.03 X10*3/uL (0.00-0.03); Imm Gran Pct Auto 0.4 % (0.0-0.4); Lymphocytes Absolute Auto 1.3 X10*3/uL (1.2-4.9); Lymphocytes Percent Auto 15.9 % (20-40); Mean Corpuscular HGB Conc 31.7 g/dl (31.0-35.0); Mean Corpuscular Hemoglobin 29.4 pg (27.0-33.0); Mean Corpuscular Volume 92.8 fL (80.0-98.0); Mean Platelet Volume 10.7 fL (9.4-12.3); Monocytes Absolute Auto 0.5 X10*3/uL (0.1-1.2); Monocytes Percent Auto 6.3 % (2-11); Neutrophils Absolute Auto 5.6 x10*3/uL (2.0-8.3); Neutrophils Percent Auto 69.4 % (45-73); Platelet Count 366 X10*3/uL (160-400); Red Blood Count 3.77 X10*6/uL (4.20-5.50); Red Cell Distribution Width 14.4 % (11.0-16.0)
[2023-03-03 04:44] LABS: Venous Blood Gas Refer to POC result
[2023-03-03 04:58] LABS: Alanine Aminotransferase 45 U/L (0-31); Albumin Level 3.6 g/dL (3.5-5.0); Alkaline Phosphatase 259 U/L (39-117); Anion Gap 15 (12-20); Aspartate Amino Transferase 32 U/L (5-31); Bilirubin Total 0.3 mg/dL (0.0-1.0); Blood Urea Nitrogen 10 mg/dL (9-16); Calcium 10.6 mg/dL (8.4-10.2); Carbon Dioxide 27 mmol/L (22-29); Chloride 104 mmol/L (96-108); Creatinine Clr Calc Pharmacy 125.2; Estimated Glomerular Filt Rate > 60; Glucose Random 97 mg/dL (60-115); Magnesium 2.1 mg/dL (1.6-2.6); Phosphorus 2.2 mg/dL (2.7-4.5); Potassium 3.1 mmol/L (3.3-5.1); Sodium 143 mmol/L (135-145); Total Protein 7.1 g/dL (6.5-8.0)
[2023-03-03] MEDS: Potassium Chloride Packet 20 MEQ PACKET 40 MEQ PO (05:52)
--- NOTE | 2023-03-03 09:07 | PM.DS ---
DS: Providers Provider Date of Service: 03/03/23 Date of admission: 01/26/23 19:15 Date of discharge: 03/03/23 Primary care physician: Allison Almanzar MD Admitting clinician: Max Seals Attending physician on admission: Max Seals Consults: 02/06/23 09:21 Consult to General Surgery Routine Consulting Provider[place] [facility] Reason for consultation: Tracheostome / PEG placement Has provider been notified: No 02/13/23 16:04 Consult to Wound Care Stat Consulting Provider: Suzanna Ochoa Reason for consultation: MDPI 03/01/23 10:05 Consult to Endocrinology Routine Consulting Provider: NIKA Peralta Reason for consultation: Hypercalcemia Has provider been notified: No Attending physician on discharge: Nataly Aguayo Discharging clinician: Nataly Aguayo DS: Transfer Hospital Acceptance Reason for Transfer: Chronic tracheostomy and PEG tube Name of Facility: [facility] DS: Diagnosis Discharge Diagnosis (1) Urinary tract infection: Status: Acute (2) S/P percutaneous endoscopic gastrostomy (PEG) tube placement: Status: Acute (3) Status post tracheostomy: Status: Acute (4) Aspiration pneumonia: Status: Acute (5) Failure to wean from mechanical ventilation: Status: Acute (6) Dysphagia: Status: Acute (7) Acute on chronic respiratory failure with hypoxia and hypercapnia: Status: Acute (8) Muscular dystrophy: Status: Acute (9) Pulmonary edema: Status: Acute (10) Pneumonia: Status: Acute (11) Respiratory failure: Status: Acute DS: Summary Hospital Course Hospital Course: 48-year-old morbidly obese female with history of muscular dystrophy who apparently did have noninvasive ventilator at home but and has longstanding chronic hypercarbic and hypoxic respiratory failure presented with increasing dyspnea and a picture of acute on chronic hypercarbic and hypoxic respiratory failure and apparently had bibasilar pneumonia and certainly looking like recurrent aspiration is the issue and she was intubated here and a brief attempt at extubation the patient then had a witnessed nosocomial aspiration placed on Zosyn for 5-6 days because of persistent increasing fever and white count she had an MRSA screen positive for methicillin-resistant Staph aureus and with these new increased infiltrates reintubated sputum also growing methicillin-resistant Staph aureus and she had vancomycin added to the regimen since that time has been doing very well because it became apparent that she was going to have chronic need for ventilatory support tracheostomy and PEG tube were placed she has been doing very well this is more than 2 weeks ago still has some residual atelectasis in the left lower lobe but on pressure support which is as close to weaning from the ventilator is we have ever got and the pressure support has gone as low as about 15/5 she will generate tidal volumes in the high 200s to low 300s end-tidal CO2 is will remain in the mid 30s to 40 range patient does well but as the day goes by becomes a little more tachypneic and tachycardic because tidal volumes begin to diminish Mental status is fully returned cognitive function and she is competent and has been tolerating her PEG tube feedings and currently has a Klebsiella urinary tract infection responsive to oral Levaquin which she is on between that and I believe 3 doses of IV ceftriaxone we now have 5 days of treatment for the urinary tract infection and I believe 2 more days of Levaquin at least taking us to or even Thursday this week should be sufficient Status at Discharge Cognitive/behavioral status at discharge: Excellent Functional status at discharge: wheelchair bound Overall status at discharge: patient is progressing back to baseline Time Spent with Patient Time attestation: Total time managing care of this patient today _40___ minutes. Discharge coordination time: Greater than 30 minutes Quality: Safe Use of Opioids Does Pt have an Active Cancer Diagnosis on the Problem List?: No Quality: Stroke Does the patient have a stroke diagnosis?: No Physical Exam Vital Signs: Vital Signs: Last Vital Signs Temp 97.5 F 03/03/23 08:00 Pulse 101 H 03/03/23 09:00 Resp 24 H 03/03/23 09:00 BP 105/68 03/03/23 09:00 Pulse Ox 95 03/03/23 09:00 O2 Del Method Mechanical Ventil ation 03/03/23 09:00 O2 Flow Rate 40 02/28/23 14:00 FiO2 35 03/03/23 09:00 Oxygen Flow Rate 4 01/26/23 13:05 BMI result Body Mass Index 38.8 Normal sinus rhythm rate is 90-95 and this is while on pressure support of 18/5 with tidal volumes in the low 300s no respiratory distress and oxygen saturation is 94% No white count and no left shift no temperature stable CBC stable renal function stable and normal liver function Abdomen soft with no organomegaly Chest with very minimal bibasilar rales no adventitious sounds Bedside echo defining normal LV and RV function Skin without any significant breakdown DS: Data Data Completed and Pending Labs on day of discharge: Laboratory Results - last 24 hr 03/03/23 04:22 WBC 8.0 RBC 3.77 L Hgb 11.1 L Hct 35.0 L MCV 92.8 MCH 29.4 MCHC 31.7 RDW 14.4 Plt Count 366 MPV 10.7 Immature Gran % (Auto) 0.4 Neut % (Auto) 69.4 Lymph % (Auto) 15.9 L [place] % (Auto) 6.3 Eos % (Auto) 7.6 H Baso % (Auto) 0.4 Lymph # (Auto) 1.3 [place] # (Auto) 0.5 Eos # (Auto) 0.6 H Baso # (Auto) 0.0 Abs Immat Gran (auto) 0.03 Absolute Neuts (auto) 5.6 Absolute Nucleated RBC 0.000 Nucleated RBC % (auto) 0.0 VBG pH 7.63 H* VBG pCO2 26 VBG pO2 44 VBG HCO3 28 H VBG O2 Saturation 74.0 VBG Base Excess 7.9 Sodium 143 Potassium 3.1 L Chloride 104 Carbon Dioxide 27 Anion Gap 15 BUN 10 Creatinine 0.56 Estim Creat Clear Calc 125.2 Estimated GFR > 60 Random Glucose 97 Calcium 10.6 H Phosphorus 2.2 L Magnesium 2.1 Total Bilirubin 0.3 AST 32 H ALT 45 H Alkaline Phosphatase 259 H Total Protein 7.1 Albumin 3.6 Preliminary micro results at discharge 02/27/23 07:29 Blood Culture - Preliminary Blood - Venous No growth after 48 hours. 02/27/23 07:29 Blood Culture - Preliminary Blood - Venous No growth after 48 hours. Discharge Plan Discharge Anticipated Discharge Date/Time: 03/03/23 12:30 Patient Disposition: Xfer LTC Discharge Diagnosis: Acute/chronic hypoxic/hypercarbic respiratory failure Recurrent aspiration pneumonitis Muscular dystrophy with secondary hypoventilation Morbid obesity Status post tracheostomy and PEG feeding tube Klebsiella urinary tract infection Referrals: Allison Ty MD [Primary Care Provider] - 1 Week Discharge Medications: New quetiapine 25 mg Tablet 25 mg PO BID Qty: 30 0RF albuterol sulfate 2.5 mg /3 mL (0.083 %) Solution For Nebulization 2.5 mg inhalation Q4H PRN (Reason: Shortness Of Breath) Qty: 180 0RF naloxone 0.4 mg/mL Solution 0.2 mg IVPUSH Q2M PRN (Reason: Excessive sedation or RR < 8) Qty: 10 0RF lamotrigine 25 mg Tablet 50 mg PO BID Qty: 60 0RF diphenhydramine HCl 50 mg/mL Solution 25 mg IVPUSH Q6H PRN (Reason: Itching) Qty: 25 0RF nystatin 100,000 unit/gram Powder 1 appl topical TID Qty: 30 0RF Protocol: Apply to: Apply to: groin levofloxacin 500 mg Tablet 500 mg PO Q24H Qty: 1 0RF enoxaparin 40 mg/0.4 mL Syringe 40 mg subcut Q24H Qty: 4 0RF chlorhexidine gluconate 0.12 % Mouthwash 15 ml buccal TID Qty: 1500 0RF Discontinued cyanocobalamin (vitamin B-12) 1,000 mcg tablet 1,000 mcg PO DAILY omeprazole 20 mg capsule,delayed release(DR/EC) 20 mg PO DAILY@0630 albuterol sulfate [Ventolin HFA] 90 mcg/actuation HFA aerosol inhaler 2 puff inhalation Q4-6H PRN (Reason: Shortness Of Breath Or Wheezing) Discharge Orders: Discharge Order (Routine); Ordered 03/03/23 Ordered By: Nataly Aguayo Activity on Discharge: As tolerated Stand Alone Forms: Patient Portal Discharge page Care Plan Goals: Teaching tracheostomy care and maintenance and cell suctioning to patient along with continued physical and occupational therapy Health Concerns: Needs pulmonary toileting because of risk for hypo static pneumonia and of course tracheostomy care Plan of Treatment: 1-2 more days of oral levaquin for urinary tract infection Assessment: Cognitive function is beautifully restored she is well maintained but clearly will remain ventilator dependent he between pressure support and pressure control due to Chadd insufficiency from her muscular dystrophy
--- NOTE | 2023-03-03 11:13 | MHC.CM.PN ---
Addendum entered by Evelyn Andrade 03/03/23 11:23: [facility] expedited [facility]'s request for auth and as of this note, it is in MD review for sign off per Mora Scott RN [facility]. Call placed to [place] to push ALS transport to 12:30 to allow [facility] time for review/sign off. Call placed to Evelin at [facility] to inform her of arrival time. Original Note: Per am discussions from [facility] and [facility], pt will be ready to d/c to [facility] today via [facility] for a 12pm p/u. Pt aware as is her spouse Lexx who was notified via phone. Pt texting Lexx on her cell. HCP copy to be mailed to Lexx as he is unable to p/u copy from [facility]. CM to follow.
[2023-03-03] MEDS: Chlorhexidine Gluc Oral Rinse 15 ML MOUTHWASH BUCCAL (11:17)
[2023-03-03] MEDS: Nystatin Powder 15 GM BOTTLE 1 APPL TOPICAL (11:17)
[2023-03-03] MEDS: lamoTRIgine 25 MG TABLET 50 MG PO (11:18)
[2023-03-03] MEDS: QUEtiapine Fumarate 25 MG TABLET PO (11:18)
[2023-03-04 15:12] LABS: Vitamin D 25-OH, D2 <4 ng/mL; Vitamin D 25-OH, D3 12 ng/mL; Vitamin D 25-OH, Total 12 ng/mL (30-100)
[2023-03-04 21:13] LABS: Calcium, Ionized 5.8 mg/dL (4.7-5.5)
== END 2023-03-03 13:48 | DRG 5 ==
LOC: HO.ED 19:49 → HO.EDOVER 19:58 → HO.ICU 20:02
PROVIDERS: Internal Medicine Cardiovascular Disease; Internal Medicine Pulmonary Disease; Nurse Practitioner Family; Physician Assistant Medical; Surgery; Admitting Provider Registered Nurse Community Health; Emergency Provider Emergency Medicine; PCP Internal Medicine; Visit Provider Internal Medicine Critical Care Medicine
PROC: 0B110Z4 Bypass Trachea to Cutaneous, Open Approach (ICD-10-PCS; principal; 2023-02-11 07:30)
PROC: 0DH63UZ Insertion of Feeding Device into Stomach, Percutaneous Approach (ICD-10-PCS; CPT 43246; 2023-02-11 07:30)
DX: J69.0 Pneumonitis due to inhalation of food and vomit (principal); I50.33 Acute on chronic diastolic (congestive) heart failure; J96.21 Acute and chronic respiratory failure with hypoxia; E83.39 Other disorders of phosphorus metabolism; K56.7 Ileus, unspecified; G71.11 Myotonic muscular dystrophy; J44.0 Chronic obstructive pulmonary disease with (acute) lower respiratory infection; J96.01 Acute respiratory failure with hypoxia; R13.10 Dysphagia, unspecified; N39.0 Urinary tract infection, site not specified; J96.22 Acute and chronic respiratory failure with hypercapnia; J40 Bronchitis, not specified as acute or chronic; E87.6 Hypokalemia; B95.62 Methicillin resistant Staphylococcus aureus infection as the cause of diseases classified elsewhere; B96.1 Klebsiella pneumoniae [K. pneumoniae] as the cause of diseases classified elsewhere; J98.11 Atelectasis; E66.01 Morbid (severe) obesity due to excess calories; Z68.38 Body mass index [BMI] 38.0-38.9, adult; Z99.11 Dependence on respirator [ventilator] status; Z99.81 Dependence on supplemental oxygen; Z20.822 Contact with and (suspected) exposure to COVID-19; Z79.899 Other long term (current) drug therapy
CPT/HCPCS: 36415; 36600; 71045; 71250; 71275; 74018; 76705; 80048; 80053; 80202; 81001; 81003; 82040; 82306; 82330; 82803; 83605; 83735; 83880; 83970; 84100; 84145; 84443; 84484; 85025; 85379; 85610; 85730; 87040; 87070; 87077; 87086; 87088; 87186; 87205; 87635; 93005; 93306; 93970; 94002; 94003; 94640; 94799; 95860; 95885; 95907; 95909; 97110; 97163; 97167; 97530; 99285; 99291; 99499; C1758; J0295; J0456; J0637; J0690; J0696; J1170; J1200; J1450; J1650; J1940; J1956; J2060; J2185; J2250; J2251; J2543; J3010; J3370; J3371; P9047; Q9957; Q9967

== ENCOUNTER → 2023-01-26 13:11 | Outpatient (BNV) | payer OTHER, SELFPAY | PROVIDERS: Admitting Provider Registered Nurse Community Health; Emergency Provider Emergency Medicine; Visit Provider Internal Medicine Cardiovascular Disease | DX: R06.02 Shortness of breath (principal) | CPT/HCPCS: 93010 ==

== ENCOUNTER 2023-01-26 19:15 | Outpatient (BNV) | payer OTHER, SELFPAY | END 2023-01-27 07:00 | PROVIDERS: Admitting Provider Registered Nurse Community Health; Emergency Provider Emergency Medicine; Visit Provider Internal Medicine Cardiovascular Disease | DX: R06.00 Dyspnea, unspecified (principal) | CPT/HCPCS: 93306 ==

== ENCOUNTER → 2023-01-26 19:15 | Outpatient (BNV) | payer OTHER, SELFPAY | PROVIDERS: Admitting Provider Registered Nurse Community Health; Emergency Provider Emergency Medicine; Visit Provider Internal Medicine Pulmonary Disease | DX: Z93.1 Gastrostomy status (principal); Z93.0 Tracheostomy status; J69.0 Pneumonitis due to inhalation of food and vomit; Z99.11 Dependence on respirator [ventilator] status; R13.10 Dysphagia, unspecified; J96.21 Acute and chronic respiratory failure with hypoxia; J96.22 Acute and chronic respiratory failure with hypercapnia; G71.00 Muscular dystrophy, unspecified | CPT/HCPCS: 31500; 99291 ==

== ENCOUNTER → 2023-01-26 19:15 | Outpatient (BNV) | payer OTHER, SELFPAY | PROVIDERS: Admitting Provider Registered Nurse Community Health; Emergency Provider Emergency Medicine; Visit Provider Registered Nurse Community Health | DX: J96.21 Acute and chronic respiratory failure with hypoxia (principal); J96.22 Acute and chronic respiratory failure with hypercapnia; Z99.11 Dependence on respirator [ventilator] status; J69.0 Pneumonitis due to inhalation of food and vomit; N39.0 Urinary tract infection, site not specified; Z93.0 Tracheostomy status; Z93.1 Gastrostomy status; R13.10 Dysphagia, unspecified; G71.00 Muscular dystrophy, unspecified; J81.1 Chronic pulmonary edema; J18.9 Pneumonia, unspecified organism; J96.90 Respiratory failure, unspecified, unspecified whether with hypoxia or hypercapnia | CPT/HCPCS: 36556; 99239; 99291 ==

== ENCOUNTER → 2023-01-26 19:15 | Outpatient (BNV) | payer OTHER, SELFPAY | PROVIDERS: Admitting Provider Registered Nurse Community Health; Emergency Provider Emergency Medicine; PCP Internal Medicine; Visit Provider Physical Medicine & Rehabilitation | DX: F82 Specific developmental disorder of motor function (principal) | CPT/HCPCS: 95885; 95909 ==

== ENCOUNTER → 2023-01-26 19:15 | Outpatient (BNV) | payer OTHER, SELFPAY | PROVIDERS: Admitting Provider Registered Nurse Community Health; Emergency Provider Emergency Medicine; PCP Internal Medicine; Visit Provider Surgery | DX: J69.0 Pneumonitis due to inhalation of food and vomit (principal); Z99.11 Dependence on respirator [ventilator] status | CPT/HCPCS: 31600; 43246; 99024; 99233; 99499 ==